=== PATIENT | female | born 1940 | race Caucasian/White ===

== ENCOUNTER 2020-03-29 17:02 | Emergency (ER) | payer MEDICARE, OTHER, SELFPAY ==
[2020-03-29] VITALS (17 sets, daily range): BP systolic 132–217; BP diastolic 69–123; PULSE 48–67; RESP 14–22; TEMP 36.6; O2SAT 94–99; BMI 29.8
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
[2020-03-29] MEDS: fentaNYL 50 mcg/mL INJ 2mL IVP (17:42)
[2020-03-29] MEDS: ondansetron 2 mg/ML SDV 2 mL 4 MG IVP (17:42)
[2020-03-29] MEDS: tetanus-dipt-pertussis 0.5 mL SDV IM (17:45)
[2020-03-29] MEDS: iodixanol 320 mg/mL 100mL Btl IV (17:55)
[2020-03-29 18:36] LABS: Basophils % 0.3 %; Eosinophils # 0.1 10^3/uL (0.0-0.8); Hematocrit 48.7 % (37.0-47.0); Hemoglobin 15.2 g/dL (11.5-15.3); Lymphocytes # 1.5 10^3/uL (0.8-4.8); Lymphocytes % 12.3 %; Mean Corpuscular HGB Conc 31.2 g/dL (30.0-36.0); Mean Corpuscular Hemoglobin 28.7 pg (28.0-34.0); Mean Corpuscular Volume 91.9 fL (81-99); Mean Platelet Volume 9.8 fL (7.4-10.4); Monocytes # 0.9 10^3/uL (0.2-0.9); Monocytes % 7.4 %; Neutrophils # 9.6 10^3/uL (1.8-7.7); Neutrophils % 78.3 %; Nucleated Red Blood Cells % 0 %; Platelet Count 171 10^3/cmm (130-400); Red Cell Distribution Width 13.1 % (12.1-15.1); White Blood Count 12.2 10^3/uL (4.0-10.0)
[2020-03-29 18:38] LABS: Add Urine Microscopic? NO
[2020-03-29 18:50] LABS: Bilirubin Urine Neg (NEGATIVE); Blood Urine Neg (Negative); Glucose Urine UA Norm (Normal); Ketones Urine Negative (Negative); Leukocyte Esterase Urine Negative (Negative); Nitrate Urine Negative (Negative); Protein Urine Neg (Negative); Specific Gravity, Urine 1.005 (1.005-1.030); Urine Appearance Clear (CLEAR); Urine Color Yellow (Yellow); Urobilinogen Urine Norm (Negative); pH Urine 6.5 (5-7)
[2020-03-29 18:58] LABS: Alanine Aminotransferase 19 U/L (0-33); Albumin Level 4.3 g/dL (3.5-5.2); Alkaline Phosphatase 71 IU/L (35-105); Anion Gap 15.9 (5-19); Blood Urea Nitrogen 22 mg/dL (8-23); Calcium 10.8 mg/dL (8.5-10.5); Carbon Dioxide 21 mmol/L (22-29); Chloride 103 mmol/L (98-107); Globulin 2.7 g/dL (1.3-4.6); Glucose 105 mg/dL (65-115); Osmolality Calculated 277 mOsm/kg (285-295); Potassium 4.9 mmol/L (3.5-5.1); Sodium 135 mmol/L (136-145); Total Bilirubin 0.5 mg/dL (0.15-1.2)
--- NOTE | 2020-03-29 18:59 | PC.NURSE ---
Gave bedside report to Shanika. Answered all questions.
[2020-03-29 19:02] LABS: Aspartate Amino Transferase 27 U/L (0-32)
[2020-03-29] MEDS: HYDROmorphone 1 mg/mL INJ 1 mL IVP (21:16)
== END 2020-03-29 23:26 | disposition other institution (70) ==
PROVIDERS: Family Medicine; Emergency Provider Emergency Medicine; PCP Family Medicine
DX: S22.22XA Fracture of body of sternum, initial encounter for closed fracture (principal); S02.5XXA Fracture of tooth (traumatic), initial encounter for closed fracture; V47.5XXA Car driver injured in collision with fixed or stationary object in traffic accident, initial encounter; I48.91 Unspecified atrial fibrillation; Z09 Encounter for follow-up examination after completed treatment for conditions other than malignant neoplasm; Z86.73 Personal history of transient ischemic attack (TIA), and cerebral infarction without residual deficits; E78.5 Hyperlipidemia, unspecified; I10 Essential (primary) hypertension; Z23 Encounter for immunization
CPT/HCPCS: 12345; 36415; 51702; 70450; 70486; 71260; 72125; 80053; 81003; 85025; 90471; 90715; 96374; 96375; 99283; 99285; J1170; J2405; J3010; Q9967

== ENCOUNTER 2020-05-29 16:10 | Emergency (ER) | payer MEDICARE, OTHER, SELFPAY ==
[2020-05-29 16:18] VITALS: BP 171/91; PULSE 70; RESP 18; TEMP 36.8; O2SAT 96; BMI 29.0
--- NOTE | 2020-05-29 17:30 | ECG_ITS ---
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 Measurements Intervals Patterson Rate: 60 P: 64 NJ: 147 QRS: 10 QRSD: 88 T: 30 QT: 420 QTc: 422 Interpretive Statements SINUS RHYTHM WITH SINUS ARRHYTHMIA POSSIBLE INFERIOR MYOCARDIAL INFARCTION , PROBABLY OLD [30 ms Q WAVE IN II/aVF] Compared to ECG 10/23/2018 01:27:44 Myocardial infarct finding now present Electronically Signed On 05-30-2020 19:16:00 CDT by Dolly Tripp M.D. [id number]
--- NOTE | 2020-05-29 17:30 | CTR_ITS ---
PROCEDURE INFORMATION: Exam: CT Head Without Contrast Exam date and time: 05/29/2020 5:33 PM Age: 80 years old Clinical indication: Numbness / parasthesia; Left; Additional info: TIA TECHNIQUE: Imaging protocol: Computed tomography of the head without contrast. Radiation optimization: All CT scans at this facility use at least one of these dose optimization techniques: automated exposure control; mA and/or kV adjustment per patient size (includes targeted exams where dose is matched to clinical indication); or iterative reconstruction. COMPARISON: CT head wo con* [id number] 03/29/2020 5:42 PM FINDINGS: Brain: [id number] generalized cerebral and cerebellar atrophy, unchanged. Chronic left basal ganglion region lacunar infarctions, unchanged. Probable small pontine lacunar infarction, unchanged. Moderate amount of cerebral hemisphere subcortical and periventricular white matter low-density which appears chronic and unchanged. 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 The right frontal region hygroma now contains some higher density blood but has not significantly enlarged and again there is no significant mass effect. Ventricles: Normal. No ventriculomegaly. Bones/joints: Unremarkable. No acute fracture. Sinuses: Visualized sinuses are unremarkable. No fluid levels. Mastoid air cells: Visualized mastoid air cells are well aerated. Soft tissues: Unremarkable. 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 The right frontal region hygroma now contains some higher density blood but has not significantly enlarged and again there is no significant mass effect. 2.) Atrophy and old lacunar disease, unchanged. Radiation Dose CTDIVOL = (mGy): DLP = 689.11 (mGy-cm)
[2020-05-29 17:43] LABS: Basophils # 0.1 10^3/uL (0.0-0.1); Basophils % 0.5 %; Eosinophils # 0.3 10^3/uL (0.0-0.8); Eosinophils % 3.2 %; Hematocrit 46.3 % (37.0-47.0); Hemoglobin 14.7 g/dL (11.5-15.3); Lymphocytes # 2.1 10^3/uL (0.8-4.8); Mean Corpuscular HGB Conc 31.7 g/dL (30.0-36.0); Mean Corpuscular Hemoglobin 27.5 pg (28.0-34.0); Mean Corpuscular Volume 86.5 fL (81-99); Mean Platelet Volume 9.7 fL (7.4-10.4); Monocytes # 0.9 10^3/uL (0.2-0.9); Monocytes % 9.3 %; Neutrophils # 5.93 10^3/uL (1.8-7.7); Neutrophils % 63.7 %; Nucleated Red Blood Cells % 0 %; Platelet Count 233 10^3/cmm (130-400); Red Blood Count 5.35 10^6/uL (4.1-5.3); Red Cell Distribution Width 13.2 % (12.1-15.1); White Blood Count 9.3 10^3/uL (4.0-10.0)
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
[2020-05-29 18:03] VITALS: BP 155/88; PULSE 66; RESP 18; O2SAT 97
[2020-05-29 18:03] LABS: Alanine Aminotransferase 16 U/L (0-33); Albumin Level 4.2 g/dL (3.5-5.2); Alkaline Phosphatase 93 IU/L (35-105); Anion Gap 15.4 (5-19); Aspartate Amino Transferase 19 U/L (0-32); Blood Urea Nitrogen 20 mg/dL (8-23); Calcium 10.6 mg/dL (8.5-10.5); Carbon Dioxide 23 mmol/L (22-29); Chloride 106 mmol/L (98-107); Globulin 2.8 g/dL (1.3-4.6); Glucose 114 mg/dL (65-115); Osmolality Calculated 287 mOsm/kg (285-295); Potassium 4.4 mmol/L (3.5-5.1); Sodium 140 mmol/L (136-145); Total Bilirubin 0.3 mg/dL (0.15-1.2)
[2020-05-29 18:05] LABS: Add Urine Microscopic? NO
[2020-05-29 18:31] LABS: Urine Appearance Clear (CLEAR); Urine Color Yellow (Yellow); pH Urine 8 (5-7)
[2020-05-29 18:32] LABS: Bilirubin Urine Neg (NEGATIVE); Blood Urine Neg (Negative); Glucose Urine UA Norm (Normal); Ketones Urine Negative (Negative); Leukocyte Esterase Urine Negative (Negative); Nitrate Urine Negative (Negative); Protein Urine Neg (Negative); Urobilinogen Urine Norm (Negative)
[2020-05-29 20:31] VITALS: BP 143/79; PULSE 54; RESP 16; O2SAT 98
[2020-05-29 21:30] VITALS: BP 164/90; PULSE 68; RESP 20; O2SAT 95
[2020-05-29 22:30] VITALS: BP 144/87; PULSE 63; RESP 13; O2SAT 96
[2020-05-29 23:38] VITALS: BP 139/82; PULSE 63; RESP 19; O2SAT 96
[2020-05-30] VITALS (10 sets, daily range): BP systolic 100–161; BP diastolic 60–118; PULSE 52–79; RESP 16–22; O2SAT 95–99
--- NOTE | 2020-05-30 00:32 | PC.NURSE ---
pt daughter [phone]
--- NOTE | 2020-05-30 03:26 | PC.NURSE ---
Pt ambulated to bathroom with walker with ED staff assistance
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
--- NOTE | 2020-05-30 05:14 | PC.NURSE ---
Per Dr Hare, pt still wishes to wait for a bed @ [facility]
--- NOTE | 2020-05-30 06:07 | PC.NURSE ---
Pt ambulated to bathroom with walker with ED staff assistance
[2020-05-30] MEDS: spironolactone 25 mg Tablet PO (08:38)
--- NOTE | 2020-05-30 09:07 | PC.NURSE ---
[facility] single line referral spoke with Angelika at 0904 who stated they did not have a bed available for the patient at this time due to pending discharges and 28 patients of their own ER awaiting room placement as well.
== END 2020-05-30 13:20 | disposition other institution (70) ==
PROVIDERS: Emergency Provider Emergency Medicine; PCP Family Medicine
DX: R20.0 Anesthesia of skin (principal); H53.8 Other visual disturbances; Z79.82 Long term (current) use of aspirin; I48.91 Unspecified atrial fibrillation; Z86.73 Personal history of transient ischemic attack (TIA), and cerebral infarction without residual deficits; E78.5 Hyperlipidemia, unspecified; I10 Essential (primary) hypertension
CPT/HCPCS: 12345; 70450; 80053; 81003; 85025; 93005; 96374; 99283; 99285; J0131

== ENCOUNTER 2020-07-04 15:05 | Outpatient (CLI) | payer MEDICARE, OTHER, SELFPAY ==
--- NOTE | 2020-07-04 15:14 | CT_ITS ---
WS: [id number] CT HEAD TECHNIQUE: Noncontrast CT of the head obtained from the skullbase to the vertex. CLINICAL INFORMATION: SUBDURAL HEMATOMA COMPARISON: CT May 29, 2020 DLP: 925.[address] scans at [facility] use at least one of these dose optimization techniques: automat ed exposure control; mA and/or kV adjustment per patient size (includes targeted exams where dose is matched to clinical indication); or iterative reconstruction. FINDINGS: Previously described acute on chronic right subdural hematoma has essentially resolved. Tiny amount o f residual blood products in the right. No new or progressive hemorrhage. Stable small bilateral fron mari subdural hygromas. No mass effect. No hydrocephalus. Moderate to advanced small vessel changes. Chronic lacunar infarcts in the basal ganglia and caudate. Chronic lacunar infarcts in the leslie. Incidental cavum septum pellucidum and vergae. Paranasal sinuses and mastoid air cells are well aerated. . Mild mucosal thickening right mastoid air cells. CT/CT head wo con* [id number] IMPRESSION: 1. Previously described acute on chronic right subdural hematoma has essential ly resolved. Tiny trace of resolving subdural blood products. 2. Otherwise stable bilateral subdural hygromas. 3. Moderate to advanced small vessel changes with moderate parenchymal volume loss. 4. Multiple chronic lacunar infarcts described above. .
== END 2020-07-04 15:06 | disposition home or self-care (01) ==
LOC: RADWPI 15:11
PROVIDERS: Family Provider Family Medicine; PCP Family Medicine; Visit Provider Neurological Surgery
DX: S06.5X9A Traumatic subdural hemorrhage with loss of consciousness of unspecified duration, initial encounter (principal); X58.XXXA Exposure to other specified factors, initial encounter; G96.0 Cerebrospinal fluid leak
CPT/HCPCS: 70450

== ENCOUNTER → 2021-02-05 13:29 | Outpatient (BNVA) | payer MEDICARE, OTHER, SELFPAY | PROVIDERS: Family Provider Family Medicine; PCP Family Medicine; Visit Provider Nurse Practitioner Family | DX: Z20.822 Contact with and (suspected) exposure to COVID-19 (principal) | CPT/HCPCS: 87635 ==

== ENCOUNTER 2021-06-29 14:25 | Outpatient (CLI) | payer MEDICARE, OTHER, SELFPAY ==
[2021-06-29 15:36] LABS: Basophils # 0.1 10^3/uL (0.0-0.1); Basophils % 0.9 %; Eosinophils # 0.2 10^3/uL (0.0-0.8); Eosinophils % 3.7 %; Hematocrit 47.3 % (37.0-47.0); Hemoglobin 15.3 g/dL (11.5-15.3); Lymphocytes # 1.9 10^3/uL (0.8-4.8); Lymphocytes % 29.4 %; Mean Corpuscular HGB Conc 32.3 g/dL (30.0-36.0); Mean Corpuscular Volume 86.6 fl (81-99); Mean Platelet Volume 9.8 fL (7.4-10.4); Monocytes # 0.7 10^3/uL (0.2-0.9); Monocytes % 10.9 %; Neutrophils # 3.57 10^3/uL (1.8-7.7); Neutrophils % 54.9 %; Nucleated Red Blood Cells % 0 %; Platelet Count 210 10^3/cmm (130-400); Red Blood Count 5.46 10^6/uL (4.1-5.3); Red Cell Distribution Width 13.4 % (12.1-15.1); White Blood Count 6.5 10^3/uL (4.0-10.0)
[2021-06-29 16:10] LABS: Alanine Aminotransferase 14 U/L (0-33); Albumin Level 3.9 g/dL (3.5-5.2); Alkaline Phosphatase 73 IU/L (35-105); Aspartate Amino Transferase 18 U/L (0-32); Blood Urea Nitrogen 23 mg/dL (8-23); Calcium 9.7 mg/dL (8.5-10.5); Carbon Dioxide 21 mmol/L (22-29); Chloride 106 mmol/L (98-107); Globulin 2.8 g/dL (1.3-4.6); Glucose 89 mg/dL (65-115); Osmolality Calculated 289 mOsm/kg (285-295); Sodium 138 mmol/L (136-145); Total Bilirubin 0.4 mg/dL (0.15-1.2); Total Protein 6.7 g/dL (6.6-8.7)
[2021-06-29 16:36] LABS: Hepatitis A Antibody IgM Non-Reactive (Nonreactive); Hepatitis B Core AB, Total Non-Reactive (Nonreactive); Hepatitis B Surface AB 3.5 (11.5-1000); Hepatitis B Surface Antigen Non-Reactive (Nonreactive); Hepatitis C Virus Antibody Non-Reactive (Nonreactive)
[2021-06-29 17:11] LABS: HIV 1 & 2 Antibody Non-Reactive (Non-Reactiv); HIV 1 & 2 Antigen Non-Reactive (Non-Reactiv)
[2021-07-03 15:56] LABS: Quantiferon Mitogen >10.00 IU/mL; Quantiferon Nil 0.03 IU/mL; Quantiferon TB Gold NEGATIVE (NEGATIVE)
== END 2021-06-29 14:26 | disposition home or self-care (01) ==
PROVIDERS: PCP Family Medicine; Visit Provider Dermatology
DX: L40.9 Psoriasis, unspecified (principal); Z79.899 Other long term (current) drug therapy
CPT/HCPCS: 36415; 80053; 85025; 86480; 86705; 86706; 86709; 86803; 87340; 87806

== ENCOUNTER → 2022-02-06 14:03 | Outpatient (BNVA) | payer MEDICARE, OTHER, SELFPAY | PROVIDERS: PCP Family Medicine; Visit Provider Internal Medicine Cardiovascular Disease | DX: E78.2 Mixed hyperlipidemia (principal); Z86.73 Personal history of transient ischemic attack (TIA), and cerebral infarction without residual deficits; I10 Essential (primary) hypertension; I49.8 Other specified cardiac arrhythmias | CPT/HCPCS: 99214 ==

== ENCOUNTER 2022-04-27 10:35 | Emergency (ER) | payer MEDICARE, OTHER, SELFPAY ==
[2022-04-27] VITALS (7 sets, daily range): BP systolic 135–241; BP diastolic 72–101; PULSE 55–76; RESP 15–18; TEMP 36.6; O2SAT 95–99; BMI 29.0
--- NOTE | 2022-04-27 10:58 | ED_ITS ---
HPI - General Adult General: Chief complaint: General Medical Stated complaint: sent to ER per Louis Barrera/possible stroke Time Seen by Provider: 04/27/22 10:56 Source: patient and family (Daughter) Mode of arrival: ambulatory Limitations: no limitations History of Present Illness: This patient was directed to the emergency department from local urgent care clinic. She states that sometime around 8:00 or thereabouts yesterday morning she noted her right hand seem to feel funny and like it was asleep. She states it felt as if she had lied on her hand or arm all night. She had been up for period of time when she noted this. She also noted that her back right backside of her lower leg had the same sensation. She states the symptoms have persisted since she has noted them yesterday morning. She stated that she has had no weakness she is able to do all the normal things she does without any difficulty. There is been no speech difficulty. She has had no headache or pain anywhere. She has history of having several small nonhemorrhagic strokes according to her the last one approximately 1 year ago. He states she was left with some memory deficits but that has has improved somewhat. She denies any recent injuries falls or trauma. She states she does not take any blood thinning medication or antiplatelet medication including aspirin. It is unclear why she is not. She states she did take Eliquis for period of time after her event last year but does not take it anymore. She does relate that she has a history of atrial fibrillation which is intermittent at times. She also has high blood pressure and she states she has been following her blood pressure under the direction of cardiology and is noted its been elevated recently but has not made any change in her medications. She denies any other constitutional complaints at this time fevers chills cough runny nose sore throat etc. Onset (ago): day(s) Associated symptoms: Reports no associated symptoms; Deny chest pain, dyspnea, headache(s), nausea, rash, palpitations or vomiting Review of Systems Const: Denies: fever(s) or chills Eyes: Denies: change in vision or blurry vision ENMT: Denies: throat pain, odynophagia, change in hearing or disequilibrium Card: Denies: chest pain, palpitations or irregular heart rhythm Resp: Denies: dyspnea, productive cough or non-productive cough GI: Denies: abdominal pain, nausea or vomiting : Denies: flank pain, difficulty voiding, dysuria or urinary frequency Musc: Denies: neck pain, back pain, extremity pain or extremity swelling Skin/Breast: Denies: rash Neuro: Reports: numbness in extremities and sensory changes; Denies: headache(s), weakness in extremities, lack of coordination, difficulty walking, dizziness, vertigo or Slurred speech present Psych: Denies: anxiety Endo: Denies: polyuria or polydipsia Shawn/Lymph: Reports: easy bruising PFSH ED PFSH: Medical History Arrhythmia Atrial fibrillation CVA (cerebral vascular accident) Hyperlipidemia Hypertension Hyperthyroidism Lumbar radiculopathy Osteoarthritis Psoriasis Raynaud's syndrome Surgical History H/O hernia repair H/O: hysterectomy History of appendectomy History of bladder repair surgery History of knee replacement Hx of cataract extraction Family History Father CAD (coronary artery disease) Stroke Mother CAD (coronary artery disease) Stroke Cancer Family/Other Cancer Daughter Lung disease Other Hyperlipidemia Hypertension Denies family history of Diabetes Clotting disorder Dementia Chronic kidney disease (CKD) Suicide Anesthesia complication Bleeding disorder Social History Smoking and tobacco status: never smoked Alcohol intake: never Physical Exam Narrative: EXAM NARRATIVE: The patient appears to be in no acute distress. She is cooperative. She is alert. Const: COMMON NORMALS: no acute distress, patient oriented x3 and healthy appearing GENERAL APPEARANCE: cooperative HENMT: COMMON NORMALS: normocephalic, atraumatic, Normal nasal mucous membranes and turbinates present and moist oral mucous membranes HEAD & SCALP: normocephalic and atraumatic; no scalp tenderness and no Temporal artery tenderness present FACE & SINUS: normal facial exam and face symmetric NOSE: Normal nasal mucous membranes and turbinates present Eye: COMMON NORMALS: Equal, round and reactive pupils present, EOMs intact bilaterally, conjunctivae normal and normal visual altman by confrontation CONJUNCTIVA: Yes conjunctivae normal PUPIL: Yes Equal, round and reactive pupils present Neck/C-Spine: COMMON NORMALS: full ROM, supple, no JVD, Thyroid normal and No carotid bruits THYROID: Thyroid normal Resp: COMMON NORMALS: normal respiratory effort, No use of accessory muscles and clear to auscultation bilaterally AUSCULTATION: clear to auscultation bilaterally Cardio: COMMON NORMALS: no JVD, regular rate, regular rhythm, No murmurs present (Cardio) and Peripheral pulses 2+ throughout RATE: regular rate RHYTHM: regular rhythm PERIPHERAL PULSES: Peripheral pulses 2+ throughout GI: COMMON NORMALS: Normal to inspection, nondistended, normoactive bowel sounds present, Soft to palpation and non-tender PALPATION: Yes Soft to p alpation Back/Pelvis: COMMON NORMALS: thoracic and lumbar spine normal to inspection, no thoracic nor lumbar tenderness, thoraco-lumbar ROM normal and straight leg raise negative bilaterally Extremity: COMMON NORMALS: normal to inspection, full ROM, capillary refill normal, no clubbing, cyanosis or edema, no calf tenderness and no pedal edema Neuro: COMMON NORMALS: patient oriented x3 CRANIAL NERVES: Yes CN normal except as noted COORDINATION/BALANCE: [id number]-[id number] test normal and barj-sc-[id number] test normal SPEECH: speech normal GAIT: Yes Normal gait present SENSORY EXAM: Yes extremities (Subjective altered sensation to touch right hand as well as the right later) MOTOR EXAM: 5/5 motor strength present throughout COORDINATION: [id number]-[id number] test normal and kjjy-te-pwnl test normal OTHER: My NIH score presentation is currently at 1. Psych: COMMON NORMALS: mental status grossly normal Skin: COMMON NORMALS: no rashes or lesions noted and no wounds GENERAL SKIN EXAM: no rashes or lesions noted Course Reevaluation(s): Reevaluation #1: At this time patient's not a candidate for consideration for thrombolytic therapy given her low NIH score as well as her blood pressure and time since onset. We will going proceed with usual stroke evaluation. Reevaluation #2: Noncontrast CT is reassuring without any evidence of acute hemorrhage or obvious anterior cranial changes at this time. We will go ahead and give her 324 of aspirin. Time: 12:32 Reevaluation #3: Pressure not responsive to po meds. Will initiate nicardipine infusion. Time: 13:22 Additional Reevaluation(s): She has responded well to the nicardipine and her pressure is well controlled we are titrating downward. We will try to determine whether we can transition her to a p.o. calcium channel denis or that she will require further observation. Neurologically she is stable at this point. I think her blood pressure may been a factor in her symptoms over the past 24 hours. Vital Signs: Vital signs: Vital Signs Temperature 97.8 F 04/27/22 10:38 Pulse Rate 60 04/27/22 14:54 Respiratory Rate 18 04/27/22 14:54 Blood Pressure 135/72 04/27/22 14:54 Pulse Oximetry 95 04/27/22 14:54 MDM - General Adult Medical Decision Making Patient had a history of having some paresthesias in her right hand and right lateral leg of greater than 24 hours duration when she presented to the e mergency department. No other focal deficits noted. She does have a history of similar symptoms in the past without any significant deficits. She also has a history of hypertension and has been per her history poorly controlled over the past number of weeks. Her evaluation here revealed a NIH of [address] scan which was reassuring for no acute hemorrhage etc. but did show chronic microvascular changes. She is not a candidate for thrombolytic therapy consideration given the duration of minimal symptoms and uncontrolled hypertension. Her blood pressure remained elevated despite interventions here until a nicardipine drip was used. She responded well to this infusion. She is clinically stable without any ongoing issues. Likely her uncontrolled hypertension is the etiology to her neurologic symptoms. Her preference is to be discharged home at this time. Our plan will be to add amlodipine 5 mg to her regimen of Bystolic. She is already has bradycardic rate so we cannot push her beta-denis any higher. She will be followed up by her doctor in the next 7 to 10 days. We also discussed return precautions. She responded well to the nicardipine without any side effects seen therefore I think it is reasonable to give her a trial on the amlodipine. We will also have her restart her aspirin. She does not take any antiplatelet agents. She is not displayed any evidence of atrial fibrillation while in the emergency department so I do not feel compelled to start her on a DOAC at this time but this will need to be followed. Medical Records I reviewed the patient's medical records. Lab Data I reviewed the patient's lab results. : 04/27/22 13:53 04/27/22 13:[address] 04/27/22 11:15 IMPRESSION: 1. No evidence of hemorrhage or territorial infarct on noncontrast CT. 2. Chronic microvascular ischemic changes and atrophy again noted. Laboratory Results WBC 6.5 10^3/uL (4.0-10.0) 04/27/22 13:53 RBC 5.62 10^6/uL (4.1-5.3) H 04/27/22 13:53 Hgb 15.9 g/dL (11.5-15.3) H 04/27/22 13:53 Hct 46.1 % (37.0-47.0) 04/27/22 13:53 MCV 82.0 fl (81-99) 04/27/22 13:53 MCH 28.3 pg (28.0-34.0) 04/27/22 13:53 MCHC 34.5 g/dL (30.0-36.0) 04/27/22 13:53 RDW 13.4 % (12.1-15.1) 04/27/22 13:53 Plt Count 201 10^3/cmm (130-400) 04/27/22 13:53 MPV 9.9 fL (7.4-10.4) 04/27/22 13:53 Neut % (Auto) 48.7 % 04/27/22 13:53 Lymph % (Auto) 33.8 % 04/27/22 13:53 [place] % (Auto) 11.3 % 04/27/22 13:53 Eos % (Auto) 5.1 % 04/27/22 13:53 Baso % (Auto) 0.9 % 04/27/22 13:53 Neut # (Auto) 3.18 10^3/uL (1.8-7.7) 04/27/22 13:53 Lymph # (Auto) 2.2 10^3/uL (0.8-4.8) 04/27/22 13:53 [place] # (Auto) 0.7 10^3/uL (0.2-0.9) 04/27/22 13:53 Eos # (Auto) 0.3 10^3/uL (0.0-0.8) 04/27/22 13:53 Baso # (Auto) 0.1 10^3/uL (0.0-0.1) 04/27/22 13:53 Nucleated RBC % (auto) 0 % 04/27/22 13:53 Nucleated RBCs # 0.0 /100WBC 04/27/22 13:53 ESR 1 mm/hr (0-15) 04/27/22 13:53 PT 13.50 SECONDS (12.1-14.9) 04/27/22 13:53 INR 1.00 (0.8-1.2) 04/27/22 13:53 APTT 28.5 SECONDS (23.9-36.7) 04/27/22 13:53 Sodium 137 mmol/L (136-145) 04/27/22 13:53 Potassium 4.5 mmol/L (3.5-5.1) 04/27/22 13:53 Chloride 103 mmol/L (98-107) 04/27/22 13:53 Carbon Dioxide 19 mmol/L (22-29) L 04/27/22 13:53 Anion Gap 19.5 (5-19) H 04/27/22 13:53 BUN 15 mg/dL (8-23) 04/27/22 13:53 Creatinine 0.6 mg/dL (0.5-0.9) 04/27/22 13:53 GFR Calculation Not Reportable 04/27/22 13:53 Glucose 90 mg/dL (65-115) 04/27/22 13:53 POC Glucose 98 mg/dL (70-110) 04/27/22 11:23 Calculated Osmolality 284 mOsm/kg (285-295) L 04/27/22 13:53 Calcium 10.2 mg/dL (8.5-10.5) 04/27/22 13:53 Total Bilirubin 0.7 mg/dL (0.15-1.2) 04/27/22 13:53 AST 21 U/L (0-32) 04/27/22 13:53 ALT 15 U/L (0-33) 04/27/22 13:53 Alkaline Phosphatase 88 IU/L (35-105) 04/27/22 13:53 Total Protein 7.4 g/dL (6.6-8.7) 04/27/22 13:53 Albumin 4.0 g/dL (3.5-5.2) 04/27/22 13:53 Globulin 3.4 g/dL (1.3-4.6) 04/27/22 13:53 Urine Color Yellow (Yellow) 04/27/22 11:09 Urine Appearance Clear (CLEAR) 04/27/22 11:09 Urine pH 6 (5-7) 04/27/22 11:09 Ur Specific [place] 1.030 (1.005-1.030) 04/27/22 11:09 Urine Protein Neg (Negative) 04/27/22 11:09 Urine Glucose (UA) Norm (Normal) 04/27/22 11:09 Urine Ketones Negative (Negative) 04/27/22 11:09 Urine Blood Neg (Negative) 04/27/22 11:09 Urine Nitrate Negative (Negative) 04/27/22 11:09 Urine Bilirubin Neg (Negative) 04/27/22 11:09 Urine Urobilinogen Norm mg/dL (Negative) 04/27/22 11:09 Ur Leukocyte Esterase Negative (Negative) 04/27/22 11:09 EKG Data EKG 1: EKG interpretation time: 11:35 Interpretation: She has a ventricular rate of 52 bpm consistent with sinus bradycardia. No ST-T wave changes noted. Normal intervals normal axis. There are Q waves noted on prior EKG and May 2020 are no longer present. Computer generated interpretation: Head CT 04/27/22 11:15 IMPRESSION: 1. No evidence of hemorrhage or territorial infarct on noncontrast CT. 2. Chronic microvascular ischemic changes and atrophy again noted. Discharge Plan Discharge Clinical Impression: Uncontrolled hypertension Condition: Stable Prescriptions: No Action Bystolic 20 mg tablet 20 mg PO QAM 0RF loratadine [Claritin] 10 mg tablet 10 mg PO DAILY PRN (Reason: Allergy Symptoms) 0RF ketoconazole 2 % shampoo 1 applic topical .2 x weekly Qty: 120 3RF Rx Instructions: Lather into scalp 2 times weekly. Allow to sit on scalp for 5 minutes before rinsing. acetaminophen [Tylenol Extra Strength] 500 mg tablet 500 mg PO BEDTIME 0RF Aspir-81 81 mg Tablet,Delayed Release (Dr/Ec) 162 mg PO .ONCE 0RF clobetasol 0.05 % ointment 1 applic topical BID PRN (Reason: unknown) 0RF Rx Instructions: to affected areas on body no more than 3 wks/mo clobetasol 0.05 % solution 1 applic topical DAILY PRN (Reason: unknown) 0RF Rx Instructions: to scalp Humira(CF) Pen 40 mg/0.4 mL pen injector kit 40 mg SUBCUT Q14D 0RF Referrals: Wilson Garcia MD [Primary Care Provider] - 2 weeks (follow up on uncontrolled hypertension) Coding Level of Care Code ED Medical Screener for Chg Fwd Exam Comprehensive
--- NOTE | 2022-04-27 11:15 | ECG_ITS ---
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 Measurements Intervals [place] Rate: 52 P: 61 WI: 155 QRS: 66 QRSD: 94 T: 55 QT: 458 QTc: 428 Interpretive Statements SINUS BRADYCARDIA Poor R wave progression Compared to ECG 05/29/2020 17:59:26 Sinus rhythm no longer present Sinus arrhythmia no longer present Myocardial infarct finding no longer present Electronically Signed On 04-27-2022 19:02:49 CDT by Rickie Walton M.D. [email or web address]
--- NOTE | 2022-04-27 11:15 | CTR_ITS ---
PROCEDURE INFORMATION: Exam: CT Head Without Contrast Exam date and time: 04/27/2022 11:37 AM Age: 82 years old Clinical indication: Weakness, extremity; Right; Additional info: Symptoms of acute stroke TECHNIQUE: Imaging protocol: Computed tomography of the head without contrast. Radiation optimization: All CT scans at this facility use at least one of these dose optimization techniques: automated exposure control; mA and/or kV adjustment per patient size (includes targeted exams where dose is matched to clinical indication); or iterative reconstruction. COMPARISON: CT head wo con* [id number] 07/04/2020 3:57 PM RADIATION DOSE METRICS: Total DLP (mGy-cm): 692.92 FINDINGS: Brain: No intracranial hemorrhage. Age related cerebral and cerebellar atrophy again noted. There is again extensive patchy decreased attenuation of the periventricular white matter, nonspecific but consistent with chronic microvascular ischemia. There are several chronic subcentimeter lacunar infarcts within the left basal ganglia as well as right leslie, unchanged. No evidence of territorial infarct. No abnormal mass effect or midline shift. Small bilateral frontal hygromas are unchanged. Cerebral ventricles: Cavum septum pellucidum et vergae. No hydrocephalus. Paranasal sinuses: Visualized sinuses are unremarkable. No fluid levels. Mastoid air cells: Visualized mastoid air cells are well aerated. Bones/joints: No acute fracture. Soft tissues: Unremarkable. CT/CT head wo con* [id number] IMPRESSION: 1. No evidence of hemorrhage or territorial infarct on noncontrast CT. 2. Chronic microvascular ischemic changes and atrophy again noted.
[2022-04-27 11:32] LABS: Glucose Point of Care 98 mg/dL (70-110)
[2022-04-27 11:35] LABS: Add Urine Microscopic? NO; Charge for UA Resulting for Rev
[2022-04-27 11:57] LABS: Urine Appearance Clear (CLEAR); Urine Color Yellow (Yellow)
[2022-04-27 11:58] LABS: Bilirubin Urine Neg (Negative); Blood Urine Neg (Negative); Glucose Urine UA Norm (Normal); Ketones Urine Negative (Negative); Leukocyte Esterase Urine Negative (Negative); Nitrate Urine Negative (Negative); Protein Urine Neg (Negative); Urobilinogen Urine Norm (Negative); pH Urine 6 (5-7)
[2022-04-27] MEDS: aspirin 81 mg Chew Tablet 324 MG PO (12:46)
[2022-04-27] MEDS: cloNIDine 0.1 mg Tablet PO (13:02)
[2022-04-27] MEDS: nicardipine 20 MG/200 ML PREMIX 50 MG IV (13:40)
[2022-04-27 14:02] LABS: Basophils # 0.1 10^3/uL (0.0-0.1); Basophils % 0.9 %; Eosinophils # 0.3 10^3/uL (0.0-0.8); Eosinophils % 5.1 %; Hematocrit 46.1 % (37.0-47.0); Hemoglobin 15.9 g/dL (11.5-15.3); Lymphocytes # 2.2 10^3/uL (0.8-4.8); Lymphocytes % 33.8 %; Mean Corpuscular HGB Conc 34.5 g/dL (30.0-36.0); Mean Corpuscular Hemoglobin 28.3 pg (28.0-34.0); Mean Platelet Volume 9.9 fL (7.4-10.4); Monocytes # 0.7 10^3/uL (0.2-0.9); Monocytes % 11.3 %; Neutrophils # 3.18 10^3/uL (1.8-7.7); Neutrophils % 48.7 %; Nucleated Red Blood Cells % 0 %; Platelet Count 201 10^3/cmm (130-400); Red Blood Count 5.62 10^6/uL (4.1-5.3); Red Cell Distribution Width 13.4 % (12.1-15.1); White Blood Count 6.5 10^3/uL (4.0-10.0)
[2022-04-27 14:07] LABS: Erythrocyte Sedimentation Rate 1 mm/hr (0-15)
[2022-04-27 14:25] LABS: Partial Thromboplastin Time 28.5 SECONDS (23.9-36.7)
[2022-04-27 14:34] LABS: Alanine Aminotransferase 15 U/L (0-33); Alkaline Phosphatase 88 IU/L (35-105); Anion Gap 19.5 (5-19); Aspartate Amino Transferase 21 U/L (0-32); Blood Urea Nitrogen 15 mg/dL (8-23); Calcium 10.2 mg/dL (8.5-10.5); Carbon Dioxide 19 mmol/L (22-29); Chloride 103 mmol/L (98-107); Globulin 3.4 g/dL (1.3-4.6); Glucose 90 mg/dL (65-115); Osmolality Calculated 284 mOsm/kg (285-295); Potassium 4.5 mmol/L (3.5-5.1); Sodium 137 mmol/L (136-145); Total Bilirubin 0.7 mg/dL (0.15-1.2); Total Protein 7.4 g/dL (6.6-8.7)
[2022-04-27] MEDS: amlodipine 5 mg Tablet PO (14:43)
--- NOTE | 2022-04-27 14:45 | PC.NURSE ---
Cardene was stopped at 1440 and amlodipine was given BP was 129/79
== END 2022-04-27 15:35 | disposition home or self-care (01) ==
PROVIDERS: Emergency Provider Emergency Medicine; PCP Family Medicine
DX: I10 Essential (primary) hypertension (principal); R20.0 Anesthesia of skin; I48.91 Unspecified atrial fibrillation; Z86.73 Personal history of transient ischemic attack (TIA), and cerebral infarction without residual deficits
CPT/HCPCS: 36415; 36416; 70450; 80053; 81003; 82962; 85025; 85610; 85651; 85730; 93005; 96374; 99285

== ENCOUNTER 2022-05-14 19:23 | Emergency (ER) | payer MEDICARE, OTHER, SELFPAY ==
--- NOTE | 2022-05-14 19:25 | XRR_ITS ---
PROCEDURE INFORMATION: Exam: XR Chest Exam date and time: 05/14/2022 7:57 PM Age: 82 years old Clinical indication: Shortness of breath; Patient HX: C/O SOB. Covid + TECHNIQUE: Imaging protocol: Radiologic exam of the chest. Views: 1 view. COMPARISON: CT chest w con* [id number] 03/29/2020 5:51 PM FINDINGS: Lungs: Changes of emphysema. No consolidation. Pleural spaces: Unremarkable. No pleural effusion. No pneumothorax. Heart/Mediastinum: Unremarkable. No cardiomegaly. Vasculature: Tortuous thoracic aorta. Bones/joints: Unremarkable. XR/XR chest 1V portable [id number] IMPRESSION: No acute findings.
[2022-05-14 19:38] VITALS: BP 120/77; PULSE 60; RESP 22; TEMP 37.1; O2SAT 94; BMI 28.2
[2022-05-14 20:01] VITALS: BP 144/72; PULSE 61; RESP 18; O2SAT 95
[2022-05-14] MEDS: albuterol 8 gm MDI 2 PUFF INHALATION (20:03)
[2022-05-14] MEDS: ipratropium-albuterol 3 mL Neb INHALATION (20:03)
[2022-05-14 20:05] VITALS: PULSE 54; RESP 16; O2SAT 94
--- NOTE | 2022-05-14 20:07 | W.ED.SOB ---
HPI - SOB/Dyspnea General: Chief Complaint: Shortness of Breath/Dyspnea Stated Complaint: COVID+ SOB/cough Time Seen by Provider: 05/14/22 19:43 Source: patient Mode of arrival: ambulatory Limitations: no limitations History of Present Illness: HPI Narrative: 82-year-old female states she been having a cough along with some mild dyspnea over the last 4 to 5 days. She has been also having some generalized fatigue. She states she was seen in urgent care today and did have a positive COVID. She states that her family wanted her to come to the ER to get checked out. She states that she is able to ambulate with minimal dyspnea her room air oxygen here is 95%. She denies any fevers. States she has had a dry cough and fatigue. Denies any chest pain or vomiting Associated symptoms: Deny abdominal pain, chest pain, fever(s), nausea or vomiting Review of Systems Const: Denies: fever(s), chills, body aches or change in appetite Eyes: Denies: blurry vision or eye discomfort ENMT: Denies: throat pain or dental pain Card: Denies: chest pain Resp: Reports: dyspnea and non-productive cough GI: Denies: abdominal pain, nausea, vomiting or diarrhea : Denies: dysuria Musc: Denies: neck pain or back pain Skin/Breast: Denies: rash Neuro: Denies: headache(s) Psych: Denies: depression Shawn/Lymph: Denies: easy bruising All/Imm: Denies: urticaria PFSH ED PFSH: Medical History Arrhythmia Atrial fibrillation CVA (cerebral vascular accident) Hyperlipidemia Hypertension Hyperthyroidism Lumbar radiculopathy Osteoarthritis Psoriasis Raynaud's syndrome Surgical History H/O hernia repair H/O: hysterectomy History of appendectomy History of bladder repair surgery History of knee replacement Hx of cataract extraction Family History Father CAD (coronary artery disease) Stroke Mother CAD (coronary artery disease) Stroke Cancer Family/Other Cancer Daughter Lung disease Other Hyperlipidemia Hypertension Denies family history of Diabetes Clotting disorder Dementia Chronic kidney disease (CKD) Suicide Anesthesia complication Bleeding disorder Social History Smoking and tobacco status: never smoked Alcohol intake: never Physical Exam Const: COMMON NORMALS: no acute distress, patient oriented x3 and healthy appearing HENMT: COMMON NORMALS: normocephalic and atraumatic HEAD & SCALP: normocephalic and atraumatic Eye: COMMON NORMALS: Equal, round and reactive pupils present and EOMs intact bilaterally PUPIL: Yes Equal, round and reactive pupils present Neck/C-Spine: COMMON NORMALS: full ROM and supple Chest: COMMONS NORMALS: normal inspection of the chest and normal palpation of entire chest wall Resp: COMMON NORMALS: normal respiratory effort, No retractions, No use of accessory muscles and clear to auscultation bilaterally AUSCULTATION: clear to auscultation bilaterally Cardio: COMMON NORMALS: regular rate, regular rhythm and No murmurs present (Cardio) RATE: regular rate RHYTHM: regular rhythm GI: COMMON NORMALS: Normal to inspection, nondistended, normoactive bowel sounds present, Soft to palpation, non-tender and no masses PALPATION: Yes Soft to palpation Extremity: COMMON NORMALS: normal to inspection and full ROM Neuro: COMMON NORMALS: patient oriented x3, moves all extremities and no focal motor deficits Psych: COMMON NORMALS: mental status grossly normal, Normal thought process present and cooperative THOUGHT PROCESS: Normal thought process present Skin: COMMON NORMALS: no rashes or lesions noted and no wounds GENERAL SKIN EXAM: no rashes or lesions noted Course Vital Signs: Vital signs: Vital Signs Temperature 98.7 F 05/14/22 19:38 Pulse Rate 61 05/14/22 20:13 Respiratory Rate 16 05/14/22 20:05 Blood Pressure 144/72 05/14/22 20:01 Pulse Oximetry 94 05/14/22 20:05 MDM - SOB/Dyspnea Medical Decision Making Patient presents here with cough slight dyspnea she is not hypoxic here her x-ray is clear likely from her COVID-pneumonia. She has no signs of pulmonary embolism no chest pain she is stable for discharge did give her Decadron and breathing treatment she is to follow-up with her PCP and return if worsening she understands agrees to plan. Lab Data Labs/Radiology: Radiology Impressions Chest X-Ray 05/14/22 19:25 IMPRESSION: No acute findings. Discharge Plan Discharge Patient Disposition: Home Clinical Impression: COVID-19 Condition: Stable Prescriptions: New albuterol sulfate 90 mcg/actuation HFA aerosol inhaler 2 inh INHALATION Q6H PRN (Reason: shortness of breath or wheezing) Qty: 8 0RF No Action Bystolic 20 mg tablet 20 mg PO QAM 0RF loratadine [Claritin] 10 mg tablet 10 mg PO DAILY PRN (Reason: Allergy Symptoms) 0RF ketoconazole 2 % shampoo 1 applic topical .2 x weekly Qty: 120 3RF Rx Instructions: Lather into scalp 2 times weekly. Allow to sit on scalp for 5 minutes before rinsing. acetaminophen [Tylenol Extra Strength] 500 mg tablet 500 mg PO BEDTIME 0RF Aspir-81 81 mg Tablet,Delayed Release (Dr/Ec) 162 mg PO .ONCE 0RF clobetasol 0.05 % ointment 1 applic topical BID PRN (Reason: unknown) 0RF Rx Instructions: to affected areas on body no more than 3 wks/mo clobetasol 0.05 % solution 1 applic topical DAILY PRN (Reason: unknown) 0RF Rx Instructions: to scalp Humira(CF) Pen 40 mg/0.4 mL pen injector kit 40 mg SUBCUT Q14D 0RF amlodipine 5 mg tablet 5 mg PO BEDTIME Qty: 30 0RF Discharge Orders: Discharge ED (Routine); Ordered 05/14/22 Ordered By: Alyx Mansfield Referrals: Wilson Garcia MD [Primary Care Provider] - 1-3 days Discharge Diet: Advance as tolerated Discharge Activity: Resume usual activity Patient Instructions: COVID-19 (Coronavirus Disease 2019) (ED) Coding Level of Care Code ED Grinder Operator Surface Tool for Chg Fwd Exam Comprehensive
[2022-05-14 20:13] VITALS: PULSE 61
[2022-05-14] MEDS: dexamethasone 10 mg/mL INJ IM (20:23)
[2022-05-14] MEDS: lidocaine 2% viscous 15 ML, aluminum-mag hydrox-simethicon 30 ML, sucralfate oral liq 1 GM PO (20:31)
[2022-05-14 20:49] VITALS: BP 149/87; PULSE 72; RESP 18; O2SAT 92
== END 2022-05-14 20:50 | disposition home or self-care (01) ==
PROVIDERS: Emergency Provider Emergency Medicine; PCP Family Medicine
DX: U07.1 COVID-19 (principal); Z79.82 Long term (current) use of aspirin; Z79.4 Long term (current) use of insulin; Z86.73 Personal history of transient ischemic attack (TIA), and cerebral infarction without residual deficits; E78.5 Hyperlipidemia, unspecified; I10 Essential (primary) hypertension
CPT/HCPCS: 71045; 94640; 96372; 99284; J1100; J3535

== ENCOUNTER → 2022-08-08 14:08 | Outpatient (BNVA) | payer MEDICARE, OTHER, SELFPAY | PROVIDERS: PCP Family Medicine; Visit Provider Nurse Practitioner Family | DX: I10 Essential (primary) hypertension (principal); Z86.73 Personal history of transient ischemic attack (TIA), and cerebral infarction without residual deficits | CPT/HCPCS: 99213 ==

== ENCOUNTER 2022-08-16 09:46 | Inpatient (IN) | payer MEDICARE, OTHER, SELFPAY ==
[2022-08-16] VITALS (35 sets, daily range): BP systolic 101–187; BP diastolic 54–149; PULSE 58–75; RESP 15–31; TEMP 36.1–37.7; O2SAT 93–100; BMI 26.6
--- NOTE | 2022-08-16 09:49 | XR_ITS ---
WS: [id number] Exam: XR hip LT 2-3V wo/w pel* [id number] Date/Time of Exam: 08/16/2022 9:49 AM Reason For Exam: fall, pain There is subcapital fracture of the left hip with coxa vera deformity. There is superior overriding o f the femoral neck. Mild degenerative narrowing of the joint space. Osteopenia. XR/XR hip LT 2-3V wo/w pel* [id number] IMPRESSION: 1. Displaced subcapital fracture of the left hip.
--- NOTE | 2022-08-16 10:02 | XR_ITS ---
WS: [id number] Exam: XR chest 1V portable [id number] Date/Time of Exam: 08/16/2022 10:02 AM Reason For Exam: dyspnea/cough Comparison 05/14/2022. The lungs are clear and fully inflated. Normal cardiomediastinal silhouette. No pleural effusions. Re gional bony elements are intact. XR/XR chest 1V portable [id number] IMPRESSION: 1. No acute cardiopulmonary finding.
[2022-08-16 10:30] LABS: Basophils % 0.3 %; Eosinophils % 0.1 %; Hematocrit 48.8 % (37.0-47.0); Lymphocytes # 0.8 10^3/uL (0.8-4.8); Lymphocytes % 6.2 %; Mean Corpuscular HGB Conc 32.8 g/dL (30.0-36.0); Mean Corpuscular Hemoglobin 28.1 pg (28.0-34.0); Mean Corpuscular Volume 85.8 fl (81-99); Mean Platelet Volume 9.7 fL (7.4-10.4); Monocytes # 0.7 10^3/uL (0.2-0.9); Monocytes % 5.6 %; Neutrophils # 11.64 10^3/uL (1.8-7.7); Neutrophils % 87.5 %; Nucleated Red Blood Cells % 0 %; Platelet Count 202 10^3/cmm (130-400); Red Blood Count 5.69 10^6/uL (4.1-5.3); Red Cell Distribution Width 13.2 % (12.1-15.1); White Blood Count 13.3 10^3/uL (4.0-10.0)
--- NOTE | 2022-08-16 10:34 | CTR_ITS ---
PROCEDURE INFORMATION: Exam: CT Cervical Spine Without Contrast Exam date and time: 08/16/2022 11:25 AM Age: 82 years old Clinical indication: Fall with blunt trauma. Injury. Injury date: 08/16/2022 TECHNIQUE: Imaging protocol: Computed tomography of the cervical spine without contrast. Radiation optimization: All CT scans at this facility use at least one of these dose optimization techniques: automated exposure control; mA and/or kV adjustment per patient size (includes targeted exams where dose is matched to clinical indication); or iterative reconstruction. COMPARISON: CT cervical spin wo con* [id number] 03/29/2020 5:45 PM RADIATION DOSE METRICS: Total DLP (mGy-cm): 170.4 FINDINGS: The uvula appears prominently thickened. Correlate with direct visualization to exclude mass or inflammation. The cervical lordosis is maintained. No prevertebral soft tissue swelling is seen. Mild degenerative disc disease is seen in the cervical spine. Mild loss of height of the C7 vertebral body is unchanged. No acute fracture is seen. The atlantoaxial interval and craniocervical junction are maintained. Small, scattered cervical lymph nodes are noted. Scarring in the lung apices. CT/CT cervical spin wo con* [id number] IMPRESSION: 1. No acute cervical fracture is identified. 2. The uvula appears prominently thickened. Correlate with direct visualization to exclude mass or inflammation.
--- NOTE | 2022-08-16 10:34 | CTR_ITS ---
PROCEDURE INFORMATION: Exam: CT Head Without Contrast Exam date and time: 08/16/2022 11:25 AM Age: 82 years old Clinical indication: Fall with blunt trauma. Consciousness not specified. Injury date: 08/16/2022. TECHNIQUE: Imaging protocol: Computed tomography of the head without contrast. Radiation optimization: All CT scans at this facility use at least one of these dose optimization techniques: automated exposure control; mA and/or kV adjustment per patient size (includes targeted exams where dose is matched to clinical indication); or iterative reconstruction. COMPARISON: CT head wo con* [id number] 04/27/2022 11:37 AM RADIATION DOSE METRICS: Total DLP (mGy-cm): 1131.7 FINDINGS: Brain: No acute intracranial hemorrhage. New lacunar infarct in the right thalamus that could be acute. Lacunar infarcts in the basal ganglia, bilaterally and left thalamus are unchanged. Lacunar infarcts in the right leslie are unchanged. No mass, mass effect or midline shift. There is moderate patchy subcortical and periventricular hypodensity, most commonly associated with small vessel ischemic disease of indeterminate age. Cerebral ventricles: The ventricles are normal in configuration. There is cavum septum pellucidum et vergae. Paranasal sinuses: Dependent bubbly debris is noted in the sphenoid sinus. Mastoid air cells: No mastoid effusion. Orbital cavities: The visualized orbits are unremarkable. Bones/joints: No acute fracture is seen. Soft tissues: No gross scalp soft tissue swelling. Vasculature: There is no evidence of acute large vessel infarct. CT/CT head wo con* [id number] IMPRESSION: 1. New lacunar infarct in the right thalamus that could be acute. 2. Moderate presumed small vessel ischemic disease of indeterminate age. 3. No acute intracranial hemorrhage.
--- NOTE | 2022-08-16 10:35 | XR_ITS ---
WS: [id number] Exam: XR femur LT min 2V* [id number] Date/Time of Exam: 08/16/2022 10:38 AM Reason For Exam: fall Subcapital fracture of the left femur again noted. The remaining aspects of the femur are intact. Ost eopenia. Normal soft tissues. XR/XR femur LT min 2V* [id number] IMPRESSION: 1. Subcapital fracture of the left femur. No other fractures are identified.
--- NOTE | 2022-08-16 10:35 | P.HP_ITS ---
Providers/Chief Complaint Admitting Physician: León Senior MD Primary Care Provider: Wilson Garcia MD Chief Complaint: L HIP PAIN POST FALL History of Present Illness Kiah Garcia is a 82 year old female presenting to the emergency department with complaints of a fall. She sustained a fall last night around 1030 or so when she got up to go to the bathroom. She states she often has issues with falls, and has to hold on to the wall to ambulate. This has been going for quite a while. She denies any loss of consciousness. She states she has left hip pain, left lower rib pain, and some posterior neck pain. She denies any headache, or nausea. No recent fevers. She has had COVID in the past. No new medications. She denies any shortness of breath, history of exertional chest discomfort, difficulty with anesthesia. No recent weakness or neurologic deficits. Review of Systems General: Reports: 10 or more systems reviewed and unremarkable except in HPI and below Const: Denies: fever(s) or chills Eyes: Denies: change in vision ENMT: Denies: throat pain Card: Denies: chest pain Resp: Denies: dyspnea GI: Denies: abdominal pain, nausea, vomiting, hematochezia or melena : Denies: flank pain Musc: Reports: neck pain and extremity pain Skin/Breast: Denies: rash Neuro: Reports: lack of coordination; Denies: headache(s) Psych: Denies: anxiety or depression Endo: Denies: polyuria Shawn/Lymph: Denies: easy bruising All/Imm: Denies: urticaria Medications/Allergies Home Medications Medication Instructions Recorded Confirmed Last Taken Type loratadine 10 mg tablet (Claritin) 10 mg PO DAILY PRN Allergy Symptoms 02/17/20 08/16/22 Unknown History acetaminophen 500 mg tablet 500 mg PO BEDTIME 05/29/20 08/16/22 08/15/22 History (Tylenol Extra Strength) ketoconazole 2 % shampoo 1 applic topical .2 x weekly #120 05/02/21 08/16/22 Unknown Rx mL aspirin 81 mg tablet,delayed 81 mg PO DAILY 04/27/22 08/16/22 08/15/22 History release clobetasol 0.05 % scalp solution 1 applic topical DAILY PRN unknown 04/27/22 08/16/22 Unknown History clobetasol 0.05 % topical ointment 1 applic topical BID PRN unknown 04/27/22 08/16/22 Unknown History adalimumab 40 mg/0.4 mL 40 mg (0.4 mL) SUBCUT Q14D #2 ea 06/03/22 08/16/22 08/07/22 Rx subcutaneous pen kit (Humira(CF) Pen) Bystolic 20 mg tablet (nebivolol) 20 mg PO QAM #90 tabs 08/08/22 08/16/22 08/15/22 Rx Allergies Allergy/AdvReac Type Severity Reaction Status Date / Time chlorzoxazone Allergy Severe Unconscious Verified 08/16/22 11:20 [From Parafon Forte] aliskiren [From Tekturna] Allergy Unknown unknown Verified 08/16/22 11:20 atenolol Allergy Unknown unknown Verified 08/16/22 11:20 diltiazem [From Cardizem] Allergy Unknown unknown Verified 08/16/22 11:20 hydralazine Allergy Unknown headache Verified 08/16/22 11:20 hydrochlorothiazide Allergy Unknown unknown Verified 08/16/22 11:20 [From Microzide] losartan [From Hyzaar] Allergy Unknown unknown Verified 08/16/22 11:20 valsartan Allergy Unknown edema Verified 08/16/22 11:20 verapamil Allergy Unknown unknown Verified 08/16/22 11:20 allopurinol Allergy diarrhea Verified 08/16/22 11:20 amlodipine Allergy ADR-Diarrhe Verified 08/16/22 11:20 a celecoxib [From Celebrex] Allergy Heart Verified 08/16/22 11:20 racing spironolactone AdvReac Diahrroea Verified 08/16/22 11:20 PFSH Acute PFSH: Medical History Arrhythmia Atrial fibrillation CVA (cerebral vascular accident) Hyperlipidemia Hypertension Hyperthyroidism Lumbar radiculopathy Osteoarthritis Psoriasis Raynaud's syndrome Surgical History H/O hernia repair H/O: hysterectomy History of appendectomy History of bladder repair surgery History of knee replacement Hx of cataract extraction Family History Father CAD (coronary artery disease) Stroke Mother CAD (coronary artery disease) Stroke Cancer Family/Other Cancer Daughter Lung disease Other Hyperlipidemia Hypertension Denies family history of Diabetes Clotting disorder Dementia Chronic kidney disease (CKD) Suicide Anesthesia complication Bleeding disorder Social History Smoking and tobacco status: never smoked Alcohol intake: never Vitals/I&O/Wt Last Vital Signs Temp 98 F 08/16/22 09:50 Pulse 68 08/16/22 10:15 Resp 24 H 08/16/22 10:15 BP 168/90 08/16/22 10:15 Pulse Ox 98 08/16/22 10:10 O2 Del Method 08/16/22 09:50 Weight last 48 hrs Weight 74.843 kg Physical Exam Narrative: General exam demonstrates a white female, complaining of hip pain, in no other distress HEENT: Atraumatic normocephalic. Pupils equally round. Oropharynx clear. Neck demonstrates no lymphadenopathy or thyromegaly. She has some posterior pain to palpation. Cardiovascular regular rate and rhythm, no murmur Lungs clear no wheezing or crackles Abdomen is soft nontender positive bowel sounds. No obvious organomegaly exam was deferred Extremities no cyanosis clubbing. Trace edema is present. Left lower extremity has external rotation, and shortening Skin no rash Neuro no obvious focal deficits. Data : 08/16/22 10:22 08/16/22 10:22 Other Labs: Chest x-ray no infiltrate, calcification of the aorta is noted Left hip x-ray demonstrates displaced subcapital hip fracture on the left INR 1.02. EKG demonstrates sinus rhythm, normal axis, no acute changes. LFTs are normal Calcium slightly high at 7.7 Urinalysis negative CK and TSH have been ordered CT head demonstrates a new lacunar infarct from April 27. Age of this is unknown. CT neck no fracture A&P Assessment and plan (1) Closed left hip fracture: Patient with closed left hip fracture, subcapital Orthopedic consultation Bedrest Lovenox for DVT prophylaxis Therapy consultation following repair Pain control No direct contraindications to surgery (2) Neck pain: Patient reports neck pain. CT of neck ordered. This did not demonstrate fracture. (3) Fall: Patient reports history of frequent falls. She is not on anticoagulation for this reason. PT consultation following hip fracture repair. CT head demonstrates a new lacunar infarct from previous scan in April. Clinically she has had no signs new neurologic issues other than her imbalance which has been going on for quite some time. (4) Hypertension: Continue home medications Qualifiers: Hypertension type: essential hypertension Qualified Code(s): I10 - Essential (primary) hypertension (5) Atrial fibrillation: Check EKG By my physical exam appears to be in sinus rhythm currently Plan Other medical problems as outlined by past medical history Full code Lovenox for DVT prophylaxis. As surgery is planned today we will defer this until after surgery, not wanting to give this directly preoperative. 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
--- NOTE | 2022-08-16 10:35 | XR_ITS ---
WS: [id number] Exam: XR pelvis 1-2V* [id number] Date/Time of Exam: 08/16/2022 10:38 AM Reason For Exam: fall No acute pelvic fracture. DJD of the SI joints. Acute left subcapital fracture again noted. XR/XR pelvis 1-2V* [id number] IMPRESSION: 1. No acute pelvic fracture. 2. Displaced left subcapital fracture as previously described.
--- NOTE | 2022-08-16 10:36 | ED_ITS ---
HPI - Fall General: Chief Complaint: Fall Stated Complaint: L HIP PAIN POST FALL Time Seen by Provider: 08/16/22 09:49 Source: patient Mode of arrival: EMS History of Present Illness: 82-year-old female presents emergency room via EMS. She had a mechanical fall last night around midnight was found on the floor this morning. She has severe left hip pain with external rotation and shortening. She denies striking her head or losing consciousness. Initially her only complaint was the left hip and the left ribs she later began complaining of some neck pain. She was previously on anticoagulants she said she frequently falls that taken her off of it. She denies chest pain or shortness of breath. MD complaint: fall Onset (ago): hour(s) Fall from: standing Place fall occurred: home Loss of consciousness: None Prolonged down time: yes and hour(s) (Approximately 8+ hours) Context: tripped/slipped Location of injury: chest (Left lower ribs) Location of injury - extremities: Left: thigh (Left hip) Quality: sharp Associated symptoms-after fall: Reports chest pain, difficulty walking, neck pain and weakness; Denies abdominal pain, confusion, headache(s), hematuria, lightheadedness, numbness, short of breath or vertigo Review of Systems Const: Denies: fever(s), chills, body aches, change in appetite, fatigue or malaise ENMT: Denies: throat pain, ear or mastoid pain, nasal discharge or nasal congestion Card: Reports: chest pain; Denies: palpitations, irregular heart rhythm, edema, swelling of feet/ankles or lightheadedness Resp: Denies: dyspnea, productive cough or non-productive cough GI: Denies: abdominal pain, nausea or vomiting : Denies: hematuria Musc: Reports: neck pain Skin/Breast: Denies: rash or pruritus Neuro: Reports: difficulty walking; Denies: headache(s), vertigo or confusion PFSH ED PFSH: Medical History Arrhythmia Atrial fibrillation CVA (cerebral vascular accident) Hyperlipidemia Hypertension Hyperthyroidism Lumbar radiculopathy Osteoarthritis Psoriasis Raynaud's syndrome Surgical History H/O hernia repair H/O: hysterectomy History of appendectomy History of bladder repair surgery History of knee replacement Hx of cataract extraction Family History Father CAD (coronary artery disease) Stroke Mother CAD (coronary artery disease) Stroke Cancer Family/Other Cancer Daughter Lung disease Other Hyperlipidemia Hypertension Denies family history of Diabetes Clotting disorder Dementia Chronic kidney disease (CKD) Suicide Anesthesia complication Bleeding disorder Social History Smoking and tobacco status: never smoked Alcohol intake: never Physical Exam Const: GENERAL APPEARANCE: cooperative and comfortable ORIENTATION/CONSCIOUSNESS: Yes awake, Yes oriented to person, Yes oriented to place and Yes oriented to time HENMT: COMMON NORMALS: normocephalic, atraumatic and hearing grossly normal bilaterally HEAD & SCALP: normocephalic and atraumatic Neck/C-Spine: COMMON NORMALS: full ROM, no lymphadenopathy, supple and no JVD Resp: COMMON NORMALS: normal respiratory effort, No retractions, No use of accessory muscles and clear to auscultation bilaterally AUSCULTATION: clear to auscultation bilaterally Cardio: COMMON NORMALS: no JVD, regular rate, regular rhythm and No murmurs present (Cardio) RATE: regular rate RHYTHM: regular rhythm GI: COMMON NORMALS: Soft to palpation and No hepatosplenomegaly present AUSCULTATION: Yes normoactive bowel sounds PALPATION: Yes Soft to palpation, No Tenderness to palpation present (GI), No Guarding due to palpation present (GI) and Yes No hepatosplenomegaly present Extremity: COMMON NORMALS: capillary refill normal, no clubbing, cyanosis or edema and no calf tenderness OTHER: Left leg externally rotated moderately shortened Neuro: SENSORIUM/ORIENTATION: Yes oriented to person, Yes oriented to place and Yes oriented to time Skin: COMMON NORMALS: no rashes or lesions noted GENERAL SKIN EXAM: no rashes or lesions noted Course Vital Signs: Vital signs: Vital Signs Temperature 98 F 08/16/22 09:50 Pulse Rate 68 08/16/22 10:15 Respiratory Rate 22 H 08/16/22 10:53 Blood Pressure 168/90 08/16/22 10:15 Pulse Oximetry 97 08/16/22 10:53 Oxygen Delivery Me thod 08/16/22 09:50 MDM - Fall Medical Decision Making Left subcapital hip fracture moderate displacement. Discussed Dr. Becker also with Dr. Alexander admit to hospitalist consult Ortho. Dr. Becker asked for additional views which have been ordered. Dr. Alexander has been to the department seen the patient Medical Records I reviewed the patient's medical records. Lab Data I reviewed the patient's lab results. : 08/16/22 10:22 08/16/22 10:22 Radiology Impressions Hip/Pelvis X-Ray 08/16/22 09:49 IMPRESSION: 1. Displaced subcapital fracture of the left hip. Chest X-Ray 08/16/22 10:02 IMPRESSION: 1. No acute cardiopulmonary finding. Laboratory Results WBC 13.3 10^3/uL (4.0-10.0) H 08/16/22 10:22 RBC 5.69 10^6/uL (4.1-5.3) H 08/16/22 10:22 Hgb 16.0 g/dL (11.5-15.3) H 08/16/22 10:22 Hct 48.8 % (37.0-47.0) H 08/16/22 10:22 MCV 85.8 fl (81-99) 08/16/22 10:22 MCH 28.1 pg (28.0-34.0) 08/16/22 10:22 MCHC 32.8 g/dL (30.0-36.0) 08/16/22 10:22 RDW 13.2 % (12.1-15.1) 08/16/22 10:22 Plt Count 202 10^3/cmm (130-400) 08/16/22 10:22 MPV 9.7 fL (7.4-10.4) 08/16/22 10:22 Neut % (Auto) 87.5 % 08/16/22 10:22 Lymph % (Auto) 6.2 % 08/16/22 10:22 [place] % (Auto) 5.6 % 08/16/22 10:22 Eos % (Auto) 0.1 % 08/16/22 10:22 Baso % (Auto) 0.3 % 08/16/22 10:22 Neut # (Auto) 11.64 10^3/uL (1.8-7.7) H 08/16/22 10:22 Lymph # (Auto) 0.8 10^3/uL (0.8-4.8) 08/16/22 10:22 [place] # (Auto) 0.7 10^3/uL (0.2-0.9) 08/16/22 10:22 Eos # (Auto) 0.0 10^3/uL (0.0-0.8) 08/16/22 10:22 Baso # (Auto) 0.0 10^3/uL (0.0-0.1) 08/16/22 10:22 Nucleated RBC % (auto) 0 % 08/16/22 10:22 Nucleated RBCs # 0.0 /100WBC 08/16/22 10:22 PT 13.70 SECONDS (12.1-14.9) 08/16/22 10:22 INR 1.02 (0.8-1.2) 08/16/22 10:22 APTT 26.4 SECONDS (23.9-36.7) 08/16/22 10:22 Sodium 136 mmol/L (136-145) 08/16/22 10:22 Potassium 4.1 mmol/L (3.5-5.1) 08/16/22 10:22 Chloride 98 mmol/L (98-107) 08/16/22 10:22 Carbon Dioxide 24 mmol/L (22-29) 08/16/22 10:22 Anion Gap 18.1 (5-19) 08/16/22 10:22 BUN 23 mg/dL (8-23) 08/16/22 10:22 Creatinine 0.8 mg/dL (0.5-0.9) 08/16/22 10:22 GFR Calculation Not Reportable 08/16/22 10:22 Glucose 126 mg/dL (65-115) H 08/16/22 10:22 Calculated Osmolality 287 mOsm/kg (285-295) 08/16/22 10:22 Calcium 10.7 mg/dL (8.5-10.5) H 08/16/22 10:22 Total Bilirubin 0.9 mg/dL (0.15-1.2) 08/16/22 10:22 AST 27 U/L (0-32) 08/16/22 10:22 ALT 17 U/L (0-33) 08/16/22 10:22 Alkaline Phosphatase 78 U/L (35-105) 08/16/22 10:22 Total Protein 7.1 g/dL (6.6-8.7) 08/16/22 10:22 Albumin 4.2 g/dL (3.5-5.2) 08/16/22 10:22 Globulin 2.9 g/dL (1.3-4.6) 08/16/22 10:22 Discharge Plan Discharge Patient Disposition: Admitted As Inpatient Clinical Impression: Closed left hip fracture, Hypertension, Atrial fibrillation, Neck pain, Fall Condition: Stable Prescriptions: No Action loratadine [Claritin] 10 mg tablet 10 mg PO DAILY PRN (Reason: Allergy Symptoms) ketoconazole 2 % shampoo 1 applic topical .2 x weekly Qty: 120 3RF Rx Instructions: Lather into scalp 2 times weekly. Allow to sit on scalp for 5 minutes before rinsing. nebivolol [Bystolic] 20 mg tablet 20 mg PO QAM Qty: 90 3RF Humira(CF) Pen 40 mg/0.4 mL pen injector kit 40 mg SUBCUT Q14D Qty: 2 4RF Rx Instructions: Inject 1 pen every 2 weeks acetaminophen [Tylenol Extra Strength] 500 mg tablet 500 mg PO BEDTIME Aspir-81 81 mg Tablet,Delayed Release (Dr/Ec) 162 mg PO .ONCE clobetasol 0.05 % ointment 1 applic topical BID PRN (Reason: unknown) Rx Instructions: to affected areas on body no more than 3 wks/mo clobetasol 0.05 % solution 1 applic topical DAILY PRN (Reason: unknown) Rx Instructions: to scalp amlodipine 5 mg tablet 5 mg PO BEDTIME Qty: 30 0RF albuterol sulfate 90 mcg/actuation HFA aerosol inhaler 2 inh INHALATION Q6H PRN (Reason: shortness of breath or wheezing) Qty: 8 0RF Referrals: Wilson Garcia MD [Primary Care Provider] - Coding 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
[2022-08-16 10:39] LABS: INR 1.02 (0.8-1.2)
[2022-08-16 10:41] LABS: Partial Thromboplastin Time 26.4 SECONDS (23.9-36.7)
[2022-08-16 10:50] LABS: Alanine Aminotransferase 17 U/L (0-33); Albumin Level 4.2 g/dL (3.5-5.2); Alkaline Phosphatase 78 U/L (35-105); Anion Gap 18.1 (5-19); Aspartate Amino Transferase 27 U/L (0-32); Blood Urea Nitrogen 23 mg/dL (8-23); Calcium 10.7 mg/dL (8.5-10.5); Carbon Dioxide 24 mmol/L (22-29); Chloride 98 mmol/L (98-107); Globulin 2.9 g/dL (1.3-4.6); Glucose 126 mg/dL (65-115); Osmolality Calculated 287 mOsm/kg (285-295); Potassium 4.1 mmol/L (3.5-5.1); Sodium 136 mmol/L (136-145); Total Bilirubin 0.9 mg/dL (0.15-1.2); Total Protein 7.1 g/dL (6.6-8.7)
[2022-08-16] MEDS: ondansetron 2 mg/ML SDV 2 mL 4 MG IVP (10:50)
[2022-08-16] MEDS: morphine 4 mg/mL SDV 1 mL IVP ×3 (10:53→23:23)
--- NOTE | 2022-08-16 10:55 | PC.NURSE ---
pt reports normally uses a walker or holds onto the wall. pt got up in the night to go to the bathroom when she became dizzy and fell onto her left hip. pt reports she lives home alone and was on the floor all night. denies new or worsened cp or dyspnea. denies loc. pt arrives via EMS. left leg noted to be shortened and rotated. pedal pulses palpable. cms intact. pt a&ox4 lung sounds clear bilat. bowel sounds present x4. educated pt on benefits of life alert necklace.
--- NOTE | 2022-08-16 10:59 | ECG_ITS ---
[facility] Test Date: 2022-08-16 Pat Name: Kiah Garcia Department: Room: Gender: Female Director Telehealth: : 1940 Requested By: León Haley Order Number: [id number] Ximena MD: Rickie Walton M.D. Measurements Intervals [place] Rate: 61 P: 78 W[place]: 151 QRS: 42 QRSD: 85 T: 45 QT: 459 QTc: 463 Interpretive Statements SINUS RHYTHM Compared to ECG 04/27/2022 10:28:38 Sinus bradycardia no longer present Poor R-wave progression no longer present Electronically Signed On 08-16-2022 19:08:05 CDT by Rickie Walton M.D. [email or web address]
[2022-08-16 11:09] LABS: Add Urine Microscopic? NO; Charge for UA Resulting for Rev
[2022-08-16 11:10] LABS: Bilirubin Urine Negative (Negative); Blood Urine Negative (Negative); Glucose Urine UA Negative (Normal); Ketones Urine Trace (Negative); Leukocyte Esterase Urine Negative (Negative); Nitrate Urine Negative; Protein Urine Negative (Negative); Specific Gravity, Urine 1.025 (1.005-1.030); Urine Appearance Clear (CLEAR); Urine Color Yellow (Yellow); Urobilinogen Urine 0.2 mg/dL (Negative); pH Urine 6.5 (5-7)
--- NOTE | 2022-08-16 12:42 | PC.NURSE ---
discusesed with Dr. Schwartz pt's head CT results.
--- NOTE | 2022-08-16 12:43 | PC.NURSE ---
report called to JDAE Ashraf on Med Surg
[2022-08-16 13:38] LABS: Thyroid Stimulating Hormone 1.14 uIU/mL (0.27-4.20)
[2022-08-16 13:40] LABS: Creatine Phosphokinase 328 U/L (26-192)
--- NOTE | 2022-08-16 14:30 | PC.NURSE ---
Pt off floor to surgery.
--- NOTE | 2022-08-16 14:45 | P.ANESASSM_ITS ---
Pre-Anesthetic Assessment Height/Weight: Height 1.68 m Weight 74.843 kg Temp Pulse Resp BP Pulse Ox O2 Del Method 98 F 60 18 145/75 98 08/16/22 09:50 08/16/22 12:30 08/16/22 12:47 08/16/22 12:30 08/16/22 12:47 08/16/22 13:55 Operation Date: 08/16/22 15:10 Proposed Procedures p Hemiarthroplasty Hip(Left) - Elie Eugenio, DO Familial anesthetic complications: none Was Beta Jayleen taken within 24 hours: N/A Was Clonidine taken within 24 hours: N/A Last intake: Intake Last Liquid Date 08/16/22 Last Liquid Time 09:00 Last Solid Date 08/15/22 Last Solid Time 18:30 Social No alcohol and No tobacco Exam alert, oriented x 3, clear to auscultation bilaterally and regular rate & rhythm Airway Submandibular: within normal limits Cervical ROM: within normal limits Mallampati: Class II Dentition: chipped CV/HEM Atrial Fibrillation, Arrythmia and Hypertension Metabolic Hyperlipidemia Neuropsych Cerebrovascular Accident Anesthetic Plan ASA status: 3 Anesthesia: Regional (specify below) (SAB) Medications/Allergies Home Medications Medication Instructions Recorded Confirmed Last Taken Type loratadine 10 mg tablet (Claritin) 10 mg PO DAILY PRN Allergy Symptoms 02/17/20 08/16/22 Unknown History acetaminophen 500 mg tablet 500 mg PO BEDTIME 05/29/20 08/16/22 08/15/22 History (Tylenol Extra Strength) ketoconazole 2 % shampoo 1 applic topical .2 x weekly #120 05/02/21 08/16/22 Unknown Rx mL aspirin 81 mg tablet,delayed 81 mg PO DAILY 04/27/22 08/16/22 08/15/22 History release clobetasol 0.05 % scalp solution 1 applic topical DAILY PRN unknown 04/27/22 08/16/22 Unknown History clobetasol 0.05 % topical ointment 1 applic topical BID PRN unknown 04/27/22 08/16/22 Unknown History adalimumab 40 mg/0.4 mL 40 mg (0.4 mL) SUBCUT Q14D #2 ea 06/03/22 08/16/22 08/07/22 Rx subcutaneous pen kit (Humira(CF) Pen) Bystolic 20 mg tablet (nebivolol) 20 mg PO QAM #90 tabs 08/08/22 08/16/22 08/15/22 Rx Allergies Allergy/AdvReac Type Severity Reaction Status Date / Time chlorzoxazone Allergy Severe Unconscious Verified 08/16/22 11:20 [From Parafon Forte] aliskiren [From Tekturna] Allergy Unknown unknown Verified 08/16/22 11:20 atenolol Allergy Unknown unknown Verified 08/16/22 11:20 diltiazem [From Cardizem] Allergy Unknown unknown Verified 08/16/22 11:20 hydralazine Allergy Unknown headache Verified 08/16/22 11:20 hydrochlorothiazide Allergy Unknown unknown Verified 08/16/22 11:20 [From Microzide] losartan [From Hyzaar] Allergy Unknown unknown Verified 08/16/22 11:20 valsartan Allergy Unknown edema Verified 08/16/22 11:20 verapamil Allergy Unknown unknown Verified 08/16/22 11:20 allopurinol Allergy diarrhea Verified 08/16/22 11:20 amlodipine Allergy ADR-Diarrhe Verified 08/16/22 11:20 a celecoxib [From Celebrex] Allergy Heart Verified 08/16/22 11:20 racing spironolactone AdvReac Diahrroea Verified 08/16/22 11:20 PFS Anesthesia Medical History Arrhythmia Atrial fibrillation CVA (cerebral vascular accident) Hyperlipidemia Hypertension Hyperthyroidism Lumbar radiculopathy Osteoarthritis Psoriasis Raynaud's syndrome Surgical History H/O hernia repair H/O: hysterectomy History of appendectomy History of bladder repair surgery History of knee replacement Hx of cataract extraction Family History Father CAD (coronary artery disease) Stroke Mother CAD (coronary artery disease) Stroke Cancer Family/Other Cancer Daughter Lung disease Other Hyperlipidemia Hypertension Denies family history of Diabetes Clotting disorder Dementia Chronic kidney disease (CKD) Suicide Anesthesia complication Bleeding disorder Social History Smoking and tobacco status: never smoked Alcohol intake: never Data Anesthesia : 08/16/22 10:22 08/16/22 10:22 Short CBC 08/16/22 Range/Units 10:22 WBC 13.3 H (4.0-10.0) 10^3/uL Hgb 16.0 H (11.5-15.3) g/dL Hct 48.8 H (37.0-47.0) % MCV 85.8 (81-99) fl Plt Count 202 (130-400) 10^3/cmm Neut % (Auto) 87.5 % Neut # (Auto) 11.64 H (1.8-7.7) 10^3/uL BMP 08/16/22 10:22 Sodium 136 Potassium 4.1 Chloride 98 Carbon Dioxide 24 BUN 23 Creatinine 0.8 Glucose 126 H Calcium 10.7 H Cardiac Enzymes 08/16/22 Range/Units 10:22 Creatine Kinase 328 H* (26-192) U/L Liver Function 08/16/22 Range/Units 10:22 Total Bilirubin 0.9 (0.15-1.2) mg/dL AST 27 (0-32) U/L ALT 17 (0-33) U/L Alkaline Phosphatase 78 (35-105) U/L Albumin 4.2 (3.5-5.2) g/dL Urine 08/16/22 Range/Units 10:49 Urine Color Yellow (Yellow) Urine Appearance Clear (CLEAR) Urine pH 6.5 (5-7) Ur Specific [place] 1.025 (1.005-1.030) Urine Protein Negative (Negative) Urine Glucose (UA) Negative (Normal) Urine Ketones Trace A (Negative) Urine Nitrate Negative Urine Bilirubin Negative (Negative) Ur Leukocyte Esterase Negative (Negative) Coags 08/16/22 10:22 PT 13.70 INR 1.02 APTT 26.4 Cardiac Studies: No Data to Display
[2022-08-16] MEDS: sodium chloride 0.9% 1,000 ML 30 ML IV (14:52)
--- NOTE | 2022-08-16 15:56 | P.CONIM_ITS ---
Providers/Reason For Consult Consulting Physician/Specialty*: Elie Becker DO/orthopedic surgery Reason for Consult*: Displaced left femoral neck fracture Attending Physician: León Senior MD Primary Care Provider: Wilson Garcia MD History of Present Illness History of Present Illness Kiah Garcia is a 82 year old female who sustained a ground-level fall. Patient denies any anticoagulants. She has not eaten since last night. She does have a history of A. fib which apparently she had taken blood thinners at one point time but denies any besides a baby aspirin. Denies history of diabetes mellitus. Patient initially was a community ambulator and utilizes a walker most times. States she does stay at home a lot. Denies any hip pain prior to the injury. Note immediate pain and inability to bear weight to the left hip after the fall. Denies any loss of consciousness. Review of Systems General: Reports: 10 or more systems reviewed and unremarkable except in HPI and below Const: Denies: fever(s) or chills Card: Denies: chest pain Resp: Denies: dyspnea Musc: Reports: extremity pain and joint pain Neuro: Denies: numbness in extremities Medications/Allergies Home Medications Medication Instructions Recorded Confirmed Last Taken Type loratadine 10 mg tablet (Claritin) 10 mg PO DAILY PRN Allergy Symptoms 02/17/20 08/16/22 Unknown History acetaminophen 500 mg tablet 500 mg PO BEDTIME 05/29/20 08/16/22 08/15/22 History (Tylenol Extra Strength) ketoconazole 2 % shampoo 1 applic topical .2 x weekly #120 05/02/21 08/16/22 Unknown Rx mL aspirin 81 mg tablet,delayed 81 mg PO DAILY 04/27/22 08/16/22 08/15/22 History release clobetasol 0.05 % scalp solution 1 applic topical DAILY PRN unknown 04/27/22 08/16/22 Unknown History clobetasol 0.05 % topical ointment 1 applic topical BID PRN unknown 04/27/22 08/16/22 Unknown History adalimumab 40 mg/0.4 mL 40 mg (0.4 mL) SUBCUT Q14D #2 ea 06/03/22 08/16/22 08/07/22 Rx subcutaneous pen kit (Humira(CF) Pen) Bystolic 20 mg tablet (nebivolol) 20 mg PO QAM #90 tabs 08/08/22 08/16/22 08/15/22 Rx Allergies Allergy/AdvReac Type Severity Reaction Status Date / Time chlorzoxazone Allergy Severe Unconscious Verified 08/16/22 11:20 [From Parafon Forte] aliskiren [From Tekturna] Allergy Unknown unknown Verified 08/16/22 11:20 atenolol Allergy Unknown unknown Verified 08/16/22 11:20 diltiazem [From Cardizem] Allergy Unknown unknown Verified 08/16/22 11:20 hydralazine Allergy Unknown headache Verified 08/16/22 11:20 hydrochlorothiazide Allergy Unknown unknown Verified 08/16/22 11:20 [From Microzide] losartan [From Hyzaar] Allergy Unknown unknown Verified 08/16/22 11:20 valsartan Allergy Unknown edema Verified 08/16/22 11:20 verapamil Allergy Unknown unknown Verified 08/16/22 11:20 allopurinol Allergy diarrhea Verified 08/16/22 11:20 amlodipine Allergy ADR-Diarrhe Verified 08/16/22 11:20 a celecoxib [From Celebrex] Allergy Heart Verified 08/16/22 11:20 racing spironolactone AdvReac Diahrroea Verified 08/16/22 11:20 Current Medications Generic Name Dose Route Start Last Admin Trade Name Freq PRN Reason Stop Dose Admin Sodium Chloride 1,000 mls @ 30 mls/hr 08/16/22 14:45 08/16/22 14:52 Sodium Chloride 0.9% IV 08/17/22 14:44 30 mls/hr .Q24H VERONICA Administration PFSH Acute PFSH: Medical History (Updated 08/16/22 @ 17:08 by Elie Becker DO) Arrhythmia Atrial fibrillation CVA (cerebral vascular accident) Hyperlipidemia Hypertension Hyperthyroidism Left displaced femoral neck fracture Lumbar radiculopathy Osteoarthritis Psoriasis Raynaud's syndrome Surgical History H/O hernia repair H/O: hysterectomy History of appendectomy History of bladder repair surgery History of knee replacement Hx of cataract extraction Family History Father CAD (coronary artery disease) Stroke Mother CAD (coronary artery disease) Stroke Cancer Family/Other Cancer Daughter Lung disease Other Hyperlipidemia Hypertension Denies family history of Diabetes Clotting disorder Dementia Chronic kidney disease (CKD) Suicide Anesthesia complication Bleeding disorder Social History Smoking and tobacco status: never smoked Alcohol intake: never Vitals/I&O/Wt Last Vital Signs Temp 99.9 F H 08/16/22 15:00 Pulse 65 08/16/22 15:00 Resp 16 08/16/22 15:00 BP 136/86 08/16/22 15:00 Pulse Ox 100 08/16/22 15:00 O2 Del Method 08/16/22 15:00 O2 Flow Rate 2 08/16/22 15:00 Weight last 48 hrs Weight 165 lb Weight 165 lb Physical Exam Narrative: Orthopedic examination: Examination of patient's bilateral upper extremities demonstrates no tenderness to palpation of the bilateral shoulders elbows wrists or hands. No deformity noted. Patient has normal occupational rehabilitation aide strength bilaterally. Sensation tact light touch bilaterally. Distal pulses palpable. Patient has negative pelvic compression's test but does have tenderness to palpation over the anterior aspect of the left hip. Left lower extremity is shortened and externally rotated. Left lower extremity is warm well perfused distal pulses palpable brisk capillary refill less than 2 seconds. No tenderness palpation of the left knee. Sensation tact light touch the SPN/DPN/tibial/saphenous/sural nerve distribution. Patient is able to wiggle toes as well as plantarflex and she does have some weakness with dorsiflexion unable to determine if this is secondary to just pain or nerve injury. Examination right lower extremity demonstrates negative logroll no tenderness to palpation of the right hip knee foot or ankle. Able to wiggle toes plantarflex dorsiflex ankle sensation tact light touch. Const: COMMON NORMALS: no acute distress HENMT: COMMON NORMALS: normocephalic and atraumatic HEAD & SCALP: normocephalic and atraumatic Resp: COMMON NORMALS: normal respiratory effort Cardio: COMMON NORMALS: Peripheral pulses 2+ throughout PERIPHERAL PULSES: Peripheral pulses 2+ throughout Extremity: NARRATIVE EXTREMITY EXAM: See narrative for detailed exam Urinary Catheter Management: Moreira: Cath Placed During This Visit: yes Urinary Catheter Date of Insertion: 08/16/22 Urinary Catheter Time of Insertion: 10:35 Data : 08/16/22 10:22 08/16/22 10:22 Xray Ortho: My impression: X-rays of the pelvis hip and femur demonstrate left subcapital femoral neck fracture. No other fracture dislocation noted. The pelvis demonstrates no sheila dence of pelvic ring injury. A&P Assessment and plan (1) Left displaced femoral neck fracture: Plan - Patient admitted by primary team and appreciate hospitalist's medical management. -Nonweightbearing left lower extremity -Pain control -Hold DVT prophylaxis -N.p.o. -Patient's been medically optimized and cleared by the internal medicine team seen evaluated by anesthesia and plan for OR today that she has been n.p.o. since yesterday for left hip hemiarthroplasty utilizing cement and a posterior approach. -Obtain consent -Preoperative antibiotic -Preop TXA -Plan for OR for left hip hemiarthroplasty with Dr. Becker -Patient will return to the floor postoperatively. Consult Attestations Medical Necessity Statement: Patient sustained displaced left femoral neck fracture will require hospitalization intervention and postoperative monitoring. Coding Level of Care Code Acute Seeing Eye Dog Trainer for Hung Webb Diagnoses Left displaced femoral neck fracture S72.002A
[2022-08-16] MEDS: ceFAZolin 2,000 mg SDV 2000 MG IVP (17:35)
[2022-08-16] MEDS: tranexamic acid 1,000 mg/10mL SDV 1000 MG IV (17:40)
[2022-08-16] MEDS: vancomycin 1,000 MG SDV 1000 MG INTRA-ARTI (18:48)
--- NOTE | 2022-08-16 19:11 | P.OP_ITS ---
Brief Operative Note Date of procedure: 08/16/22 Pre-op diagnosis: Displaced left femoral neck fracture Post-op diagnosis: same Procedure Done: Left hip hemiarthroplasty cemented Surgeon: Elie Becker Estimated blood loss (mL): 300 Complications: None Post-op Plan: Patient recover in PACU and returned to the floor. Should be weightbearing as tolerated to the left lower extremity. Posterior hip precautions. Dressing on in place. Receive appropriate postoperative antibiotics. DVT prophylaxis. Postoperative x-rays. Condition: stable Disposition: floor Coding Level of Care Code Acute Field Reimbursement Manager for Hung Webb
--- NOTE | 2022-08-16 19:12 | PM.PACU ---
PACU note Narrative: Patient taken to PACU in stable condition. Patient's toes are warm well perfused distal pulses palpable. Dressing clean dry and intact. Abduction pillow on in place. Spinal anesthesia still in effect unable to assess motor or sensory. Patient to return to the floor. Exam: unarousable (See narrative report for detail) Disposition: back to floor
--- NOTE | 2022-08-16 19:13 | XRR_ITS ---
PROCEDURE INFORMATION: Exam: XR Left Hip Exam date and time: 08/16/2022 7:17 PM Age: 82 years old Clinical indication: Condition or disease; Joint replacement status; Left; Additional info: Postop hip rhoda, ap pelvis and crosstable lateral of left hip TECHNIQUE: Imaging protocol: Radiologic exam of the Left hip. Views: 2 or 3 views hip with pelvis when performed. COMPARISON: CR XR pelvis 1-2V* [id number] 08/16/2022 11:12 AM FINDINGS: Tubes, catheters and devices: Skin benny are in place and soft tissue air noted consistent with recent instrumentation. Bones/joints: Interval placement of left bipolar hemiarthroplasty. Components appear well positioned. No dislocation and no evident fracture. Soft tissues: As above. XR/XR hip LT 2-3V wo/w pel* [id number] IMPRESSION: Baseline postoperative imaging.
--- NOTE | 2022-08-16 19:23 | PM.OP ---
Operative Report Date of procedure: August 16, 2022 Pre-op diagnosis: Displaced left femoral neck fracture Post-op diagnosis: Same Procedure done: Left hip hemiarthroplasty cemented Implants: [place] size 5 Accolade C stem cemented 8 mm distal cement spacer 43 mm x 26 mm bipolar component 26 mm +4 offset femoral head ball Surgeon: Elie Becker DO Estimated blood loss: 300 mL IV fluids: See anesthesia record Complications: None Condition: stable Disposition: floor Brief History: Patient was seen and evaluated in the emergency department after patient was found to have a displaced left femoral neck fracture. Orthopedic surgery team was consulted. Patient was seen and evaluated by myself and found to have the preoperative diagnosis findings. This point time she was admitted by the hospitalist team medically optimized and medical management taken care of. She was discussed in great detail with her family as well as herself about her treatment options as far as nonoperative and operative intervention. This point time would recommend a left hip hemiarthroplasty given her poor bone quality will utilize cement. We detailed this discussion with them about the risk benefits complication alternatives to treatment options. At this point time she understands the risks and agrees to proceed with surgical intervention. All questions answered at this time. Consent obtained. Procedure: Patient seen evaluated in the preoperative holding area. Consent was obtained and reviewed with patient. Correct extremity was then marked. Patient was seen evaluated by the anesthesia department in the preoperative team and once cleared for surgery she was then taken back to the OR underwent spinal anesthesia and was then transferred to the OR table she was placed onto a pegboard and placed in lateral decubitus position with the left hip up she was appropriately secured to the bed and all bony prominences were well-padded. This point time the left lower extremity was then prepped and draped in standard orthopedic fashion. Final timeout performed. Patient received appropriate preoperative antibiotics Standard posterior approach was then performed sharp scalpel excision through skin and subcutaneous tissue. At this point maintain exact hemostasis throughout dissection with electrocautery. Identified the IT band fascia and Glumac's fascia this was split longitudinally at the center aspect of the greater trochanter. This was then mobilized Charnley retractor placed. Then placed a Hohmann and removed the trochanteric bursa and then Hohmann was placed underneath the abductors. At this point time I then performed my capsulotomy and and release the short external rotators this was all performed in 1 thick sleeve starting proximal to distal down to the lesser. This was then kept all-in-one thick sleeve for later repair. That was then folded back protected the nerve throughout the case. Hip was then dislocated I then placed Hohmann underneath the lesser to identify extent of fracture at the transcervical neck. I then protected the inferior and superior aspects of the neck I marked an appropriate neck cut and freshen this where the fracture was most distal extent was leaving roughly 10 mm of neck left. This point time utilize oscillating saw to freshen up the neck cut this was then removed with rongeur and then utilized a corkscrew and removed the femoral head. This was measured to be a size 43. Care was made to leave the labrum intact. I then thoroughly irrigated the acetabulum removed all bony loose bodies from the fracture. A Hohmann was placed anteriorly and evaluation of the acetabulum was noted. This was free of all debris no evidence of significant arthritic changes were noted. This point I then trialed by 43 head which had excellent suction fit. Next I proceeded with femoral preparation. Femoral elevator placed. I then utilized a box osteotome and then a canal finder as far as lateralizing wraps once appropriately lateralized I then sequentially broached up to a size 5 femoral stem which was at appropriate depth and reasonable rotation fixation however given cement the seem to be the appropriate size I then did a quick trial just to confirm I would have enough length if I submitted this at the calcar. This was then placed with a standard offset ball was reduced there is a little bit of excess shock but ultimately was stable felt as though the leg lengths were a couple millimeters short. As result I like this 5 size femoral stem as result dislocated the hip I then removed the femoral implant and then prepared for cementation. I there for marked my anteversion to set this as a landmark to have appropriate anteversion while holding my cement did stem in place. On the back table the cement was then mixed. The canal was then prepared and cleared of all debris in preparation for cementation technique. Once cement was ready this was then impacted into place and the stem was then set and held until the cement was allowed to cure. This was at appropriate position and version once the cement was appropriately cured I then thoroughly inspected the acetabulum made sure that there was no bony debris or residual cement pieces left. I then trialed the +4 bipolar component with 43 outer diameter head this was then reduced into place and had excellent fixation and appropriate leg lengths and excellent stability. At this point this was my selection for final femoral bipolar component. I then dislocated the hip, the trial was then taken off the trunnion was then cleaned and then the final implant of a 43 mm x 26 mm inner diameter with a +4 offset was then impacted in place was tested and had excellent fixation hip was then reduced and satisfactory leg lengths and stability was noted. At this point in time I then thoroughly irrigated the wound bed with Pulsavac sponge. Due to patient's larger soft tissue envelope, I then selected to place a gram of vancomycin powder into the incision. I then performed standard capsular and short external rotators sleeve repair utilizing bone tunnels with Ethibond suture Next I then sequentially closed the fascia with running strata fix suture as well as then closed the deep subcutaneous layer subcutaneous layer and subcuticular layer with running strata fix suture and skin was stapled. Several on dressing applied. Patient was then awakened from anesthesia and abduction pillow was then placed and she was transported to PACU in stable condition. Disposition: Patient taken to PACU in stable condition. Postoperative x-rays show stable implant of left hip hemiarthroplasty with appropriate cement mantle. She should maintain posterior hip precautions be weightbearing as tolerated to the left lower extremity PT/OT, pain control, DVT prophylaxis, postoperative antibiotics. She may resume regular diet. Orthopedics will continue to monitor patient postoperatively. Patient to return to floor.
[2022-08-16] MEDS: meperidine 50 mg/mL INJ 12.5 MG IVP (20:07)
--- NOTE | 2022-08-16 21:02 | PC.NURSE ---
Patient to floor from PACU. Patient alert and denies pain unless she moves. Denies any N/V at this time. Oriented to room and how to use call light when needing assistance. Moreira intact and draining. Silverlon dressing C/D/I.
[2022-08-16] MEDS: sodium chloride 0.9% 1,000 ML 100 ML IV (21:44)
[2022-08-16] MEDS: chlorhexidine gluconate 0.12% Btl 473 mL 30 ML MUCOUS MEM (21:44)
--- NOTE | 2022-08-16 21:59 | ANE.PACU2 ---
Inpatient post-anesthesia follow up: Airway intact: Yes Vital signs: Temperature 97.5 F Pulse Rate 62 Respiratory Rate 20 Blood Pressure 120/70 Pulse Oximetry 96 Oxygen Delivery Me thod Nasal Cannula Oxygen Flow Rate 2 Fraction of Inspir ed Oxygen Hydration adequate: Yes Nausea and vomiting: No Pain level: 2 Mental status: Baseline
[2022-08-17] VITALS (12 sets, daily range): BP systolic 117–160; BP diastolic 63–80; PULSE 68–99; RESP 15–18; TEMP 36.4–38.1; O2SAT 92–99
[2022-08-17] MEDS: ceFAZolin 2,000 MG in sodium chloride 0.9% (plus) 50 ML 100 MG IV ×3 (00:24→16:46)
[2022-08-17] MEDS: oxyCODONE 5 mg IR Tab/Cap PO ×3 (04:01→20:22)
[2022-08-17 05:02] LABS: Basophils # 0.1 10^3/uL (0.0-0.1); Basophils % 0.5 %; Eosinophils # 0.2 10^3/uL (0.0-0.8); Eosinophils % 1.7 %; Hematocrit 36.4 % (37.0-47.0); Hemoglobin 11.1 g/dL (11.5-15.3); Lymphocytes % 8.9 %; Mean Corpuscular HGB Conc 30.5 g/dL (30.0-36.0); Mean Corpuscular Hemoglobin 27.8 pg (28.0-34.0); Mean Corpuscular Volume 91.2 fl (81-99); Mean Platelet Volume 10.2 fL (7.4-10.4); Monocytes # 0.6 10^3/uL (0.2-0.9); Monocytes % 5.1 %; Neutrophils # 9.51 10^3/uL (1.8-7.7); Neutrophils % 83.4 %; Nucleated Red Blood Cells % 0 %; Platelet Count 136 10^3/cmm (130-400); Red Blood Count 3.99 10^6/uL (4.1-5.3); Red Cell Distribution Width 13.3 % (12.1-15.1); White Blood Count 11.4 10^3/uL (4.0-10.0)
[2022-08-17 05:22] LABS: Alanine Aminotransferase 11 U/L (0-33); Albumin Level 3.3 g/dL (3.5-5.2); Alkaline Phosphatase 52 U/L (35-105); Aspartate Amino Transferase 24 U/L (0-32); Blood Urea Nitrogen 27 mg/dL (8-23); Carbon Dioxide 21 mmol/L (22-29); Chloride 106 mmol/L (98-107); Creatine Phosphokinase 319 U/L (26-192); Globulin 2.2 g/dL (1.3-4.6); Glucose 112 mg/dL (65-115); Osmolality Calculated 292 mOsm/kg (285-295); Sodium 138 mmol/L (136-145); Total Bilirubin 0.7 mg/dL (0.15-1.2); Total Protein 5.5 g/dL (6.6-8.7)
[2022-08-17 05:25] LABS: Anion Gap 15.3 (5-19); Potassium 4.3 mmol/L (3.5-5.1)
--- NOTE | 2022-08-17 05:43 | PC.NURSE ---
The patient is requesting to leave her marie catheter in at this time. There are orders to discontinue the catheter this morning, but the patient is uncomfortable with removing it because of her pain. This nurse educated the patient on the risks of leaving the catheter in and she stated her understood.
[2022-08-17] MEDS: enoxaparin 30 mg/0.3 mL Syringe SUBCUT (07:00)
[2022-08-17] MEDS: cholecalciferol (vitamin D3) 1,000 unit Tablet 1000 UNIT PO (08:49)
[2022-08-17] MEDS: multivitamin therapeutic Tablet 1 TAB PO (08:49)
[2022-08-17] MEDS: iron polysaccharide complex 150 mg Capsule PO ×2 (08:49→17:04)
[2022-08-17] MEDS: sennosides-docusate Tablet 2 TAB PO ×2 (08:49→17:04)
[2022-08-17] MEDS: aspirin 81 mg EC Tablet PO (08:49)
[2022-08-17] MEDS: calcium carb-vit d 600mg/400unit 1 Tablet 1 EACH PO ×2 (08:50→17:04)
[2022-08-17] MEDS: chlorhexidine gluconate 0.12% Btl 473 mL 30 ML MUCOUS MEM ×4 (08:52→20:23)
[2022-08-17] MEDS: sodium chloride 0.9% 1,000 ML 100 ML IV (09:04)
[2022-08-17] MEDS: mupirocin oint 22 gm 1 APPLIC NASAL ×2 (09:18→18:01)
[2022-08-17 11:00] LABS: Glucose Point of Care 125 mg/dL (70-110)
--- NOTE | 2022-08-17 12:41 | P.PN_ITS ---
Subjective Subjective: Patient seen and evaluated this morning. Moreira in place still. Patient still having pain. Does appear to be controlled with medications. Abduction pillow on in place. Incisions clean dry and intact. Patient will get up and work with therapy today. Vitals/I&O/Wt Last Vital Signs Temp 99.2 F 08/17/22 12:00 Pulse 73 08/17/22 12:00 Resp 17 08/17/22 12:00 BP 133/71 08/17/22 12:00 Pulse Ox 94 08/17/22 12:00 O2 Del Method 08/17/22 12:00 O2 Flow Rate 2 08/16/22 20:30 08/16/22 08/17/22 08/17/22 22:59 06:59 14:59 Intake Total 2200 / 2200 160 / 2360 1170 / 1170 Output Total 750 / 750 200 / 950 Balance 1450 / 1450 -40 / 1410 1170 / 1170 Weight last 48 hrs Weight 165 lb Weight 165 lb Physical Exam Narrative: Orthopedic examination: Dressings clean dry and intact. Normal postoperative swelling and pain to the left hip. Compartments are soft compressible. The left lower extremity is warm well perfused. Distal pulses are palpable. Patient is able to wiggle toes and will plantarflex and dorsiflex ankle. Patient endorses sensation intact light touch the SPN/DPN/tibial/saphenous/sural nerve distribution. Urinary Catheter Management: Moreira: Cath Placed During This Visit: yes Reason for Continuing Indwelling Catheter: Required Immobilization for Trauma or Surgery or Anesthesia Urinary Catheter Date of Insertion: 08/16/22 Urinary Catheter Time of Insertion: 10:35 Data : 08/17/22 04:15 08/17/22 04:15 Xray Ortho: My impression: X-rays of the pelvis and left hip demonstrate interval left hip hemiarthroplasty with stable cement mantle and appropriate femoral stem placement. A&P Assessment and plan (1) Left displaced femoral neck fracture: Plan Complete postoperative antibiotics Weight-bear as tolerated left lower extremity Posterior hip precautions PT/OT Pain control Internal medicine is primary Incision clean dry and intact PACU imaging reviewed Regular diet A.m. labs reviewed Orthopedics will round on patient tomorrow. Attestations Medical Necessity Statement*: Patient sustained a left displaced femoral neck fracture. Requiring hospitalization and surgical intervention as well as postoperative monitoring. Coding Level of Care Code Acute Juvenile Officer for Hung Fwd Diagnoses Left displaced femoral neck fracture S72.002A
--- NOTE | 2022-08-17 15:04 | PM.PN ---
Subjective Subjective: She is having some pain in her left hip, and her arms feel sore after trying to pull her self up in the bathtub when she fell. Continue to be partial relief with the pain medication she gets before. She was in pain to the point could not try to work with therapy. She otherwise is breathing okay but does not normally use nasal cannula oxygen. Vitals/I&O/Wt Last Vital Signs Temp 99.2 F 08/17/22 12:00 Pulse 73 08/17/22 14:16 Resp 16 08/17/22 14:16 BP 133/71 08/17/22 12:00 Pulse Ox 92 08/17/22 14:16 O2 Del Method 08/17/22 14:16 O2 Flow Rate 1.5 08/17/22 14:16 08/17/22 08/17/22 08/17/22 06:59 14:59 22:59 Intake Total 160 / 2360 1170 / 1170 Output Total 200 / 950 Balance -40 / 1410 1170 / 1170 Weight last 48 hrs Weight 74.843 kg Weight 74.843 kg Physical Exam Const: COMMON NORMALS: patient oriented x3 and alert GENERAL APPEARANCE: cooperative ORIENTATION/CONSCIOUSNESS: Yes awake HENMT: COMMON NORMALS: oropharynx normal Neck/C-Spine: COMMON NORMALS: no JVD Resp: COMMON NORMALS: normal respiratory effort and clear to auscultation bilaterally AUSCULTATION: clear to auscultation bilaterally Cardio: COMMON NORMALS: no JVD, regular rhythm, S1 normal heart sound present, S2 normal heart sound present and No murmurs present (Cardio) RHYTHM: regular rhythm HEART SOUNDS: S1 normal heart sound present and S2 normal heart sound present GI: COMMON NORMALS: Normal to inspection, nondistended, normoactive bowel sounds present, Soft to palpation and non-tender PALPATION: Yes Soft to palpation Extremity: COMMON NORMALS: no joint enlargement and no pedal edema Neuro: COMMON NORMALS: patient oriented x3 and moves all extremities SENSORIUM/ORIENTATION: Yes alert Skin: COMMON NORMALS: no rashes or lesions noted GENERAL SKIN EXAM: no rashes or lesions noted Urinary Catheter Management: Moreira: Cath Placed During This Visit: yes Reason for Continuing Indwelling Catheter: Required Immobilization for Trauma or Surgery or Anesthesia Urinary Catheter Date of Insertion: 08/16/22 Urinary Catheter Time of Insertion: 10:35 Data : 08/17/22 04:15 08/17/22 04:15 A&P Assessment and plan (1) Closed left hip fracture: Status postrepair. Pain management, could not tolerate first attempt PT assessment. Reattempt mobilization with PT. Lovenox for DVT prophylaxis Post discharge planning. Likely to require SNF rehabilitation. (2) Fall: Patient reports history of frequent falls. She is not on anticoagulation for this reason. PT consultation following hip fracture repair. CT head demonstrates a new lacunar infarct from previous scan in April. Clinically she has had no signs new neurologic issues other than her imbalance which has been going on for quite some time. (3) Neck pain: Patient reports neck pain. CT of neck ordered. This did not demonstrate fracture. (4) Hypertension: Continue home medications (5) Atrial fibrillation: Not on anticoagulation, with frequent falls. Continue aspirin. Plan Other medical problems as outlined by past medical history Full code Lovenox for DVT prophylaxis. Attestations Medical Necessity Statement*: Continue admission for assessment management following left hip fracture and repair, pain control, therapy assessment. Coding Level of Care Code Acute Transportation Operations Manager for [facility] Fwd Diagnoses Closed left hip fracture S72.002A Fall W19.XXXA Neck pain M54.2 Hypertension I10 Atrial fibrillation I48.91
[2022-08-17] MEDS: acetaminophen 325 mg Tablet 650 MG PO (16:48)
--- NOTE | 2022-08-17 17:52 | USR_ITS ---
PROCEDURE INFORMATION: Exam: US Duplex Lower Extremity Veins, Bilateral Exam date and time: 08/17/2022 7:01 PM Age: 82 years old Clinical indication: Pain; Leg, upper and leg, lower; Bilateral; Prior surgery; Surgery date: Post-operative (0-2 days); Surgery type: Orif lt hip FX. ; Additional info: Assess for dvt TECHNIQUE: Imaging protocol: Real-time Duplex ultrasound of the bilateral extremities with 2-D blank scale, color Doppler flow and spectral waveform analysis with image documentation. Complete exam focused on the bilateral lower extremity veins. COMPARISON: CR XR femur LT min 2V* [id number] 08/16/2022 11:12 AM FINDINGS: Right deep veins: Unremarkable. The common femoral, femoral, proximal profunda femoral, popliteal, posterior tibial and peroneal veins are patent without thrombus. Normal Doppler waveforms. Normal compressibility and/or augmentation response. Right superficial veins: Saphenofemoral junction is patent without thrombus. Left deep veins: Unremarkable. The common femoral, femoral, proximal profunda femoral, popliteal, posterior tibial and peroneal veins are patent without thrombus. Normal Doppler waveforms. Normal compressibility and/or augmentation response. Left superficial veins: Saphenofemoral junction is patent without thrombus. Soft tissues: Unremarkable. US/[place] [id number] IMPRESSION: No sonographic evidence of deep vein thrombosis.
[2022-08-17 22:31] LABS: Adenovirus Not Detected (NOT DETECT); Chlamydia Pneumoniae Not Detected (NOT DETECT); Coronavirus 229E,HKU1,NL63,OC4 Not Detected (NOT DETECT); Human Metapneumovirus Not Detected (NOT DETECT); Human Rhinovirus/Enterovirus Not Detected (NOT DETECT); Influenza A Not Detected (NOT DETECT); Influenza A H1 Not Detected (NOT DETECT); Influenza A H1-2009 Not Detected (NOT DETECT); Influenza A H3 Not Detected (NOT DETECT); Influenza B Not Detected (NOT DETECT); Mycoplasma Pneumoniae Not Detected (NOT DETECT); Parainfluenza Virus Type 1 Not Detected (NOT DETECT); Parainfluenza Virus Type 2 Not Detected (NOT DETECT); Parainfluenza Virus Type 3 Not Detected (NOT DETECT); Parainfluenza Virus Type 4 Not Detected (NOT DETECT); Respiratory Syncytial Virus A Not Detected (NOT DETECT); Respiratory Syncytial Virus B Not Detected (NOT DETECT); SARS-COV-2 Not Detected (NOT DETECT)
[2022-08-18] VITALS (12 sets, daily range): BP systolic 105–174; BP diastolic 61–86; PULSE 67–84; RESP 15–18; TEMP 36.4–37.2; O2SAT 91–97
[2022-08-18] MEDS: oxyCODONE 5 mg IR Tab/Cap PO ×4 (03:27→17:32)
--- NOTE | 2022-08-18 05:07 | NUR.SHIFT ---
The patient continues to refuse the removal of her marie catheter. Patient educated of the risks associated with leaving the marie in place. The patient also continues to refuse any form of therapy. When encouraged to do ROM with BUE, she states she can't do it and that it hurts too much. She at one pint stated she was going to call family to assist her through the night to help reach her phone and water on her bedside table. These items were within reach without extensive extension of upper extremities, but continued to state she was unable to obtain. When offering position changing to assist with her pain, the patient would scream out saying she couldn't do it, not in relation to pain, but more so in fear of pain. This nurse educated the patient on the importance of movement and position changes, but the patient continued to state she would do it the next day. On multiple occasions this nurse offered to assist the patient to the side of the bed or up to a chair to relief some of her pain, she continued to refuse. This morning once more assistance to the side of the bed or to a chair was offered and again she refused.
[2022-08-18 05:22] LABS: Basophils # 0.1 10^3/uL (0.0-0.1); Basophils % 0.7 %; Eosinophils # 0.8 10^3/uL (0.0-0.8); Eosinophils % 8.3 %; Hematocrit 30.1 % (37.0-47.0); Hemoglobin 9.7 g/dL (11.5-15.3); Lymphocytes # 1.2 10^3/uL (0.8-4.8); Lymphocytes % 11.7 %; Mean Corpuscular HGB Conc 32.2 g/dL (30.0-36.0); Mean Corpuscular Hemoglobin 28.5 pg (28.0-34.0); Mean Corpuscular Volume 88.5 fl (81-99); Mean Platelet Volume 10.3 fL (7.4-10.4); Monocytes # 0.6 10^3/uL (0.2-0.9); Monocytes % 6.3 %; Neutrophils # 7.15 10^3/uL (1.8-7.7); Neutrophils % 72.4 %; Nucleated Red Blood Cells % 0 %; Platelet Count 119 10^3/cmm (130-400); Red Cell Distribution Width 13.7 % (12.1-15.1); White Blood Count 9.9 10^3/uL (4.0-10.0)
--- NOTE | 2022-08-18 06:00 | XRR_ITS ---
PROCEDURE INFORMATION: Exam: XR Chest Exam date and time: 08/18/2022 4:25 AM Age: 82 years old Clinical indication: Patient HX: History--post op left hip surgery, fever; Additional info: Hypoxia TECHNIQUE: Imaging protocol: Radiologic exam of the chest. Views: 1 view. COMPARISON: CR XR chest 1V portable [id number] 08/16/2022 10:01 AM FINDINGS: Lungs: COPD and interstitial prominence. No focal infiltrate. Pleural spaces: No pleural effusion. Heart/Mediastinum: No cardiomegaly. Vasculature: Calcification of the thoracic aorta. Bones/joints: Osteopenia. XR/XR chest 1V portable [id number] IMPRESSION: COPD and interstitial prominence.
[2022-08-18 06:02] LABS: Anion Gap 14.2 (5-19); Blood Urea Nitrogen 23 mg/dL (8-23); Calcium 9.4 mg/dL (8.5-10.5); Carbon Dioxide 22 mmol/L (22-29); Chloride 104 mmol/L (98-107); Glucose 111 mg/dL (65-115); Osmolality Calculated 286 mOsm/kg (285-295); Potassium 4.2 mmol/L (3.5-5.1); Sodium 136 mmol/L (136-145)
[2022-08-18] MEDS: enoxaparin 30 mg/0.3 mL Syringe SUBCUT (06:59)
--- NOTE | 2022-08-18 08:49 | PM.PN ---
Subjective Subjective: Patient seen evaluated this morning. Still on nasal cannula O2. Patient did not work with therapy yesterday. She complains of being very weak and pain everywhere. Anywhere you touch patient even her nonoperative extremities she winces in pain. Abduction pillow in place. Continue hip precautions and be weight-bear as tolerated to left lower extremity. Dressings on in place clean dry and intact. Expressed to patient importance of incentive spirometry as well as patient mobilizing is much as possible. Patient understands and states she will try with therapy today. Vitals/I&O/Wt Last Vital Signs Temp 98.4 F 08/18/22 07:56 Pulse 74 08/18/22 07:56 Resp 18 08/18/22 07:56 BP 155/76 08/18/22 07:56 Pulse Ox 97 08/18/22 07:56 O2 Del Method 08/18/22 07:56 O2 Flow Rate 2 08/17/22 20:00 08/17/22 08/18/22 08/18/22 22:59 06:59 14:59 Intake Total 1290 / 2460 Output Total 950 / 950 Balance 1290 / 2460 -950 / 1510 Weight last 48 hrs Weight 165 lb Weight 165 lb Physical Exam Narrative: Orthopedic examination left lower extremity demonstrates [place] dressings on in place and are clean dry and intact no evidence of saturation. Patient is able to wiggle toes plantarflex dorsiflex ankle her sensation is intact light touch the SPN/DPN/tibial/saphenous/sural nerve distribution. Distal pulses palpable. Normal postoperative swelling pain and ecchymosis at the left hip. Urinary Catheter Management: Moreira: Cath Placed During This Visit: yes Reason for Continuing Indwelling Catheter: Other Urinary Catheter Date of Insertion: 08/16/22 Urinary Catheter Time of Insertion: 10:35 Data : 08/18/22 04:20 08/18/22 04:20 A&P Assessment and plan (1) Left displaced femoral neck fracture: Plan PT/OT Weightbearing as tolerated left lower extremity Posterior hip precautions Pain control Internal medicine is primary director of ancillary services for discharge planning A.m. lab reviewed?hemoglobin 9.7 Will round on patient tomorrow to see how she did with therapy today. Attestations Medical Necessity Statement*: Patient sustained left femoral neck fracture requiring hospitalization and surgical intervention. Coding Level of Care Code Acute Progressive Assembler And Fitter for [facility] Fwd Diagnoses Left displaced femoral neck fracture S72.002A Time Spent (min) 20
[2022-08-18] MEDS: acetaminophen 325 mg Tablet 650 MG PO (08:54)
[2022-08-18] MEDS: iron polysaccharide complex 150 mg Capsule PO ×2 (08:54→17:28)
[2022-08-18] MEDS: cholecalciferol (vitamin D3) 1,000 unit Tablet 1000 UNIT PO (08:54)
[2022-08-18] MEDS: multivitamin therapeutic Tablet 1 TAB PO (08:54)
[2022-08-18] MEDS: sennosides-docusate Tablet 2 TAB PO ×2 (08:55→17:28)
[2022-08-18] MEDS: mupirocin oint 22 gm 1 APPLIC NASAL (08:55)
[2022-08-18] MEDS: calcium carb-vit d 600mg/400unit 1 Tablet 1 EACH PO ×2 (08:55→17:28)
[2022-08-18] MEDS: aspirin 81 mg EC Tablet PO (08:55)
[2022-08-18] MEDS: chlorhexidine gluconate 0.12% Btl 473 mL 30 ML MUCOUS MEM ×4 (08:56→21:04)
--- NOTE | 2022-08-18 18:11 | PM.PN ---
Subjective Subjective: She reports she is doing okay. Still having some pain but did get up to work with therapy. Denies any additional symptoms. Discussed with her and her family regarding low-grade temp yesterday 100.5 Fahrenheit. Unclear cause, discussed possibly mild pneumonitis after intubation. We did check COVID-19 and discussed it was negative. Duplex lower extremities negative. Chest x-ray was requested for this morning. She did not notice any rash. She does states she takes Humira for psoriasis. She will update us in case of any additional changes in symptoms. She is working with incentive spirometer. Vitals/I&O/Wt Last Vital Signs Temp 97.6 F 08/18/22 15:41 Pulse 70 08/18/22 15:41 Resp 18 08/18/22 17:32 BP 121/61 08/18/22 15:41 Pulse Ox 95 08/18/22 15:41 O2 Del Method 08/18/22 15:41 O2 Flow Rate 2 08/18/22 09:35 08/18/22 08/18/22 08/18/22 06:59 14:59 22:59 Intake Total 480 / 480 240 / 720 Output Total 950 / 950 Balance -950 / 1510 480 / 480 240 / 720 Physical Exam Narrative: Family at bedside. Const: COMMON NORMALS: patient oriented x3 and alert GENERAL APPEARANCE: cooperative ORIENTATION/CONSCIOUSNESS: Yes awake HENMT: COMMON NORMALS: oropharynx normal Neck/C-Spine: COMMON NORMALS: no JVD Resp: COMMON NORMALS: normal respiratory effort and clear to auscultation bilaterally AUSCULTATION: clear to auscultation bilaterally Cardio: COMMON NORMALS: no JVD, regular rhythm, S1 normal heart sound present, S2 normal heart sound present and No murmurs present (Cardio) RHYTHM: regular rhythm HEART SOUNDS: S1 normal heart sound present and S2 normal heart sound present GI: COMMON NORMALS: Normal to inspection, nondistended, normoactive bowel sounds present, Soft to palpation and non-tender PALPATION: Yes Soft to palpation Extremity: COMMON NORMALS: no joint enlargement and no pedal edema OTHER: Left hip wound looks good. Neuro: COMMON NORMALS: patient oriented x3 and moves all extremities SENSORIUM/ORIENTATION: Yes alert Skin: COMMON NORMALS: no rashes or lesions noted GENERAL SKIN EXAM: no rashes or lesions noted Urinary Catheter Management: Moreira: Cath Placed During This Visit: yes Reason for Continuing Indwelling Catheter: Other Urinary Catheter Date of Insertion: 08/16/22 Urinary Catheter Time of Insertion: 10:35 Data : 08/18/22 04:20 08/18/22 04:20 A&P Assessment and plan (1) Fever: Episode of fever due to unclear etiology on 08/17, up to 100.5 Fahrenheit. Without recurrence. No leukocytosis. Urinalysis was unremarkable. COVID-19 is negative. Duplex ultrasound without DVT. Not clear etiology. Discussed with her and family, possibility of sounds like atelectasis. She has been working with [employer]. We did check chest x-ray, appears to have some interstitial prominence. Possibly some mild aspiration pneumonitis following intubation. However, discussed we will monitor closely given she is on Humira for psoriasis. As she has had no recurrence, no leukocytosis so far have not started antibiotic. She will update us also in case of any changes of symptoms. Pursue additional evaluation depending on condition. Repeat CXR. Noted hemoglobin decreased, thrombocytopenia, suspect delusional effect given decreasing all 3 cell lines. We will request peripheral smear. Check LDH, haptoglobin, retic, liver parameters. (2) Closed left hip fracture: Status postrepair. Pain management, PT. would benefit from rehabilitation and arrangements underway for SNF. Does have some acute anemia, on presentation hemoglobin 16, currently decreased down to 9.7. Suspect likely there was some dilutional effect as well with hemoconcentration presentation. Some blood loss secondary to fracture, surgery. Reassess. Lovenox for DVT prophylaxis (3) Fall: Patient reports history of frequent falls. She is not on anticoagulation for this reason. PT consultation following hip fracture repair. CT head demonstrates a new lacunar infarct from previous scan in April. Clinically she has had no signs new neurologic issues other than her imbalance which has been going on for quite some time. (4) Neck pain: Patient reports neck pain. CT of neck ordered. This did not demonstrate fracture. (5) Hypertension: Continue home medications (6) Atrial fibrillation: Not on anticoagulation, with frequent falls. Continue aspirin. Plan Other medical problems as outlined by past medical history Full code Lovenox for DVT prophylaxis. Attestations Medical Necessity Statement*: Continue admission for assessment of episode of fever in a lady on Humira with history of psoriasis. Management after hip fracture and repair. Coding Level of Care Code Acute Gardening Manager for [facility] Fwd Diagnoses Fever R50.9 Closed left hip fracture S72.002A Fall W19.XXXA Neck pain M54.2 Hypertension I10 Atrial fibrillation I48.91
[2022-08-18 20:01] LABS: LAB Peripheral Smear Sent for Review
[2022-08-19] VITALS (12 sets, daily range): BP systolic 115–142; BP diastolic 68–81; PULSE 71–108; RESP 15–24; TEMP 36.6–37.2; O2SAT 93–96
[2022-08-19] MEDS: oxyCODONE 5 mg IR Tab/Cap PO ×3 (01:48→20:45)
[2022-08-19 05:10] LABS: Basophils % 0.4 %; Eosinophils # 0.7 10^3/uL (0.0-0.8); Eosinophils % 7.5 %; Hematocrit 30.9 % (37.0-47.0); Hemoglobin 9.8 g/dL (11.5-15.3); Lymphocytes # 1.5 10^3/uL (0.8-4.8); Mean Corpuscular HGB Conc 31.7 g/dL (30.0-36.0); Mean Corpuscular Volume 88.3 fl (81-99); Mean Platelet Volume 10.4 fL (7.4-10.4); Monocytes # 0.8 10^3/uL (0.2-0.9); Monocytes % 8.8 %; Neutrophils # 6.38 10^3/uL (1.8-7.7); Neutrophils % 66.9 %; Nucleated Red Blood Cells % 0 %; Platelet Count 122 10^3/cmm (130-400); Red Cell Distribution Width 13.6 % (12.1-15.1); White Blood Count 9.6 10^3/uL (4.0-10.0)
[2022-08-19 05:36] LABS: Hematocrit 30.5 % (37.0-47.0); Retic Production Index 1.53
[2022-08-19 05:38] LABS: Alanine Aminotransferase 7 U/L (0-33); Albumin Level 2.8 g/dL (3.5-5.2); Alkaline Phosphatase 85 U/L (35-105); Anion Gap 14.2 (5-19); Aspartate Amino Transferase 16 U/L (0-32); Blood Urea Nitrogen 22 mg/dL (8-23); Calcium 9.4 mg/dL (8.5-10.5); Carbon Dioxide 20 mmol/L (22-29); Chloride 101 mmol/L (98-107); Globulin 2.7 g/dL (1.3-4.6); Glucose 119 mg/dL (65-115); Lactate Dehydrogenase 348 U/L (135-214); Osmolality Calculated 276 mOsm/kg (285-295); Potassium 4.2 mmol/L (3.5-5.1); Sodium 131 mmol/L (136-145); Total Bilirubin 0.8 mg/dL (0.15-1.2); Total Protein 5.5 g/dL (6.6-8.7)
--- NOTE | 2022-08-19 06:00 | XR_ITS ---
WS: [id number] XR chest 1V portable [id number] REASON FOR EXAM: follow up FINDINGS: The chest is unchanged compared to 08/18/2022 at 4:31 AM. The heart is at the upper limits of normal i n size and the thoracic aorta is moderately tortuous and ectatic. Coarse interstitial lung opacities throughout both lungs with areas of lucency. No acute pulmonary parenchymal or pleural abnormality is identified. XR/XR chest 1V portable [id number] IMPRESSION: Probable central lobar emphysema without acute abnormality.
[2022-08-19] MEDS: acetaminophen 325 mg Tablet 650 MG PO (06:22)
[2022-08-19] MEDS: enoxaparin 30 mg/0.3 mL Syringe SUBCUT (06:30)
--- NOTE | 2022-08-19 06:56 | P.PN_ITS ---
Subjective Subjective: Patient seen and evaluated this morning. She is a little more alert with that and resting comfortably she is not as much complaining of pain diffusely as she was yesterday. She states she did get up with therapy it was painful but she says she was able to work with therapy. This point time review of internal medicine's note shows she did have low-grade fever and concern on chest x-ray for some interstitial prominence. They are currently managing this. Dressings clean dry and intact. May be changed as needed. Vitals/I&O/Wt Last Vital Signs Temp 98.0 F 08/19/22 03:47 Pulse 108 H 08/19/22 03:47 Resp 20 H 08/19/22 03:47 BP 141/68 08/19/22 03:47 Pulse Ox 93 08/19/22 03:47 O2 Del Method 08/19/22 03:47 O2 Flow Rate 2 08/18/22 09:35 08/18/22 08/18/22 08/19/22 14:59 22:59 06:59 Intake Total 480 / 480 240 / 720 360 / 1080 Output Total 825 / 825 Balance 480 / 480 240 / 720 -465 / 255 Physical Exam Narrative: Examination left lower extremity demonstrates dressing on in place clean dry and intact. Patient's compartments are soft and compressible throughout the left lower extremity. Abduction pillow on in place. Patient is able to wiggle toes plantarflex and dorsiflex ankle. She has sensation intact light touch distally. Distal pulses palpable. Urinary Catheter Management: Moreira: Cath Placed During This Visit: yes Reason for Continuing Indwelling Catheter: Perioperative Use in Selected Surgeries Urinary Catheter Date of Insertion: 08/16/22 Urinary Catheter Time of Insertion: 10:35 Data : 08/19/22 04:26 08/19/22 04:26 A&P Assessment and plan (1) Left displaced femoral neck fracture: Plan Resume diet Weightbearing as tolerated left lower extremity Posterior hip precautions PT/OT Pain control Appreciate internal medicine's medical management as primary Stable from orthopedic standpoint with no surgical or further intervention required at this time. Orthopedic surgery team will sign off patient and follow peripherally. If there is any questions pertaining to patient's care feel free to contact myself Dr. Becker. Discharge instructions as well as pain medication DVT prophylaxis filled in patient's discharge chart. Patient to follow-up with me in 2 weeks. Appreciate allow me to partake in the care of this patient. Attestations Medical Necessity Statement*: Displaced left femoral neck fracture requiring surgical intervention and postoperative monitoring. Coding Level of Care Code Acute Multi Craft Maintenance Technician for [facility] Webb Diagnoses Left displaced femoral neck fracture S72.002A
[2022-08-19] MEDS: sennosides-docusate Tablet 2 TAB PO ×2 (08:38→17:32)
[2022-08-19] MEDS: cholecalciferol (vitamin D3) 1,000 unit Tablet 1000 UNIT PO (08:39)
[2022-08-19] MEDS: aspirin 81 mg EC Tablet PO (08:39)
[2022-08-19] MEDS: chlorhexidine gluconate 0.12% Btl 473 mL 30 ML MUCOUS MEM ×4 (08:39→20:45)
[2022-08-19] MEDS: multivitamin therapeutic Tablet 1 TAB PO (08:39)
[2022-08-19] MEDS: calcium carb-vit d 600mg/400unit 1 Tablet 1 EACH PO ×2 (08:39→17:31)
[2022-08-19] MEDS: mupirocin oint 22 gm 1 APPLIC NASAL ×2 (08:40→17:31)
[2022-08-19] MEDS: iron polysaccharide complex 150 mg Capsule PO ×2 (09:23→17:31)
[2022-08-19] MEDS: FUROsemide 40 mg Tablet PO (12:00)
--- NOTE | 2022-08-19 13:23 | P.PN_ITS ---
Subjective Subjective: Patient was seen this morning, she sitting up in a chair, she tells me that she gets severe pain with any movement of her hip, her family is at bedside is concerned with her pain level, she is alert completely x3, no shortness of breath, no fevers, no chest pain Vitals/I&O/Wt Last Vital Signs Temp 98.3 F 08/19/22 11:32 Pulse 77 08/19/22 11:32 Resp 16 08/19/22 11:36 BP 115/75 08/19/22 11:32 Pulse Ox 95 08/19/22 11:32 O2 Del Method 08/19/22 11:32 O2 Flow Rate 2 08/18/22 09:35 08/18/22 08/19/22 08/19/22 22:59 06:59 14:59 Intake Total 240 / 720 360 / 1080 480 / 480 Output Total 825 / 825 Balance 240 / 720 -465 / 255 480 / 480 Physical Exam Const: COMMON NORMALS: no acute distress and patient oriented x3 Resp: COMMON NORMALS: normal respiratory effort, No retractions, No use of accessory muscles and clear to auscultation bilaterally AUSCULTATION: clear to auscultation bilaterally Cardio: COMMON NORMALS: regular rate, regular rhythm, S1 normal heart sound present and S2 normal heart sound present RATE: regular rate RHYTHM: regular rhythm HEART SOUNDS: S1 normal heart sound present and S2 normal heart sound present GI: COMMON NORMALS: Normal to inspection, nondistended, normoactive bowel sounds present, non-tender and no masses Extremity: COMMON NORMALS: no pedal edema Neuro: COMMON NORMALS: patient oriented x3 Psych: COMMON NORMALS: mental status grossly normal Urinary Catheter Management: Moreira: Cath Placed During This Visit: yes Reason for Continuing Indwelling Catheter: Perioperative Use in Selected Surgeries Urinary Catheter Date of Insertion: 08/16/22 Urinary Catheter Time of Insertion: 10:35 Data : 08/19/22 04:26 08/19/22 04:26 A&P Assessment and plan (1) Fever: -Remains afebrile, continue to monitor Episode of fever due to unclear etiology on 08/17, up to 100.5 Fahrenheit. Without recurrence. No leukocytosis. Urinalysis was unremarkable. COVID-19 is negative. Duplex ultrasound without DVT. Not clear etiology. Discussed with her and family, possibility of sounds like atelectasis. She has been working with [facility]. We did check chest x-ray, appears to have some interstitial prominence. Possibly some mild aspiration pneumonitis following intubation. However, discussed we will monitor closely given she is on Humira for psoriasis. As she has had no recurrence, no leukocytosis so far have not started antibiotic. She will update us also in case of any changes of symptoms. Pursue additional evaluation depending on condition. Repeat CXR. Noted hemoglobin decreased, thrombocytopenia, suspect delusional effect given decreasing all 3 cell lines. We will request peripheral smear. Check LDH, haptoglobin, retic, liver parameters. (2) Closed left hip fracture: -Better pain control, oxycodone before and after physical therapy, Ultram as needed for breakthrough pain control Status postrepair. Pain management, PT. would benefit from rehabilitation and arrangements underway for SNF. Does have some acute anemia, on presentation hemoglobin 16, currently decreased down to 9.7. Suspect likely there was some dilutional effect as well with hemoconcentration presentation. Some blood loss secondary to fracture, surgery. We will do anemia study, monitor hemoglobin Lovenox for DVT prophylaxis (3) Fall: Patient reports history of frequent falls. She is not on anticoagulation for this reason. PT consultation following hip fracture repair. CT head demonstrates a new lacunar infarct from previous scan in April. Clinically she has had no signs new neurologic issues other than her imbalance which has been going on for quite some time. (4) Neck pain: Patient reports neck pain. CT of neck ordered. This did not demonstrate fracture. (5) Hypertension: Continue home medications (6) Atrial fibrillation: Not on anticoagulation, with frequent falls. Continue aspirin. Plan Other medical problems as outlined by past medical history Intractable pain, oxycodone, tramadol as above Acute anemia, iron studies, Hemoccult stool, Protonix, Carafate no need for transfusion at this point Patient is awaiting correction placement, I was told by nursing staff that the Humira would have to be held before correction would be willing to accept it, she takes it for psoriasis, I think for the time being it could be held, if patient is agreeable and then resume thereafter when she goes home Full code Lovenox for DVT prophylaxis. 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
[2022-08-19 14:16] LABS: Ferritin 711 ng/mL (15-150); Iron 18 ug/dL (37-145); Percent Saturation 10.9 % (20-50); Total Iron Binding Capacity 164 mcg/dl; Unsaturated Iron Binding 146 ug/dL (112-347)
--- NOTE | 2022-08-19 14:27 | PC.SOCIAL ---
IMM Update pg 2 of IMM updated and reviewed w/ patient. Copy provided and copy dated, initialed and placed in chart.
[2022-08-19] MEDS: pantoprazole DR 40 mg Tablet PO (17:31)
[2022-08-19] MEDS: sucralfate 1 gm Tablet PO (17:32)
--- NOTE | 2022-08-19 19:15 | PC.NURSE ---
Bedside report with JADE Ashraf and JADE Alva.
[2022-08-20] VITALS (10 sets, daily range): BP systolic 121–168; BP diastolic 71–92; PULSE 68–84; RESP 16–20; TEMP 36.5–36.9; O2SAT 92–98
[2022-08-20] MEDS: oxyCODONE 5 mg IR Tab/Cap PO ×4 (00:41→21:28)
[2022-08-20 03:06] LABS: Basophils # 0.1 10^3/uL (0.0-0.1); Basophils % 0.7 %; Eosinophils # 1.1 10^3/uL (0.0-0.8); Eosinophils % 14.8 %; Hematocrit 31.2 % (37.0-47.0); Hemoglobin 9.7 g/dL (11.5-15.3); Lymphocytes # 1.3 10^3/uL (0.8-4.8); Lymphocytes % 17.1 %; Mean Corpuscular HGB Conc 31.1 g/dL (30.0-36.0); Mean Corpuscular Volume 89.9 fl (81-99); Mean Platelet Volume 10.5 fL (7.4-10.4); Monocytes # 0.9 10^3/uL (0.2-0.9); Monocytes % 11.2 %; Neutrophils # 4.23 10^3/uL (1.8-7.7); Neutrophils % 55.5 %; Nucleated Red Blood Cells % 0 %; Platelet Count 148 10^3/cmm (130-400); Red Blood Count 3.47 10^6/uL (4.1-5.3); Red Cell Distribution Width 13.6 % (12.1-15.1); White Blood Count 7.6 10^3/uL (4.0-10.0)
[2022-08-20 03:31] LABS: Alanine Aminotransferase 9 U/L (0-33); Albumin Level 2.6 g/dL (3.5-5.2); Alkaline Phosphatase 60 U/L (35-105); Anion Gap 12.8 (5-19); Aspartate Amino Transferase 15 U/L (0-32); Blood Urea Nitrogen 22 mg/dL (8-23); Calcium 9.3 mg/dL (8.5-10.5); Carbon Dioxide 25 mmol/L (22-29); Chloride 100 mmol/L (98-107); Globulin 2.7 g/dL (1.3-4.6); Glucose 110 mg/dL (65-115); Magnesium 1.8 mg/dL (1.7-2.3); Osmolality Calculated 282 mOsm/kg (285-295); Phosphorus 2.6 mg/dL (2.5-4.5); Potassium 3.8 mmol/L (3.5-5.1); Sodium 134 mmol/L (136-145); Total Bilirubin 0.8 mg/dL (0.15-1.2); Total Protein 5.3 g/dL (6.6-8.7)
[2022-08-20] MEDS: sucralfate 1 gm Tablet PO ×2 (06:01→16:54)
[2022-08-20] MEDS: enoxaparin 30 mg/0.3 mL Syringe SUBCUT (06:01)
[2022-08-20] MEDS: cholecalciferol (vitamin D3) 1,000 unit Tablet 1000 UNIT PO (09:53)
[2022-08-20] MEDS: pantoprazole DR 40 mg Tablet PO ×2 (09:54→16:55)
[2022-08-20] MEDS: chlorhexidine gluconate 0.12% Btl 473 mL 30 ML MUCOUS MEM ×2 (09:54→16:58)
[2022-08-20] MEDS: aspirin 81 mg EC Tablet PO (09:54)
[2022-08-20] MEDS: calcium carb-vit d 600mg/400unit 1 Tablet 1 EACH PO ×2 (09:54→16:54)
[2022-08-20] MEDS: sennosides-docusate Tablet 2 TAB PO ×2 (09:54→16:54)
[2022-08-20] MEDS: multivitamin therapeutic Tablet 1 TAB PO (09:54)
[2022-08-20] MEDS: iron polysaccharide complex 150 mg Capsule PO ×2 (09:54→16:55)
--- NOTE | 2022-08-20 14:13 | PM.PN ---
Subjective Subjective: Patient was seen this morning, she sitting up in a chair, her brother is at bedside, she tells her that she still has a lack of energy, still having hip pain, but overall she has improved, she is ambulating well without more, the tramadol has helped, she tells me that she still feels too weak to remove Moreira catheter, the Lasix yesterday also helped her shortness of breath Vitals/I&O/Wt Last Vital Signs Temp 98.0 F 08/20/22 11:22 Pulse 78 08/20/22 11:22 Resp 16 08/20/22 11:22 BP 129/77 08/20/22 11:22 Pulse Ox 95 08/20/22 11:22 O2 Del Method 08/20/22 07:59 O2 Flow Rate 2 08/18/22 09:35 08/19/22 08/20/22 08/20/22 22:59 06:59 14:59 Intake Total 240 / 720 720 / 720 Output Total 1450 / 1450 875 / 2325 Balance -1210 / -730 -875 / -1605 720 / 720 Physical Exam Const: COMMON NORMALS: no acute distress and patient oriented x3 Resp: COMMON NORMALS: normal respiratory effort, No retractions, No use of accessory muscles and clear to auscultation bilaterally AUSCULTATION: clear to auscultation bilaterally Cardio: COMMON NORMALS: regular rate, regular rhythm, S1 normal heart sound present and S2 normal heart sound present RATE: regular rate RHYTHM: regular rhythm HEART SOUNDS: S1 normal heart sound present and S2 normal heart sound present GI: COMMON NORMALS: Normal to inspection, nondistended, normoactive bowel sounds present, non-tender and No hepatosplenomegaly present PALPATION: Yes No hepatosplenomegaly present Neuro: COMMON NORMALS: patient oriented x3 Psych: COMMON NORMALS: mental status grossly normal Urinary Catheter Management: Moreira: Cath Placed During This Visit: yes Reason for Continuing Indwelling Catheter: Perioperative Use in Selected Surgeries Urinary Catheter Date of Insertion: 08/16/22 Urinary Catheter Time of Insertion: 10:35 Data : 08/20/22 02:15 08/20/22 02:15 A&P Assessment and plan (1) Fever: -Remains afebrile, continue to monitor -Monitor for UTI, as patient refuses to remove Moreira catheter, will try again tomorrow Episode of fever due to unclear etiology on 08/17, up to 100.5 Fahrenheit. Without recurrence. No leukocytosis. Urinalysis was unremarkable. COVID-19 is negative. Duplex ultrasound without DVT. Not clear etiology. Discussed with her and family, possibility of sounds like atelectasis. She has been working with [employer]. We did check chest x-ray, appears to have some interstitial prominence. Possibly some mild aspiration pneumonitis following intubation. However, discussed we will monitor closely given she is on Humira for psoriasis. As she has had no recurrence, no leukocytosis so far have not started antibiotic. She will update us also in case of any changes of symptoms. Pursue additional evaluation depending on condition. Repeat CXR. Noted hemoglobin decreased, thrombocytopenia, suspect delusional effect given decreasing all 3 cell lines. We will request peripheral smear. Check LDH, haptoglobin, retic, liver parameters. (2) Closed left hip fracture: -Better pain control, oxycodone before and after physical therapy, Ultram as needed for breakthrough pain control Status postrepair. Pain management, PT. would benefit from rehabilitation and arrangements underway for SNF. Does have some acute anemia, on presentation hemoglobin 16, currently decreased down to 9.7. Suspect likely there was some dilutional effect as well with hemoconcentration presentation. Some blood loss secondary to fracture, surgery. We will do anemia study, monitor hemoglobin Lovenox for DVT prophylaxis (3) Fall: Patient reports history of frequent falls. She is not on anticoagulation for this reason. PT consultation following hip fracture repair. CT head demonstrates a new lacunar infarct from previous scan in April. Clinically she has had no signs new neurologic issues other than her imbalance which has been going on for quite some time. (4) Neck pain: Patient reports neck pain. CT of neck ordered. This did not demonstrate fracture. (5) Hypertension: Continue home medications (6) Atrial fibrillation: Not on anticoagulation, with frequent falls. Continue aspirin. Plan Other medical problems as outlined by past medical history Intractable pain, oxycodone, tramadol as above Acute anemia, iron studies, indicate iron deficiency anemia although ferritin is high but this is in if acute phase reactant, given lack of energy I will give her 1 dose of Venofer here Protonix, Carafate no need for transfusion at this point Lower extremity edema, 1 dose Lasix today Patient is awaiting correction placement, I was told by nursing staff that the Humira would have to be held before correction would be willing to accept it, she takes it for psoriasis, I think for the time being it could be held, if patient is agreeable and then resume thereafter when she goes home Full code Lovenox for DVT prophylaxis. 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
[2022-08-20] MEDS: FUROsemide 10 mg/mL SDV 2mL 20 MG IVP (15:30)
[2022-08-20] MEDS: iron sucrose 200 MG in sodium chloride 0.9% (100 ml) 100 ML 220 MG IV (15:31)
[2022-08-21 02:59] LABS: Basophils % 0.6 %; Eosinophils # 0.9 10^3/uL (0.0-0.8); Eosinophils % 12.4 %; Hematocrit 29.9 % (37.0-47.0); Hemoglobin 9.5 g/dL (11.5-15.3); Lymphocytes # 1.7 10^3/uL (0.8-4.8); Lymphocytes % 23.2 %; Mean Corpuscular HGB Conc 31.8 g/dL (30.0-36.0); Mean Corpuscular Hemoglobin 27.7 pg (28.0-34.0); Mean Corpuscular Volume 87.2 fl (81-99); Mean Platelet Volume 10.3 fL (7.4-10.4); Monocytes # 1.1 10^3/uL (0.2-0.9); Monocytes % 14.7 %; Neutrophils # 3.43 10^3/uL (1.8-7.7); Neutrophils % 48.1 %; Nucleated Red Blood Cells % 0 %; Platelet Count 184 10^3/cmm (130-400); Red Blood Count 3.43 10^6/uL (4.1-5.3); Red Cell Distribution Width 13.6 % (12.1-15.1); White Blood Count 7.1 10^3/uL (4.0-10.0)
[2022-08-21 03:31] LABS: Alanine Aminotransferase 10 U/L (0-33); Albumin Level 2.7 g/dL (3.5-5.2); Alkaline Phosphatase 57 U/L (35-105); Anion Gap 13.6 (5-19); Aspartate Amino Transferase 14 U/L (0-32); Blood Urea Nitrogen 21 mg/dL (8-23); Calcium 9.4 mg/dL (8.5-10.5); Carbon Dioxide 27 mmol/L (22-29); Chloride 97 mmol/L (98-107); Globulin 2.6 g/dL (1.3-4.6); Glucose 103 mg/dL (65-115); Magnesium 1.9 mg/dL (1.7-2.3); Osmolality Calculated 281 mOsm/kg (285-295); Phosphorus 3.3 mg/dL (2.5-4.5); Potassium 3.6 mmol/L (3.5-5.1); Sodium 134 mmol/L (136-145); Total Bilirubin 0.7 mg/dL (0.15-1.2); Total Protein 5.3 g/dL (6.6-8.7)
[2022-08-21 03:52] VITALS: RESP 16
[2022-08-21] MEDS: oxyCODONE 5 mg IR Tab/Cap PO ×2 (03:52→12:19)
[2022-08-21 04:21] VITALS: BP 124/65; PULSE 69; RESP 18; TEMP 36.3; O2SAT 92
[2022-08-21 08:00] VITALS: BP 147/78; PULSE 72; RESP 18; TEMP 36.7; O2SAT 96
[2022-08-21] MEDS: calcium carb-vit d 600mg/400unit 1 Tablet 1 EACH PO (08:26)
[2022-08-21] MEDS: iron polysaccharide complex 150 mg Capsule PO (08:26)
[2022-08-21] MEDS: sucralfate 1 gm Tablet PO (08:26)
[2022-08-21] MEDS: enoxaparin 30 mg/0.3 mL Syringe SUBCUT (08:26)
[2022-08-21] MEDS: pantoprazole DR 40 mg Tablet PO (08:26)
[2022-08-21] MEDS: multivitamin therapeutic Tablet 1 TAB PO (08:26)
[2022-08-21] MEDS: cholecalciferol (vitamin D3) 1,000 unit Tablet 1000 UNIT PO (08:26)
[2022-08-21] MEDS: aspirin 81 mg EC Tablet PO (08:26)
[2022-08-21] MEDS: sennosides-docusate Tablet 2 TAB PO (08:27)
--- NOTE | 2022-08-21 09:21 | PC.CHAP ---
Pastoral Care Encounter/Spiritual Assessment Type of Contact [] Declined supervisor molding visit [] Patient/Family/Request visit [] Outpatient visit [] Follow-up visit [] Physician referral [] Code/Alert [x] Routine visit [] Staff referral [] Actively dying [] Patient sleeping [] Family support [] [] Out of room [] Palliative care [] [x] Receiving care in room [] Pre-surgical visit [] Trauma [] Long length of stay [] ICU visit [] Other: Relational/Emotional Strength [] Patient feels connected with others/family/visitors/staff [] Distress [] Loneliness/isolation [] Abandonment Spirituality of Patient [] Person of Missy [] Attends Hindu of their Missy [] Believes in Prayer [] Reads Bible or Protestant materials [] There are Spiritual issues to be addressed Custom Decorating Consultant Interventions [] Prayer [] Active listening [] Non-anxious presence [] Spiritual/emotional support [] Crisis/trauma care [] Spiritual counseling [] Bereavement support [] Provided bereavement packet [] Provided Bible/devotional materials [] Provided toy/stuffed animal, coloring book to patient or family member [] Provided Communion [] Anointing/[place] [] Salvation [] Completed spiritual assessment [] Other: Impact on Illness or Injury [] Angry [] Fearful [] Anxious [] Often cries [] Exhaustion [] Unable to work [] Unable to attend mormon [] Unable to walk/stand [] Unable to read [] Unable to drive [] Unable to eat/drink [] Unable to sleep [] Unable to be with family [] Patient intubated [] Other: Summary Time spent with patient
--- NOTE | 2022-08-21 11:12 | PC.SOCIAL ---
IMM Update pg 2 of IMM updated and reviewed w/ patient. Copy provided and copy dated, initialed and placed in chart.
[2022-08-21 11:22] LABS: Glucose Point of Care 105 mg/dL (70-110)
[2022-08-21 11:33] VITALS: BP 137/82; PULSE 81; RESP 18; TEMP 36.6; O2SAT 97
--- NOTE | 2022-08-21 11:48 | USCV_ITS ---
Kiah Garcia Age: 82 Gender: F : 1940 Exam Date: 08/21/2022 12:29 Ordering Phys: Juanito Ortiz MD Technologist: Suraj Umaña [place] [facility] [place] Indication: dvt PROCEDURES: Venous duplex imaging was performed in only the right upper extremity. The following venous structures were evaluated: internal jugular vein, subclavian vein, axillary vein, and brachial veins. In addition, the basilic vein, cephalic vein, radial vein, and ulnar vein. Serial compression, augmentation maneuvers, and spectral Doppler flow evaluation were performed. FINDINGS: There does not appear to be DVT within the right upper extremity at this time. CONCLUSIONS No evidence of thrombus of the right upper extremity veins. Gutierrez Gomez MD (Electronically Signed) Final Date: 21 August 2022 15:33 S
--- NOTE | 2022-08-21 12:09 | PM.DCS ---
Discharge Providers Date of Admission: 08/16/22 20:57 Date of Discharge: August 21, 2022 Attending Provider at Admission: León Senior MD Attending Provider at Discharge: Juanito Ortiz MD Primary Care Provider: Wilson Garcia MD Diagnoses at Discharge Discharge Diagnosis (1) Fever: Status: Acute (2) Closed left hip fracture: Status: Acute (3) Fall: Status: Acute (4) Neck pain: Status: Acute (5) Hypertension: Status: Acute (6) Atrial fibrillation: Status: Acute Reason for Visit Reason for Visit: L HIP PAIN POST FALL Hospital Course Hospital Course This is a 82-year-old female with a past medical history of atrial fibrillation, history of CVA, hypertension, arrhythmia, not on anticoagulation due to risk of falls, who presents [facility] due to fall and left hip fracture Patient was admitted to [facility] for left hip fracture, status postrepair by Dr. Becker, tolerated procedure well, requires outpatient physical therapy at a [facility] and rehab, discharged to local [facility], discharged on Lovenox 30 mg every 24 hours for DVT prophylaxis for 30 days, oxycodone for pain control, follow-up with Dr. Becker in 2 weeks Patient also had concerns for fever during the hospitalization, no significant source of infection found, remains afebrile 48 hours before discharge, continue to monitor She also had anemia during her hospitalization, potentially mixed, some component of iron deficiency anemia, some postsurgical and bone marrow suppression from surgery. I did give her 1 dose of IV Venofer here during her hospitalization, maintain on Protonix and Carafate throughout admission and on discharge. Also discharged on iron replacement therapy, recheck hemoglobin in 48 hours. If she were to develop bloody or black stools or for hemoglobins less than 7 go to the emergency room. Physical Exam Const: COMMON NORMALS: no acute distress and patient oriented x3 Resp: COMMON NORMALS: normal respiratory effort, No retractions, No use of accessory muscles and clear to auscultation bilaterally AUSCULTATION: clear to auscultation bilaterally Cardio: COMMON NORMALS: regular rate, regular rhythm, S1 normal heart sound present and S2 normal heart sound present RATE: regular rate RHYTHM: regular rhythm HEART SOUNDS: S1 normal heart sound present and S2 normal heart sound present GI: COMMON NORMALS: Normal to inspection, nondistended, normoactive bowel sounds present and non-tender Extremity: COMMON NORMALS: no pedal edema Neuro: COMMON NORMALS: patient oriented x3 Psych: COMMON NORMALS: mental status grossly normal Urinary Catheter Management: Moreira: Cath Placed During This Visit: yes, but has since been removed by the nurse Reason for Continuing Indwelling Catheter: Acute Urinary Retention or Obstruction Urinary Catheter Date of Insertion: 08/16/22 Urinary Catheter Time of Insertion: 10:35 Date Urinary Catheter Removed: 08/21/22 Time Urinary Catheter Discontinued: 05:00 Discharge Data Studies Completed and Pending Completed Studies During Hospitalization Category Date Time Status CT cervical spin wo con* [id number] Stat Cat Scan 08/16/22 10:[address] head wo con* [id number] Stat Cat Scan 08/16/22 10:34 Completed XR chest 1V portable [id number] Routine Exams 08/18/22 06:00 Completed XR chest 1V portable [id number] Routine Exams 08/19/22 06:00 Completed XR chest 1V portable [id number] Stat Exams 08/16/22 10:02 Completed XR femur LT min 2V* [id number] Stat Exams 08/16/22 10:35 Completed XR hip LT 2-3V wo/w pel* [id number] Routine Exams 08/16/22 19:13 Completed XR hip LT 2-3V wo/w pel* [id number] Stat Exams 08/16/22 09:49 Completed XR pelvis 1-2V* [id number] Stat Exams 08/16/22 10:35 [place] [id number] Routine Ultrasound 08/17/22 17:52 Completed Pending at discharge Category Date Time Status Complete Blood Count w/Auto AM LABS Lab 08/22/22 04:00 Ordered Complete Blood Count w/Auto AM LABS Lab 08/23/22 04:00 Ordered Comprehensive Metabolic Panel AM LABS Lab 08/22/22 04:00 Ordered Magnesium AM LABS Lab 08/22/22 04:00 Ordered Occult Blood Stool [Immunochemical Fecal OCB] Routine Lab 08/19/22 13:24 Uncollected Phosphorus AM LABS Lab 08/22/22 04:00 Ordered SARS Covid-2 Antigen Routine Lab 08/21/22 11:49 [place] [id number] Stat Ultrasound 08/21/22 11:48 Ordered Radiology Impressions Cervical Spine CT 08/16/22 10:34 IMPRESSION: 1. No acute cervical fracture is identified. 2. The uvula appears prominently thickened. Correlate with direct visualization to exclude mass or inflammation. Head CT 08/16/22 10:34 IMPRESSION: 1. New lacunar infarct in the right thalamus that could be acute. 2. Moderate presumed small vessel ischemic disease of indeterminate age. 3. No acute intracranial hemorrhage. ADDENDUM: 08/16/22 1145 Findings discussed with ANABELL BARNETT at 08/16/2022 11:44 AM CDT. Femur X-Ray 08/16/22 10:35 IMPRESSION: 1. Subcapital fracture of the left femur. No other fractures are identified. Pelvis X-Ray 08/16/22 10:35 IMPRESSION: 1. No acute pelvic fracture. 2. Displaced left subcapital fracture as previously described. Hip/Pelvis X-Ray 08/16/22 19:13 IMPRESSION: Baseline postoperative imaging. Venous Duplex 08/17/22 17:52 IMPRESSION: No sonographic evidence of deep vein thrombosis. Chest X-Ray 08/19/22 06:00 IMPRESSION: Probable central lobar emphysema without acute abnormality. Laboratory Results WBC 7.1 10^3/uL (4.0-10.0) 08/21/22 01:43 RBC 3.43 10^6/uL (4.1-5.3) L 08/21/22 01:43 Hgb 9.5 g/dL (11.5-15.3) L 08/21/22 01:43 Hct 29.9 % (37.0-47.0) L 08/21/22 01:43 MCV 87.2 fl (81-99) 08/21/22 01:43 MCH 27.7 pg (28.0-34.0) L 08/21/22 01:43 MCHC 31.8 g/dL (30.0-36.0) 08/21/22 01:43 RDW 13.6 % (12.1-15.1) 08/21/22 01:43 Plt Count 184 10^3/cmm (130-400) 08/21/22 01:43 MPV 10.3 fL (7.4-10.4) 08/21/22 01:43 Neut % (Auto) 48.1 % 08/21/22 01:43 Lymph % (Auto) 23.2 % 08/21/22 01:43 Pope % (Auto) 14.7 % 08/21/22 01:43 Eos % (Auto) 12.4 % 08/21/22 01:43 Baso % (Auto) 0.6 % 08/21/22 01:43 Reticulocyte % (Auto) 2.0 % (0.5-2.0) 08/19/22 04:26 Neut # (Auto) 3.43 10^3/uL (1.8-7.7) 08/21/22 01:43 Lymph # (Auto) 1.7 10^3/uL (0.8-4.8) 08/21/22 01:43 Pope # (Auto) 1.1 10^3/uL (0.2-0.9) H 08/21/22 01:43 Eos # (Auto) 0.9 10^3/uL (0.0-0.8) H 08/21/22 01:43 Baso # (Auto) 0.0 10^3/uL (0.0-0.1) 08/21/22 01:43 Nucleated RBC % (auto) 0 % 08/21/22 01:43 Nucleated RBCs # 0.0 /100WBC 08/21/22 01:43 Retic Production Index 1.53 08/19/22 04:26 Haptoglobin 182.0 mg/L (30-200) 08/19/22 04:26 PT 13.70 SECONDS (12.1-14.9) 08/16/22 10: INR 1.02 (0.8-1.2) 08/16/22 10: APTT 26.4 SECONDS (23.9-36.7) 08/16/22 10:22 Sodium 134 mmol/L (136-145) L 08/21/22 01:43 Potassium 3.6 mmol/L (3.5-5.1) 08/21/22 01:43 Chloride 97 mmol/L (98-107) L 08/21/22 01:43 Carbon Dioxide 27 mmol/L (22-29) 08/21/22 01:43 Anion Gap 13.6 (5-19) 08/21/22 01:43 BUN 21 mg/dL (8-23) 08/21/22 01:43 Creatinine 0.7 mg/dL (0.5-0.9) 08/21/22 01:43 GFR Calculation Not Reportable 08/21/22 01:43 Glucose 103 mg/dL (65-115) 08/21/22 01:43 POC Glucose 105 mg/dL (70-110) 08/21/22 10:59 Calculated Osmolality 281 mOsm/kg (285-295) L 08/21/22 01:43 Calcium 9.4 mg/dL (8.5-10.5) 08/21/22 01:43 Phosphorus 3.3 mg/dL (2.5-4.5) 08/21/22 01:43 Magnesium 1.9 mg/dL (1.7-2.3) 08/21/22 01:43 Iron 18 ug/dL (37-145) L 08/19/22 04:26 TIBC 164 mcg/dl 08/19/22 04:26 % Saturation 10.9 % (20-50) L 08/19/22 04:26 Unsat Iron Binding 146 ug/dL (112-347) 08/19/22 04:26 Ferritin 711 ng/mL (15-150) H 08/19/22 04:26 Total Bilirubin 0.7 mg/dL (0.15-1.2) 08/21/22 01:43 AST 14 U/L (0-32) 08/21/22 01:43 ALT 10 U/L (0-33) 08/21/22 01:43 Alkaline Phosphatase 57 U/L (35-105) 08/21/22 01:43 Lactate Dehydrogenase 348 U/L (135-214) H 08/19/22 04:26 Creatine Kinase 319 U/L (26-192) H 08/17/22 04:15 Total Protein 5.3 g/dL (6.6-8.7) L 08/21/22 01:43 Albumin 2.7 g/dL (3.5-5.2) L 08/21/22 01:43 Globulin 2.6 g/dL (1.3-4.6) 08/21/22 01:43 TSH 1.14 uIU/mL (0.27-4.20) 08/16/22 10:22 Urine Color Yellow (Yellow) 08/16/22 10:49 Urine Appearance Clear (CLEAR) 08/16/22 10:49 Urine pH 6.5 (5-7) 08/16/22 10:49 Ur Specific [place] 1.025 (1.005-1.030) 08/16/22 10:49 Urine Protein Negative (Negative) 08/16/22 10:49 Urine Glucose (UA) Negative (Normal) 08/16/22 10:49 Urine Ketones Trace (Negative) A 08/16/22 10:49 Urine Blood Negative (Negative) 08/16/22 10:49 Urine Nitrate Negative 08/16/22 10:49 Urine Bilirubin Negative (Negative) 08/16/22 10:49 Urine Urobilinogen 0.2 mg/dL (Negative) 08/16/22 10:49 Ur Leukocyte Esterase Negative (Negative) 08/16/22 10:49 Coronavirus 229E (PCR) Not detected (NOT DETECT) 08/17/22 18:26 SARS-CoV-2 (PCR) Not detected (NOT DETECT) 08/17/22 18:26 Vitals Last Vital Signs Temp 97.9 F 08/21/22 11:33 Pulse 81 08/21/22 11:33 Resp 18 08/21/22 11:33 BP 137/82 08/21/22 11:33 Pulse Ox 97 08/21/22 11:33 O2 Del Method 08/21/22 11:33 O2 Flow Rate 2 08/20/22 21:34 Discharge Plan Discharge Patient Disposition: Xfer SNF Condition: Stable Prescriptions: New cholecalciferol (vitamin D3) 25 mcg (1,000 unit) Tablet 1,000 unit PO DAILY 30 Days Qty: 30 0RF Ferrex 150 150 mg iron Capsule 150 mg PO BIDWM 30 Days Qty: 30 0RF Stool Softener-Laxative 8.6-50 mg Tablet 1 tab-cap PO BID 30 Days Qty: 60 0RF pantoprazole 40 mg Tablet,Delayed Release (Dr/Ec) 40 mg PO BID 30 Days Qty: 60 0RF sucralfate 1 gram Tablet 1 g PO BIDAC 30 Days Qty: 60 0RF oxycodone 5 mg tablet 5 mg PO Q6H PRN (Reason: pain) 7 Days Qty: 28 0RF Lovenox 30 mg/0.3 mL syringe 30 mg SUBCUT Q24H 30 Days Qty: 9 0RF Continued loratadine [Claritin] 10 mg tablet 10 mg PO DAILY PRN (Reason: Allergy Symptoms) ketoconazole 2 % shampoo 1 applic topical .2 x weekly Qty: 120 3RF Rx Instructions: Lather into scalp 2 times weekly. Allow to sit on scalp for 5 minutes before rinsing. nebivolol [Bystolic] 20 mg tablet 20 mg PO QAM Qty: 90 3RF acetaminophen [Tylenol Extra Strength] 500 mg tablet 500 mg PO BEDTIME aspirin 81 mg Tablet,Delayed Release (Dr/Ec) 81 mg PO DAILY clobetasol 0.05 % ointment 1 applic topical BID PRN (Reason: unknown) Rx Instructions: to affected areas on body no more than 3 wks/mo clobetasol 0.05 % solution 1 applic topical DAILY PRN (Reason: unknown) Rx Instructions: to scalp Held Humira(CF) Pen 40 mg/0.4 mL pen injector kit 40 mg SUBCUT Q14D Qty: 2 4RF Hold Instructions: Resume on 09/18/22. hold until you see dermatology Rx Instructions: Inject 1 pen every 2 weeks Discharge Orders: Discharge Order (Routine); Ordered 08/21/22 Ordered By: Juanito Ortiz Referrals: Elie Becker DO [Physician] - 2 weeks Wilson Garcia MD [Primary Care Provider] - 4-7 days Discharge Diet: Cardiac Discharge Activity: Limit activity as instructed Patient Instructions: Oxycodone/Acetaminophen (By mouth), Laxative, Stimulant (By mouth), Enoxaparin (By injection), Opioid Safety Activity Restrictions/Additional Instructions: Orthopedic discharge instructions: Patient may be weightbearing as tolerated to the left lower extremity Keep incision clean dry and intact May shower but no baths or soaks Take pain medication as prescribed Take blood thinner medication (Lovenox) as prescribed Recommend supplementing with vitamin D calcium Posterior hip precautions(no hip flexion past 90 degrees or internal rotation) Sleep with abduction pillow on in place Patient follow-up with Dr. Becker in office in 2 weeks For any questions or concerns feel free to contact the office. -Recheck hemoglobin in 48 hours Discharge Attestations Time Spent in Discharge Care*: less than 30 min Quality Metrics Clinical Quality Measures [ No reported AMI, CVA or VTE this stay] Coding Level of Care Code Acute Chg FW DC note Diagnoses Fever R50.9 Closed left hip fracture S72.002A Fall W19.XXXA Neck pain M54.2 Hypertension I10 Atrial fibrillation I48.91
[2022-08-21 12:16] LABS: SARS Covid-2 Antigen negative (Negative)
[2022-08-21 12:19] VITALS: RESP 17
[2022-08-21] MEDS: FUROsemide 10 mg/mL SDV 2mL 20 MG IVP (12:20)
--- NOTE | 2022-08-21 13:48 | PC.NURSE ---
report attempted x3 by this continuity writer, facility answers phone and states they will transfer to the nurse taking the patient, upon transfer phone rings until voicemail.
[2022-08-21 14:40] VITALS: RESP 17
== END 2022-08-21 14:41 | disposition skilled nursing facility (03) | DRG 522 ==
LOC: ER 11:13 → MEDSURG 13:01
PROVIDERS: Internal Medicine; Student in an Organized Health Care Education/Training Program; Admitting Provider Internal Medicine; Emergency Provider Family Medicine; PCP Family Medicine; Visit Provider Family Medicine
PROC: 0SRS0J9 Replacement of Left Hip Joint, Femoral Surface with Synthetic Substitute, Cemented, Open Approach (ICD-10-PCS; CPT 27125; principal; 2022-08-16 14:25)
DX: S72.012A Unspecified intracapsular fracture of left femur, initial encounter for closed fracture (principal); W18.2XXA Fall in (into) shower or empty bathtub, initial encounter; M85.852 Other specified disorders of bone density and structure, left thigh; M54.2 Cervicalgia; R07.81 Pleurodynia; I48.91 Unspecified atrial fibrillation; Z86.73 Personal history of transient ischemic attack (TIA), and cerebral infarction without residual deficits; E78.5 Hyperlipidemia, unspecified; I10 Essential (primary) hypertension; M54.16 Radiculopathy, lumbar region; M19.90 Unspecified osteoarthritis, unspecified site; I73.00 Raynaud's syndrome without gangrene; Z79.82 Long term (current) use of aspirin; R50.9 Fever, unspecified; D50.9 Iron deficiency anemia, unspecified; L40.9 Psoriasis, unspecified
CPT/HCPCS: 36415; 36416; 51702; 70450; 71045; 72125; 72170; 73502; 73552; 80048; 80053; 80503; 81003; 82550; 82728; 82962; 83010; 83540; 83550; 83615; 83735; 84100; 84443; 85014; 85025; 85045; 85610; 85730; 87426; 87635; 93005; 93970; 93971; 96372; 96374; 96375; 97110; 97161; 97166; 97530; 97535; 99285; C1713; C1776; J1650; J1756; J1940; J2175; J2250; J2270; J2405; J2704; J3370; J3490; J7030; P9041

== ENCOUNTER → 2022-09-06 08:47 | Outpatient (BNVA) | payer OTHER, SELFPAY | PROVIDERS: PCP Family Medicine; Visit Provider Student in an Organized Health Care Education/Training Program | DX: S72.002A Fracture of unspecified part of neck of left femur, initial encounter for closed fracture (principal); X58.XXXA Exposure to other specified factors, initial encounter | CPT/HCPCS: 73502; 99024 ==

== ENCOUNTER → 2022-10-18 09:20 | Outpatient (BNVA) | payer MEDICARE, OTHER, SELFPAY | PROVIDERS: PCP Family Medicine; Visit Provider Student in an Organized Health Care Education/Training Program | DX: S72.002A Fracture of unspecified part of neck of left femur, initial encounter for closed fracture (principal); X58.XXXA Exposure to other specified factors, initial encounter; Z98.890 Other specified postprocedural states | CPT/HCPCS: 73502; 99024 ==

== ENCOUNTER → 2023-01-17 09:36 | Outpatient (BNVA) | payer MEDICARE, OTHER, SELFPAY | PROVIDERS: PCP Family Medicine; Visit Provider Student in an Organized Health Care Education/Training Program | DX: Z47.89 Encounter for other orthopedic aftercare (principal); S72.002D Fracture of unspecified part of neck of left femur, subsequent encounter for closed fracture with routine healing; X58.XXXD Exposure to other specified factors, subsequent encounter | CPT/HCPCS: 73502; 99213 ==

== ENCOUNTER → 2023-01-22 09:58 | Outpatient (BNVA) | payer MEDICARE, OTHER, SELFPAY | PROVIDERS: PCP Family Medicine; Visit Provider Internal Medicine Cardiovascular Disease | DX: I49.8 Other specified cardiac arrhythmias (principal); I10 Essential (primary) hypertension; E78.2 Mixed hyperlipidemia; Z86.73 Personal history of transient ischemic attack (TIA), and cerebral infarction without residual deficits; Z79.82 Long term (current) use of aspirin | CPT/HCPCS: 99214 ==

== ENCOUNTER → 2023-03-12 15:06 | Outpatient (BNVA) | payer MEDICARE, OTHER, SELFPAY | PROVIDERS: PCP Family Medicine; Visit Provider Dermatology | DX: L40.0 Psoriasis vulgaris (principal); L82.1 Other seborrheic keratosis; L57.8 Other skin changes due to chronic exposure to nonionizing radiation | CPT/HCPCS: 99214 ==

== ENCOUNTER 2023-03-13 08:43 | Outpatient (CLI) | payer MEDICARE, OTHER, SELFPAY ==
[2023-03-13 10:02] LABS: Basophils # 0.1 10^3/uL (0.0-0.1); Basophils % 0.8 %; Eosinophils # 0.3 10^3/uL (0.0-0.8); Eosinophils % 5.1 %; Hematocrit 44.8 % (37.0-47.0); Hemoglobin 14.6 g/dL (11.5-15.3); Lymphocytes # 1.4 10^3/uL (0.8-4.8); Lymphocytes % 23.4 %; Mean Corpuscular HGB Conc 32.6 g/dL (30.0-36.0); Mean Corpuscular Hemoglobin 27.7 pg (28.0-34.0); Mean Corpuscular Volume 84.8 fl (81-99); Mean Platelet Volume 9.5 fL (7.4-10.4); Monocytes # 0.8 10^3/uL (0.2-0.9); Monocytes % 12.3 %; Neutrophils # 3.54 10^3/uL (1.8-7.7); Neutrophils % 58.1 %; Nucleated Red Blood Cells % 0 %; Platelet Count 196 10^3/cmm (130-400); Red Blood Count 5.28 10^6/uL (4.1-5.3); Red Cell Distribution Width 14.8 % (12.1-15.1); White Blood Count 6.1 10^3/uL (4.0-10.0)
[2023-03-13 10:16] LABS: Alanine Aminotransferase 12 U/L (0-33); Alkaline Phosphatase 82 U/L (35-105); Anion Gap 13.9 (5-19); Aspartate Amino Transferase 14 U/L (0-32); Blood Urea Nitrogen 24 mg/dL (8-23); Calcium 9.6 mg/dL (8.5-10.5); Carbon Dioxide 24 mmol/L (22-29); Chloride 108 mmol/L (98-107); Globulin 2.7 g/dL (1.3-4.6); Glucose 95 mg/dL (65-115); Osmolality Calculated 298 mOsm/kg (285-295); Potassium 3.9 mmol/L (3.5-5.1); Sodium 142 mmol/L (136-145); Total Bilirubin 0.4 mg/dL (0.15-1.2); Total Protein 6.7 g/dL (6.6-8.7)
[2023-03-13 11:01] LABS: HIV 1 & 2 Antibody Non-Reactive (Non-Reactiv); HIV 1 & 2 Antigen Non-Reactive (Non-Reactiv)
[2023-03-13 11:30] LABS: Hepatitis A Antibody IgM Non-Reactive (Nonreactive); Hepatitis B Core AB, Total Non-Reactive (Nonreactive); Hepatitis B Surface AB 3.5 (11.5-1000); Hepatitis B Surface Antigen Non-Reactive (Nonreactive); Hepatitis C Virus Antibody Non-Reactive (Nonreactive)
[2023-03-15 14:45] LABS: Quantiferon Mitogen >10.00 IU/mL; Quantiferon Nil 0.02 IU/mL; Quantiferon Plus TB2 0.06 IU/mL; Quantiferon TB Gold NEGATIVE (NEGATIVE)
== END 2023-03-13 08:44 | disposition home or self-care (01) ==
PROVIDERS: PCP Family Medicine; Visit Provider Dermatology
DX: L40.0 Psoriasis vulgaris (principal); Z79.899 Other long term (current) drug therapy; D18.01 Hemangioma of skin and subcutaneous tissue; L82.1 Other seborrheic keratosis; L57.8 Other skin changes due to chronic exposure to nonionizing radiation
CPT/HCPCS: 36415; 80053; 85025; 86480; 86705; 86706; 86709; 86803; 87340; 87806

== ENCOUNTER 2023-03-17 16:53 | Outpatient (CLI) | payer MEDICARE, OTHER, SELFPAY ==
[2023-03-17 18:04] LABS: Add Urine Microscopic? YES; Amorphous Sediment Urine 2+ /hpf; Bacteria Urine TRACE /hpf; Bilirubin Urine Neg (Negative); Blood Urine Neg (Negative); Glucose Urine UA Norm (Normal); Ketones Urine Negative (Negative); Leukocyte Esterase Urine Negative (Negative); Nitrate Urine Negative (Negative); Protein Urine Neg (Negative); Urine Appearance SL Hazy (CLEAR); Urine Color Yellow (Yellow); Urobilinogen Urine Norm (Negative); WBC Urine 0-4 /hpf (0-5); pH Urine 6 (5-7)
[2023-03-17 18:05] LABS: Add Urine Culture? No
== END 2023-03-17 16:54 | disposition home or self-care (01) ==
LOC: LAB 17:08
PROVIDERS: PCP Family Medicine; Visit Provider Family Medicine
DX: Z01.89 Encounter for other specified special examinations (principal)
CPT/HCPCS: 81001

== ENCOUNTER → 2023-04-03 11:20 | Outpatient (BNVA) | payer MEDICARE, OTHER, SELFPAY | PROVIDERS: PCP Family Medicine; Visit Provider Nurse Practitioner Family | DX: Z98.890 Other specified postprocedural states (principal); R35.0 Frequency of micturition; X58.XXXA Exposure to other specified factors, initial encounter; S72.002A Fracture of unspecified part of neck of left femur, initial encounter for closed fracture | CPT/HCPCS: 73502; 99213 ==

== ENCOUNTER 2023-04-11 20:11 | Inpatient (IN) | payer MEDICARE, OTHER, SELFPAY ==
--- NOTE | 2023-04-11 | XRR_ITS ---
PROCEDURE INFORMATION: Exam: XR Left Hip Exam date and time: 04/11/2023 8:58 PM Age: 83 years old Clinical indication: Injury or trauma; Fall; Blunt trauma (contusions or hematomas); Right; Hip TECHNIQUE: Imaging protocol: Radiologic exam of the left hip. Views: 1 view hip with pelvis when performed. 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 Bones/joints: Bones are moderately osteopenic. No acute fracture is demonstrated. There is no evidence for fracture or loosening of the left hip replacement in the appearance of the hip replacement is unchanged compared with 01/17/2023 Soft tissues: Unremarkable. XR/XR hip RT 2-3V wo/w pel* [id number] IMPRESSION: No acute finding. Dictated By:Roberto Garcia Signed By: Roberto Garcia Signed Date/Time: 04/11/232206 DD/ 57 ADDENDUM XR/XR hip LT 2-3V wo/w pel* [id number] Addendum: This examination was titled left hip but the images are actually of the RIGHT HIP. This is a report for the right hip which does not show evidence of fracture or dislocation of the RIGHT HIP. Addendum Dictated By: Roberto Garcia Addendum Signed By: Roberto Garcia Signed Date/Time: 04/11/232201 Addendum Cosigned By: PROCEDURE INFORMATION: Exam: XR Left Hip Exam date and time: 04/11/2023 8:53 PM Age: 83 years old Clinical indication: Hip pain; Right hip TECHNIQUE: Imaging protocol: Radiologic exam of the left hip. Views: 2 or 3 views hip with pelvis when performed. COMPARISON: CR XR hip LT 2-3V wo/w pel* [id number] 04/03/2023 11:20 AM FINDINGS: Limitations: Increased noise/quantum mottle, which may be secondary to causes such as low to output for a given body size versus increased amount overlying soft tissues. Bones/joints: No fracture is identified. There is no evidence of dislocation. Soft tissues: Unremarkable. XR/XR hip LT 2-3V wo/w pel* [id number] IMPRESSION: No acute finding. Dictated By: Roberto Garcia Signed By: Roberto Garcia Signed Date/Time: 04/11/232199 DD/ 52 MTDD
[2023-04-11 20:16] VITALS: BP 202/101; PULSE 55; RESP 16; TEMP 37.1; O2SAT 98; BMI 29.0
[2023-04-11 20:30] VITALS: BP 224/98; PULSE 59; RESP 16; O2SAT 97
--- NOTE | 2023-04-11 20:30 | CTR_ITS ---
PROCEDURE INFORMATION: Exam: CT Lumbar Spine Without Contrast Exam date and time: 04/11/2023 9:15 PM Age: 83 years old Clinical indication: Injury or trauma; Fall; Blunt trauma (contusions or hematomas); Additional info: Back pain TECHNIQUE: Imaging protocol: Computed tomography of the lumbar spine without contrast. Radiation optimization: All CT scans at this facility use at least one of these dose optimization techniques: automated exposure control; mA and/or kV adjustment per patient size (includes targeted exams where dose is matched to clinical indication); or iterative reconstruction. REPORTING DATA: Count of CT and Cardiac NM exams in prior 12 months: This patient has received 3 known CTs and 0 known cardiac nuclear medicine studies in the 12 months prior to the current study. COMPARISON: CT Lumbar Spine wo IV 08/20/2011 9:09 PM RADIATION DOSE METRICS: Total DLP (mGy-cm): 985.13 FINDINGS: Bones/joints: There is central depression of the superior endplate of L2. This compression deformity is new compared with the previous examination but of uncertain age. Please correlate with clinical findings. There is compression deformity of the superior endplate of L4 with sclerosis. This appears represent old healed compression fracture. There is some central posterior osteophyte. Please correlate with clinical findings. L5 is a partly sacralized transitional vertebrae as noted on the previous examination. L1-L2: Mild posterior bulging of the disc. No focal herniation or significant stenosis. L2-L3: Hypertrophic degenerative changes in the facet joints and hypertrophy of ligamentum flavum.. Mild posterior bulging of the disc without causes mild foraminal narrowing bilaterally. L3-L4: Degenerative changes in the facet joints and mild hypertrophy of the ligamentum flavum bilaterally without focal herniation. There is mild central canal stenosis narrowing the sagittal diameter of the canal to 8.5 mm. L4-L5: Moderate diffuse posterior bulging of the disc. Degenerative change in the facet joints and hypertrophy of the ligamentum flavum causing mild central canal stenosis slightly progressed from the previous examination. L5-S1: No significant disc bulge or herniation. No severe spinal canal stenosis. No significant neural foraminal narrowing. 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 There is moderate atherosclerotic calcification of the abdominal aorta. T12-L1 There is severe narrowing of the disc space with vacuum disc phenomenon. There is a very large broad-based disc herniation new from the previous examination causing severe central canal stenosis narrowing the sagittal diameter canal to less than 8 mm. Soft tissues: Unremarkable. CT/CT lumbar spine wo con* [id number] IMPRESSION: 1. Degenerative disc with large posterior herniation at T12-L1 2. Compression deformity superior endplate of L2 of uncertain age. Please correlate clinically 3. Chronic appearing compression deformity superior endplate L4. 4. Degenerative disc changes and mild multilevel stenosis as described.
--- NOTE | 2023-04-11 20:30 | XRR_ITS ---
PROCEDURE INFORMATION: Exam: XR Left Hip Exam date and time: 04/11/2023 8:58 PM Age: 83 years old Clinical indication: Injury or trauma; Fall; Blunt trauma (contusions or hematomas); Right; Hip TECHNIQUE: Imaging protocol: Radiologic exam of the left hip. Views: 1 view hip with pelvis when performed. 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 Bones/joints: Bones are moderately osteopenic. No acute fracture is demonstrated. There is no evidence for fracture or loosening of the left hip replacement in the appearance of the hip replacement is unchanged compared with 01/17/2023 Soft tissues: Unremarkable.
[2023-04-11] MEDS: hyDRALAzine 20 mg/mL INJ 1 mL 10 MG IVP (20:40)
[2023-04-11] MEDS: dexamethasone 10 mg/mL INJ IVP (20:42)
[2023-04-11] MEDS: ketorolac 30 mg/mL INJ 15 MG IVP (20:44)
[2023-04-11 20:46] LABS: Basophils # 0.1 10^3/uL (0.0-0.1); Basophils % 0.7 %; Eosinophils # 0.5 10^3/uL (0.0-0.8); Eosinophils % 6.6 %; Hematocrit 43.6 % (37.0-47.0); Hemoglobin 13.4 g/dL (11.5-15.3); Lymphocytes % 28.8 %; Mean Corpuscular HGB Conc 30.7 g/dL (30.0-36.0); Mean Corpuscular Hemoglobin 27.1 pg (28.0-34.0); Mean Corpuscular Volume 88.3 fl (81-99); Mean Platelet Volume 9.6 fL (7.4-10.4); Monocytes # 0.9 10^3/uL (0.2-0.9); Monocytes % 13.2 %; Neutrophils # 3.44 10^3/uL (1.8-7.7); Neutrophils % 50.6 %; Nucleated Red Blood Cells % 0 %; Platelet Count 183 10^3/cmm (130-400); Red Blood Count 4.94 10^6/uL (4.1-5.3); Red Cell Distribution Width 13.9 % (12.1-15.1); White Blood Count 6.8 10^3/uL (4.0-10.0)
--- NOTE | 2023-04-11 20:49 | XRR_ITS ---
PROCEDURE INFORMATION: Exam: XR Left Hip Exam date and time: 04/11/2023 8:53 PM Age: 83 years old Clinical indication: Hip pain; Right hip TECHNIQUE: Imaging protocol: Radiologic exam of the left hip. Views: 2 or 3 views hip with pelvis when performed. COMPARISON: CR XR hip LT 2-3V wo/w pel* [id number] 04/03/2023 11:20 AM FINDINGS: Limitations: Increased noise/quantum mottle, which may be secondary to causes such as low to output for a given body size versus increased amount overlying soft tissues. Bones/joints: No fracture is identified. There is no evidence of dislocation. Soft tissues: Unremarkable.
[2023-04-11 21:03] LABS: Alanine Aminotransferase 11 U/L (0-33); Albumin Level 3.6 g/dL (3.5-5.2); Alkaline Phosphatase 85 U/L (35-105); Aspartate Amino Transferase 15 U/L (0-32); Blood Urea Nitrogen 23 mg/dL (8-23); Calcium 9.3 mg/dL (8.5-10.5); Carbon Dioxide 22 mmol/L (22-29); Chloride 106 mmol/L (98-107); Creatinine Clr Calc Pharmacy 56.3918; Globulin 2.5 g/dL (1.3-4.6); Glucose 90 mg/dL (65-115); Osmolality Calculated 293 mOsm/kg (285-295); Sodium 140 mmol/L (136-145); Total Bilirubin 0.3 mg/dL (0.15-1.2); Total Protein 6.1 g/dL (6.6-8.7)
[2023-04-11 21:13] LABS: Anion Gap 15.9 (5-19); Potassium 3.9 mmol/L (3.5-5.1)
--- NOTE | 2023-04-11 21:17 | ED_ITS ---
HPI - Back Pain/Injury General: Chief Complaint: Back Pain/Injury Stated Complaint: BACK PAIN Time Seen by Provider: 04/11/23 20:25 Source: patient and EMS Mode of arrival: EMS Limitations: no limitations History of Present Illness: 83-year-old female who states that she has been having severe back pain throughout the day. She states it is in the middle of her back and radiates down both her legs. No bowel or bladder incontinence states she is not able to walk due to the severe pain she received 100 mg of fentanyl in route and still having pain. She denies any new injuries. She had a hip surgery last July. Denies any fevers. Associated symptoms: Deny abdominal pain, chills, fever(s), nausea or vomiting Review of Systems Const: Denies: fever(s), chills, body aches or change in appetite ENMT: Denies: throat pain or dental pain Card: Denies: chest pain Resp: Denies: dyspnea GI: Denies: abdominal pain, nausea, vomiting or diarrhea Musc: Reports: back pain; Denies: neck pain Skin/Breast: Denies: rash Neuro: Denies: headache(s) PFSH ED PFSH: Medical History Arrhythmia Atrial fibrillation CVA (cerebral vascular accident) Hyperlipidemia Hypertension Hyperthyroidism Left displaced femoral neck fracture Lumbar radiculopathy Osteoarthritis Psoriasis Raynaud's syndrome Surgical History H/O hernia repair H/O: hysterectomy History of appendectomy History of bladder repair surgery History of knee replacement Hx of cataract extraction Family History Father CAD (coronary artery disease) Stroke Mother CAD (coronary artery disease) Stroke Cancer Family/Other Cancer Daughter Lung disease Other Hyperlipidemia Hypertension Denies family history of Diabetes Clotting disorder Dementia Chronic kidney disease (CKD) Suicide Anesthesia complication Bleeding disorder Social History Smoking and tobacco status: never smoked Alcohol intake: never Substance/Drug Use: never Physical Exam Const: COMMON NORMALS: patient oriented x3 GENERAL APPEARANCE: in distress HENMT: COMMON NORMALS: normocephalic and atraumatic HEAD & SCALP: normocephalic and atraumatic Eye: COMMON NORMALS: Equal, round and reactive pupils present and EOMs intact bilaterally PUPIL: Yes Equal, round and reactive pupils present Neck/C-Spine: COMMON NORMALS: full ROM and supple Chest: COMMONS NORMALS: normal inspection of the chest and normal palpation of entire chest wall Resp: COMMON NORMALS: normal respiratory effort, No retractions, No use of accessory muscles and clear to auscultation bilaterally AUSCULTATION: clear to auscultation bilaterally Cardio: COMMON NORMALS: regular rate, regular rhythm and No murmurs present (Cardio) RATE: regular rate RHYTHM: regular rhythm GI: COMMON NORMALS: Normal to inspection, nondistended, normoactive bowel sounds present, Soft to palpation, non-tender and no masses PALPATION: Yes Soft to palpation Back/Pelvis: OTHER: Severe back pain with any movement tender to the lower back no saddle anesthesia Extremity: COMMON NORMALS: normal to inspection and full ROM Neuro: COMMON NORMALS: patient oriented x3, moves all extremities and no focal motor deficits Psych: COMMON NORMALS: mental status grossly normal, Normal thought process present and cooperative THOUGHT PROCESS: Normal thought process present Skin: COMMON NORMALS: no rashes or lesions noted and no wounds GENERAL SKIN EXAM: no rashes or lesions noted Course Vital Signs: Vital signs: Vital Signs Temperature 98.7 F 04/11/23 20:16 Pulse Rate 59 L 04/11/23 20:30 Respiratory Rate 16 04/11/23 20:30 Blood Pressure 224/98 04/11/23 20:30 Pulse Oximetry 97 04/11/23 20:30 Oxygen Delivery Me thod Room Air 04/11/23 20:30 MDM - Back Pain/Injury Medical Decision Making Patient presents with severe back pain will be given her multiple meds here to get her pain under control left admit for pain control I spoke to our spine surgeon on-call as well Dr. Olmos who is consulted likely will get an MRI tomorrow she has no signs of acute cord compression with no bowel or bladder incontinence does not need an emergent MRI at this time. Labs 04/11/23 20:39 04/11/23 20:39 Radiology Impressions Lumbar Spine CT 04/11/23 20:30 IMPRESSION: 1. Degenerative disc with large posterior herniation at T12-L1 2. Compression deformity superior endplate of L2 of uncertain age. Please correlate clinically 3. Chronic appearing compression deformity superior endplate L4. 4. Degenerative disc changes and mild multilevel stenosis as described. Hip/Pelvis X-Ray 04/11/23 20:49 IMPRESSION: No acute finding. ADDENDUM: 04/11/232201 Addendum: This examination was titled left hip but the images are actually of the RIGHT HIP. This is a report for the right hip which does not show evidence of fracture or dislocation of the RIGHT HIP. Laboratory Results WBC 6.8 10^3/uL (4.0-10.0) 04/11/23 20:39 RBC 4.94 10^6/uL (4.1-5.3) 04/11/23 20:39 Hgb 13.4 g/dL (11.5-15.3) 04/11/23 20:39 Hct 43.6 % (37.0-47.0) 04/11/23 20:39 MCV 88.3 fl (81-99) 04/11/23 20:39 MCH 27.1 pg (28.0-34.0) L 04/11/23 20:39 MCHC 30.7 g/dL (30.0-36.0) 04/11/23 20:39 RDW 13.9 % (12.1-15.1) 04/11/23 20:39 Plt Count 183 10^3/cmm (130-400) 04/11/23 20:39 MPV 9.6 fL (7.4-10.4) 04/11/23 20:39 Neut % (Auto) 50.6 % 04/11/23 20:39 Lymph % (Auto) 28.8 % 04/11/23 20:39 [place] % (Auto) 13.2 % 04/11/23 20:39 Eos % (Auto) 6.6 % 04/11/23 20:39 Baso % (Auto) 0.7 % 04/11/23 20:39 Neut # (Auto) 3.44 10^3/uL (1.8-7.7) 04/11/23 20:39 Lymph # (Auto) 2.0 10^3/uL (0.8-4.8) 04/11/23 20:39 [place] # (Auto) 0.9 10^3/uL (0.2-0.9) 04/11/23 20:39 Eos # (Auto) 0.5 10^3/uL (0.0-0.8) 04/11/23 20:39 Baso # (Auto) 0.1 10^3/uL (0.0-0.1) 04/11/23 20:39 Nucleated RBC % (auto) 0 % 04/11/23 20:39 Nucleated RBCs # 0.0 /100WBC 04/11/23 20:39 Sodium 140 mmol/L (136-145) 04/11/23 20:39 Potassium 3.9 mmol/L (3.5-5.1) 04/11/23 20:39 Chloride 106 mmol/L (98-107) 04/11/23 20:39 Carbon Dioxide 22 mmol/L (22-29) 04/11/23 20:39 Anion Gap 15.9 (5-19) 04/11/23 20:39 BUN 23 mg/dL (8-23) 04/11/23 20:39 Creatinine 0.7 mg/dL (0.5-0.9) 04/11/23 20:39 GFR Calculation Not Reportable 04/11/23 20:39 Glucose 90 mg/dL (65-115) 04/11/23 20:39 Calculated Osmolality 293 mOsm/kg (285-295) 04/11/23 20:39 Calcium 9.3 mg/dL (8.5-10.5) 04/11/23 20:39 Total Bilirubin 0.3 mg/dL (0.15-1.2) 04/11/23 20:39 AST 15 U/L (0-32) 04/11/23 20:39 ALT 11 U/L (0-33) 04/11/23 20:39 Alkaline Phosphatase 85 U/L (35-105) 04/11/23 20:39 Total Protein 6.1 g/dL (6.6-8.7) L 04/11/23 20:39 Albumin 3.6 g/dL (3.5-5.2) 04/11/23 20:39 Globulin 2.5 g/dL (1.3-4.6) 04/11/23 20:39 Discharge Plan Discharge Patient Disposition: Admitted As Inpatient Clinical Impression: Severe low back pain, Herniated lumbar intervertebral disc Condition: Stable Prescriptions: No Action loratadine [Claritin] 10 mg tablet 10 mg PO DAILY PRN (Reason: Allergy Symptoms) nebivolol [Bystolic] 20 mg tablet 20 mg PO QAM Qty: 90 3RF Humira(CF) Pen 40 mg/0.4 mL pen injector kit 40 mg SUBCUT Q14D Qty: 2 4RF Hold Instructions: Resume on 09/18/22. hold until you see dermatology Rx Instructions: Inject 1 pen every 2 weeks ketoconazole 2 % shampoo 1 applic topical .2 x weekly Qty: 120 3RF Rx Instructions: Lather into scalp 2 times weekly. Allow to sit on scalp for 5 minutes before rinsing. nebivolol [Bystolic] 10 mg tablet 10 mg PO DAILY Qty: 90 3RF Rx Instructions: 20 mg in morning, 10mg in evening. acetaminophen [Tylenol Extra Strength] 500 mg tablet 500 mg PO BEDTIME aspirin 81 mg Tablet,Delayed Release (Dr/Ec) 81 mg PO DAILY clobetasol 0.05 % ointment 1 applic topical BID PRN (Reason: unknown) Rx Instructions: to affected areas on body no more than 3 wks/mo clobetasol 0.05 % solution 1 applic topical DAILY PRN (Reason: unknown) Rx Instructions: to scalp Referrals: Wilson Garcia MD [Primary Care Provider] - Coding Level of Care Code ED Grinder Outside Diameter for Hung Webb
[2023-04-11 22:08] VITALS: BP 138/70; PULSE 63; O2SAT 95
--- NOTE | 2023-04-11 22:34 | P.HP_ITS ---
Providers/Chief Complaint Admitting Physician: Naomi Lowry MD Primary Care Provider: Wilson Garcia MD Chief Complaint: BACK PAIN History of Present Illness Kiah Garcia is a 83 year old female with past medical history of atrial fibrillation, stroke, hyperlipidemia, hypertension, hyperthyroidism, lumbar radiculopathy, osteoarthritis, psoriasis, Raynaud's syndrome presented to the hospital today for complaint of severe back pain that started 3 days ago. She states that she was bent over and vacuuming under her couches and couch cushions that day and felt fine through the evening however next morning when she woke up she woke up with severe back pain. She cannot find a comfortable position. It hurts when she walks and when laying down she tries to move her legs or raise her legs it hurts in her back. She says she was constipated for the last 2 days as well but finally had a bowel movement yesterday after she took some laxatives.. She says it is in the mid lower back and radiates down both her legs. She has not lost control of bowel or bladder at this time. He says she is unable to walk due to severe pain. She says she was told in the ER that she has a herniated disc. She would be interested in surgery if it is warranted. EMS gave her fentanyl 100 in route we will bring her in and that did not take away the pain. Denies falls or any new injuries recently. Patient does have a history of hip surgery last year in July. Has not had any fevers, nausea, vomiting, diarrhea, constipation recently. Denies ill contacts. Patient states that she would like to be let go in case of an emergency situation if she does end up having a cardiac arrest. She does not want to be intubated either. She states she has a power of litigation attorney in place as well. The nurse and I both asked her several times regarding her wishes and she said that she would like to be a DNR/DNI. ED course: Blood pressure 224/98, respiratory 16, pulse 59, temperature 98.7, saturating 97% on room air. CT lumbar spine was obtained which showed degenerative disc with large posterior herniation at T12-L1. Compression deformity superior endplate of L2 of uncertain age. Chronic appearing compression deformity superior endplate L4, degenerative disc changes and mild multilevel stenosis as described. Hip pelvis x-ray did not show any acute findings at this time. Labs WBC 6.8, hemoglobin 13.4, platelet 183, sodium 140, potassium 3.9, creatinine 0.7, AST 15, ALT 15, glucose 90. Spine surgeon on-call Dr. Barahona was contacted who has been consulted. MRI lumbar spine has been recommended at this time on a nonemergent basis since patient does not have any signs of acute cord compression with no bowel or bladder incontinence. Patient was given dexamethasone 10 mg IV push x1, ketorolac 15 IV push x1, hydralazine 10 mg IV push x1. Medications/Allergies Home Medications Medication Instructions Recorded Confirmed Last Taken Type loratadine 10 mg tablet (Claritin) 10 mg PO DAILY PRN Allergy Symptoms 02/17/20 04/03/23 Unknown History acetaminophen 500 mg tablet 500 mg PO BEDTIME 05/29/20 04/03/23 08/15/22 History (Tylenol Extra Strength) aspirin 81 mg tablet,delayed 81 mg PO DAILY 04/27/22 04/03/23 08/15/22 History release clobetasol 0.05 % scalp solution 1 applic topical DAILY PRN unknown 04/27/22 04/03/23 Unknown History clobetasol 0.05 % topical ointment 1 applic topical BID PRN unknown 04/27/22 04/03/23 Unknown History adalimumab 40 mg/0.4 mL 40 mg (0.4 mL) SUBCUT Q14D #2 ea 06/03/22 04/03/23 08/07/22 Rx subcutaneous pen kit (Humira(CF) Pen) Bystolic 20 mg tablet (nebivolol) 20 mg PO QAM #90 tabs 08/08/22 04/03/23 08/15/22 Rx ketoconazole 2 % shampoo 1 applic topical .2 x weekly #120 11/25/22 04/03/23 Unknown Rx mL nebivolol 10 mg tablet (Bystolic) 10 mg PO DAILY #90 tabs 02/19/23 04/03/23 Unknown Rx Allergies Allergy/AdvReac Type Severity Reaction Status Date / Time chlorzoxazone Allergy Severe Unconscious Verified 04/11/23 20:23 [From Parafon Forte] aliskiren [From Tekturna] Allergy Unknown unknown Verified 04/11/23 20:23 atenolol Allergy Unknown unknown Verified 04/11/23 20:23 diltiazem [From Cardizem] Allergy Unknown unknown Verified 04/11/23 20:23 hydralazine Allergy Unknown headache Verified 04/11/23 20:23 hydrochlorothiazide Allergy Unknown unknown Verified 04/11/23 20:23 [From Microzide] losartan [From Hyzaar] Allergy Unknown unknown Verified 04/11/23 20:23 valsartan Allergy Unknown edema Verified 04/11/23 20:23 verapamil Allergy Unknown unknown Verified 04/11/23 20:23 allopurinol Allergy diarrhea Verified 04/11/23 20:23 amlodipine Allergy ADR-Diarrhe Verified 04/11/23 20:23 a celecoxib [From Celebrex] Allergy Heart Verified 04/11/23 20:23 racing spironolactone AdvReac Diahrroea Verified 04/11/23 20:23 PFSH Acute PFSH: Medical History (Updated 04/11/23 @ 23:16 by Naomi Lowry MD) Arrhythmia Atrial fibrillation CVA (cerebral vascular accident) Hyperlipidemia Hypertension Hyperthyroidism Left displaced femoral neck fracture Lumbar radiculopathy Osteoarthritis Psoriasis Raynaud's syndrome Surgical History (Updated 04/03/23 @ 11:55 by SEBASTIAN Hernandes) H/O hernia repair H/O: hysterectomy History of appendectomy History of bladder repair surgery History of knee replacement Hx of cataract extraction Family History Father CAD (coronary artery disease) Stroke Mother CAD (coronary artery disease) Stroke Cancer Family/Other Cancer Daughter Lung disease Other Hyperlipidemia Hypertension Denies family history of Diabetes Clotting disorder Dementia Chronic kidney disease (CKD) Suicide Anesthesia complication Bleeding disorder Social History Smoking and tobacco status: never smoked Alcohol intake: never Substance/Drug Use: never Vitals/I&O/Wt Last Vital Signs Temp 98.7 F 04/11/23 20:16 Pulse 63 04/11/23 22:08 Resp 16 04/11/23 20:30 BP 138/70 04/11/23 22:08 Pulse Ox 95 04/11/23 22:08 O2 Del Method Room Air 04/11/23 22:08 Weight last 48 hrs Weight 81.647 kg Physical Exam Narrative: General: Alert oriented x3, patient seen laying in bed appearing uncomfortable and states she is having back pain. HEENT: Normocephalic, atraumatic, EOMI,, breathing normally Cardio: Regular rate rhythm, normal S1-S2 Respiratory: Good bilateral air entry, no wheezes no rhonchi appreciated GI: Abdomen soft, nontender,bowel sounds + Extremities: no edema Straight leg raise elicits pain. Any movement of leg causes severe back pain for the patient. She is laying in bed and trying not to move. Data 04/11/23 20:39 04/11/23 20:39 A&P Assessment and plan (1) Severe low back pain: (2) Herniated lumbar intervertebral disc: (3) Postoperative state: (4) Atrial fibrillation: (5) CVA (cerebral vascular accident): Qualifiers: CVA mechanism: unspecified Qualified Code(s): I63.9 - Cerebral infarction, unspecified (6) Hypertension: (7) Hyperlipidemia: Qualifiers: Hyperlipidemia type: mixed hyperlipidemia Qualified Code(s): E78.2 - Mixed hyperlipidemia (8) Hyperthyroidism: (9) Osteoarthritis: Plan #T12-L1 disc herniation, severe back pain #Atrial fibrillation rate controlled #History of stroke #Hyperlipidemia #Hypertension #Hypothyroidism #History of femoral neck fracture #History of osteoarthritis #History of psoriasis, Raynaud's phenomenon ? Lumbar CT shows 1. ? Degenerative disc with large posterior herniation at T12- L1 2. ? Compression deformity superior endplate of L2 of uncertain age. Please correlate clinically 3. ? Chronic appearing compression deformity superior endplate L4. 4. ? Degenerative disc changes and mild multilevel stenosis as described. -Dexamethasone 10 IV x1 given in ER ? Continue on dexamethasone IV 6 daily ? Consult spine surgery. Dr. Olmso will see patient in consultation ? Order MRI lumbar spine ? Keep patient n.p.o. at midnight in case of procedure in a.m. ? Check CBC CMP PT/INR in a.m. ? Check chest x-ray for preop eval, EKG ? Continue aspirin, ? Med rec to be completed by detail in the morning. ? Check blood cultures, TSH ? Morphine 4 mg IV every 4 hours as needed for pain SCDs, heparin SQ twice daily DNR/DNI Attestations Medical Necessity Statement*: Than 2 midnight stay for severe back pain Coding Level of Care Code G0425 (30 min) TH Encounter Time (min): 45 Patient seen via Telehealth in the acute care setting (hospital or ED location) by agreement and consent of patient or patient labor service representative. Telehealth technology used during the visit includes video and audio. This patient encounter is appropriate and reasonable under the circumstances given the patient?s particular presentation at this time. The patient has been advised of the potential risks and limitations of this mode of treatment (including but not limited to the absence of in-person examination at this time) and has agreed to be treated by an off-site physician for this visit. If deemed clinically necessary from this telehealth visit, or if condition or consent for telehealth visit changes, an in-person visit will be arranged. For this encounter, total time for the origination of telehealth care on this date is as shown. Diagnoses Severe low back pain M54.50 Herniated lumbar intervertebral disc M51.26 Postoperative state Z98.890 Atrial fibrillation I48.91 CVA (cerebral vascular accident) I63.9 CVA mechanism: unspecified Hypertension I10 Hyperlipidemia E78.2 Hyperlipidemia type: mixed hyperlipidemia Hyperthyroidism E05.90 Osteoarthritis M19.90
[2023-04-11 23:23] VITALS: BP 112/78; PULSE 84; RESP 16; TEMP 36.4; O2SAT 96
[2023-04-11 23:46] VITALS: RESP 18
[2023-04-11] MEDS: morphine 4 mg/mL SDV 1 mL IVP (23:46)
[2023-04-11] MEDS: heparin 5,000 unit/mL INJ 1 mL 5000 UNIT SUBCUT (23:46)
[2023-04-11] MEDS: sodium chloride 0.9% 1,000 ML 75 ML IV (23:47)
[2023-04-11 23:56] VITALS: BP 112/78; PULSE 84; RESP 16; TEMP 36.4; O2SAT 96
[2023-04-11 23:59] LABS: Thyroid Stimulating Hormone 4.53 uIU/mL (0.27-4.20)
[2023-04-12] VITALS (9 sets, daily range): BP systolic 124–151; BP diastolic 67–79; PULSE 61–77; RESP 15–20; TEMP 36.1–36.6; O2SAT 95–97
[2023-04-12 05:52] LABS: Basophils % 0.2 %; Eosinophils % 0.2 %; Hematocrit 44.1 % (37.0-47.0); Hemoglobin 13.5 g/dL (11.5-15.3); Lymphocytes # 0.9 10^3/uL (0.8-4.8); Lymphocytes % 19.3 %; Mean Corpuscular HGB Conc 30.6 g/dL (30.0-36.0); Mean Corpuscular Hemoglobin 26.9 pg (28.0-34.0); Mean Corpuscular Volume 87.8 fl (81-99); Monocytes # 0.1 10^3/uL (0.2-0.9); Monocytes % 2.5 %; Neutrophils # 3.42 10^3/uL (1.8-7.7); Neutrophils % 77.6 %; Nucleated Red Blood Cells % 0 %; Platelet Count 192 10^3/cmm (130-400); Red Blood Count 5.02 10^6/uL (4.1-5.3); Red Cell Distribution Width 13.9 % (12.1-15.1); White Blood Count 4.4 10^3/uL (4.0-10.0)
[2023-04-12 06:22] LABS: Alanine Aminotransferase 10 U/L (0-33); Albumin Level 3.2 g/dL (3.5-5.2); Alkaline Phosphatase 76 U/L (35-105); Aspartate Amino Transferase 17 U/L (0-32); Blood Urea Nitrogen 22 mg/dL (8-23); Calcium 9.8 mg/dL (8.5-10.5); Carbon Dioxide 21 mmol/L (22-29); Chloride 107 mmol/L (98-107); Creatinine Clr Calc Pharmacy 56.3918; Globulin 2.6 g/dL (1.3-4.6); Glucose 134 mg/dL (65-115); Magnesium 1.8 mg/dL (1.7-2.3); Osmolality Calculated 291 mOsm/kg (285-295); Sodium 138 mmol/L (136-145); Total Bilirubin 0.4 mg/dL (0.15-1.2); Total Protein 5.8 g/dL (6.6-8.7)
[2023-04-12 06:25] LABS: Anion Gap 14.6 (5-19); Potassium 4.6 mmol/L (3.5-5.1)
[2023-04-12] MEDS: dexamethasone 10 mg/mL INJ 6 MG IVP (06:41)
[2023-04-12] MEDS: morphine 4 mg/mL SDV 1 mL IVP ×4 (08:36→20:57)
--- NOTE | 2023-04-12 09:46 | PM.CONSULT ---
Providers/Reason For Consult Consulting Physician/Specialty*: Orthopedic spine Reason for Consult*: Low back and left leg pain Attending Physician: Javier Reyes MD Primary Care Provider: Wilson Garcia MD History of Present Illness History of Present Illness Kiah Garcia is a 83 year old female who reports progressive worsening of back and left leg pain over the last week. She does report an extensive history of back pain. She states she was cleaning the couch cushions approximately 3 days ago when the following day she noticed increased back and left leg pain. Her son is present in the room and reports a different story that she has been complaining of hip and knee pain since July. She sustained a fall and underwent a hemiarthroplasty to the left hip. She has not been mobilizing very well from what her son states. Patient reports today equal low back and left leg and knee pain. She denies any recent falls. She states that its been difficult to mobilize due to the left hip and knee pain. She ambulates with a walker. Rest gives her some temporary relief. Standing walking moving has made her back and left leg much worse. She reports left groin pain as well as left knee pain. Any movement of the left leg causes her pain to become severe. Any attempts to roll over or pushing on her back has made her symptoms much worse as well. Review of Systems Const: Denies: fever(s), chills, body aches or change in appetite ENMT: Denies: throat pain or dental pain Card: Denies: chest pain Resp: Denies: dyspnea GI: Denies: abdominal pain, nausea, vomiting or diarrhea Musc: Reports: back pain; Denies: neck pain Skin/Breast: Denies: rash Neuro: Denies: headache(s) Medications/Allergies Home Medications Medication Instructions Recorded Confirmed Last Taken Type loratadine 10 mg tablet (Claritin) 10 mg PO DAILY PRN Allergy Symptoms 02/17/20 04/12/23 Unknown History acetaminophen 500 mg tablet 500 mg PO BEDTIME 05/29/20 04/12/23 08/15/22 History (Tylenol Extra Strength) aspirin 81 mg tablet,delayed 81 mg PO DAILY 04/27/22 04/12/23 08/15/22 History release clobetasol 0.05 % scalp solution 1 applic topical DAILY PRN unknown 04/27/22 04/12/23 Unknown History clobetasol 0.05 % topical ointment 1 applic topical BID PRN unknown 04/27/22 04/12/23 Unknown History adalimumab 40 mg/0.4 mL 40 mg (0.4 mL) SUBCUT Q14D #2 ea 06/03/22 04/12/23 04/02/23 Rx subcutaneous pen kit (Humira(CF) Pen) Bystolic 20 mg tablet (nebivolol) 20 mg PO QAM #90 tabs 08/08/22 04/12/23 08/15/22 Rx ketoconazole 2 % shampoo 1 applic topical .2 x weekly #120 11/25/22 04/12/23 Unknown Rx mL nebivolol 10 mg tablet (Bystolic) 10 mg PO DAILY #90 tabs 02/19/23 04/12/23 Unknown Rx Allergies Allergy/AdvReac Type Severity Reaction Status Date / Time chlorzoxazone Allergy Severe Unconscious Verified 04/11/23 20:23 [From Parafon Forte] aliskiren [From Tekturna] Allergy Unknown unknown Verified 04/11/23 20:23 atenolol Allergy Unknown unknown Verified 04/11/23 20:23 diltiazem [From Cardizem] Allergy Unknown unknown Verified 04/11/23 20:23 hydralazine Allergy Unknown headache Verified 04/11/23 20:23 hydrochlorothiazide Allergy Unknown unknown Verified 04/11/23 20:23 [From Microzide] losartan [From Hyzaar] Allergy Unknown unknown Verified 04/11/23 20:23 valsartan Allergy Unknown edema Verified 04/11/23 20:23 verapamil Allergy Unknown unknown Verified 04/11/23 20:23 allopurinol Allergy diarrhea Verified 04/11/23 20:23 amlodipine Allergy ADR-Diarrhe Verified 04/11/23 20:23 a celecoxib [From Celebrex] Allergy Heart Verified 04/11/23 20:23 racing spironolactone AdvReac Diahrroea Verified 04/11/23 20:23 Current Medications Generic Name Dose Route Start Last Admin Trade Name Freq PRN Reason Stop Dose Admin Dexamethasone 6 mg 04/11/23 23:30 04/12/23 06:41 Dexamethasone 10 Mg/Ml Inj IVP 6 mg Q24H VERONICA Administration Heparin Sodium (Porcine) 5,000 unit 04/11/23 23:30 04/11/23 23:46 Heparin 5,000 Unit/Ml Inj 1 Ml SUBCUT 5,000 unit Q12H VERONICA Administration Sodium Chloride 1,000 mls @ 75 mls/hr 04/11/23 23:30 04/11/23 23:47 Sodium Chloride 0.9% IV 75 mls/hr .[id number] VERONICA Administration Morphine Sulfate 4 mg 04/11/23 23:23 04/12/23 08:36 Morphine 4 Mg/Ml Sdv 1 Ml IVP 4 mg Q4H PRN Administration SEVERE PAIN PFSH Acute PFSH: Medical History (Updated 04/12/23 @ 10:00 by Dung Sarkar PA-C) Arrhythmia Atrial fibrillation CVA (cerebral vascular accident) Hyperlipidemia Hypertension Hyperthyroidism Left displaced femoral neck fracture Lumbar radiculopathy Osteoarthritis Psoriasis Raynaud's syndrome Surgical History (Updated 04/03/23 @ 11:55 by SEBASTIAN Hernandes) H/O hernia repair H/O: hysterectomy History of appendectomy History of bladder repair surgery History of knee replacement Hx of cataract extraction Family History Father CAD (coronary artery disease) Stroke Mother CAD (coronary artery disease) Stroke Cancer Family/Other Cancer Daughter Lung disease Other Hyperlipidemia Hypertension Denies family history of Diabetes Clotting disorder Dementia Chronic kidney disease (CKD) Suicide Anesthesia complication Bleeding disorder Social History Smoking and tobacco status: never smoked Alcohol intake: never Substance/Drug Use: never Vitals/I&O/Wt Last Vital Signs Temp 97.0 F L 04/12/23 08:00 Pulse 77 04/12/23 08:00 Resp 18 04/12/23 08:36 BP 146/70 04/12/23 08:00 Pulse Ox 96 04/12/23 08:00 O2 Del Method Room Air 04/12/23 08:00 04/11/23 04/12/23 04/12/23 22:59 06:59 14:59 Output Total 300 / 300 Balance -300 / -300 Weight last 48 hrs Weight 180 lb Physical Exam Narrative: She is alert orient x3 she has good general appearance normal mood and affect. Family is present during the exam. She is markedly tender with palpation through the thoracolumbar spine. She does logroll in bed and complains of left groin hip pain. She has full range of motion of her right lower extremity. She has palpable pain over the left hip she has mildly positive logroll on the left. She has palpable pain diffusely through the left knee both medially and lateral joint surfaces. She has pain with varus valgus stress testing. She has 2+ edema in both lower extremities. Pulses are weak but palpable. Calves are supple. Feet are warm good cap refill. HENMT: COMMON NORMALS: normocephalic and atraumatic HEAD & SCALP: normocephalic and atraumatic Resp: COMMON NORMALS: normal respiratory effort Cardio: COMMON NORMALS: regular rate and regular rhythm RATE: regular rate RHYTHM: regular rhythm GI: COMMON NORMALS: Soft to palpation and non-tender PALPATION: Yes Soft to palpation : COMMON NORMALS: Yes no CVA tenderness BLADDER/KIDNEY EXAM: Yes no CVA tenderness Back/Pelvis: COMMON NORMALS: no CVA tenderness Psych: COMMON NORMALS: mental status grossly normal and cooperative Urinary Catheter Management: Moreira: Cath Placed During This Visit: yes Urinary Catheter Date of Insertion: 04/12/23 Urinary Catheter Time of Insertion: 00:15 Data 04/12/23 05:23 04/12/23 05:[address]: Radiologist's impression: CT/CT lumbar spine wo con* [id number] IMPRESSION: 1. ? Degenerative disc with large posterior herniation at T12-L1 2. ? Compression deformity superior endplate of L2 of uncertain age. Please correlate clinically 3. ? Chronic appearing compression deformity superior endplate L4. 4. ? Degenerative disc changes and mild multilevel stenosis as described. A&P Assessment and plan (1) Severe low back pain: Appears on the CT scan to have a large posterior disc herniation at T12-L1. Evidence of compression fractures at L1-2 and L4 age-indeterminate. We will obtain an MRI scan of the lumbar spine. She has extensive left lower extremity pain in her hip and knee.. We will await the findings of the MRI scan to discuss further treatment options. At this point continue bedrest. Encourage incentive spirometer for pulmonary toilet. SCDs for mechanical DVT prophylaxis. More than 50% of the time spent with the patient today involved coordination of care, counseling and discussion of conservative versus surgical treatment options. Total amount of time spent with the patient was 45 minutes. (2) Lumbar compression fracture: (3) Osteoarthritis: Coding Level of Care Code Acute Code for [facility] [employer] Diagnoses Severe low back pain M54.50 Lumbar compression fracture S32.000A Osteoarthritis M19.90 Time Spent (min) 45
--- NOTE | 2023-04-12 10:21 | MRR_ITS ---
PROCEDURE INFORMATION: Exam: MR Lumbar Spine Without and With Contrast Exam date and time: 04/12/2023 10:57 AM Age: 83 years old Clinical indication: Pain and injury or trauma; Fall; Fracture, traumatic injury and rupture of lumbar intervertebral disc; Not specified; Lumbago and sciatica; Left; Additional info: Herniated disc TECHNIQUE: Imaging protocol: Magnetic resonance imaging of the lumbar spine without and with contrast. Contrast material: MULTIHANCE; Contrast volume: 18 ml; Contrast route: INTRAVENOUS (IV); COMPARISON: CT lumbar spine wo con* [id number] 04/11/2023 9:15 PM FINDINGS: Bones/joints: Lumbar curvature and alignment is unremarkable. There is partial sacralization of L5, developmental in nature. There is mild acute compression fracture involving the superior endplate of L2 and L4 vertebral body with scalloping of the endplate of L2 and diffuse flattening of the superior endplate L4 with the some accompanying bone marrow edema at both levels. There is no retropulsion or malalignment. Posterior elements are intact. Spinal cord: There is termination of the conus medullaris at T12-L1. T12-L1: Large posterior central disc herniation indenting the anterior thecal sac imparting mild-moderate stenosis of the spinal canal. No tuan cord compression. L1-L2: No significant findings. L2-L3: No significant findings L3-L4: Mild diffuse disc bulge slightly indenting the anterior thecal sac, imparting mild stenosis of the central canal. Neural foramina are patent. L4-L5: Posterior degenerative disc space narrowing with minimal annular disc bulge, ligamentum flavum thickening and mild facet arthrosis indenting the anterior thecal sac, parting mild stenosis of the central canal. Neural foramina are patent. L5-S1: Transitional vertebra with partial sacralization and associated hypoplastic disc L5-S1, otherwise negative. Soft tissues: Unremarkable. MR/MR lumbar spine wo/w con [id number] IMPRESSION: 1. Mild acute compression fractures involving the superior endplates of L2 and L4 vertebral bodies. No malalignment. 2. Large posterior central disc herniation T12-L1 effacing the anterior thecal sac with moderate stenosis of the central canal. 3. Mild degenerative spinal stenosis L3-L4 and L4-L5.
--- NOTE | 2023-04-12 10:39 | MRR_ITS ---
PROCEDURE INFORMATION: Exam: MR Thoracic Spine Without Contrast Exam date and time: 04/12/2023 10:44 AM Age: 83 years old Clinical indication: Pain and injury or trauma; Fall; Fracture, traumatic; Unspecified; Pain in thoracic spine; Additional info: Compression fractures TECHNIQUE: Imaging protocol: Magnetic resonance imaging of the thoracic spine without contrast. COMPARISON: CT lumbar spine wo con* [id number] 04/11/2023 9:15 PM FINDINGS: Bones/joints: There is mild accentuated kyphotic curvature of the thoracic spine. There is no spondylolisthesis. There are no compression fractures. There is minimal degenerative endplate deformity involving T8-T9 and superior endplate of T11. Vertebral bodies are otherwise unremarkable. The Disc heights are fairly well maintained. There is no bony stenosis of the spinal canal or neural foramina. Spinal cord: The thoracic cord is unremarkable in configuration and signal intensity. Soft tissues: There is no prevertebral paraspinal soft tissue swelling. MR/MR thoracic spin wo con* [id number] IMPRESSION: No acute abnormalities.
[2023-04-12] MEDS: gadobenate dimeglumine 20 mL vial 18 ML IV (11:13)
[2023-04-12] MEDS: heparin 5,000 unit/mL INJ 1 mL 5000 UNIT SUBCUT (12:20)
--- NOTE | 2023-04-12 17:16 | P.PN_ITS ---
Subjective Subjective: Patient was seen and examined this morning pain is better controlled, thoracic and lumbar MRI has been done: Results appreciated:Orthopedic on board: Medications: Medication Review Details: Generic Name Dose Route Start Last Admin Trade Name Prakash PRN Reason Stop Dose Admin Dexamethasone 6 mg 04/11/23 23:30 04/12/23 06:41 Dexamethasone 10 Mg/Ml Inj IVP 6 mg Q24H VERONICA Administration Heparin Sodium (Po rcine) 5,000 unit 04/11/23 23:30 04/12/23 12:20 Heparin 5,000 Un it/Ml Inj 1 Ml SUBCUT 5,000 unit Q12H VERONICA Administration Sodium Chloride 1,000 mls @ 75 ml s/hr 04/11/23 23:30 04/11/23 23:47 Sodium Chloride 0.9% IV 75 mls/hr .[id number] VERONICA Administration Morphine Sulfate 4 mg 04/11/23 23:23 04/12/23 16:47 Morphine 4 Mg/Ml Sdv 1 Ml IVP 4 mg Q4H PRN Administration SEVERE PAIN Vitals/I&O/Wt Last Vital Signs Temp 97.3 F L 04/12/23 16:00 Pulse 65 04/12/23 16:00 Resp 16 04/12/23 16:47 BP 131/72 04/12/23 16:00 Pulse Ox 96 04/12/23 16:00 O2 Del Method Room Air 04/12/23 16:00 04/12/23 04/12/23 04/12/23 06:59 14:59 22:59 Output Total 300 / 300 Balance -300 / -300 Weight last 48 hrs Weight 81.647 kg Physical Exam HENMT: COMMON NORMALS: normocephalic and atraumatic HEAD & SCALP: normocephalic and atraumatic Resp: COMMON NORMALS: normal respiratory effort, No retractions, No use of accessory muscles and clear to auscultation bilaterally EFFORT & INSPECTION: Yes symmetric chest movement AUSCULTATION: clear to auscultation bilaterally Cardio: COMMON NORMALS: regular rate, regular rhythm, S1 normal heart sound present, S2 normal heart sound present, No gallops present (Cardio), No murmurs present (Cardio), No rub (Cardio) and Peripheral pulses 2+ throughout RATE: regular rate RHYTHM: regular rhythm HEART SOUNDS: S1 normal heart sound present and S2 normal heart sound present PERIPHERAL PULSES: Peripheral pulses 2+ throughout GI: COMMON NORMALS: Normal to inspection, nondistended, normoactive bowel sounds present, Soft to palpation, non-tender, No hepatosplenomegaly present and no masses AUSCULTATION: Yes normoactive bowel sounds PALPATION: Yes Soft to palpation and Yes No hepatosplenomegaly present RECTAL EXAM: deferred Extremity: COMMON NORMALS: no clubbing, cyanosis or edema and no pedal edema Urinary Catheter Management: Moreira: Cath Placed During This Visit: yes Urinary Catheter Date of Insertion: 04/12/23 Urinary Catheter Time of Insertion: 00:15 Data 04/12/23 05:23 04/12/23 05:23 A&P Assessment and plan (1) Severe low back pain: (2) Herniated lumbar intervertebral disc: (3) Postoperative state: (4) Atrial fibrillation: (5) CVA (cerebral vascular accident): Qualifiers: CVA mechanism: unspecified Qualified Code(s): I63.9 - Cerebral infarction, unspecified (6) Hypertension: (7) Hyperlipidemia: Qualifiers: Hyperlipidemia type: mixed hyperlipidemia Qualified Code(s): E78.2 - Mixed hyperlipidemia (8) Hyperthyroidism: (9) Osteoarthritis: Plan #T12-L1 disc herniation, severe back pain #Atrial fibrillation rate controlled #History of stroke #Hyperlipidemia #Hypertension #Hypothyroidism #History of femoral neck fracture #History of osteoarthritis #History of psoriasis, Raynaud's phenomenon ? Lumbar CT shows 1. ? Degenerative disc with large posterior herniation at T12- L1 2. ? Compression deformity superior endplate of L2 of uncertain age. Please correlate clinically 3. ? Chronic appearing compression deformity superior endplate L4. 4. ? Degenerative disc changes and mild multilevel stenosis as described. -Dexamethasone 10 IV x1 given in ER ? Continue on dexamethasone IV 6 daily ? Consult spine surgery. Dr. Olmos will see patient in consultation ? Order MRI lumbar spine ? Keep patient n.p.o. at midnight in case of procedure in a.m. ? Check CBC CMP PT/INR in a.m. ? Check chest x-ray for preop eval, EKG ? Continue aspirin, ? Med rec to be completed by detail in the morning. ? Check blood cultures, TSH ? Morphine 4 mg IV every 4 hours as needed for pain SCDs, heparin SQ twice daily DNR/DNI Attestations Medical Necessity Statement*: Needs to be in hospital for management of severe back pain. Coding Level of Care Code Acute Code for [facility] Diagnoses Severe low back pain M54.50 Herniated lumbar intervertebral disc M51.26 Postoperative state Z98.890 Atrial fibrillation I48.91 CVA (cerebral vascular accident) I63.9 CVA mechanism: unspecified Hypertension I10 Hyperlipidemia E78.2 Hyperlipidemia type: mixed hyperlipidemia Hyperthyroidism E05.90 Osteoarthritis M19.90
[2023-04-12] MEDS: sodium chloride 0.9% 1,000 ML 75 ML IV (18:53)
[2023-04-13] VITALS (14 sets, daily range): BP systolic 122–196; BP diastolic 70–99; PULSE 51–80; RESP 16–22; TEMP 36.4–36.9; O2SAT 90–98
[2023-04-13] MEDS: heparin 5,000 unit/mL INJ 1 mL 5000 UNIT SUBCUT ×3 (00:36→22:37)
[2023-04-13] MEDS: morphine 4 mg/mL SDV 1 mL IVP ×2 (05:19→22:37)
[2023-04-13] MEDS: sodium chloride 0.9% 1,000 ML 75 ML IV ×2 (05:19→18:40)
[2023-04-13] MEDS: dexamethasone 10 mg/mL INJ 6 MG IVP (05:20)
[2023-04-13 05:58] LABS: Basophils % 0.1 %; Eosinophils % 0.1 %; Hematocrit 41.4 % (37.0-47.0); Hemoglobin 12.7 g/dL (11.5-15.3); Lymphocytes # 1.1 10^3/uL (0.8-4.8); Lymphocytes % 13.7 %; Mean Corpuscular HGB Conc 30.7 g/dL (30.0-36.0); Mean Corpuscular Hemoglobin 27.2 pg (28.0-34.0); Mean Corpuscular Volume 88.7 fl (81-99); Mean Platelet Volume 10.2 fL (7.4-10.4); Monocytes # 0.7 10^3/uL (0.2-0.9); Monocytes % 8.5 %; Neutrophils # 6.12 10^3/uL (1.8-7.7); Neutrophils % 77.3 %; Nucleated Red Blood Cells % 0 %; Platelet Count 183 10^3/cmm (130-400); Red Blood Count 4.67 10^6/uL (4.1-5.3); Red Cell Distribution Width 14.2 % (12.1-15.1); White Blood Count 7.9 10^3/uL (4.0-10.0)
[2023-04-13 06:15] LABS: Alanine Aminotransferase 10 U/L (0-33); Alkaline Phosphatase 70 U/L (35-105); Anion Gap 11.4 (5-19); Aspartate Amino Transferase 14 U/L (0-32); Blood Urea Nitrogen 40 mg/dL (8-23); Calcium 9.5 mg/dL (8.5-10.5); Carbon Dioxide 23 mmol/L (22-29); Chloride 109 mmol/L (98-107); Creatinine Clr Calc Pharmacy 56.3918; Globulin 2.4 g/dL (1.3-4.6); Glucose 111 mg/dL (65-115); Osmolality Calculated 298 mOsm/kg (285-295); Potassium 4.4 mmol/L (3.5-5.1); Sodium 139 mmol/L (136-145); Total Bilirubin 0.3 mg/dL (0.15-1.2); Total Protein 5.4 g/dL (6.6-8.7)
--- NOTE | 2023-04-13 10:30 | PM.PN ---
Subjective Subjective: Patient is a low back pain was improving. MRI did show that she had an acute L2 and L4 compression fracture. Vitals/I&O/Wt Last Vital Signs Temp 97.6 F 04/13/23 04:00 Pulse 60 04/13/23 04:00 Resp 18 04/13/23 05:19 BP 138/70 04/13/23 04:00 Pulse Ox 96 04/13/23 04:00 O2 Del Method Room Air 04/12/23 16:00 04/12/23 04/13/23 04/13/23 22:59 06:59 14:59 Intake Total 600 / 1600 782.5 / 2382.5 Output Total 650 / 650 200 / 850 Balance -50 / 950 582.5 / 1532.5 Weight last 48 hrs Weight 180 lb Physical Exam Narrative: Patient is resting comfortably in bed pain is controlled. However when she moves she has severe pain. Urinary Catheter Management: Moreira: Cath Placed During This Visit: yes Reason for Continuing Indwelling Catheter: Required Immobilization for Trauma or Surgery or Anesthesia Urinary Catheter Date of Insertion: 04/12/23 Urinary Catheter Time of Insertion: 00:15 Data 04/13/23 05:35 04/13/23 05:35 A&P Assessment and plan (1) Lumbar compression fracture: Discussed with patient that she has an acute L2 and L4 compression fracture. At this point if she is improving I would recommend treating her nonoperatively. If the pain worsens we can consider doing kyphoplasty. I told her we would not do any kyphoplasty any earlier than this Friday. Attestations Medical Necessity Statement*: pain control Coding Level of Care Code Acute Code for [facility] Diagnoses Lumbar compression fracture S32.000A
[2023-04-13] MEDS: oxyCODONE-APAP 5-325 mg Tablet 1 TAB PO ×2 (12:47→19:48)
--- NOTE | 2023-04-13 19:28 | P.PN_ITS ---
Subjective Subjective: Patient was seen and examined this morning lower back pain is improving. Medications: Medication Review Details: Generic Name Dose Route Start Last Admin Trade Name Freq PRN Reason Stop Dose Admin Dexamethasone 6 mg 04/11/23 23:30 04/13/23 05:20 Dexamethasone 10 Mg/Ml Inj IVP 6 mg Q24H VERONICA Administration Heparin Sodium (Po rcine) 5,000 unit 04/11/23 23:30 04/13/23 10:49 Heparin 5,000 Un it/Ml Inj 1 Ml SUBCUT 5,000 unit Q12H VERONICA Administration Sodium Chloride 1,000 mls @ 75 ml s/hr 04/11/23 23:30 04/13/23 18:40 Sodium Chloride 0.9% IV 75 mls/hr .[id number] VERONICA Administration Morphine Sulfate 4 mg 04/11/23 23:23 04/13/23 05:19 Morphine 4 Mg/Ml Sdv 1 Ml IVP 4 mg Q4H PRN Administration SEVERE PAIN Oxycodone/Acetamin ophen 1 tab 04/13/23 10:44 04/13/23 12:47 Oxycodone-Apap 5 -325 Mg Tablet PO 1 tab Q6H PRN Administration MODERATE PAIN Vitals/I&O/Wt Last Vital Signs Temp 97.9 F 04/13/23 16:00 Pulse 66 04/13/23 16:00 Resp 17 04/13/23 16:00 BP 158/71 04/13/23 16:00 Pulse Ox 94 04/13/23 16:00 O2 Del Method Room Air 04/13/23 16:00 04/13/23 04/13/23 04/13/23 06:59 14:59 22:59 Intake Total 782.5 / 2382.5 1080 / [employer] 1240 / 2320 Output Total 200 / 850 300 / 300 Balance 582.5 / 1532.5 1080 / 1080 940 / 2019 Weight last 48 hrs Weight 81.647 kg Physical Exam HENMT: COMMON NORMALS: normocephalic and atraumatic HEAD & SCALP: normocephalic and atraumatic Resp: COMMON NORMALS: normal respiratory effort, No retractions, No use of accessory muscles and clear to auscultation bilaterally EFFORT & INSPECTION: Yes symmetric chest movement AUSCULTATION: clear to auscultation bilaterally Cardio: COMMON NORMALS: regular rate, regular rhythm, S1 normal heart sound present, S2 normal heart sound present, No gallops present (Cardio), No murmurs present (Cardio), No rub (Cardio) and Peripheral pulses 2+ throughout RATE: regular rate RHYTHM: regular rhythm HEART SOUNDS: S1 normal heart sound present and S2 normal heart sound present PERIPHERAL PULSES: Peripheral pulses 2+ throughout GI: COMMON NORMALS: Normal to inspection, nondistended, normoactive bowel sounds present, Soft to palpation, non-tender, No hepatosplenomegaly present and no masses AUSCULTATION: Yes normoactive bowel sounds PALPATION: Yes Soft to palpation and Yes No hepatosplenomegaly present RECTAL EXAM: deferred Extremity: COMMON NORMALS: no clubbing, cyanosis or edema and no pedal edema Urinary Catheter Management: Moreira: Cath Placed During This Visit: yes Reason for Continuing Indwelling Catheter: Required Immobilization for Trauma or Surgery or Anesthesia Urinary Catheter Date of Insertion: 04/12/23 Urinary Catheter Time of Insertion: 00:15 Data 04/13/23 05:35 04/13/23 05:35 A&P Assessment and plan (1) Severe low back pain: (2) Herniated lumbar intervertebral disc: (3) Postoperative state: (4) Atrial fibrillation: (5) CVA (cerebral vascular accident): Qualifiers: CVA mechanism: unspecified Qualified Code(s): I63.9 - Cerebral infarction, unspecified (6) Hypertension: (7) Hyperlipidemia: Qualifiers: Hyperlipidemia type: mixed hyperlipidemia Qualified Code(s): E78.2 - Mixed hyperlipidemia (8) Hyperthyroidism: (9) Osteoarthritis: Plan 83-year-old female with past medical history of hypertension, CVA atrial fibrill ation, dyslipidemia, came in from home after she started experiencing progressively worsening low back pain that started about 3 days back, it started acutely after she was bent over and vacuuming under her couches. Currently she is being managed for Assessment: Lower Back pain secondary to Lumbar compression fracture: MRI of the lumbar spine has shown: L2 and L4 compression fracture. Pain control Bowel regimen Spine surgery on board. They intend to do kyphoplasty on Friday. History of CVA: Continue aspirin History of hypertension: Continue Bystolic 20 mg p.o. daily SCDs, heparin SQ twice daily DNR/DNI Attestations Medical Necessity Statement*: Needs to be in hospital for management of low back pain. Coding Level of Care Code Acute Code for [facility] Diagnoses Severe low back pain M54.50 Herniated lumbar intervertebral disc M51.26 Postoperative state Z98.890 Atrial fibrillation I48.91 CVA (cerebral vascular accident) I63.9 CVA mechanism: unspecified Hypertension I10 Hyperlipidemia E78.2 Hyperlipidemia type: mixed hyperlipidemia Hyperthyroidism E05.90 Osteoarthritis M19.90
[2023-04-13] MEDS: labetalol 200 mg Tablet 100 MG PO (20:57)
[2023-04-14] VITALS (11 sets, daily range): BP systolic 136–189; BP diastolic 75–104; PULSE 64–87; RESP 16–24; TEMP 36.3–36.8; O2SAT 94–97
[2023-04-14] MEDS: morphine 4 mg/mL SDV 1 mL IVP ×3 (02:35→14:04)
--- NOTE | 2023-04-14 03:10 | PC.NURSE ---
Pt woke up and stated her pain was a 10/10. This nurse gave 4mg morphine IVP as prescribed. Patient was short of breath. This nurse asked pt if she became short of breath like this at home, and she said yes. This nurse asked if the pt had COPD, asthma, or other breathing problems. The patient said no. This nurse got a new set of vital signs(180/92, 96% SpO2, HR 72, RR 24, temp 98.2 oral) and reassessed lung sounds. Patient was tachypneic but lung sounds were clear. This nurse also asked charge nurse to assess patient, charge nurse stated lungs were clear as well.
[2023-04-14] MEDS: dexamethasone 10 mg/mL INJ 6 MG IVP (05:27)
[2023-04-14 06:20] LABS: Basophils % 0.1 %; Eosinophils % 0.2 %; Hematocrit 43.1 % (37.0-47.0); Hemoglobin 12.9 g/dL (11.5-15.3); Lymphocytes # 1.6 10^3/uL (0.8-4.8); Lymphocytes % 14.9 %; Mean Corpuscular HGB Conc 29.9 g/dL (30.0-36.0); Mean Corpuscular Hemoglobin 27.3 pg (28.0-34.0); Mean Corpuscular Volume 91.3 fl (81-99); Mean Platelet Volume 9.7 fL (7.4-10.4); Monocytes % 9.5 %; Neutrophils # 7.93 10^3/uL (1.8-7.7); Nucleated Red Blood Cells % 0 %; Platelet Count 172 10^3/cmm (130-400); Red Blood Count 4.72 10^6/uL (4.1-5.3); Red Cell Distribution Width 14.1 % (12.1-15.1); White Blood Count 10.6 10^3/uL (4.0-10.0)
[2023-04-14 06:41] LABS: Alanine Aminotransferase 11 U/L (0-33); Alkaline Phosphatase 68 U/L (35-105); Aspartate Amino Transferase 14 U/L (0-32); Blood Urea Nitrogen 44 mg/dL (8-23); Calcium 9.5 mg/dL (8.5-10.5); Carbon Dioxide 21 mmol/L (22-29); Chloride 112 mmol/L (98-107); Creatinine Clr Calc Pharmacy 56.3918; Globulin 2.4 g/dL (1.3-4.6); Glucose 98 mg/dL (65-115); Osmolality Calculated 303 mOsm/kg (285-295); Sodium 141 mmol/L (136-145); Total Bilirubin 0.4 mg/dL (0.15-1.2); Total Protein 5.4 g/dL (6.6-8.7)
[2023-04-14] MEDS: oxyCODONE-APAP 5-325 mg Tablet 1 TAB PO ×2 (08:27→16:25)
[2023-04-14] MEDS: aspirin 81 mg EC Tablet PO (08:27)
[2023-04-14] MEDS: sodium chloride 0.9% 1,000 ML 75 ML IV (08:28)
--- NOTE | 2023-04-14 10:05 | PC.SOCIAL ---
Imm update IMM updated with patient at bedside. Copy of page 2 provided. Patient verbalized understanding. Copy in chart initialed,dated and timed.
[2023-04-14] MEDS: heparin 5,000 unit/mL INJ 1 mL 5000 UNIT SUBCUT (10:36)
[2023-04-14 14:21] LABS: Free T4 Free Thyroxine 1.21 ng/dL (0.82-1.77); T3 Free 1.7 PG/ML (2.0-4.4)
[2023-04-14 14:37] LABS: Iron 38 ug/dL (37-145); Percent Saturation 17.1 % (20-50); Total Iron Binding Capacity 221 mcg/dl; Unsaturated Iron Binding 183 ug/dL (112-347)
[2023-04-14 14:54] LABS: Vitamin B12 244 pg/mL (232-1245)
--- NOTE | 2023-04-14 16:33 | PM.PN ---
Subjective Subjective: Hospital course, labs appreciated. Examination patient lying comfortably in bed. He states he did not have a good night because of pain in the back. Denies any nausea, vomiting, headache. Patient seems anxious because of pain. Slightly confused. He states she is aware that she is confused and thinks it is because of the pain medications but does not want pain medication to be reduced because of severe pain. Vitals/I&O/Wt Last Vital Signs Temp 97.4 F L 04/14/23 16:00 Pulse 86 04/14/23 16:00 Resp 18 04/14/23 16:25 BP 136/82 04/14/23 16:00 Pulse Ox 97 04/14/23 16:00 O2 Del Method Room Air 04/14/23 16:00 04/14/23 04/14/23 04/14/23 06:59 14:59 22:59 Intake Total 320 / 2640 1240 / 1240 Output Total 1500 / 1800 Balance -1180 / 840 1240 / 1240 Physical Exam Narrative: General: Alert oriented x3, in distress because of back pain HEENT: Normocephalic, atraumatic, EOMI,, breathing normally Cardio: Regular rate rhythm, normal S1-S2 Respiratory: Good bilateral air entry, no wheezes no rhonchi appreciated GI: Abdomen soft, nontender,bowel sounds + Extremities: no edema Straight leg raise elicits pain. Any movement of leg causes severe back pain for the patient. She is laying in bed and trying not to move. Urinary Catheter Management: Moreira: Cath Placed During This Visit: yes Reason for Continuing Indwelling Catheter: Required Immobilization for Trauma or Surgery or Anesthesia Urinary Catheter Date of Insertion: 04/12/23 Urinary Catheter Time of Insertion: 00:15 Data 04/14/23 06:12 04/14/23 06:12 A&P Assessment and plan (1) Severe low back pain: (2) Herniated lumbar intervertebral disc: (3) Postoperative state: (4) Atrial fibrillation: (5) CVA (cerebral vascular accident): Qualifiers: CVA mechanism: unspecified Qualified Code(s): I63.9 - Cerebral infarction, unspecified (6) Hypertension: (7) Hyperlipidemia: Qualifiers: Hyperlipidemia type: mixed hyperlipidemia Qualified Code(s): E78.2 - Mixed hyperlipidemia (8) Hyperthyroidism: (9) Osteoarthritis: Plan 83-year-old female with past medical history of hypertension, CVA atrial fibrillation, dyslipidemia, came in from home after she started experiencing progressively worsening low back pain that started about 3 days back, it started acutely after she was bent over and vacuuming under her couches. Currently she is being managed for Assessment: Lower Back pain secondary to Lumbar compression fracture: MRI of the lumbar spine consistent with compression L2 and L4 acute fracture. Pain control continue with oxycodone 5 mg every 4 hourly. Add tramadol 50 mg every 6 hourly, morphine 2 mg every 4 hours as needed. Discussed adding Flexeril or a muscle relaxant. Patient does not want to be added for now. Bowel regimen Orthopedic spine surgery on board. Plan for possible intervention on Friday. Continue with dexamethasone 6 mg IV daily. History of CVA: Continue aspirin History of hypertension: Goal blood pressure less than 140/90 mmHg. Blood pressure at goal. Continue Bystolic 20 mg p.o. daily SCDs, heparin SQ twice daily DNR/DNI Protonix OPD prophylaxis Regular diet Attestations Medical Necessity Statement*: Requires further hospitalization for pain control management and further evaluation and intervention for compression L2-L4 fracture Diagnoses Severe low back pain M54.50 Herniated lumbar intervertebral disc M51.26 Postoperative state Z98.890 Atrial fibrillation I48.91 CVA (cerebral vascular accident) I63.9 CVA mechanism: unspecified Hypertension I10 Hyperlipidemia E78.2 Hyperlipidemia type: mixed hyperlipidemia Hyperthyroidism E05.90 Osteoarthritis M19.90
[2023-04-14] MEDS: magnesium hydroxide 30 mL UDC PO (17:55)
[2023-04-14] MEDS: sennosides-docusate Tablet 1 TAB PO (17:55)
[2023-04-14] MEDS: TRAMadol 50 mg Tablet PO (20:56)
[2023-04-15] VITALS (16 sets, daily range): BP systolic 132–194; BP diastolic 76–112; PULSE 65–80; RESP 16–20; TEMP 36.4–37.1; O2SAT 93–95
[2023-04-15] MEDS: heparin 5,000 unit/mL INJ 1 mL 5000 UNIT SUBCUT ×3 (00:25→23:58)
[2023-04-15] MEDS: morphine 4 mg/mL SDV 1 mL 2 MG IVP ×4 (00:34→23:24)
[2023-04-15] MEDS: TRAMadol 50 mg Tablet PO ×4 (02:21→20:03)
[2023-04-15] MEDS: oxyCODONE-APAP 5-325 mg Tablet 1 TAB PO ×3 (03:57→16:55)
[2023-04-15] MEDS: labetalol 5 mg/mL SDV 20mL 10 MG IVP (03:59)
[2023-04-15 04:41] LABS: Basophils % 0.2 %; Eosinophils % 0.2 %; Hematocrit 42.8 % (37.0-47.0); Hemoglobin 13.2 g/dL (11.5-15.3); Lymphocytes # 1.5 10^3/uL (0.8-4.8); Lymphocytes % 14.4 %; Mean Corpuscular HGB Conc 30.8 g/dL (30.0-36.0); Mean Corpuscular Hemoglobin 26.9 pg (28.0-34.0); Mean Corpuscular Volume 87.3 fl (81-99); Mean Platelet Volume 9.8 fL (7.4-10.4); Monocytes # 0.9 10^3/uL (0.2-0.9); Monocytes % 8.8 %; Neutrophils # 7.66 10^3/uL (1.8-7.7); Nucleated Red Blood Cells % 0 %; Platelet Count 166 10^3/cmm (130-400); Red Cell Distribution Width 14.1 % (12.1-15.1); White Blood Count 10.1 10^3/uL (4.0-10.0)
[2023-04-15 05:05] LABS: Alanine Aminotransferase 10 U/L (0-33); Alkaline Phosphatase 68 U/L (35-105); Anion Gap 12.3 (5-19); Aspartate Amino Transferase 13 U/L (0-32); Blood Urea Nitrogen 29 mg/dL (8-23); Calcium 9.8 mg/dL (8.5-10.5); Carbon Dioxide 21 mmol/L (22-29); Chloride 105 mmol/L (98-107); Chol HDL Ratio 3.53 mg/dL (0.0-4.40); Cholesterol 141 mg/dL (0-200); Creatinine Clr Calc Pharmacy 56.3918; Globulin 2.6 g/dL (1.3-4.6); Glucose 94 mg/dL (65-115); HDL Cholesterol 40 mg/dL (60-100); LDL Cholesterol Calculated 70 mg/dL (50-129); Osmolality Calculated 284 mOsm/kg (285-295); Potassium 4.3 mmol/L (3.5-5.1); Sodium 134 mmol/L (136-145); Total Bilirubin 0.5 mg/dL (0.15-1.2); Total Protein 5.6 g/dL (6.6-8.7); Triglycerides 153 mg/dL (0-150); VLDL Cholestrol Calculation 31 mg/dL (0-30)
[2023-04-15 05:28] LABS: Estmated Average Glucose 108; Hemoglobin A1C 5.4 % (4.0-6.0)
[2023-04-15] MEDS: dexamethasone 10 mg/mL INJ 6 MG IVP (05:41)
--- NOTE | 2023-04-15 07:08 | P.PN_ITS ---
Subjective Subjective: Patient continues to report back pain both with attempts to stand and rolling over in bed. She states she cannot tolerate this back pain she would like to proceed with the kyphoplasty at L2 and L4. Vitals/I&O/Wt Last Vital Signs Temp 97.6 F 04/15/23 04:00 Pulse 73 04/15/23 04:00 Resp 19 H 04/15/23 04:00 BP 158/86 04/15/23 05:11 Pulse Ox 94 04/15/23 04:00 O2 Del Method Room Air 04/14/23 16:00 04/14/23 04/15/23 04/15/23 22:59 06:59 14:59 Intake Total 240 / 1480 Output Total 1100 / 1100 Balance 240 / 1480 -1100 / 380 Physical Exam Narrative: Patient is alert orient x3 has good general appearance normal mood and affect. Reports palpable pain in the low back. Any attempts to move and roll has made her pain much worse. She has full range of motion of the right lower extremity with 5/5 strength. She has limited range of motion to the left lower extremity at the knee and hip due to increased pain with 4/5 strength. She wiggles all di gits they are warm to the touch calves are supple no medial thigh tenderness. Normal sensation light touch in all digits. Pulses are weak but palpable. Calves are supple. HENMT: COMMON NORMALS: normocephalic and atraumatic HEAD & SCALP: normocephalic and atraumatic Resp: COMMON NORMALS: normal respiratory effort Cardio: COMMON NORMALS: regular rate and regular rhythm RATE: regular rate RHYTHM: regular rhythm GI: COMMON NORMALS: Soft to palpation and non-tender PALPATION: Yes Soft to palpation : COMMON NORMALS: Yes no CVA tenderness BLADDER/KIDNEY EXAM: Yes no CVA tenderness Back/Pelvis: COMMON NORMALS: no CVA tenderness Psych: COMMON NORMALS: mental status grossly normal and cooperative Urinary Catheter Management: Moreira: Cath Placed During This Visit: yes Reason for Continuing Indwelling Catheter: Other Urinary Catheter Date of Insertion: 04/12/23 Urinary Catheter Time of Insertion: 00:15 Data 04/15/23 04:29 04/15/23 04:29 A&P Assessment and plan (1) Lumbar compression fracture: Discussed treatment options with the patient which involve TLSO brace versus kyphoplasty at L2 and L4. I discussed the risks and benefits of the procedure which include but not limited to bleeding infection, nerve damage, continued back pain, reaction to anesthesia she understands these risks and wished to proceed. We will keep her n.p.o. after midnight for procedure on 04/16/2023. Discussed this with Dr. Olmos he agrees above-stated plan. More than 50% of the time spent with the patient today involved coordination of care, counseling and discussion of conservative versus surgical treatment options. Total amount of time spent with the patient was 21 minutes. Qualifiers: Encounter type: subsequent encounter Lumbar vertebra fracture level: L4 (2) Osteoarthritis: Attestations Medical Necessity Statement*: Plan for kyphoplasty procedure on 04/16/2023 of L2 and L4 Coding Level of Care Code Acute Code for g Fwd Diagnoses Lumbar compression fracture S32.000A Encounter type: subsequent encounter Lumbar vertebra fracture level: L4 Osteoarthritis M19.90 Time Spent (min) 21
[2023-04-15] MEDS: sennosides-docusate Tablet 1 TAB PO ×2 (08:32→17:00)
[2023-04-15] MEDS: aspirin 81 mg EC Tablet PO (08:33)
[2023-04-15] MEDS: pantoprazole DR 40 mg Tablet PO (08:33)
[2023-04-15] MEDS: cloNIDine 0.1 mg/24 hr Patch 1 PATCH TRANSDERMA (09:47)
[2023-04-15] MEDS: amlodipine 10 mg Tablet PO (10:56)
--- NOTE | 2023-04-15 13:38 | PM.PN ---
Subjective Subjective: No acute events overnight. Today morning patient seen laying comfortably in bed. States pain is better today. Gets worse on minimal movement. Blood pressures on higher side today. Denies any nausea, vomiting, headache. Vitals/I&O/Wt Last Vital Signs Temp 98.7 F 04/15/23 11:29 Pulse 67 04/15/23 11:29 Resp 17 04/15/23 12:23 BP 151/81 04/15/23 11:29 Pulse Ox 94 04/15/23 11:29 O2 Del Method Room Air 04/14/23 16:00 04/14/23 04/15/23 04/15/23 22:59 06:59 14:59 Intake Total 240 / 1480 600 / 600 Output Total 1100 / 1100 Balance 240 / 1480 -1100 / 380 600 / 600 Physical Exam Narrative: General: Alert oriented x3, in distress because of back pain HEENT: Normocephalic, atraumatic, EOMI,, breathing normally Cardio: Regular rate rhythm, normal S1-S2 Respiratory: Good bilateral air entry, no wheezes no rhonchi appreciated GI: Abdomen soft, nontender,bowel sounds + Extremities: no edema Straight leg raise elicits pain. Any movement of leg causes severe back pain for the patient. She is laying in bed and trying not to move. Urinary Catheter Management: Moreira: Cath Placed During This Visit: yes Reason for Continuing Indwelling Catheter: Other Urinary Catheter Date of Insertion: 04/12/23 Urinary Catheter Time of Insertion: 00:15 Data 04/15/23 04:29 04/15/23 04:29 A&P Assessment and plan (1) Severe low back pain: (2) Herniated lumbar intervertebral disc: (3) Postoperative state: (4) Atrial fibrillation: (5) CVA (cerebral vascular accident): Qualifiers: CVA mechanism: unspecified Qualified Code(s): I63.9 - Cerebral infarction, unspecified (6) Hypertension: (7) Hyperlipidemia: Qualifiers: Hyperlipidemia type: mixed hyperlipidemia Qualified Code(s): E78.2 - Mixed hyperlipidemia (8) Hyperthyroidism: (9) Osteoarthritis: Plan 83-year-old female with past medical history of hypertension, CVA atrial fibrillation, dyslipidemia, came in from home after she started experiencing progressively worsening low back pain that started about 3 days back, it started acutely after she was bent over and vacuuming under her couches. Currently she is being managed for Assessment: Lower Back pain secondary to Lumbar compression fracture: MRI of the lumbar spine consistent with compression L2 and L4 acute fracture. Pain control continue with oxycodone 5 mg every 4 hourly. Add tramadol 50 mg every 6 hourly, morphine 2 mg every 4 hours as needed. Discussed adding Flexeril or a muscle relaxant. Patient does not want to be added for now. Bowel regimen Orthopedic spine surgery on board. Plan for possible intervention on Friday. Continue with dexamethasone 6 mg IV daily. History of CVA: Continue aspirin History of hypertension: Goal blood pressure less than 140/90 mmHg. Blood pressure at goal. Continue Bystolic 20 mg p.o. daily Plan for the day: Continue with current pain medication and dexamethasone. Blood pressure is elevated. Continue with home dose of Bystolic. Patient has multiple medication allergies. Add clonidine 0.1 mg patch. Add amlodipine 10 mg oral daily. Patient is agreeable for a trial of amlodipine even though medication is on the list of allergies. Goal blood pressure less than 140/90 mmHg. Plan for the OR tomorrow. N.p.o. after midnight. Discharge plan: Plan to discharge to SNF for further rehabitation postoperatively. Case management alerted. SCDs, heparin SQ twice daily DNR/DNI Protonix OPD prophylaxis Regular diet Attestations Medical Necessity Statement*: Patient requires further hospitalization for acute lumbar compression fracture requiring surgical decompression Diagnoses Severe low back pain M54.50 Herniated lumbar intervertebral disc M51.26 Postoperative state Z98.890 Atrial fibrillation I48.91 CVA (cerebral vascular accident) I63.9 CVA mechanism: unspecified Hypertension I10 Hyperlipidemia E78.2 Hyperlipidemia type: mixed hyperlipidemia Hyperthyroidism E05.90 Osteoarthritis M19.90
[2023-04-15] MEDS: magnesium hydroxide 30 mL UDC PO (20:03)
[2023-04-16] VITALS (16 sets, daily range): BP systolic 119–165; BP diastolic 69–87; PULSE 58–75; RESP 12–19; TEMP 36.1–37.1; O2SAT 92–99
[2023-04-16] MEDS: TRAMadol 50 mg Tablet PO ×4 (02:01→19:32)
[2023-04-16] MEDS: morphine 4 mg/mL SDV 1 mL 2 MG IVP (04:22)
[2023-04-16] MEDS: dexamethasone 10 mg/mL INJ 6 MG IVP (05:48)
--- NOTE | 2023-04-16 07:18 | SC_ITS ---
WS: [id number] Exam: C-arm FL for Kyphoplasty Date/Time of Exam: 04/16/2023 7:18 AM Reason For Exam: L2 and L4 kyphoplasty AP and lateral intraoperative C-arm images of the lower lumbar spine are submitted. The images demons trate evidence of kyphoplasty involving the L3 and L5 vertebra. Images obtained for intraoperative pu rposes.
[2023-04-16] MEDS: amlodipine 10 mg Tablet PO (08:21)
[2023-04-16] MEDS: aspirin 81 mg EC Tablet PO (08:22)
[2023-04-16] MEDS: pantoprazole DR 40 mg Tablet PO (08:22)
[2023-04-16] MEDS: sennosides-docusate Tablet 1 TAB PO (08:22)
--- NOTE | 2023-04-16 09:42 | ANES.PREANE2 ---
Pre-Anesthetic Assessment Height/Weight: Height 1.68 m Weight 81.647 kg Temp Pulse Resp BP Pulse Ox O2 Del Method 98.2 F 63 18 160/79 95 Room Air 04/16/23 09:16 04/16/23 09:16 04/16/23 09:16 04/16/23 09:16 04/16/23 09:16 04/16/23 09:16 Preop Diagnosis: Lumbar 2 and lumbar 4 compression fracture Operation Date: 04/16/23 10:00 Proposed Procedures p L2 and L4 Kyphoplasty(Not Applicable) - John Olmos, Familial anesthetic complications: None Was Beta Jayleen taken within 24 hours: Yes Was Clonidine taken within 24 hours: Yes (patient has clonidine patch on chest - avoid placing musa hugger over patch. ) Last intake: Intake Last Liquid Date 04/15/23 Last Liquid Time 23:00 Last Solid Date 04/15/23 Last Solid Time 18:00 Social No alcohol and No tobacco Exam alert, oriented x 3, clear to auscultation bilaterally and regular rate & rhythm Airway Mallampati: Class II Dentition: full CV/HEM Atrial Fibrillation and Hypertension Metabolic Hyperlipidemia and Thyroid Disease [facility] Cerebrovascular Accident Anesthetic Plan ASA status: 3 Anesthesia: General Other: declines chest compressions - ok with intubation and defibrillation Risk of > 500 ml blood loss (7ml/kg in children): No Medications/Allergies Home Medications Medication Instructions Recorded Confirmed Last Taken Type loratadine 10 mg tablet (Claritin) 10 mg PO DAILY PRN Allergy Symptoms 02/17/20 04/12/23 Unknown History acetaminophen 500 mg tablet 500 mg PO BEDTIME 05/29/20 04/12/23 08/15/22 History (Tylenol Extra Strength) aspirin 81 mg tablet,delayed 81 mg PO DAILY 04/27/22 04/12/23 08/15/22 History release clobetasol 0.05 % scalp solution 1 applic topical DAILY PRN unknown 04/27/22 04/12/23 Unknown History clobetasol 0.05 % topical ointment 1 applic topical BID PRN unknown 04/27/22 04/12/23 Unknown History adalimumab 40 mg/0.4 mL 40 mg (0.4 mL) SUBCUT Q14D #2 ea 06/03/22 04/12/23 04/02/23 Rx subcutaneous pen kit (Humira(CF) Pen) Bystolic 20 mg tablet (nebivolol) 20 mg PO QAM #90 tabs 08/08/22 04/12/23 08/15/22 Rx ketoconazole 2 % shampoo 1 applic topical .2 x weekly #120 11/25/22 04/12/23 Unknown Rx mL nebivolol 10 mg tablet (Bystolic) 10 mg PO DAILY #90 tabs 02/19/23 04/12/23 Unknown Rx Allergies Allergy/AdvReac Type Severity Reaction Status Date / Time chlorzoxazone Allergy Severe Unconscious Verified 04/11/23 20:23 [From Parafon Forte] aliskiren [From Tekturna] Allergy Unknown unknown Verified 04/11/23 20:23 atenolol Allergy Unknown unknown Verified 04/11/23 20:23 diltiazem [From Cardizem] Allergy Unknown unknown Verified 04/11/23 20:23 hydralazine Allergy Unknown headache Verified 04/11/23 20:23 hydrochlorothiazide Allergy Unknown unknown Verified 04/11/23 20:23 [From Microzide] losartan [From Hyzaar] Allergy Unknown unknown Verified 04/11/23 20:23 valsartan Allergy Unknown edema Verified 04/11/23 20:23 verapamil Allergy Unknown unknown Verified 04/11/23 20:23 allopurinol Allergy diarrhea Verified 04/11/23 20:23 amlodipine Allergy ADR-Diarrhe Verified 04/11/23 20:23 a celecoxib [From Celebrex] Allergy Heart Verified 04/11/23 20:23 racing spironolactone AdvReac Diahrroea Verified 04/11/23 20:23 Current Medications Generic Name Dose Route Start Last Admin Trade Name Freq PRN Reason Stop Dose Admin Amlodipine Besylate 10 mg 04/15/23 10:40 04/16/23 08:21 Amlodipine 10 Mg Tablet PO 10 mg DAILY VERONICA Administration Aspirin 81 mg 04/14/23 09:00 04/16/23 08:22 Aspirin 81 Mg Ec Tablet PO 81 mg DAILY VERONICA Administration Clonidine HCl 1 patch 04/15/23 10:00 04/15/23 09:47 Clonidine 0.1 Mg/24 Hr Patch TRANSDERMA 1 patch Q7D VERONICA Administration Dexamethasone 6 mg 04/11/23 23:30 04/16/23 05:48 Dexamethasone 10 Mg/Ml Inj IVP 6 mg Q24H VERONICA Administration Heparin Sodium (Porcine) 5,000 unit 04/11/23 23:30 04/15/23 23:58 Heparin 5,000 Unit/Ml Inj 1 Ml SUBCUT 5,000 unit Q12H VERONICA Administration Magnesium Hydroxide 30 ml 04/14/23 17:45 04/15/23 20:03 Magnesium Hydroxide 30 Ml Udc PO 30 ml BEDTIME VERONICA Administration Morphine Sulfate 2 mg 04/14/23 14:13 04/16/23 04:22 Morphine 4 Mg/Ml Sdv 1 Ml IVP 2 mg Q4H PRN Administration SEVERE PAIN Non-Formulary Medication 20 mg 04/14/23 11:00 04/16/23 08:21 Nebivolol [Bystolic] PO 20 mg DAILY@0800 VERONICA Administration Oxycodone/Acetaminophen 1 tab 04/13/23 10:44 04/15/23 16:55 Oxycodone-Apap 5-325 Mg Tablet PO 1 tab Q6H PRN Administration MODERATE PAIN Pantoprazole Sodium 40 mg 04/15/23 09:00 04/16/23 08:[address] 40 Mg Tablet PO 40 mg DAILY VERONICA Administration Senna/Docusate Sodium 1 tab 04/14/23 18:00 04/16/23 08:22 Sennosides-Docusate Tablet PO 1 tab BID VERONICA Administration Tramadol HCl 50 mg 04/14/23 14:15 04/16/23 08:21 Tramadol 50 Mg Tablet PO 50 mg Q6H VERONICA Administration Additional Medication Information Generic Name Dose Route Start Last Admin Trade Name Freq PRN Reason Stop Dose Admin Dexamethasone 6 mg 04/11/23 23:30 04/13/23 05:20 Dexamethasone 10 Mg/Ml Inj IVP 6 mg Q24H VERONICA Administration Heparin Sodium (Porcine) 5,000 unit 04/11/23 23:30 04/13/23 10:49 Heparin 5,000 Unit/Ml Inj 1 Ml SUBCUT 5,000 unit Q12H VERONICA Administration Sodium Chloride 1,000 mls @ 75 mls/hr 04/11/23 23:30 04/13/23 18:40 Sodium Chloride 0.9% IV 75 mls/hr .[id number] VERONICA Administration Morphine Sulfate 4 mg 04/11/23 23:23 04/13/23 05:19 Morphine 4 Mg/Ml Sdv 1 Ml IVP 4 mg Q4H PRN Administration SEVERE PAIN Oxycodone/Acetaminophen 1 tab 04/13/23 10:44 04/13/23 12:47 Oxycodone-Apap 5-325 Mg Tablet PO 1 tab Q6H PRN Administration MODERATE PAIN PFSH Anesthesia Medical History (Updated 04/15/23 @ 07:12 by Dung Sarkar PA-C) Arrhythmia Atrial fibrillation CVA (cerebral vascular accident) Hyperlipidemia Hypertension Hyperthyroidism Left displaced femoral neck fracture Lumbar radiculopathy Osteoarthritis Psoriasis Raynaud's syndrome Surgical History (Updated 04/03/23 @ 11:55 by SEBASTIAN Hernandes) H/O hernia repair H/O: hysterectomy History of appendectomy History of bladder repair surgery History of knee replacement Hx of cataract extraction Family History Father CAD (coronary artery disease) Stroke Mother CAD (coronary artery disease) Stroke Cancer Family/Other Cancer Daughter Lung disease Other Hyperlipidemia Hypertension Denies family history of Diabetes Clotting disorder Dementia Chronic kidney disease (CKD) Suicide Anesthesia complication Bleeding disorder Social History Smoking and tobacco status: never smoked Alcohol intake: never Substance/Drug Use: never Data Anesthesia 04/15/23 04:29 04/15/23 04:29 Short CBC 04/15/23 Range/Units 04:29 WBC 10.1 H (4.0-10.0) 10^3/uL Hgb 13.2 (11.5-15.3) g/dL Hct 42.8 (37.0-47.0) % MCV 87.3 (81-99) fl Plt Count 166 (130-400) 10^3/cmm Neut % (Auto) 76.0 % Neut # (Auto) 7.66 (1.8-7.7) 10^3/uL BMP 04/15/23 04:29 Sodium 134 L Potassium 4.3 Chloride 105 Carbon Dioxide 21 L BUN 29 H Creatinine 0.5 Glucose 94 Calcium 9.8 Liver Function 04/15/23 Range/Units 04:29 Total Bilirubin 0.5 (0.15-1.2) mg/dL AST 13 (0-32) U/L ALT 10 (0-33) U/L Alkaline Phosphatase 68 (35-105) U/L Albumin 3.0 L (3.5-5.2) g/dL Cardiac Studies: No Data to Display
[2023-04-16] MEDS: sodium chloride 0.9% 1,000 ML 30 ML IV (09:48)
--- NOTE | 2023-04-16 09:48 | W.PM.OPSUD ---
Surgery/Procedure H&P Update DATE OF PROCEDURE: April 16, 2023 DATE H&P PERFORMED: 04/13/23 H&P UPDATE INFORMATION: I have reviewed H&P completed within last 30 days, I have examined patient prior to procedure and No changes to prior documentation PREOP DIAGNOSIS: Lumbar 2 and lumbar 4 compression fracture PLANNED PROCEDURE: Operation Date: 04/16/23 10:00 Proposed Procedures p L2 and L4 Kyphoplasty(Not Applicable) - John Olmos DO
[2023-04-16] MEDS: ceFAZolin 2,000 MG in sodium chloride 0.9% (plus) 50 ML 100 MG IV ×2 (10:20→17:17)
[2023-04-16] MEDS: lidocaine-epi 1% 20 mL INJ INJECTION (11:03)
[2023-04-16] MEDS: iohexol 300 mg/mL 50 mL Btl (OR ONLY) XX (11:05)
--- NOTE | 2023-04-16 11:30 | PM.OP ---
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 L2 kyphoplasty 2. L4 kyphoplasty Surgeon: John Olmos Estimated blood loss (mL): 25 Procedure: 1. L2 kyphoplasty 2. L4 kyphoplasty Please go to the procedure after inguinal incisions placed in the prone position paralyzed visual padded patient's primary muscle fashion. C-arm was brought in in both AP and lateral biplanar fluoroscopy. Attention was brought to L2 first the skin incision was made on the edge of the L2 left pedicle. The awl was inserted. The drill was then inserted followed by the balloon and balloon was inflated. Next that is brought to the L4 level again the incision was made at the lateral edge of the left pedicle. The awl was inserted followed by the drill followed by the balloon. Balloon was inflated and deflated just like in the L2 level. Balloon was removed from both L2 and L4. And then cement was placed into both L2 and L4 in order to fill the void that was created by the balloon. Had good flow across the fracture on both L2 and 4 levels. Wounds were then irrigated and then C-arm AP lateral showed that the cement was in good position. Wounds were then closed with nylon suture and sterile dressings were applied. Patient was then transferred to the PACU in stable condition.
--- NOTE | 2023-04-16 12:20 | PC.SOCIAL ---
IMM Updated Updated pt on IMM. No questions voiced. Provided pt a copy. Initialed, dated, & timed copy in chart.
[2023-04-16 12:21] LABS: Glucose Point of Care 113 mg/dL (70-110)
--- NOTE | 2023-04-16 12:47 | ANE.PACU2 ---
Inpatient post-anesthesia follow up: Airway intact: Yes Vital signs: Temperature 97.0 F Pulse Rate 74 Respiratory Rate 19 Blood Pressure 149/74 Pulse Oximetry 96 Oxygen Delivery Me thod Room Air Oxygen Flow Rate 6 Fraction of Inspir ed Oxygen Hydration adequate: Yes Nausea and vomiting: No Pain level: 1 Mental status: Baseline
[2023-04-16] MEDS: oxyCODONE-APAP 5-325 mg Tablet 1 TAB PO (13:01)
[2023-04-16] MEDS: lactated ringers 1,000 ML 90 ML IV ×2 (13:01→22:39)
[2023-04-16 13:49] LABS: Methicillin-Resist S.aureu PCR NOT DETECTED (NOT DETECTED)
--- NOTE | 2023-04-16 13:51 | P.PN_ITS ---
Subjective Subjective: Events overnight. Patient's pain level has remained stable. Plan for OR today. Has remained hemodynamically stable and afebrile. Vitals/I&O/Wt Last Vital Signs Temp 97.0 F L 04/16/23 11:44 Pulse 74 04/16/23 11:44 Resp 18 04/16/23 13:01 BP 149/74 04/16/23 11:44 Pulse Ox 96 04/16/23 11:44 O2 Del Method Room Air 04/16/23 11:44 O2 Flow Rate 6 04/16/23 11:40 04/15/23 04/16/23 04/16/23 22:59 06:59 14:59 Intake Total 2240 / 3440 674.5 / 674.5 Output Total 1000 / 1999 1600 / 3600 125 / 125 Balance 1240 / 1440 -1600 / -160 549.5 / 549.5 Physical Exam Narrative: General: Alert oriented x3, in distress because of back pain HEENT: Normocephalic, atraumatic, EOMI,, breathing normally Cardio: Regular rate rhythm, normal S1-S2 Respiratory: Good bilateral air entry, no wheezes no rhonchi appreciated GI: Abdomen soft, nontender,bowel sounds + Extremities: no edema Straight leg raise elicits pain. Any movement of leg causes severe back pain for the patient. She is laying in bed and trying not to move. Urinary Catheter Management: Moreira: Cath Placed During This Visit: yes Reason for Continuing Indwelling Catheter: Other Urinary Catheter Date of Insertion: 04/12/23 Urinary Catheter Time of Insertion: 00:15 Data 04/15/23 04:29 04/15/23 04:29 A&P Assessment and plan (1) Severe low back pain: (2) Herniated lumbar intervertebral disc: (3) Postoperative state: (4) Atrial fibrillation: (5) CVA (cerebral vascular accident): Qualifiers: CVA mechanism: unspecified Qualified Code(s): I63.9 - Cerebral infarction, unspecified (6) Hypertension: (7) Hyperlipidemia: Qualifiers: Hyperlipidemia type: mixed hyperlipidemia Qualified Code(s): E78.2 - Mixed hyperlipidemia (8) Hyperthyroidism: (9) Osteoarthritis: Plan 83-year-old female with past medical history of hypertension, CVA atrial fibril lation, dyslipidemia, came in from home after she started experiencing progressively worsening low back pain that started about 3 days back, it started acutely after she was bent over and vacuuming under her couches. Currently she is being managed for Assessment: Lower Back pain secondary to Lumbar compression fracture: MRI of the lumbar spine consistent with compression L2 and L4 acute fracture. Plan for the OR today. Perioperative antibiotics, postoperative physical therapy, pain management as per primary team. Monitor hemoglobin postoperatively. For now for pain control continue with oxycodone 5 mg every 4 hourly, tramadol 50 mg every 6 hourly, morphine 2 mg every 4 hours as needed. Discussed adding Flexeril or a muscle relaxant. Patient does not want to be added for now. Bowel regimen Continue with dexamethasone 6 mg IV daily. History of CVA: Continue aspirin History of hypertension: Goal blood pressure less than 140/90 mmHg. Blood pressure is better today. Continue with home dose of Bystolic 20 mg oral daily, clonidine patch of 0.1 mg, amlodipine 10 mg oral daily. Will uptitrate blood pressures as per goal blood pressures. Discharge plan: Plan to discharge to SNF for further rehabitation postoperatively. Case management alerted. SCDs, heparin SQ twice daily DNR/DNI Protonix OPD prophylaxis N.p.o. for now. Postoperatively regular diet once okay with surgical team. Attestations Medical Necessity Statement*: Requires further hospitalization for management of acute compression lumbar fracture requiring surgical correction while safe discharge planning an OR is awaited Diagnoses Severe low back pain M54.50 Herniated lumbar intervertebral disc M51.26 Postoperative state Z98.890 Atrial fibrillation I48.91 CVA (cerebral vascular accident) I63.9 CVA mechanism: unspecified Hypertension I10 Hyperlipidemia E78.2 Hyperlipidemia type: mixed hyperlipidemia Hyperthyroidism E05.90 Osteoarthritis M19.90
--- NOTE | 2023-04-16 22:34 | PC.NURSE ---
Addendum entered by Mahi Davidson RN 04/16/23 22:54: Patient not wanting to take Heparin shot. Patient educated that is it to prevent blood clots that can cause stroke, heart attack, ect. Patient states I don't know about taking that. Patient states they've had to change that computer out two or three times today which makes me nervous too. Original Note: Patient states that she feels confused. She is able to answer correctly to person, place, time, and situation, however patient states I just don't understand what is going on. Patient is able to tell me about her surgery and tell me how much pain she was in before her surgery. Bed alarm is set.
[2023-04-16] MEDS: heparin 5,000 unit/mL INJ 1 mL 5000 UNIT SUBCUT (22:58)
[2023-04-17] VITALS (8 sets, daily range): BP systolic 135–161; BP diastolic 75–88; PULSE 52–61; RESP 16–20; TEMP 36.5–36.8; O2SAT 94–96
[2023-04-17] MEDS: TRAMadol 50 mg Tablet PO ×4 (01:45→19:33)
[2023-04-17] MEDS: ceFAZolin 2,000 MG in sodium chloride 0.9% (plus) 50 ML 100 MG IV ×2 (01:45→11:08)
[2023-04-17] MEDS: dexamethasone 10 mg/mL INJ 6 MG IVP (04:49)
[2023-04-17 05:06] LABS: Basophils % 0.1 %; Eosinophils % 0.1 %; Hemoglobin 13.1 g/dL (11.5-15.3); Lymphocytes # 1.1 10^3/uL (0.8-4.8); Lymphocytes % 10.9 %; Mean Corpuscular Hemoglobin 27.2 pg (28.0-34.0); Mean Corpuscular Volume 85.2 fl (81-99); Mean Platelet Volume 9.5 fL (7.4-10.4); Monocytes % 9.9 %; Neutrophils # 8.09 10^3/uL (1.8-7.7); Neutrophils % 78.5 %; Nucleated Red Blood Cells % 0 %; Platelet Count 201 10^3/cmm (130-400); Red Blood Count 4.81 10^6/uL (4.1-5.3); White Blood Count 10.3 10^3/uL (4.0-10.0)
[2023-04-17 05:31] LABS: Alanine Aminotransferase 9 U/L (0-33); Albumin Level 2.7 g/dL (3.5-5.2); Alkaline Phosphatase 87 U/L (35-105); Anion Gap 12.7 (5-19); Aspartate Amino Transferase 12 U/L (0-32); Blood Urea Nitrogen 29 mg/dL (8-23); Calcium 9.6 mg/dL (8.5-10.5); Carbon Dioxide 24 mmol/L (22-29); Chloride 105 mmol/L (98-107); Creatinine Clr Calc Pharmacy 56.3918; Globulin 2.5 g/dL (1.3-4.6); Glucose 94 mg/dL (65-115); Osmolality Calculated 290 mOsm/kg (285-295); Potassium 4.7 mmol/L (3.5-5.1); Sodium 137 mmol/L (136-145); Total Bilirubin 0.3 mg/dL (0.15-1.2); Total Protein 5.2 g/dL (6.6-8.7)
--- NOTE | 2023-04-17 07:06 | PM.PN ---
Subjective Subjective: POD 1 Patient resting comfortably. States her back pain is has improved. Denies shortness of breath, chest pain, headaches. Vitals/I&O/Wt Last Vital Signs Temp 97.9 F 04/17/23 04:00 Pulse 60 04/17/23 04:00 Resp 16 04/17/23 04:00 BP 147/76 04/17/23 04:00 Pulse Ox 94 04/17/23 04:00 O2 Del Method Room Air 04/17/23 04:00 O2 Flow Rate 2 04/16/23 20:00 04/16/23 04/17/23 04/17/23 22:59 06:59 14:59 Intake Total 1157 / 1831.5 50 / 1881.5 Output Total 1200 / 1325 950 / 2275 Balance -43 / 506.5 -900 / -393.5 Physical Exam Narrative: Patient presents alert and oriented x3 with a good general appearance normal mood and affect. Normal coordination normal stability. Mild tenderness around the incisional site with the incision appear to be clean and dry. No signs of erythema or drainage. No signs of infection. Patient denies any fevers or chills. 5/5 motor strength both lower extremities with negative straight leg raise bilaterally. Calves are supple no medial thigh tenderness. Pulses are 2+ at the dorsalis pedis and posterior tibial region. Good capillary refill throughout normal sensation light touch both lower extremities. Urinary Catheter Management: Moreira: Cath Placed During This Visit: yes Reason for Continuing Indwelling Catheter: Perioperative Use in Selected Surgeries Urinary Catheter Date of Insertion: 04/12/23 Urinary Catheter Time of Insertion: 00:15 Data 04/17/23 04:51 04/17/23 04:51 A&P Assessment and plan (1) Lumbar compression fracture: Encouraged physical therapy to work with mobilization. Encourage incentive spirometer for pulmonary toilet. Okay to discharge home when medically stable. We will see her back in the office in 1-2 week's time for wound check and removal of sutures. Qualifiers: Encounter type: subsequent encounter Lumbar vertebra fracture level: L4 Attestations Medical Necessity Statement*: Per to medical team Coding Level of Care Code Acute Code for Chg Fwd Diagnoses Lumbar compression fracture S32.000A Encounter type: subsequent encounter Lumbar vertebra fracture level: L4
[2023-04-17] MEDS: sennosides-docusate Tablet 1 TAB PO ×2 (10:06→17:03)
[2023-04-17] MEDS: docusate sodium 100 mg Capsule PO ×2 (10:06→17:03)
[2023-04-17] MEDS: aspirin 81 mg EC Tablet PO (10:09)
[2023-04-17] MEDS: amlodipine 10 mg Tablet PO (10:15)
[2023-04-17] MEDS: pantoprazole DR 40 mg Tablet PO (10:16)
[2023-04-17] MEDS: morphine 4 mg/mL SDV 1 mL 2 MG IVP ×2 (11:49→17:01)
[2023-04-17] MEDS: heparin 5,000 unit/mL INJ 1 mL 5000 UNIT SUBCUT (12:44)
[2023-04-17] MEDS: lactated ringers 1,000 ML 90 ML IV ×2 (12:44→19:35)
--- NOTE | 2023-04-17 14:33 | PM.PN ---
Subjective Subjective: Patient underwent kyphoplasty yesterday. Tolerated the procedure well. Today morning seen laying comfortably in bed. States pain is better. Patient is concerned about not able to have bowel movements. As per nurse patient did have 2 soft bowel movements yesterday. Patient is cleared to work with physical therapy because of pain. We discussed taking her pain medications but is important for her to start moving around with physical therapy if she wants to get better. Patient verbalized understanding and is reluctantly agreed. Vitals/I&O/Wt Last Vital Signs Temp 97.7 F 04/17/23 12:00 Pulse 61 04/17/23 12:00 Resp 18 04/17/23 12:00 BP 135/75 04/17/23 12:00 Pulse Ox 96 04/17/23 12:00 O2 Del Method Room Air 04/17/23 12:00 O2 Flow Rate 2 04/16/23 20:00 04/16/23 04/17/23 04/17/23 22:59 06:59 14:59 Intake Total 1157 / 1831.5 50 / 1881.5 1959 Output Total 1200 / 1325 950 / 2275 Balance -43 / 506.5 -900 / -393.5 1959 Physical Exam Narrative: General: Alert oriented x3, in distress because of back pain HEENT: Normocephalic, atraumatic, EOMI,, breathing normally Cardio: Regular rate rhythm, normal S1-S2 Respiratory: Good bilateral air entry, no wheezes no rhonchi appreciated GI: Abdomen soft, nontender,bowel sounds + Extremities: no edema Urinary Catheter Management: Moreira: Cath Placed During This Visit: yes Reason for Continuing Indwelling Catheter: Perioperative Use in Selected Surgeries Urinary Catheter Date of Insertion: 04/12/23 Urinary Catheter Time of Insertion: 00:15 Data 04/17/23 04:51 04/17/23 04:51 A&P Assessment and plan (1) Severe low back pain: (2) Herniated lumbar intervertebral disc: (3) Postoperative state: (4) Atrial fibrillation: (5) CVA (cerebral vascular accident): Qualifiers: CVA mechanism: unspecified Qualified Code(s): I63.9 - Cerebral infarction, unspecified (6) Hypertension: (7) Hyperlipidemia: Qualifiers: Hyperlipidemia type: mixed hyperlipidemia Qualified Code(s): E78.2 - Mixed hyperlipidemia (8) Hyperthyroidism: (9) Osteoarthritis: Plan 83-year-old female with past medical history of hypertension, CVA atrial fibrillation, dyslipidemia, came in from home after she started experiencing progressively worsening low back pain that started about 3 days back, it started acutely after she was bent over and vacuuming under her couches. Currently she is being managed for Assessment: Lower Back pain secondary to Lumbar compression fracture: MRI of the lumbar spine consistent with compression L2 and L4 acute fracture. Post L2 L4 kyphoplasty day 1. Appreciate orthopedic recommendation. PT. Perioperative antibiotics anticoagulation as per surgical team. Monitor hemoglobin. Discontinue dexamethasone 6 mg IV daily. History of CVA: Continue aspirin History of hypertension: Goal blood pressure less than 140/90 mmHg. Blood pressure is better today. Continue with home dose of Bystolic 20 mg oral daily, clonidine patch of 0.1 mg, amlodipine 10 mg oral daily. Will uptitrate blood pressures as per goal blood pressures. Discharge plan: Plan to discharge to SNF in the next 24 hours if remains hemodynamically stable and working appropriately with physical therapy. SCDs, heparin SQ twice daily DNR/DNI Protonix for PUD prophylaxis Regular diet Attestations Medical Necessity Statement*: Requires further hospitalization for postoperative care for L2-L4 kyphoplasty given acute compression lumbar fracture on admission. Diagnoses Severe low back pain M54.50 Herniated lumbar intervertebral disc M51.26 Postoperative state Z98.890 Atrial fibrillation I48.91 CVA (cerebral vascular accident) I63.9 CVA mechanism: unspecified Hypertension I10 Hyperlipidemia E78.2 Hyperlipidemia type: mixed hyperlipidemia Hyperthyroidism E05.90 Osteoarthritis M19.90
--- NOTE | 2023-04-17 18:15 | PC.NURSE ---
Patient has been a little grumpy today. Has not been happy with anything. Called one of the CNAs a smartass. The son was trying to console her and offer different things but patient refused. Patient has had morphine twice and scheduled tramadol. Patient had a bowel movement today and up to chair times two. Patient states she is confused but she is not confused. Continue to monitor patient.
[2023-04-17] MEDS: magnesium hydroxide 30 mL UDC PO (19:34)
--- NOTE | 2023-04-17 19:37 | PC.NURSE ---
Patient states I'm only drinking half of that Milk of Mag. I'm afraid that stuff will make me cramp again.
[2023-04-18] VITALS: BP 117/71; PULSE 54; RESP 16; TEMP 36.4; O2SAT 94
[2023-04-18] MEDS: TRAMadol 50 mg Tablet PO ×2 (01:26→08:27)
[2023-04-18] MEDS: heparin 5,000 unit/mL INJ 1 mL 5000 UNIT SUBCUT (01:26)
[2023-04-18 03:34] VITALS: BP 135/75; PULSE 53; RESP 16; TEMP 36.7; O2SAT 95
[2023-04-18 04:44] LABS: Basophils % 0.1 %; Eosinophils # 0.1 10^3/uL (0.0-0.8); Eosinophils % 0.5 %; Hematocrit 39.1 % (37.0-47.0); Hemoglobin 12.3 g/dL (11.5-15.3); Lymphocytes # 1.5 10^3/uL (0.8-4.8); Lymphocytes % 16.1 %; Mean Corpuscular HGB Conc 31.5 g/dL (30.0-36.0); Mean Corpuscular Volume 85.9 fl (81-99); Mean Platelet Volume 9.8 fL (7.4-10.4); Monocytes % 10.7 %; Neutrophils # 6.55 10^3/uL (1.8-7.7); Neutrophils % 71.9 %; Nucleated Red Blood Cells % 0 %; Platelet Count 205 10^3/cmm (130-400); Red Blood Count 4.55 10^6/uL (4.1-5.3); Red Cell Distribution Width 13.8 % (12.1-15.1); White Blood Count 9.1 10^3/uL (4.0-10.0)
[2023-04-18 05:06] LABS: Alanine Aminotransferase 6 U/L (0-33); Albumin Level 2.6 g/dL (3.5-5.2); Alkaline Phosphatase 81 U/L (35-105); Anion Gap 11.2 (5-19); Aspartate Amino Transferase 12 U/L (0-32); Blood Urea Nitrogen 31 mg/dL (8-23); Calcium 9.2 mg/dL (8.5-10.5); Carbon Dioxide 27 mmol/L (22-29); Chloride 103 mmol/L (98-107); Creatinine Clr Calc Pharmacy 56.3918; Globulin 2.4 g/dL (1.3-4.6); Glucose 88 mg/dL (65-115); Osmolality Calculated 290 mOsm/kg (285-295); Potassium 4.2 mmol/L (3.5-5.1); Sodium 137 mmol/L (136-145); Total Bilirubin 0.4 mg/dL (0.15-1.2)
[2023-04-18 08:00] VITALS: BP 144/77; PULSE 56; RESP 18; TEMP 36.3; O2SAT 93
[2023-04-18] MEDS: aspirin 81 mg EC Tablet PO (08:26)
[2023-04-18] MEDS: pantoprazole DR 40 mg Tablet PO (08:27)
[2023-04-18] MEDS: sennosides-docusate Tablet 1 TAB PO (08:27)
[2023-04-18] MEDS: amlodipine 10 mg Tablet PO (08:27)
[2023-04-18] MEDS: docusate sodium 100 mg Capsule PO (08:27)
[2023-04-18] MEDS: lactated ringers 1,000 ML 90 ML IV (08:28)
[2023-04-18 09:06] LABS: SARS Covid-2 Antigen negative (Negative)
--- NOTE | 2023-04-18 09:42 | PM.DCS ---
Discharge Providers Date of Admission: 04/11/23 22:03 Date of Discharge: April 18, 2023 Attending Provider at Admission: Naomi Lowry MD Attending Provider at Discharge: Alexandre Grace MD Consults: Orthopedic surgery: Dr. Olmos Primary Care Provider: Wilson Garcia MD Diagnoses at Discharge Discharge Diagnosis (1) Severe low back pain: Status: Acute (2) Herniated lumbar intervertebral disc: Status: Acute (3) Postoperative state: Status: Acute (4) Atrial fibrillation: Status: Acute (5) CVA (cerebral vascular accident): Status: Acute Qualifiers: CVA mechanism: unspecified Qualified Code(s): I63.9 - Cerebral infarction, unspecified (6) Hypertension: Status: Acute (7) Hyperlipidemia: Status: Acute Qualifiers: Hyperlipidemia type: mixed hyperlipidemia Qualified Code(s): E78.2 - Mixed hyperlipidemia (8) Hyperthyroidism: Status: Acute (9) Osteoarthritis: Status: Acute Reason for Visit Reason for Visit: BACK PAIN Brief History: History as per HPI: Kiah Garcia is a 83 year old female with past medical history of atrial fibrillation, stroke, hyperlipidemia, hypertension, hyperthyroidism, lumbar radiculopathy, osteoarthritis, psoriasis, Raynaud's syndrome presented to the hospital today for complaint of severe back pain that started 3 days ago.? She states that she was bent over and vacuuming under her couches and couch cushions that day and felt fine through the evening however next morning when she woke up she woke up with severe back pain.? She cannot find a comfortable position.? It hurts when she walks and when laying down she tries to move her legs or raise her legs it hurts in her back.? She says she was constipated for the last 2 days as well but finally had a bowel movement yesterday after she took some laxatives..? She says it is in the mid lower back and radiates down both her legs.? She has not lost control of bowel or bladder at this time.? He says she is unable to walk due to severe pain.? She says she was told in the ER that she has a herniated disc.? She would be interested in surgery if it is warranted.? EMS gave her fentanyl 100 in route we will bring her in and that did not take away the pain.? Denies falls or any new injuries recently.? Patient does have a history of hip surgery last year in July.? Has not had any fevers, nausea, vomiting, diarrhea, constipation recently.? Denies ill contacts.? Patient states that she would like to be let go in case of an emergency situation if she does end up having a cardiac arrest.? She does not want to be intubated either.? She states she has a power of sports medicine coordinator in place as well.? The nurse and I both asked her several times regarding her wishes and she said that she would like to be a DNR/DNI. ED course: Blood pressure 224/98, respiratory 16, pulse 59, temperature 98.7, saturating 97% on room air.? CT lumbar spine was obtained which showed degenerative disc with large posterior herniation at T12-L1.? Compression deformity superior endplate of L2 of uncertain age.? Chronic appearing compression deformity superior endplate L4, degenerative disc changes and mild multilevel stenosis as described.? Hip pelvis x-ray did not show any acute findings at this time.? Labs WBC 6.8, hemoglobin 13.4, platelet 183, sodium 140, potassium 3.9, creatinine 0.7, AST 15, ALT 15, glucose 90. Spine surgeon on-call Dr. Olmos was contacted who has been consulted.? MRI lumbar spine has been recommended at this time on a nonemergent basis since patient does not have any signs of acute cord compression with no bowel or bladder incontinence.? Patient was given dexamethasone 10 mg IV push x1, ketorolac 15 IV push x1, hydralazine 10 mg IV push x1. Hospital Course Hospital Course Patient was admitted to the hospital for further evaluation and management of severe back pain in setting of compression L1-L2 acute fracture. Spine surgery was consulted and she was started on IV dexamethasone along with pain control. Patient required multiple pain medications to help relieve the pain especially on exertion. Eventually she underwent L2 L4 kyphoplasty on 04/06. She tolerated the procedure well. During hospitalization her antihypertensives were adjusted. She worked appropriately with physical therapy postoperatively and her pain improved. She has been discharged in hemodynamically stable condition to SNF for further rehabilitation. Physical Exam Narrative: General: Alert oriented x3, in distress because of back pain HEENT: Normocephalic, atraumatic, EOMI,, breathing normally Cardio: Regular rate rhythm, normal S1-S2 Respiratory: Good bilateral air entry, no wheezes no rhonchi appreciated GI: Abdomen soft, nontender,bowel sounds + Extremities: no edema Urinary Catheter Management: Moreira: Cath Placed During This Visit: yes Reason for Continuing Indwelling Catheter: Other Urinary Catheter Date of Insertion: 04/12/23 Urinary Catheter Time of Insertion: 00:15 Discharge Data Studies Completed and Pending Completed Studies During Hospitalization Category Date Time Status CT lumbar spine wo con* [id number] Stat Cat Scan 04/11/23 20:30 Completed XR hip BI 3-4V wo/w pel [id number] Routine Exams 04/11/23 Completed MR lumbar spine wo/w con [id number] Urgent MRI 04/12/23 10:21 Completed MR thoracic spin wo con* [id number] Routine MRI 04/12/23 10:39 Completed Radiology Impressions Lumbar Spine CT 04/11/23 20:30 IMPRESSION: 1. Degenerative disc with large posterior herniation at T12-L1 2. Compression deformity superior endplate of L2 of uncertain age. Please correlate clinically 3. Chronic appearing compression deformity superior endplate L4. 4. Degenerative disc changes and mild multilevel stenosis as described. Lumbar Spine MRI 04/12/23 10:21 IMPRESSION: 1. Mild acute compression fractures involving the superior endplates of L2 and L4 vertebral bodies. No malalignment. 2. Large posterior central disc herniation T12-L1 effacing the anterior thecal sac with moderate stenosis of the central canal. 3. Mild degenerative spinal stenosis L3-L4 and L4-L5. Thoracic Spine MRI 04/12/23 10:39 IMPRESSION: No acute abnormalities. Laboratory Results WBC 9.1 10^3/uL (4.0-10.0) 04/18/23 04:19 RBC 4.55 10^6/uL (4.1-5.3) 04/18/23 04:19 Hgb 12.3 g/dL (11.5-15.3) 04/18/23 04:19 Hct 39.1 % (37.0-47.0) 04/18/23 04:19 MCV 85.9 fl (81-99) 04/18/23 04:19 MCH 27.0 pg (28.0-34.0) L 04/18/23 04:19 MCHC 31.5 g/dL (30.0-36.0) 04/18/23 04:19 RDW 13.8 % (12.1-15.1) 04/18/23 04:19 Plt Count 205 10^3/cmm (130-400) 04/18/23 04:19 MPV 9.8 fL (7.4-10.4) 04/18/23 04:19 Neut % (Auto) 71.9 % 04/18/23 04:19 Lymph % (Auto) 16.1 % 04/18/23 04:19 Johnston % (Auto) 10.7 % 04/18/23 04:19 Eos % (Auto) 0.5 % 04/18/23 04:19 Baso % (Auto) 0.1 % 04/18/23 04:19 Neut # (Auto) 6.55 10^3/uL (1.8-7.7) 04/18/23 04:19 Lymph # (Auto) 1.5 10^3/uL (0.8-4.8) 04/18/23 04:19 Johnston # (Auto) 1.0 10^3/uL (0.2-0.9) H 04/18/23 04:19 Eos # (Auto) 0.1 10^3/uL (0.0-0.8) 04/18/23 04:19 Baso # (Auto) 0.0 10^3/uL (0.0-0.1) 04/18/23 04:19 Nucleated RBC % (auto) 0 % 04/18/23 04:19 Nucleated RBCs # 0.0 /100WBC 04/18/23 04:19 Sodium 137 mmol/L (136-145) 04/18/23 04:19 Potassium 4.2 mmol/L (3.5-5.1) 04/18/23 04:19 Chloride 103 mmol/L (98-107) 04/18/23 04:19 Carbon Dioxide 27 mmol/L (22-29) 04/18/23 04:19 Anion Gap 11.2 (5-19) 04/18/23 04:19 BUN 31 mg/dL (8-23) H 04/18/23 04:19 Creatinine 0.5 mg/dL (0.5-0.9) 04/18/23 04:19 GFR Calculation Not Reportable 04/18/23 04:19 Glucose 88 mg/dL (65-115) 04/18/23 04:19 POC Glucose 113 mg/dL (70-110) H 04/16/23 12:11 Estimat Average Glucose 108 04/15/23 04:29 Hemoglobin A1c 5.4 % (4.0-6.0) 04/15/23 04:29 Calculated Osmolality 290 mOsm/kg (285-295) 04/18/23 04:19 Calcium 9.2 mg/dL (8.5-10.5) 04/18/23 04:19 Magnesium 1.8 mg/dL (1.7-2.3) 04/12/23 05:23 Iron 38 ug/dL (37-145) 04/14/23 06:12 TIBC 221 mcg/dl 04/14/23 06:12 % Saturation 17.1 % (20-50) L 04/14/23 06:12 Unsat Iron Binding 183 ug/dL (112-347) 04/14/23 06:12 Total Bilirubin 0.4 mg/dL (0.15-1.2) 04/18/23 04:19 AST 12 U/L (0-32) 04/18/23 04:19 ALT 6 U/L (0-33) 04/18/23 04:19 Alkaline Phosphatase 81 U/L (35-105) 04/18/23 04:19 Total Protein 5.0 g/dL (6.6-8.7) L 04/18/23 04:19 Albumin 2.6 g/dL (3.5-5.2) L 04/18/23 04:19 Globulin 2.4 g/dL (1.3-4.6) 04/18/23 04:19 Triglycerides 153 mg/dL (0-150) H 04/15/23 04:29 Cholesterol 141 mg/dL (0-200) 04/15/23 04:29 LDL Cholesterol, Calc 70 mg/dL (50-129) 04/15/23 04:29 Total VLDL Cholesterol 31 mg/dL (0-30) H 04/15/23 04:29 HDL Cholesterol 40 mg/dL (60-100) L 04/15/23 04:29 Cholesterol/HDL Ratio 3.53 mg/dL (0.0-4.40) 04/15/23 04:29 Vitamin B12 244 pg/mL (232-1245) 04/14/23 06:12 Folate 7.0 ng/mL (4.8-37.3) 04/15/23 04:29 TSH 4.53 uIU/mL (0.27-4.20) H 04/11/23 20:39 Free T4 1.21 ng/dL (0.82-1.77) 04/14/23 06:12 Free T3 1.7 PG/ML (2.0-4.4) L 04/14/23 06:12 SARS-CoV-2 Ag (Rapid) negative (Negative) 04/18/23 08:34 MRSA (PCR) Not detected (NOT DETECTED) 04/14/23 14:44 Vitals Last Vital Signs Temp 97.4 F L 04/18/23 08:00 Pulse 56 L 04/18/23 08:00 Resp 18 04/18/23 08:00 BP 144/77 04/18/23 08:00 Pulse Ox 93 04/18/23 08:00 O2 Del Method Room Air 04/18/23 08:00 O2 Flow Rate 2 04/16/23 20:00 Discharge Plan Discharge Patient Disposition: Xfer SNF Condition: Stable Prescriptions: New tramadol 50 mg Tablet 50 mg PO Q6H Qty: 30 0RF amlodipine 10 mg Tablet 10 mg PO DAILY Qty: 30 0RF docusate sodium 100 mg Capsule 100 mg PO BID Qty: 14 0RF pantoprazole 40 mg Tablet,Delayed Release (Dr/Ec) 40 mg PO DAILY Qty: 14 0RF clonidine HCl 0.1 mg tablet 0.1 mg PO BID Qty: 60 0RF Continued loratadine [Claritin] 10 mg tablet 10 mg PO DAILY PRN (Reason: Allergy Symptoms) nebivolol [Bystolic] 20 mg tablet 20 mg PO QAM Qty: 90 3RF ketoconazole 2 % shampoo 1 applic topical .2 x weekly Qty: 120 3RF Rx Instructions: Lather into scalp 2 times weekly. Allow to sit on scalp for 5 minutes before rinsing. nebivolol [Bystolic] 10 mg tablet 10 mg PO DAILY Qty: 90 3RF Rx Instructions: 20 mg in morning, 10mg in evening. acetaminophen [Tylenol Extra Strength] 500 mg tablet 500 mg PO BEDTIME aspirin 81 mg Tablet,Delayed Release (Dr/Ec) 81 mg PO DAILY clobetasol 0.05 % ointment 1 applic topical BID PRN (Reason: unknown) Rx Instructions: to affected areas on body no more than 3 wks/mo clobetasol 0.05 % solution 1 applic topical DAILY PRN (Reason: unknown) Rx Instructions: to scalp Held Humira(CF) Pen 40 mg/0.4 mL pen injector kit 40 mg SUBCUT Q14D Qty: 2 4RF Hold Instructions: Resume on 09/18/22. hold until you see dermatology Rx Instructions: Inject 1 pen every 2 weeks Discharge Orders: Discharge Order (Routine); Ordered 04/18/23 Ordered By: Alexandre Grace Referrals: [facility] ([employer]) Bus [Other] (You can call this number if you are in need of transportation to your appointments. Will need to call 24hrs in advance. ) Wilson Garcia MD [Primary Care Provider] - 1 week Discharge Diet: Advance as tolerated Discharge Activity: Limit activity as instructed Patient Instructions: Opioid Safety Activity Restrictions/Additional Instructions: Thank you for choosing [facility] for your care! The following is a list of instructions, from your provider, to follow upon your discharge to ensure you have the optimal recovery from your recent injury or surgery. Follow-up care is a whit[place] part of your treatment and safety. Be sure to make and go to all appointments and call your doctor if you are having problems. If you do not already have a follow-up appointment made, call Dr. Olmos's] office in the next 1-3 days to make follow up appointment for [1-2] weeks at [phone]. It is also a good idea to know your test results and keep a list of the medicines you take. Medications will be prescribed for you at your provider's discretion. These medications are to be used as instructed; if they are taken more often that prescribed they will not be refilled early and in most cases will not be refilled at all. > When a refill is needed, you should contact rajni stanley 2-3 business days before your prescription runs out. Medications will NOT be refilled by tobacco prevention health educator providers after hours! > Many pain medications contain Tylenol (Acetaminophen). Do not consume more than 4,000 mg of Tylenol per day in total with any combination of medications. > Pain medications can cause constipation. Please use an over the counter stool softener as directed, while taking pain medications. Consult your local pharmacist with questions or recommendations on stool softeners. If constipation persists, contact our office or your primary care provider. > While under our care, you are not to receive pain medications or other controlled substances from any other provider unless our office is notified and approves. Any attempts to do so will result in refusal to prescribe any further pain medications and possible dismissal from our practice. ? Walking is essential for the healing process after surgery. We would like you to slowly advance your walking. This should be done on relatively flat clear ground (inside or out) or can be done on a treadmill. Remember this goal does not have to happen all at once, slowly increase your distance and duration. This can be broken into more more than one walk per day as tolerated. Patients who walk as directed after surgery rarely require Physical Therapy. In the unlikely event this issue arises your provider will direct hospital staff to make the appropriate arrangements. ? No lifting over 5 pounds {a gallon of milk) or bending/twisting until further notice. Each of these activities places an unnecessary amount of stress onto the body and can impede the delicate healing process. > Instead of bending at the waist, keep your back straight and bend at the knees. > Instead of twisting your torso, keep your back straight and turn your entire body with your feet. ? You may sleep in any position which makes you comfortable. Many patients find comfort sleeping in a reclining chair. It is not abnormal to have difficulty sleeping for the first several weeks following your surgery. We recommend trying Benadry! or Tylenol PM as directed to help with your sleeping difficulties. Both medications are over the counter and available without prescription. ? NO SMOKING!!! Smoking dramatically increases the probability of developing postoperative wound infections. ? Common complaints after lumbar and/or thoracic spine surgery include, but are not limited to: numbness and/or tingling in the legs, pain around the incision and surrounding tissues, muscle spasms, or stiffness of the middle to low back. Contact our office if these symptoms persist or if an acute change occurs. ? No driving for the first 3-5days, and not while taking narcotics until seen at your follow-up appointment and cleared. There are no restrictions for riding on short trips, however if you take a longer trip, arrangements should be made to make regular stops to get out of the vehicle and stretch . ? Swelling is an unfortunate event that will take place with any surgery and is the primary source of your postoperative discomfort. While walking and regular approved activities helps control inflammation, there are additional steps you can take to minimize swelling. > Place ice over the surgical site and surrounding tissue for twenty minutes, followed by applying a low/medium heat (heating pad) for an additional twenty minutes every 1-2 hours as needed for painrelief. > You may use of over the counter anti-inflammatory medications (Ibuprofen, Motrin, Aleve, Advil, etc) as directed on the package label. These types of medicines will significantly reduce the amount of discomfort you experience after surgery from swelling. It should be noted that if you have and allergy to any of these medications, or a history of ulcers or kidney disease you should consult you primary care provider prior to starting these medications. Discharge Attestations Time Spent in Discharge Care*: greater than 30 min Specific Discharge Activities: educating patient, educating and/or supporting family/caregiver, discussing with pcp/other providers, discussing with case making machine operator/social workers/dc planners, documenting/other paperwork and evaluating patient/reviewing data Status at Discharge: Cognitive status at discharge: cognitively intact, Behavioral status at discharge: cooperative, Functional status at discharge: other assisted ambulation, Overall status at discharge: patient is progressing back to baseline Quality Metrics Clinical Quality Measures [ No reported AMI, CVA or VTE this stay] Coding Level of Care Code 56063 Total time (in minutes) for Discharge: 50 Diagnoses Severe low back pain M54.50 Herniated lumbar intervertebral disc M51.26 Postoperative state Z98.890 Atrial fibrillation I48.91 CVA (cerebral vascular accident) I63.9 CVA mechanism: unspecified Hypertension I10 Hyperlipidemia E78.2 Hyperlipidemia type: mixed hyperlipidemia Hyperthyroidism E05.90 Osteoarthritis M19.90
[2023-04-18 11:04] VITALS: RESP 16
[2023-04-18] MEDS: oxyCODONE-APAP 5-325 mg Tablet 1 TAB PO (11:04)
--- NOTE | 2023-04-18 11:35 | PC.SOCIAL ---
Imm update Imm updated with patient at bedside. Copy of page 2 provided. Patient verbalized understanding. Copy in chart initialed, dated and timed.
--- NOTE | 2023-04-18 11:56 | PC.NURSE ---
Report called to [facility].
[2023-04-18 12:00] VITALS: BP 121/73; PULSE 54; RESP 17; TEMP 36.4; O2SAT 92
[2023-04-18] MEDS: ketorolac 30 mg/mL INJ IVP (12:20)
== END 2023-04-18 13:18 | disposition skilled nursing facility (03) | DRG 517 ==
LOC: ER 22:07 → MEDSURG 22:10
PROVIDERS: Internal Medicine; Orthopaedic Surgery; Admitting Provider Internal Medicine; Emergency Provider Emergency Medicine; PCP Family Medicine; Visit Provider Student in an Organized Health Care Education/Training Program
PROC: 0QS03ZZ Reposition Lumbar Vertebra, Percutaneous Approach (ICD-10-PCS; principal; 2023-04-16 09:50)
DX: S32.020A Wedge compression fracture of second lumbar vertebra, initial encounter for closed fracture (principal); M51.25 Other intervertebral disc displacement, thoracolumbar region; S32.040A Wedge compression fracture of fourth lumbar vertebra, initial encounter for closed fracture; Z86.73 Personal history of transient ischemic attack (TIA), and cerebral infarction without residual deficits; E78.2 Mixed hyperlipidemia; I10 Essential (primary) hypertension; E05.90 Thyrotoxicosis, unspecified without thyrotoxic crisis or storm; M19.90 Unspecified osteoarthritis, unspecified site; L40.9 Psoriasis, unspecified; I73.00 Raynaud's syndrome without gangrene; Z79.82 Long term (current) use of aspirin; I48.91 Unspecified atrial fibrillation; Z66 Do not resuscitate; Y93.E3 Activity, vacuuming; Y92.098 Other place in other non-institutional residence as the place of occurrence of the external cause; X50.1XXA Overexertion from prolonged static or awkward postures, initial encounter
CPT/HCPCS: 36415; 36416; 51702; 72131; 72146; 72158; 73502; 73522; 76000; 80053; 80061; 82607; 82746; 82962; 83036; 83540; 83550; 83735; 84439; 84443; 84481; 85025; 87426; 87641; 96372; 96374; 96375; 97110; 97116; 97161; 97530; 99285; A9577; J0360; J0690; J1100; J1644; J1885; J2270; J2405; J2704; J2710; J3010; J3490; J7030; J7120

== ENCOUNTER 2023-04-22 22:36 | Emergency (ER) | payer MEDICARE, OTHER, SELFPAY ==
[2023-04-22 22:38] VITALS: BMI 39.5
[2023-04-22 22:41] VITALS: BP 191/101; PULSE 76; RESP 16; TEMP 36.6; O2SAT 97
--- NOTE | 2023-04-22 22:46 | ED_ITS ---
HPI - Extremity Problem General: Chief complaint: Extremity Injury, Lower Stated complaint: pelvic pain Time Seen by Provider: 04/22/23 22:46 History of Present Illness: 83-year-old female comes in today with complaints of severe pelvic pain. Patient this time is at the skilled nursing for recovery from a procedure for compression fractures of her low back. Patient appears nontoxic. Patient appears in moderate to severe pain. Patient reports that the pain pills are not working for her discomfort. When asked whether patient can remember her last bladder or bowel movement she cannot recall. Associated symptoms: Deny chest pain or rash Review of Systems General: Reports: 10 or more systems reviewed and unremarkable except in HPI and below Eyes: Denies: change in vision ENMT: Denies: throat pain Card: Denies: chest pain Resp: Denies: dyspnea : Reports: pelvic pain Musc: Denies: extremity pain or extremity swelling Skin/Breast: Denies: rash PFSH ED PFSH: Medical History (Updated 04/22/23 @ 23:14 by SEBASTIAN Mata) Arrhythmia Atrial fibrillation CVA (cerebral vascular accident) Hyperlipidemia Hypertension Hyperthyroidism Left displaced femoral neck fracture Lumbar radiculopathy Osteoarthritis Psoriasis Raynaud's syndrome Surgical History (Updated 04/03/23 @ 11:55 by SEBASTIAN Hernandes) H/O hernia repair H/O: hysterectomy History of appendectomy History of bladder repair surgery History of knee replacement Hx of cataract extraction Family History Father CAD (coronary artery disease) Stroke Mother CAD (coronary artery disease) Stroke Cancer Family/Other Cancer Daughter Lung disease Other Hyperlipidemia Hypertension Denies family history of Diabetes Clotting disorder Dementia Chronic kidney disease (CKD) Suicide Anesthesia complication Bleeding disorder Social History Smoking and tobacco status: never smoked Alcohol intake: never Substance/Drug Use: never Physical Exam Const: COMMON NORMALS: alert HENMT: COMMON NORMALS: normocephalic HEAD & SCALP: normocephalic Neck/C-Spine: COMMON NORMALS: full ROM Resp: COMMON NORMALS: normal respiratory effort and clear to auscultation bilaterally AUSCULTATION: clear to auscultation bilaterally Cardio: COMMON NORMALS: regular rate and regular rhythm RATE: regular rate RHYTHM: regular rhythm GI: COMMON NORMALS: Soft to palpation and non-tender PALPATION: Yes Soft to palpation and Yes Bladder palpation abnormal : BLADDER/KIDNEY EXAM: Yes Bladder palpation abnormal Bladder abnormal details: distended to the umbilicus Extremity: COMMON NORMALS: no pedal edema Neuro: SENSORIUM/ORIENTATION: Yes alert Skin: COMMON NORMALS: turgor normal GENERAL SKIN EXAM: turgor normal Course Vital Signs: Vital signs: Vital Signs Temperature 97.8 F 04/22/23 22:41 Pulse Rate 61 04/22/23 23:11 Respiratory Rate 18 04/22/23 23:11 Blood Pressure 171/85 04/22/23 23:11 Pulse Oximetry 97 04/22/23 23:11 Oxygen Delivery Me thod Room Air 04/22/23 23:11 MDM - Extremity (Nontraumatic) Medical Decision Making 83-year-old female comes in today with complaints of lower abdominal pain and pelvic pain. Patient was unable to get relief from hydrocodone. Patient appears in moderate to severe pain. Patient is nontoxic. Palpation of the abdomen notes bladder at above the umbilicus. Differential diagnosis includes but not limited to acute urinary retention, UTI, pelvic mass, constipation. Bladder scan noted greater than 1000 urine. Patient had a Moreira catheter inserted which relieved her pain. Urinalysis was sent to the lab for culture. Patient be started on Macrobid for the next 5 days. Urinary catheter will be left in place. Patient to follow-up with primary care for removal. Patient reported understanding. Patient's family also reported understanding. Discharge Plan Discharge Patient Disposition: Home Clinical Impression: Acute urinary retention Condition: Stable Prescriptions: New Macrobid 100 mg capsule 100 mg PO BID 5 Days Qty: 9 0RF Rx Instructions: must administer with a meal/food No Action loratadine [Claritin] 10 mg tablet 10 mg PO DAILY PRN (Reason: Allergy Symptoms) nebivolol [Bystolic] 20 mg tablet 20 mg PO QAM Qty: 90 3RF Humira(CF) Pen 40 mg/0.4 mL pen injector kit 40 mg SUBCUT Q14D Qty: 2 4RF Hold Instructions: Resume on 09/18/22. hold until you see dermatology Rx Instructions: Inject 1 pen every 2 weeks ketoconazole 2 % shampoo 1 applic topical .2 x weekly Qty: 120 3RF Rx Instructions: Lather into scalp 2 times weekly. Allow to sit on scalp for 5 minutes before rinsing. nebivolol [Bystolic] 10 mg tablet 10 mg PO DAILY Qty: 90 3RF Rx Instructions: 20 mg in morning, 10mg in evening. acetaminophen [Tylenol Extra Strength] 500 mg tablet 500 mg PO BEDTIME aspirin 81 mg Tablet,Delayed Release (Dr/Ec) 81 mg PO DAILY clobetasol 0.05 % ointment 1 applic topical BID PRN (Reason: unknown) Rx Instructions: to affected areas on body no more than 3 wks/mo clobetasol 0.05 % solution 1 applic topical DAILY PRN (Reason: unknown) Rx Instructions: to scalp tramadol 50 mg Tablet 50 mg PO Q6H Qty: 30 0RF amlodipine 10 mg Tablet 10 mg PO DAILY Qty: 30 0RF docusate sodium 100 mg Capsule 100 mg PO BID Qty: 14 0RF pantoprazole 40 mg Tablet,Delayed Release (Dr/Ec) 40 mg PO DAILY Qty: 14 0RF clonidine HCl 0.1 mg tablet 0.1 mg PO BID Qty: 60 0RF Discharge Orders: Discharge ED (Routine); Ordered 04/22/23 Ordered By: William Hart Referrals: Wilson Garcia MD [Primary Care Provider] - Discharge Diet: Usual diet Discharge Activity: Increase activity as tolerated Patient Instructions: Acute Urinary Retention in Women (ED), Opioid Safety, Pain Management Activity Restrictions/Additional Instructions: Follow-up with primary care for further instructions. Give antibiotics as directed for the next 5 days. Maintain Moreira catheter per policies and procedures and remove as directed by primary care. Return to ED for new concerns. 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
[2023-04-22 23:11] VITALS: BP 171/85; PULSE 61; RESP 18; O2SAT 97
[2023-04-22 23:30] LABS: Urine Appearance Cloudy (CLEAR); Urine Color Light yellow (Yellow)
[2023-04-22 23:31] LABS: Bilirubin Urine Neg (Negative); Blood Urine 3+ (Negative); Glucose Urine UA Norm (Normal); Ketones Urine Negative (Negative); Nitrate Urine Positive (Negative); Protein Urine Neg (Negative); Specific Gravity, Urine 1.005 (1.005-1.030); pH Urine 8 (5-7)
[2023-04-22 23:32] LABS: Add Urine Microscopic? YES; Leukocyte Esterase Urine 2+ (Negative); Sulfosalicylic Acid Urine Positive (Negative); Urobilinogen Urine Neg (Negative)
[2023-04-22 23:33] LABS: Add Urine Culture? Yes; Bacteria Urine 3+ /hpf; WBC Urine 25-40 /hpf (0-5)
[2023-04-22] MEDS: nitrofurantoin SR (BID) 100 mg Capsule PO (23:45)
[2023-04-22] MEDS: HYDROcodone-acetaminophen 5-325 mg Tablet 1 TAB PO (23:45)
[2023-04-22 23:47] VITALS: BP 120/79; PULSE 54; RESP 18; O2SAT 97
== END 2023-04-23 00:05 | disposition home or self-care (01) ==
PROVIDERS: Emergency Provider Nurse Practitioner Family; PCP Family Medicine
DX: R33.9 Retention of urine, unspecified (principal)
CPT/HCPCS: 51798; 81001; 87077; 87086; 87186; 99283

== ENCOUNTER 2023-05-05 14:28 | Outpatient (CLI) | payer MEDICARE, OTHER, SELFPAY ==
--- NOTE | 2023-05-05 14:37 | XR_ITS ---
WS: [id number] SCREENING DEXA SCAN [facility] CLINICAL INFORMATION: OSTEOPOROSIS COMPARISON: None. FINDINGS: Right femoral neck bone mineral density measures 0.492. This corresponds to a T score -4.1 and Z scor e of -2.2. LEFT forearm bone mineral density measures 0.442. This corresponds to a T score of -5.0 and Z score o f -1.9. XR/XR DEXA axial skeleton* 54218 IMPRESSION: Osteoporosis RIGHT femoral neck. Osteoporosis LEFT forearm. Patient's FRAX calculated 10 year probability for major osteoporotic fracture i s 74.2 % and osteoporotic hip fracture is 65.5%.
== END 2023-05-05 14:29 | disposition home or self-care (01) ==
PROVIDERS: PCP Family Medicine; Visit Provider Physician Assistant
DX: Z13.820 Encounter for screening for osteoporosis (principal); M81.0 Age-related osteoporosis without current pathological fracture
CPT/HCPCS: 77080

== ENCOUNTER → 2023-05-06 10:27 | Outpatient (BNVA) | payer MEDICARE, OTHER, SELFPAY | PROVIDERS: PCP Family Medicine; Visit Provider Orthopaedic Surgery | DX: M54.50 Low back pain, unspecified (principal); Z98.890 Other specified postprocedural states | CPT/HCPCS: 99024 ==

== ENCOUNTER 2023-05-14 13:09 | Emergency (ER) | payer MEDICARE, OTHER, SELFPAY ==
[2023-05-14 13:18] VITALS: BMI 27.4
--- NOTE | 2023-05-14 13:19 | W.ED.BACK ---
HPI - Back Pain/Injury General: Chief Complaint: Back Pain/Injury Stated Complaint: Lower back pain- Fall Time Seen by Provider: 05/14/23 13:13 Source: patient and EMS Mode of arrival: EMS Limitations: no limitations History of Present Illness: Patient is an 83-year-old female presents to ED today with complaint of severe lower back pain. Patient is status post L2 and L4 kyphoplasty by Dr. Olmos (DOS 04/16/23). She states the tramadol she has been taking is not adequately controlling her pain. She states she was seated on the toilet prior to arrival states when she went to stand up she began having severe lower back pain which caused her to then fall back and plop back down on the toilet seat. She has no radicular symptoms currently. She has not noticed any bowel/bladder dysfunction. She has no complaints currently other than lower back pain. MD elicited complaint: back pain and back injury Pertinent past history: prior back pain and back surgery Onset (ago): hour(s) Timing: constant Severity: severe Similar Symptoms Previously: Yes Location: lumbar spine Radiation: none Exacerbating factors: movement and lifting Relieving factors: none Associated symptoms: Reports no associated symptoms; Deny abdominal pain, chills, change in bowel habits, dysuria, fatigue, fever(s), hematuria, nausea or vomiting Treatments prior to arrival: prescription analgesics (tramadol) Work related injury: No Review of Systems Const: Denies: fever(s), chills, body aches, fatigue or malaise Card: Denies: chest pain Resp: Denies: dyspnea GI: Denies: abdominal pain, nausea, vomiting, diarrhea or change in bowel habits : Denies: flank pain, difficulty voiding, dysuria or hematuria Musc: Reports: back pain; Denies: neck pain, extremity pain, extremity swelling, joint pain or joint swelling Skin/Breast: Denies: rash Neuro: Denies: headache(s), numbness in extremities, weakness in extremities, sensory changes, frequent falls or dizziness PFS ED PFSH: Medical History Arrhythmia Atrial fibrillation CVA (cerebral vascular accident) Hyperlipidemia Hypertension Hyperthyroidism Left displaced femoral neck fracture Lumbar radiculopathy Osteoarthritis Psoriasis Raynaud's syndrome Surgical History H/O hernia repair H/O: hysterectomy History of appendectomy History of bladder repair surgery History of knee replacement Hx of cataract extraction Family History Father CAD (coronary artery disease) Stroke Mother CAD (coronary artery disease) Stroke Cancer Family/Other Cancer Daughter Lung disease Other Hyperlipidemia Hypertension Denies family history of Diabetes Clotting disorder Dementia Chronic kidney disease (CKD) Suicide Anesthesia complication Bleeding disorder Social History Smoking and tobacco status: never smoked Alcohol intake: never Substance/Drug Use: never Physical Exam Const: COMMON NORMALS: no acute distress, average body habitus, patient oriented x3, no limitations, healthy appearing, alert and well nourished Resp: COMMON NORMALS: normal respiratory effort and clear to auscultation bilaterally AUSCULTATION: clear to auscultation bilaterally Cardio: COMMON NORMALS: regular rate and regular rhythm RATE: regular rate RHYTHM: regular rhythm GI: COMMON NORMALS: Normal to inspection, nondistended, normoactive bowel sounds present, Soft to palpation, non-tender and no masses PALPATION: Yes Soft to palpation : COMMON NORMALS: Yes no CVA tenderness BLADDER/KIDNEY EXAM: Yes no CVA tenderness Back/Pelvis: COMMON NORMALS: no CVA tenderness THORACIC SPINE/UPPER BACK: Yes normal to inspection, No thoracic spinal tenderness, No paraspinal muscle tenderness and No paraspinal muscle spasm LUMBAR SPINE/LOWER BACK: Yes ROM limited, Yes pain with ROM, Yes lumbar spinal tenderness, No paraspinal muscle tenderness and No paraspinal muscle spasm PELVIS: Yes buttocks normal SACROILIAC JOINTS: Yes SI joints normal SACRUM: no tenderness COCCYX: no tenderness Extremity: COMMON NORMALS: normal to inspection and full ROM GENERAL: Yes normal exam except as noted Neuro: KRISHNA COMA SCALE: document GCS findings Krishna coma scale eye opening: Spontaneous Krishna coma scale verbal response: Orientated [place] coma scale motor response: Obey commands Krishna coma scale total score: 15 COMMON NORMALS: patient oriented x3, moves all extremities, no focal motor deficits and no sensory deficits noted SENSORIUM/ORIENTATION: Yes alert Skin: COMMON NORMALS: no rashes or lesions noted GENERAL SKIN EXAM: no rashes or lesions noted Course Vital Signs: Vital signs: Vital Signs Temperature 97.8 F 05/14/23 13:22 Pulse Rate 80 05/14/23 13:22 Respiratory Rate 16 05/14/23 13:33 Blood Pressure 197/96 05/14/23 13:22 Oxygen Delivery Me thod Room Air 05/14/23 13:22 MDM - Back Pain/Injury Medical Decision Making Patient here for acute lower back pain that occurred after trying to stand up from a seated position. Patient has had pain ever since her kyphoplasty approximately a month ago. XR today showing no acute fracture. She states the Tramadol she is taking is not helping. We can switch her to a short course of Hydrocodone given her recent injury however stated that the ultimate goal would be to taper her off of this that she needs to discuss this plan with her primary care provider and/or Dr. Olmos. Patient agrees with plan. Labs Radiology Impressions Lumbar Spine X-Ray 05/14/23 13:20 IMPRESSION: 1. No acute fracture or malalignment. 2. L3 and L5 vertebral plasty. 3. Degenerative changes and osteopenia. Discharge Plan Discharge Patient Disposition: Home Clinical Impression: Low back pain Qualifiers: Chronicity: acute Back pain laterality: midline Sciatica presence: without sciatica Qualified Code(s): M54.50 - Low back pain, unspecified Condition: Stable Prescriptions: New hydrocodone-acetaminophen 5-325 mg tablet 1 tab PO Q6H PRN (Reason: pain) Qty: 14 0RF Held tramadol 50 mg Tablet 50 mg PO Q6H Qty: 30 0RF Hold Instructions: Resume on 05/21/23. HOLD WHILE TAKING HYDROCODONE No Action loratadine [Claritin] 10 mg tablet 10 mg PO DAILY PRN (Reason: Allergy Symptoms) nebivolol [Bystolic] 20 mg tablet 20 mg PO QAM Qty: 90 3RF Humira(CF) Pen 40 mg/0.4 mL pen injector kit 40 mg SUBCUT Q14D Qty: 2 4RF Hold Instructions: Resume on 09/18/22. hold until you see dermatology Rx Instructions: Inject 1 pen every 2 weeks ketoconazole 2 % shampoo 1 applic topical .2 x weekly Qty: 120 3RF Rx Instructions: Lather into scalp 2 times weekly. Allow to sit on scalp for 5 minutes before rinsing. nebivolol [Bystolic] 10 mg tablet 10 mg PO DAILY Qty: 90 3RF Rx Instructions: 20 mg in morning, 10mg in evening. acetaminophen [Tylenol Extra Strength] 500 mg tablet 500 mg PO BEDTIME aspirin 81 mg Tablet,Delayed Release (Dr/Ec) 81 mg PO DAILY clobetasol 0.05 % ointment 1 applic topical BID PRN (Reason: unknown) Rx Instructions: to affected areas on body no more than 3 wks/mo clobetasol 0.05 % solution 1 applic topical DAILY PRN (Reason: unknown) Rx Instructions: to scalp amlodipine 10 mg Tablet 10 mg PO DAILY Qty: 30 0RF docusate sodium 100 mg Capsule 100 mg PO BID Qty: 14 0RF pantoprazole 40 mg Tablet,Delayed Release (Dr/Ec) 40 mg PO DAILY Qty: 14 0RF clonidine HCl 0.1 mg tablet 0.1 mg PO BID Qty: 60 0RF Discharge Orders: Discharge ED (Routine); Ordered 05/14/23 Ordered By: Sabiha Perry Referrals: Wilson Garcia MD [Primary Care Provider] - Patient Instructions: Opioid Safety, Pain Management Activity Restrictions/Additional Instructions: As we discussed you need to speak to your primary care provider in regards to plan to control your lower back pain as the prescription you were given today will only be for a few days. Goal will be eventually to discontinue/taper down from the hydrocodone. Coding Level of Care Code ED Marketing Program Coordinator for Hung Webb
--- NOTE | 2023-05-14 13:20 | XR_ITS ---
WS: [id number] Exam: XR lumbar spine 2-3V* [id number] Date/Time of Exam: 05/14/2023 1:22 PM Reason For Exam: pain Comparison 04/16/2023. No acute fracture or dislocation. Signs of vertebral plasty involving L3 and L5. Mild spondylosis. Os teopenia. Facet DJD at all levels. Slight dextroscoliosis. XR/XR lumbar spine 2-3V* [id number] IMPRESSION: 1. No acute fracture or malalignment. 2. L3 and L5 vertebral plasty. 3. Degenerative changes and osteopenia.
[2023-05-14 13:22] VITALS: BP 197/96; PULSE 80; RESP 16; TEMP 36.6
[2023-05-14 13:33] VITALS: RESP 16
[2023-05-14] MEDS: morphine 4 mg/mL SDV 1 mL IM (13:33)
[2023-05-14] MEDS: HYDROmorphone 1 mg/mL INJ 1 mL 0.5 MG SUBCUT (14:46)
[2023-05-14 14:48] VITALS: BP 186/110; PULSE 63; RESP 16; O2SAT 90
== END 2023-05-14 15:04 | disposition home or self-care (01) ==
PROVIDERS: Emergency Provider Physician Assistant; PCP Family Medicine
DX: M54.50 Low back pain, unspecified (principal); Z79.82 Long term (current) use of aspirin; Z86.73 Personal history of transient ischemic attack (TIA), and cerebral infarction without residual deficits; E78.5 Hyperlipidemia, unspecified; I10 Essential (primary) hypertension
CPT/HCPCS: 72100; 96372; 99284; J1170; J2270

== ENCOUNTER 2023-07-10 12:38 | Emergency (ER) | payer MEDICARE, OTHER, SELFPAY ==
[2023-07-10 13:11] VITALS: BP 148/73; PULSE 67; RESP 20; TEMP 36.4; O2SAT 94
[2023-07-10 14:11] LABS: Basophils % 0.6 %; Eosinophils # 0.2 10^3/uL (0.0-0.8); Eosinophils % 3.5 %; Hematocrit 43.7 % (36-47); Lymphocytes # 1.4 10^3/uL (0.8-4.8); Lymphocytes % 21.4 %; Mean Corpuscular Hemoglobin 27.5 pg (27-33); Mean Corpuscular Volume 85.7 fl (85-98); Mean Platelet Volume 9.3 fL (7.4-10.4); Monocytes # 0.8 10^3/uL (0.2-0.9); Monocytes % 12.4 %; Neutrophils # 4.07 10^3/uL (1.8-7.7); Neutrophils % 61.8 %; Nucleated Red Blood Cells % 0 %; Platelet Count 210 10^3/cmm (157-399); Red Cell Distribution Width 13.9 % (12.1-15.1); White Blood Count 6.59 10^3/uL (3.29-11.43)
[2023-07-10 14:43] LABS: Alanine Aminotransferase 7 U/L (0-33); Albumin Level 3.6 g/dL (3.5-5.2); Alkaline Phosphatase 97 U/L (35-105); Blood Urea Nitrogen 21 mg/dL (8-23); Calcium 10.3 mg/dL (8.5-10.5); Carbon Dioxide 26 mmol/L (22-29); Chloride 100 mmol/L (98-107); Creatinine Clr Calc Pharmacy 56.3918; Glucose 115 mg/dL (65-115); NT Pro B Type Natriuretic Pept 717 pg/mL (0-450); Osmolality Calculated 282 mOsm/kg (285-295); Sodium 134 mmol/L (136-145); Total Bilirubin 0.5 mg/dL (0.15-1.2); Total Protein 6.6 g/dL (6.6-8.7)
[2023-07-10 14:46] LABS: Anion Gap 12.5 (5-19); Aspartate Amino Transferase 18 U/L (0-32); Potassium 4.5 mmol/L (3.5-5.1)
== END 2023-07-10 15:52 | disposition left against medical advice (07) ==
PROVIDERS: Emergency Medicine; Emergency Provider Family Medicine; PCP Family Medicine
DX: Z53.21 Procedure and treatment not carried out due to patient leaving prior to being seen by health care provider (principal)
CPT/HCPCS: 80053; 83880; 85025; 99283

== ENCOUNTER 2023-07-11 09:16 | Emergency (ER) | payer MEDICARE, OTHER, SELFPAY ==
[2023-07-11 09:20] VITALS: BP 133/74; PULSE 68; RESP 15; TEMP 36.8; O2SAT 96; BMI 27.4
--- NOTE | 2023-07-11 09:44 | ED_ITS ---
HPI - Dizziness General: Chief Complaint: Dizziness Stated Complaint: Left Side weakness, Confusion, Left side pain Time Seen by Provider: 07/11/23 09:44 Source: patient Mode of arrival: wheelchair History of Present Illness: HPI Narrative: 83-year-old female with difficulty walking for approximately a year. She previously had a left hip revision since then she had difficulty with walking for the last several days its been worse overnight is got markedly worse when she is veering to the right unable to keep her balance and stands better when she sits or lays down she has been nauseous but not vomited she denies any chest pain no fever sweats or chills. MD elicited complaint: dizziness, lightheadedness and difficulty walking Onset (ago): day(s) (1) Timing: sudden onset Severity: moderate Description: room spinning , lightheadedness, off-balance and difficulty walking Exacerbating factors: movement/ambulation, exertion and standing Relieving factors: lying down Associated symptoms: Reports headache(s); Denies abnormal vaginal bleeding, change in hearing, chest pain, chills, cough, diaphoresis, ear discharge, ear pressure, fevers/chills, malaise, nausea, nasal congestion, palpitations, rash, short of breath, syncope, tinnitus, vomiting or weakness Review of Systems Const: Reports: fever(s); Denies: chills, malaise or diaphoresis ENMT: Denies: ear discharge, change in hearing, tinnitus or nasal congestion Card: Denies: chest pain, palpitations or syncope Resp: Denies: dyspnea, productive cough or non-productive cough GI: Denies: nausea or vomiting : Denies: flank pain, difficulty voiding, dysuria, urinary frequency or urinary urgency Musc: Denies: neck pain or back pain Skin/Breast: Denies: rash or pruritus Neuro: Reports: headache(s), weakness in extremities, lack of coordination, difficulty walking and frequent falls PFSH ED PFSH: Medical History Arrhythmia Atrial fibrillation CVA (cerebral vascular accident) Hyperlipidemia Hypertension Hyperthyroidism Left displaced femoral neck fracture Lumbar radiculopathy Osteoarthritis Psoriasis Raynaud's syndrome Surgical History H/O hernia repair H/O: hysterectomy History of appendectomy History of bladder repair surgery History of knee replacement Hx of cataract extraction Family History Father CAD (coronary artery disease) Stroke Mother CAD (coronary artery disease) Stroke Cancer Family/Other Cancer Daughter Lung disease Other Hyperlipidemia Hypertension Denies family history of Diabetes Clotting disorder Dementia Chronic kidney disease (CKD) Suicide Anesthesia complication Bleeding disorder Social History Smoking and tobacco status: never smoked Alcohol intake: never Substance/Drug Use: never Physical Exam Const: COMMON NORMALS: no acute distress GENERAL APPEARANCE: cooperative and comfortable ORIENTATION/CONSCIOUSNESS: Yes awake, Yes oriented to person, Yes oriented to place and Yes oriented to time HENMT: COMMON NORMALS: normocephalic, atraumatic and hearing grossly normal bilaterally HEAD & SCALP: normocephalic and atraumatic Resp: COMMON NORMALS: normal respiratory effort, No retractions, No use of accessory muscles and clear to auscultation bilaterally AUSCULTATION: clear to auscultation bilaterally Cardio: COMMON NORMALS: regular rate, regular rhythm and No murmurs present (Cardio) RATE: regular rate RHYTHM: regular rhythm GI: COMMON NORMALS: Soft to palpation and No hepatosplenomegaly present AUSCULTATION: Yes normoactive bowel sounds PALPATION: Yes Soft to palpation, No Tenderness to palpation present (GI), No Guarding due to palpation present (GI) and Yes No hepatosplenomegaly present Extremity: COMMON NORMALS: normal to inspection, capillary refill normal, no clubbing, cyanosis or edema, no calf tenderness and no pedal edema Neuro: SENSORIUM/ORIENTATION: Yes oriented to person, Yes oriented to place and Yes oriented to time Skin: COMMON NORMALS: no rashes or lesions noted GENERAL SKIN EXAM: no rashes or lesions noted Course Vital Signs: Vital signs: Vital Signs Temperature 98.2 F 07/11/23 09:20 Pulse Rate 63 07/11/23 13:00 Respiratory Rate 21 H 07/11/23 13:00 Blood Pressure 130/70 07/11/23 13:00 Pulse Oximetry 100 07/11/23 13:00 Oxygen Delivery Me thod Room Air 07/11/23 12:34 MDM - Dizziness Medical Decision Making Acute intracranial bleed nicardipine started we will transfer discussed with transfer center [place] they accepted as a direct admission to [facility] to the neurotrauma unit. Patient stable at this time blood pressure well controlled Medical Records I reviewed the patient's medical records. Lab Data I reviewed the patient's lab results. 07/11/23 10:05 07/11/23 10:05 Laboratory Results WBC 5.78 10^3/uL (3.29-11.43) 07/11/23 10:05 RBC 4.92 10^6/uL (3.85-5.65) 07/11/23 10:05 Hgb 13.30 g/dL (11.27-16.99) 07/11/23 10:05 Hct 42.8 % (36-47) 07/11/23 10:05 MCV 87.0 fl (85-98) 07/11/23 10:05 MCH 27.0 pg (27-33) 07/11/23 10:05 MCHC 31.1 g/dL (30-55) 07/11/23 10:05 RDW 14.2 % (12.1-15.1) 07/11/23 10:05 Plt Count 197 10^3/cmm (157-399) 07/11/23 10:05 MPV 9.1 fL (7.4-10.4) 07/11/23 10:05 Neut % (Auto) 58.0 % 07/11/23 10:05 Lymph % (Auto) 21.6 % 07/11/23 10:05 [place] % (Auto) 14.4 % 07/11/23 10:05 Eos % (Auto) 4.8 % 07/11/23 10:05 Baso % (Auto) 0.9 % 07/11/23 10:05 Neut # (Auto) 3.35 10^3/uL (1.8-7.7) 07/11/23 10:05 Lymph # (Auto) 1.3 10^3/uL (0.8-4.8) 07/11/23 10:05 [place] # (Auto) 0.8 10^3/uL (0.2-0.9) 07/11/23 10:05 Eos # (Auto) 0.3 10^3/uL (0.0-0.8) 07/11/23 10:05 Baso # (Auto) 0.1 10^3/uL (0.0-0.1) 07/11/23 10:05 Nucleated RBC % (auto) 0 % 07/11/23 10:05 Nucleated RBCs # 0.0 /100WBC 07/11/23 10:05 Sodium 139 mmol/L (136-145) 07/11/23 10:05 Potassium 4.4 mmol/L (3.5-5.1) 07/11/23 10:05 Chloride 103 mmol/L (98-107) 07/11/23 10:05 Carbon Dioxide 29 mmol/L (22-29) 07/11/23 10:05 Anion Gap 11.4 (5-19) 07/11/23 10:05 BUN 31 mg/dL (8-23) H 07/11/23 10:05 Creatinine 0.9 mg/dL (0.5-0.9) 07/11/23 10:05 GFR Calculation Not Reportable 07/11/23 10:05 Glucose 82 mg/dL (65-115) 07/11/23 10:05 Calculated Osmolality 294 mOsm/kg (285-295) 07/11/23 10:05 Calcium 10.9 mg/dL (8.5-10.5) H 07/11/23 10:05 Total Bilirubin 0.4 mg/dL (0.15-1.2) 07/11/23 10:05 AST 13 U/L (0-32) 07/11/23 10:05 ALT 9 U/L (0-33) 07/11/23 10:05 Alkaline Phosphatase 98 U/L (35-105) 07/11/23 10:05 NT-Pro-B Natriuret Pep 344 pg/mL (0-450) 07/11/23 10:05 Total Protein 6.5 g/dL (6.6-8.7) L 07/11/23 10:05 Albumin 3.7 g/dL (3.5-5.2) 07/11/23 10:05 Globulin 2.8 g/dL (1.3-4.6) 07/11/23 10:05 Discharge Plan Discharge Patient Disposition: Xfer Short-Term Hosp Clinical Impression: Acute cerebellar hemorrhage Condition: Stable Referrals: Wilson Garcia MD [Primary Care Provider] - Coding Level of Care Code ED Senior Audit Manager for Hung Tracey NIH stroke score NIHSS Level Of Consciousness - 1a: 0 Level Of Consciousness Questions - 1b: Both Correct Level Of Consciousness Commands - 1c: Both Correct Best Gaze - 2: Normal Visual [place] - 3: No Visual Loss Facial Palsy - 4: Normal Motor Arm Right - 5: No Drift Motor Arm Left - 5: No Drift Motor Leg Right - 6: No Drift Motor Leg Left - 6: No Drift Limb Ataxia - 7: Present In Two Limbs Sensory - 8: Normal Best Language - 9: No Aphasia Dysarthia - 10: Normal Extinction And Inattention - 11: 0 Score Total Score: 2
--- NOTE | 2023-07-11 10:00 | CT_ITS ---
WS: [id number] CT HEAD TECHNIQUE: Noncontrast CT of the head obtained from the skullbase to the vertex. CLINICAL INFORMATION: r sided weakness COMPARISON: CT head 08/16/2022 DLP: 1022.[address] scans at [facility] use at least one of these dose optimization techniques: automated e xposure control; mA and/or kV adjustment per patient size (includes targeted exams where dose is matc hed to clinical indication); or iterative reconstruction. FINDINGS: Small focus of increased attenuation involving the RIGHT superior cerebellum near the peduncle measur ing 6 mm compatible with hemorrhage. Surrounding low-attenuation change likely due to edema. Minimal associated mass effect. Fourth ventricle remains patent. Moderate small vessel changes with moderate parenchymal volume loss worse in the frontal lobes. Tiny chronic lacunar infarcts involving the LEFT greater than RIGHT basal ganglia and RIGHT thalamus simil ar to previous. Intracranial vascular calcification. Chronic lacunar infarct involving the RIGHT leslie . No extra-axial fluid collections. Small amount of fluid in the sphenoid sinus. Mucosal thickening RIGHT mastoid tip. IMPRESSION: 1. Small 6 mm focus of hemorrhage within the RIGHT superior cerebellum with mild surrounding edema. Minimal associated mass effect. Fourth ventricle remains patent. Differential considerations include hemorrhagic infarct versus hemorrhagic metastatic lesion. This can be followed up with MRI without an d with gadolinium. 2. Moderate small vessel changes with moderate parenchymal volume loss worse in the frontal lobes. 3. Multiple chronic lacunar infarcts described above involving the LEFT greater than RIGHT basal dane glia, RIGHT thalamus, and RIGHT hemipons. 4. Intracranial vascular calcification Notified Hema Schwartz DO at 07/11/2023 10:39 AM.
--- NOTE | 2023-07-11 10:01 | XR_ITS ---
WS: [id number] EXAMINATION: XR chest 1V portable [id number] REASON FOR EXAM: dyspnea COMPARISON: 08/19/2022 ORDER DATE: 07/11/2023 10:05 AM TECHNIQUE: A single, portable frontal chest x-ray was obtained. X-RAY FINDINGS: The lungs are clear. Pleural spaces are clear. No pleural effusions or pneumothorax. Cardiomediastinal silhouette is unremarkable except for atherosclerotic aortic change. No evidence fo r pulmonary edema. Soft tissue and osseous structures are unremarkable. No tubes or lines are present. IMPRESSION: Unremarkable frontal portable chest x-ray.
[2023-07-11 10:11] LABS: Basophils # 0.1 10^3/uL (0.0-0.1); Basophils % 0.9 %; Eosinophils # 0.3 10^3/uL (0.0-0.8); Eosinophils % 4.8 %; Hematocrit 42.8 % (36-47); Lymphocytes # 1.3 10^3/uL (0.8-4.8); Lymphocytes % 21.6 %; Mean Corpuscular HGB Conc 31.1 g/dL (30-55); Mean Platelet Volume 9.1 fL (7.4-10.4); Monocytes # 0.8 10^3/uL (0.2-0.9); Monocytes % 14.4 %; Neutrophils # 3.35 10^3/uL (1.8-7.7); Nucleated Red Blood Cells % 0 %; Platelet Count 197 10^3/cmm (157-399); Red Blood Count 4.92 10^6/uL (3.85-5.65); Red Cell Distribution Width 14.2 % (12.1-15.1); White Blood Count 5.78 10^3/uL (3.29-11.43)
[2023-07-11 10:45] LABS: Alanine Aminotransferase 9 U/L (0-33); Albumin Level 3.7 g/dL (3.5-5.2); Alkaline Phosphatase 98 U/L (35-105); Anion Gap 11.4 (5-19); Aspartate Amino Transferase 13 U/L (0-32); Blood Urea Nitrogen 31 mg/dL (8-23); Calcium 10.9 mg/dL (8.5-10.5); Carbon Dioxide 29 mmol/L (22-29); Chloride 103 mmol/L (98-107); Creatinine Clr Calc Pharmacy 48.7932; Globulin 2.8 g/dL (1.3-4.6); Glucose 82 mg/dL (65-115); NT Pro B Type Natriuretic Pept 344 pg/mL (0-450); Osmolality Calculated 294 mOsm/kg (285-295); Potassium 4.4 mmol/L (3.5-5.1); Sodium 139 mmol/L (136-145); Total Bilirubin 0.4 mg/dL (0.15-1.2); Total Protein 6.5 g/dL (6.6-8.7)
[2023-07-11] MEDS: morphine 4 mg/mL SDV 1 mL 2 MG IVP (12:22)
[2023-07-11] MEDS: nicardipine 20 MG/200 ML PREMIX 50 MG IV (12:28)
[2023-07-11 12:34] VITALS: BP 160/70; PULSE 66; RESP 15; O2SAT 99
[2023-07-11 13:00] VITALS: BP 130/70; PULSE 63; RESP 21; O2SAT 100
== END 2023-07-11 14:00 | disposition short-term general hospital (02) ==
PROVIDERS: Physician Assistant; Emergency Provider Family Medicine; PCP Family Medicine
DX: I61.4 Nontraumatic intracerebral hemorrhage in cerebellum (principal)
CPT/HCPCS: 36415; 70450; 71045; 80053; 83880; 85025; 96374; 96375; 99285; J2270

== ENCOUNTER → 2023-09-15 13:44 | Outpatient (BNVA) | payer MEDICARE, OTHER, SELFPAY | PROVIDERS: PCP Family Medicine; Visit Provider Nurse Practitioner Family | DX: I48.91 Unspecified atrial fibrillation (principal); I49.8 Other specified cardiac arrhythmias; I10 Essential (primary) hypertension; R60.0 Localized edema | CPT/HCPCS: 93005; 99214 ==

== ENCOUNTER 2023-09-26 12:03 | Outpatient (CLI) | payer MEDICARE, OTHER, SELFPAY ==
--- NOTE | 2023-09-26 12:00 | USCV_ITS ---
Kiah Garcia Age: 83 Gender: F : 1940 Exam Date: 09/26/2023 12:47 Ordering Phys: Delia Menon Technologist: VENITA Exam Location: [facility] Indication: HISTORY: Lower extremity swelling. PROCEDURES: Venous duplex imaging was performed in bilateral lower extremities. The venous duplex Doppler examination of both lower extremities was performed in the standard fashion. Serial compression, augmentation maneuvers, and spectral Doppler flow evaluation were performed. An evaluation for venous insufficiency was also completed. FINDINGS: Negative study for DVT bilaterally. Good augmentation both lower extremity veins bilaterally. Bilateral leg venous reflux seen worse on the right. CONCLUSIONS 1. Negative study for DVT. 2. Bilateral venous reflux seen worse on the right side. Susie Smith MD (Electronically Signed) Final Date: 26 September 2023 14:57 S
== END 2023-09-26 12:04 | disposition home or self-care (01) ==
LOC: RAD 12:03
PROVIDERS: PCP Family Medicine; Visit Provider Nurse Practitioner Family
DX: R60.0 Localized edema (principal); M79.89 Other specified soft tissue disorders
CPT/HCPCS: 93970

== ENCOUNTER 2023-10-30 10:17 | Emergency (ER) | payer MEDICARE, OTHER, SELFPAY ==
[2023-10-30] VITALS (10 sets, daily range): BP systolic 131–199; BP diastolic 78–113; PULSE 76–87; RESP 16–23; TEMP 36.4; O2SAT 95–100; BMI 29.8
--- NOTE | 2023-10-30 10:58 | XR_ITS ---
WS: [id number] Portable AP upright chest, 10/30/2023 Clinical Data: dyspnea/cough Comparison: Portable chest, 07/11/2023 Findings: No nodules, masses or effusions are seen. The heart is normal. The pulmonary vascularity is not increased. No pneumonia or pneumothorax is seen. The aortic arch and descending thoracic aorta s how minimal calcification and tortuosity. There are monitor leads on the chest wall. Impression: Atherosclerosis.
--- NOTE | 2023-10-30 10:58 | CT_ITS ---
WS: [id number] CT scan of the head, 10/30/2023 Clinical Data: AMS Comparison: CT head, 07/11/2023 DLP: 1056.[address] scans at [facility] use at least one of these dose optimization techniques: automated e xposure control; mA and/or kV adjustment per patient size (includes targeted exams where dose is matc hed to clinical indication); or iterative reconstruction. Findings: The ventricular system is normal without shift. The ventricular system and sulci show mild dilatation . No recent infarct or hemorrhage is seen. Numerous lacunar infarcts throughout the thalamus and basa l ganglia remain the same. There is no change in the right leslie lacunar infarct. There are no abnorma l intracerebral masses. Bony windows of the skull and skull base show no fractures or erosions. The mastoid air cells, internal medicine hospitalist al auditory canals, sella turcica, intraorbital contents, and paranasal sinuses are unremarkable. Impression: 1. No acute infarct or hemorrhage is seen. 2. Moderate cerebral atrophy.
--- NOTE | 2023-10-30 10:59 | ECG_ITS ---
[facility] Test Date: 2023-10-30 Pat Name: Kiah Garcia Department: Room: Gender: Female Nursing Department Chairperson: : 1940 Requested By: Hema Montgomery Order Number: [id number] Ximena MD: Lynette Ford M.D. Measurements Intervals [place] Rate: 90 P: 70 VA: 154 QRS: 56 QRSD: 81 T: 58 QT: 362 QTc: 444 Interpretive Statements SINUS RHYTHM WITH OCCASIONAL SUPRAVENTRICULAR PREMATURE COMPLEXES MINIMAL ST DEPRESSION [0.025+ mV ST DEPRESSION] Compared to ECG 09/15/2023 13:52:21 ST (T wave) deviation now present Sinus arrhythmia no longer present Electronically Signed On 10-30-2023 12:16:23 MANAGER VIDEO by Lynette Ford M.D. [id number]
--- NOTE | 2023-10-30 11:37 | W.ED.GENADLT ---
HPI - General Adult General: Chief complaint: General Medical Stated complaint: confusion, high blood pressure Time Seen by Provider: 10/30/23 10:55 Source: patient Mode of arrival: ambulatory History of Present Illness: 83-year-old female presents emergency room with complaints of elevated blood pressure and some confusion and headache. Patient herself is not very specific about her problems other than her blood pressure being elevated and feeling slightly confused. No family at the bedside at this time.. She has some lower extremity edema which she states is not new she denies any chest or abdominal pain denies any difficulty breathing denies any difficulty with speech or vision. Onset (ago): hour(s) Severity: mild Associated symptoms: Deny chest pain, confusion, cough, diaphoresis, decreased appetite, dyspnea, fevers/chills, headache(s), malaise, nausea, rash, palpitations, seizures, short of breath, syncope, vomiting or weakness Treatments prior to arrival: none Review of Systems Const: Denies: fever(s), chills, body aches, change in appetite, fatigue, malaise or diaphoresis ENMT: Denies: throat pain, ear or mastoid pain, nasal discharge or nasal congestion Card: Denies: chest pain, palpitations, edema, syncope, dyspnea on exertion or orthopnea Resp: Denies: dyspnea, productive cough or non-productive cough GI: Denies: abdominal pain, nausea, vomiting, hematemesis, coffee ground emesis, diarrhea, constipation, bloating, hematochezia or melena : Denies: flank pain, difficulty voiding, dysuria, urinary frequency or urinary urgency Skin/Breast: Denies: rash or pruritus Neuro: Denies: headache(s) or confusion PFSH ED PFSH: Medical History Left displaced femoral neck fracture Psoriasis Atrial fibrillation CVA (cerebral vascular accident) Hypertension Hyperlipidemia Arrhythmia Osteoarthritis Hyperthyroidism Lumbar radiculopathy Raynaud's syndrome Surgical History Hx of cataract extraction History of bladder repair surgery History of appendectomy H/O: hysterectomy History of knee replacement H/O hernia repair Family History Father CAD (coronary artery disease) Stroke Mother CAD (coronary artery disease) Stroke Cancer Family/Other Cancer Daughter Lung disease Other Hyperlipidemia Hypertension Denies family history of Diabetes Clotting disorder Dementia Chronic kidney disease (CKD) Suicide Anesthesia complication Bleeding disorder Social History Smoking and tobacco/nicotine status: never used tobacco/nicotine Alcohol intake: never Substance/Drug Use: never Physical Exam Const: COMMON NORMALS: no acute distress GENERAL APPEARANCE: cooperative and comfortable ORIENTATION/CONSCIOUSNESS: Yes awake HENMT: COMMON NORMALS: normocephalic, atraumatic, hearing grossly normal bilaterally, external ears normal, EAC's normal, TM's normal bilaterally, Normal nasal mucous membranes and turbinates present, moist oral mucous membranes and oropharynx normal HEAD & SCALP: normocephalic and atraumatic NOSE: Normal nasal mucous membranes and turbinates present EXTERNAL EAR: Yes external ears normal EXTERNAL AUDITORY CANAL: EAC's normal TYMPANIC MEMBRANE: TM's normal bilaterally Eye: COMMON NORMALS: Equal, round and reactive pupils present, EOMs intact bilaterally, conjunctivae normal and no scleral icterus CONJUNCTIVA: Yes conjunctivae normal PUPIL: Yes Equal, round and reactive pupils present Neck/C-Spine: COMMON NORMALS: full ROM, no lymphadenopathy, supple and no JVD Lymph: LYMPHATIC: no lymphadenopathy noted and no lymphedema noted Resp: COMMON NORMALS: normal respiratory effort, No retractions, No use of accessory muscles and clear to auscultation bilaterally AUSCULTATION: clear to auscultation bilaterally Cardio: COMMON NORMALS: no JVD, regular rate, regular rhythm and No murmurs present (Cardio) RATE: regular rate RHYTHM: regular rhythm GI: COMMON NORMALS: Soft to palpation and No hepatosplenomegaly present AUSCULTATION: Yes normoactive bowel sounds PALPATION: Yes Soft to palpation, No Tenderness to palpation present (GI), No Guarding due to palpation present (GI) and Yes No hepatosplenomegaly present Extremity: COMMON NORMALS: normal to inspection, capillary refill normal, no clubbing, cyanosis or edema, no calf tenderness and no pedal edema Skin: COMMON NORMALS: no rashes or lesions noted GENERAL SKIN EXAM: no rashes or lesions noted Course Vital Signs: Vital signs: Vital Signs Temperature 97.6 F 10/30/23 10:49 Pulse Rate 86 10/30/23 14:43 Respiratory Rate 22 H 10/30/23 14:43 Blood Pressure 160/84 10/30/23 14:43 Pulse Oximetry 95 10/30/23 14:43 Oxygen Delivery Me thod Room Air 10/30/23 14:43 MDM - General Adult Medical Decision Making Blood pressure improved with medications given okay patient and daughter staff noted there is significant likelihood of medication noncompliance. They are unsure when the last time she changed her clonidine patch several her medicines are mixed up in the bag outside of bottles not readily identifiable. Blood pressure improved with medications given. Will discharge the patient home continue with current medications encouraged him to keep careful about when the medicines given severe given the correct time correct dose on the correct medication. She also has mild cystitis we will treat with Macrobid. Follow-up with primary care doctor within the next 7 to 10 days to recheck blood pressure Medical Records I reviewed the patient's medical records. Lab Data I reviewed the patient's lab results. 10/30/23 12:18 10/30/23 12:18 Laboratory Results WBC 8.89 10^3/uL (3.29-11.43) 10/30/23 12:18 Corrected WBC Cancelled 10/30/23 11:40 RBC 6.05 10^6/uL (3.85-5.65) H 10/30/23 12:18 Hgb 16.40 g/dL (11.27-16.99) 10/30/23 12:18 Hct 50.1 % (36-47) H 10/30/23 12:18 MCV 82.8 fl (85-98) L 10/30/23 12:18 MCH 27.1 pg (27-33) 10/30/23 12:18 MCHC 32.7 g/dL (30-55) 10/30/23 12:18 RDW 13.8 % (12.1-15.1) 10/30/23 12:18 Plt Count 219 10^3/cmm (157-399) 10/30/23 12:18 MPV 8.9 fL (7.4-10.4) 10/30/23 12:18 Gran % Cancelled 10/30/23 11:40 Neut % (Auto) 70.4 % 10/30/23 12:18 Lymph % (Auto) 16.3 % 10/30/23 12:18 [place] % (Auto) 12.0 % 10/30/23 12:18 Eos % (Auto) 0.8 % 10/30/23 12:18 Baso % (Auto) 0.3 % 10/30/23 12:18 Neut # (Auto) 6.25 10^3/uL (1.8-7.7) 10/30/23 12:18 Lymph # (Auto) 1.5 10^3/uL (0.8-4.8) 10/30/23 12:18 [place] # (Auto) 1.1 10^3/uL (0.2-0.9) H 10/30/23 12:18 Eos # (Auto) 0.1 10^3/uL (0.0-0.8) 10/30/23 12:18 Baso # (Auto) 0.0 10^3/uL (0.0-0.1) 10/30/23 12:18 Absolute Gran (auto) Cancelled 10/30/23 11:40 Nucleated RBC % (auto) 0 % 10/30/23 12:18 Nucleated RBCs # 0.0 /100WBC 10/30/23 12:18 Sodium 142 mmol/L (136-145) 10/30/23 12:18 Potassium 3.7 mmol/L (3.5-5.1) 10/30/23 12:18 Chloride 104 mmol/L (98-107) 10/30/23 12:18 Carbon Dioxide 25 mmol/L (22-29) 10/30/23 12:18 Anion Gap 16.7 (5-19) 10/30/23 12:18 BUN 16 mg/dL (8-23) 10/30/23 12:18 Creatinine 0.8 mg/dL (0.5-0.9) 10/30/23 12:18 GFR Calculation Not Reportable 10/30/23 12:18 Glucose 112 mg/dL (65-115) 10/30/23 12:18 Calculated Osmolality 296 mOsm/kg (285-295) H 10/30/23 12:18 Calcium 10.7 mg/dL (8.5-10.5) H 10/30/23 12:18 Total Bilirubin 0.7 mg/dL (0.15-1.2) 10/30/23 12:18 AST 19 U/L (0-32) 10/30/23 12:18 ALT 14 U/L (0-33) 10/30/23 12:18 Alkaline Phosphatase 110 U/L (35-105) H 10/30/23 12:18 Troponin T Baseline 45 ng/L (0-10) H 10/30/23 11:40 Troponin T 120 Minute 41.60 ng/L (0-10) H 10/30/23 14:17 Delta Troponin T -3.40 ABS# (0-10) L 10/30/23 14:17 Total Protein 7.4 g/dL (6.6-8.7) 10/30/23 12:18 Albumin 4.4 g/dL (3.5-5.2) 10/30/23 12:18 Globulin 3.0 g/dL (1.3-4.6) 10/30/23 12:18 Urine Color Light yellow (Yellow) 10/30/23 13:22 Urine Appearance Cloudy (CLEAR) A 10/30/23 13:22 Urine pH 7 (5-7) 10/30/23 13:22 Ur Specific [place] 1.015 (1.005-1.030) 10/30/23 13:22 Urine Protein Neg (Negative) 10/30/23 13:22 Urine Glucose (UA) Norm (Normal) 10/30/23 13:22 Urine Ketones 1+ (Negative) H 10/30/23 13:22 Urine Blood 3+ (Negative) H 10/30/23 13:22 Urine Nitrate Negative (Negative) 10/30/23 13:22 Urine Bilirubin Neg (Negative) 10/30/23 13:22 Urine Urobilinogen Norm mg/dL (Negative) 10/30/23 13:22 Ur Leukocyte Esterase Negative (Negative) 10/30/23 13:22 Urine RBC 15-25 /hpf (0-2) H 10/30/23 13:22 Urine WBC 40-55 /hpf (0-5) H 10/30/23 13:22 Ur Squamous Epith Cells 5-10 /hpf (0-5) H 10/30/23 13:22 Amorphous Sediment Not Reportable 10/30/23 13:22 Urine Bacteria 1+ /hpf (NONE) H 10/30/23 13:22 Urine Mucus 1+ /hpf 10/30/23 13:22 All radiology interpretation(s) finalized by discharge Discharge Plan Discharge Patient Disposition: Home Clinical Impression: Hypertension, Cystitis Condition: Stable Prescriptions: New Macrobid 100 mg capsule 100 mg PO BID 7 Days Qty: 14 0RF Rx Instructions: must administer with a meal/food No Action aspirin 81 mg Tablet,Delayed Release (Dr/Ec) 81 mg PO QAM carvedilol 12.5 mg tablet 12.5 mg PO QAM clonidine 0.1 mg/24 hr patch weekly 1 patch topical Q7D Rx Instructions: on friday docusate sodium 100 mg capsule 100 mg PO BID PRN (Reason: Constipation) hydrochlorothiazide 25 mg tablet 25 mg PO QAM calcium carbonate-vitamin D3 600 mg-10 mcg (400 unit) tablet 1 tab PO QAM hydrocodone-acetaminophen 5-325 mg tablet 1 tab PO BID PRN (Reason: Pain) pantoprazole 40 mg tablet,delayed release (DR/EC) 40 mg PO QAM Discharge Orders: Discharge ED (Routine); Ordered 10/30/23 Ordered By: Hema Schwartz Referrals: Wilson Garcia MD [Primary Care Provider] - Discharge Diet: Usual diet Discharge Activity: Increase activity as tolerated Patient Instructions: Opioid Safety, Pain Management Activity Restrictions/Additional Instructions: Thank you for choosing [facility] for your healthcare needs today. Please realize this is an emergency room and that we are providing you with a medical screening exam and this may not be complete and all inclusive of all the testing and or work up that you may need to determine your ailment or severity of your illness. It is very important that you follow up as instructed or that you return to the Emergency Department should you have concerns or if your condition changes or worsens in any way. You were seen today for elevated blood pressure. Your blood pressure improved with medications given recommend you continue your current medications prescribed for blood pressure. Additionally did have a mild cystitis start oral antibiotics 1 pill twice daily. Coding Level of Care Code ED Interventional Radiology Tech for Hung Webb
[2023-10-30 12:04] LABS: Troponin(5th) Baseline 45 ng/L (0-10)
[2023-10-30 12:33] LABS: Basophils % 0.3 %; Eosinophils # 0.1 10^3/uL (0.0-0.8); Eosinophils % 0.8 %; Hematocrit 50.1 % (36-47); Lymphocytes # 1.5 10^3/uL (0.8-4.8); Lymphocytes % 16.3 %; Mean Corpuscular HGB Conc 32.7 g/dL (30-55); Mean Corpuscular Hemoglobin 27.1 pg (27-33); Mean Corpuscular Volume 82.8 fl (85-98); Mean Platelet Volume 8.9 fL (7.4-10.4); Monocytes # 1.1 10^3/uL (0.2-0.9); Neutrophils # 6.25 10^3/uL (1.8-7.7); Neutrophils % 70.4 %; Nucleated Red Blood Cells % 0 %; Platelet Count 219 10^3/cmm (157-399); Red Blood Count 6.05 10^6/uL (3.85-5.65); Red Cell Distribution Width 13.8 % (12.1-15.1); White Blood Count 8.89 10^3/uL (3.29-11.43)
[2023-10-30 12:48] LABS: Alanine Aminotransferase 14 U/L (0-33); Albumin Level 4.4 g/dL (3.5-5.2); Alkaline Phosphatase 110 U/L (35-105); Anion Gap 16.7 (5-19); Aspartate Amino Transferase 19 U/L (0-32); Blood Urea Nitrogen 16 mg/dL (8-23); Calcium 10.7 mg/dL (8.5-10.5); Carbon Dioxide 25 mmol/L (22-29); Chloride 104 mmol/L (98-107); Glucose 112 mg/dL (65-115); Osmolality Calculated 296 mOsm/kg (285-295); Potassium 3.7 mmol/L (3.5-5.1); Sodium 142 mmol/L (136-145); Total Bilirubin 0.7 mg/dL (0.15-1.2); Total Protein 7.4 g/dL (6.6-8.7)
--- NOTE | 2023-10-30 13:06 | ECG_ITS ---
[facility] Test Date: 2023-10-30 Pat Name: Kiah Garcia Department: Room: Gender: Female Computer Support Specialist: : 1940 Requested By: Hema Montgomery Order Number: [id number] Ximena MD: Lynette Ford M.D. Measurements Intervals [place] Rate: 83 P: 80 [place]: 160 QRS: 18 QRSD: 82 T: 52 QT: 390 QTc: 460 Interpretive Statements SINUS RHYTHM Compared to ECG 10/30/2023 11:36:02 ST (T wave) deviation no longer present Electronically Signed On 10-30-2023 15:53:16 OUTBOUND TELEMARKETER by Lynette Ford M.D. [id number]
[2023-10-30] MEDS: cloNIDine 0.1 mg Tablet PO (13:48)
[2023-10-30] MEDS: amlodipine 10 mg Tablet PO (13:50)
[2023-10-30] MEDS: hyDRALAzine 20 mg/mL INJ 1 mL 10 MG IVP (13:53)
[2023-10-30 13:59] LABS: Add Urine Microscopic? YES; Bilirubin Urine Neg (Negative); Blood Urine 3+ (Negative); Glucose Urine UA Norm (Normal); Ketones Urine 1+ (Negative); Leukocyte Esterase Urine Negative (Negative); Nitrate Urine Negative (Negative); Protein Urine Neg (Negative); Specific Gravity, Urine 1.015 (1.005-1.030); Urine Appearance Cloudy (CLEAR); Urine Color Light yellow (Yellow); Urobilinogen Urine Norm (Negative); pH Urine 7 (5-7)
--- NOTE | 2023-10-30 14:04 | PC.PHAR ---
pt state her daughter lavelle [phone] takes care of her medications-called pts daughter lavelle she states she hasnt been helping the pt with her medications recently-lavelle states the pt has [facility] health with [facility] states they dont set her meds up but made the list with what she was taking-medications entered are what was on the pts list and her medication bottles-pts daughter states the pt has about 4 bottles of calcitonin-salmon spray but doesnt use ext shows last filled 06/08/23 30d/s-ext shows last filled 03/19/23 for humira pt no longer taking-pts daughter states one dr told the pt to keep taking bystolic 20mg daily and states another dr told her to stop taking ext shows last filled 05/09/23 90d/s medication not on med list brought in and no med bottle brought in either-pt and pts daughter are unsure if the pt replaced her clnoidine patch on friday10/29/23-medications entered are from the list and med bottles brought in pt states she takes no medications at night-pt unable to verify if took any meds today
[2023-10-30 14:22] LABS: Bacteria Urine 1+ /hpf; Mucus Urine 1+ /hpf; RBC Urine 15-25 /hpf (0-2); WBC Urine 40-55 /hpf (0-5)
[2023-10-30 14:23] LABS: Add Urine Culture? Yes
== END 2023-10-30 15:48 | disposition home or self-care (01) ==
PROVIDERS: Emergency Provider Family Medicine; PCP Family Medicine
DX: I10 Essential (primary) hypertension (principal); N30.90 Cystitis, unspecified without hematuria; Z79.82 Long term (current) use of aspirin; Z86.73 Personal history of transient ischemic attack (TIA), and cerebral infarction without residual deficits; E78.5 Hyperlipidemia, unspecified
CPT/HCPCS: 36415; 70450; 71045; 80053; 81001; 84484; 85025; 87077; 87086; 87186; 93005; 96374; 99285; J0360

== ENCOUNTER 2024-01-28 14:11 | Emergency (ER) | payer MEDICARE, OTHER, SELFPAY ==
--- NOTE | 2024-01-28 14:05 | ECG_ITS ---
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 Measurements Intervals [place] Rate: 74 P: 66 [place]: 169 QRS: 30 QRSD: 89 T: 46 QT: 399 QTc: 443 Interpretive Statements SINUS RHYTHM Compared to ECG 10/30/2023 13:06:00 No significant changes Electronically Signed On 01-28-2024 16:13:23 CDT by Jeancarlos Gilbert M.D. [email or web address]/[id number]
[2024-01-28 14:16] VITALS: BP 206/82; PULSE 75; RESP 20; TEMP 36.8; O2SAT 94
[2024-01-28 14:33] VITALS: BP 185/94; PULSE 76; RESP 15; O2SAT 98
--- NOTE | 2024-01-28 14:34 | ED_ITS ---
HPI - Extremity Problem 2 General: Chief complaint: Extremity Problem,Nontraumatic Stated complaint: legs swollen Time Seen by Provider: 01/28/24 14:25 History of Present Illness: 84-year-old female comes in today with i ncreased swelling to bilateral lower legs. Patient reports pain to the left leg and worsening swelling on the left. Patient appears nontoxic. Patient is alert. Patient appears no shortness of breath, patient reports increased shortness of breath with exertion. Patient denies any chest pain. Skin is warm and dry. Patient has a history of leg edema, atrial fibs, hypertension, psoriasis, CVA. Review of Systems 2 General: Reports: 10 or more systems reviewed and unremarkable except in HPI and below Musc: Reports: extremity pain and extremity swelling Skin/Breast: Reports: erythema PFSH ED 2 PFSH: Medical History Left displaced femoral neck fracture Psoriasis Atrial fibrillation CVA (cerebral vascular accident) Hypertension Hyperlipidemia Arrhythmia Osteoarthritis Hyperthyroidism Lumbar radiculopathy Raynaud's syndrome Surgical History Hx of cataract extraction History of bladder repair surgery History of appendectomy H/O: hysterectomy History of knee replacement H/O hernia repair Family History Father CAD (coronary artery disease) Stroke Mother CAD (coronary artery disease) Stroke Cancer Family/Other Cancer Daughter Lung disease Other Hyperlipidemia Hypertension Denies family history of Diabetes Clotting disorder Dementia Chronic kidney disease (CKD) Suicide Anesthesia complication Bleeding disorder Social History Smoking and tobacco/nicotine status: never used tobacco/nicotine Alcohol intake: never Substance/Drug Use: never Physical Exam 2 Const: COMMON NORMALS: alert HENMT: COMMON NORMALS: normocephalic HEAD & SCALP: normocephalic MOUTH: Normal oral and palatal mucosa present Neck/C-Spine: COMMON NORMALS: full ROM Chest: COMMONS NORMALS: normal inspection of the chest Resp: COMMON NORMALS: normal respiratory effort AUSCULTATION: diminished lung sounds (Bilateral bases) Cardio: COMMON NORMALS: regular rate and No murmurs present (Cardio) RATE: regular rate GI: COMMON NORMALS: Soft to palpation PALPATION: Yes Soft to palpation Extremity: NARRATIVE EXTREMITY EXAM: Bilateral lower extremity edema with erythema. Weeping from swelling. Neuro: SENSORIUM/ORIENTATION: Yes alert Skin: NARRATIVE SKIN EXAM: Redness to bilateral lower extremities. Course 2 Vital Signs: Vital signs: Vital Signs Temperature 98.3 F 01/28/24 14:16 Pulse Rate 69 01/28/24 16:58 Respiratory Rate 23 H 01/28/24 16:58 Blood Pressure 183/93 01/28/24 15:02 Pulse Oximetry 100 01/28/24 16:58 Oxygen Delivery Me thod Room Air 01/28/24 16:58 MDM - Extremity (Nontraumatic) Medical Decision Making 84-year-old female comes in today with complaints of redness and pain to bilateral lower extremities. Patient and son both report that increased swelling. Patient appears in no acute distress. Skin is warm and dry. +2 pitting edema to bilateral lower extremity. Weeping of the skin. Erythema is noted in bilateral extremities. Induration is noted on the left versus the right. Lungs are decreased in the bases. Vital signs note elevated blood pressure, oxygen saturation 94% on room air. Differential diagnosis includes but not limited to atrial fib, CHF, cellulitis, DVT, PVD. CBC was unremarkable. CMP did not show any significant abnormalities. BNP was normal. Chest x-ray did not show any fluid on the lungs. CRP was normal. Patient has some significant redness to bilateral lower extremities we will go ahead and cover for possible cellulitis with Augmentin. Patient be given a short course of furosemide to see if that would help with her swelling a little bit more. The dosing will just be 20 mg once a day with 8 mEq of potassium. And strongly encourage elevation of extremities as much as possible. Male significant other, patient's brother, reported understanding of care plan and need to f/u with pcp. Lab Data 01/28/24 17:06 01/28/24 15:23 Radiology Impressions Chest X-Ray 01/28/24 14:38 IMPRESSION: No acute findings. Laboratory Results WBC 6.28 10^3/uL (3.29-11.43) 01/28/24 17:06 Corrected WBC Cancelled 01/28/24 15:23 RBC 5.32 10^6/uL (3.85-5.65) 01/28/24 17:06 Hgb 14.20 g/dL (11.27-16.99) 01/28/24 17:06 Hct 43.6 % (36-47) 01/28/24 17:06 MCV 82.0 fl (85-98) L 01/28/24 17:06 MCH 26.7 pg (27-33) L 01/28/24 17:06 MCHC 32.6 g/dL (30-55) 01/28/24 17:06 RDW 13.9 % (12.1-15.1) 01/28/24 17:06 Plt Count 222 10^3/cmm (157-399) 01/28/24 17:06 MPV 8.7 fL (7.4-10.4) 01/28/24 17:06 Gran % Cancelled 01/28/24 15:23 Neut % (Auto) 56.0 % 01/28/24 17:06 Lymph % (Auto) 25.0 % 01/28/24 17:06 [place] % (Auto) 15.8 % 01/28/24 17:06 Eos % (Auto) 2.4 % 01/28/24 17:06 Baso % (Auto) 0.6 % 01/28/24 17:06 Neut # (Auto) 3.52 10^3/uL (1.8-7.7) 01/28/24 17:06 Lymph # (Auto) 1.6 10^3/uL (0.8-4.8) 01/28/24 17:06 [place] # (Auto) 1.0 10^3/uL (0.2-0.9) H 01/28/24 17:06 Eos # (Auto) 0.2 10^3/uL (0.0-0.8) 01/28/24 17:06 Baso # (Auto) 0.0 10^3/uL (0.0-0.1) 01/28/24 17:06 Absolute Gran (auto) Cancelled 01/28/24 15:23 Nucleated RBC % (auto) 0 % 01/28/24 17:06 Nucleated RBCs # 0.0 /100WBC 01/28/24 17:06 Sodium 139 mmol/L (136-145) 01/28/24 15:23 Potassium 4.1 mmol/L (3.5-5.1) 01/28/24 15:23 Chloride 103 mmol/L (98-107) 01/28/24 15:23 Carbon Dioxide 23 mmol/L (22-29) 01/28/24 15:23 Anion Gap 17.1 (5-19) 01/28/24 15:23 BUN 24 mg/dL (8-23) H 01/28/24 15:23 Creatinine 0.7 mg/dL (0.5-0.9) 01/28/24 15:23 GFR Calculation Not Reportable 01/28/24 15:23 Glucose 105 mg/dL (65-115) 01/28/24 15:23 Calculated Osmolality 292 mOsm/kg (285-295) 01/28/24 15:23 Calcium 10.2 mg/dL (8.5-10.5) 01/28/24 15:23 Total Bilirubin 0.3 mg/dL (0.15-1.2) 01/28/24 15:23 AST 16 U/L (0-32) 01/28/24 15:23 ALT 9 U/L (0-33) 01/28/24 15:23 Alkaline Phosphatase 134 U/L (35-105) H 01/28/24 15:23 Troponin T Baseline 29 ng/L (0-10) H 01/28/24 15:23 C-Reactive Protein 3.0 mg/L (0.0-4.9) 01/28/24 15:23 NT-Pro-B Natriuret Pep 260 pg/mL (0-450) 01/28/24 15:23 Total Protein 6.5 g/dL (6.6-8.7) L 01/28/24 15:23 Albumin 4.1 g/dL (3.5-5.2) 01/28/24 15:23 Globulin 2.4 g/dL (1.3-4.6) 01/28/24 15:23 All radiology interpretation(s) finalized by discharge EKG Data EKG 1: EKG interpretation date: 01/28/24 EKG interpretation time: 15:08 Prior EKG tracings: not available for review Interpretation: EKG shows a sinus rhythm with a regular rate at [address] elevation or ectopy is noted. No prior exam was available for comparison. Computer generated interpretation: Sinus rhythm, normal EKG, unconfirmed report. EKG 2: EKG interpretation date: 01/28/24 EKG interpretation time: 16:35 Prior EKG tracings: available for review Interpretation: EKG shows a sinus rhythm with occasional PACs. No ST elevation. No significant changes from prior exam except presence of PACs. Rate is 68 bpm and regular. Computer generated interpretation: Sinus rhythm with occasional supraventricular premature complexes, moderate ST depression, abnormal EKG, unconfirmed report. Discharge Plan Discharge Patient Disposition: Home Clinical Impression: Cellulitis of both lower extremities, Edema, peripheral Condition: Stable Prescriptions: New potassium chloride 8 mEq capsule, extended release 8 meq PO DAILY Qty: 10 0RF furosemide 20 mg tablet 20 mg PO QAM Qty: 10 0RF amoxicillin-pot clavulanate 875-125 mg tablet 1 tab PO BID Qty: 20 0RF No Action aspirin 81 mg Tablet,Delayed Release (Dr/Ec) 81 mg PO QAM carvedilol 12.5 mg tablet 12.5 mg PO QAM clonidine 0.1 mg/24 hr patch weekly 1 patch topical Q7D Rx Instructions: on friday docusate sodium 100 mg capsule 100 mg PO BID PRN (Reason: Constipation) hydrochlorothiazide 25 mg tablet 25 mg PO QAM calcium carbonate-vitamin D3 600 mg-10 mcg (400 unit) tablet 1 tab PO QAM pantoprazole 40 mg tablet,delayed release (DR/EC) 40 mg PO QAM Discharge Orders: Discharge ED (Routine); Ordered 01/28/24 Ordered By: William Hart Referrals: Wilson Garcia MD [Primary Care Provider] - Discharge Diet: Usual diet Discharge Activity: Increase activity as tolerated Patient Instructions: Cellulitis (ED) Activity Restrictions/Additional Instructions: Take antibiotics as directed. Take medications for swelling and potassium replacement for the next 10 days. Follow-up with primary care in 3 to 5 days for recheck. Return to ED for worsening symptoms such as increased shortness of breath, severe chest pain, or new concerns. Coding Level of Care Code ED Heater Installer for Hung Webb
--- NOTE | 2024-01-28 14:38 | USCV_ITS ---
Kiah Garcia Age: 84 Gender: F : 1940 Exam Date: 01/28/2024 15:22 Ordering Phys: William Hart Technologist: VENITA Exam Location: [facility] Indication: BLE EDEMA AND PAIN HISTORY: Lower extremity swelling. Lower extremity edema. Lower extremity pain. PROCEDURES: Venous duplex imaging was performed in bilateral lower extremities. The following venous structures were evaluated: common femoral vein, profunda vein, proximal portion of the greater saphenous vein, superficial femoral vein, and the popliteal vein. In addition, the posterior tibial and peroneal trunk were evaluated. Serial compression, augmentation maneuvers, and spectral Doppler flow evaluation were performed. FINDINGS: Examination was technically limited due to body habitus. No evidence of DVT seen in any vessel visualized at this time. CONCLUSIONS No DVT bilateral lower extremities. Dr. Silvia Carrington DO (Electronically Signed) Final Date: 28 January 2024 15:55 S
--- NOTE | 2024-01-28 14:38 | XRR_ITS ---
PROCEDURE INFORMATION: Exam: XR Chest Exam date and time: 01/28/2024 2:56 PM Age: 84 years old Clinical indication: Shortness of breath; Patient HX: Bi lateral swollen legs, HX of ovarian cancer; Additional info: SOB, edema TECHNIQUE: Imaging protocol: Radiologic exam of the chest. Views: 1 view. COMPARISON: CR XR chest 1V portable [id number] 10/30/2023 11:51 AM FINDINGS: Lungs: Unremarkable. No consolidation or mass. Pleural spaces: Unremarkable. No pleural effusion. No pneumothorax. Heart/Mediastinum: Unremarkable. No cardiomegaly. Bones/joints: Unremarkable. XR/XR chest 1V portable [id number] IMPRESSION: No acute findings.
[2024-01-28 15:02] VITALS: BP 183/93; PULSE 73; RESP 25; O2SAT 97
--- NOTE | 2024-01-28 15:22 | ECG_ITS ---
[facility] Test Date: 2024-01-28 Pat Name: Kiah Garcia Department: Room: Gender: Female Utility Bill Collector: : 1940 Requested By: William Christopher Order Number: [id number] Ximena MD: Jeancarlos Gilbert M.D. Measurements Intervals [place] Rate: 67 P: 74 [place]: 148 QRS: 63 QRSD: 78 T: 65 QT: 402 QTc: 425 Interpretive Statements SINUS RHYTHM WITH OCCASIONAL SUPRAVENTRICULAR PREMATURE COMPLEXES MODERATE ST DEPRESSION [0.05+ mV ST DEPRESSION] Compared to ECG 01/28/2024 14:05:08 ST (T wave) deviation now present Electronically Signed On 01-29-2024 8:34:16 CDT by Jeancarlos Gilbert M.D. [id number]
[2024-01-28 16:05] LABS: Troponin(5th) Baseline 29 ng/L (0-10)
[2024-01-28 16:12] LABS: Alanine Aminotransferase 9 U/L (0-33); Albumin Level 4.1 g/dL (3.5-5.2); Alkaline Phosphatase 134 U/L (35-105); Blood Urea Nitrogen 24 mg/dL (8-23); Calcium 10.2 mg/dL (8.5-10.5); Carbon Dioxide 23 mmol/L (22-29); Chloride 103 mmol/L (98-107); Creatinine Clr Calc Pharmacy 53.9122; Globulin 2.4 g/dL (1.3-4.6); Glucose 105 mg/dL (65-115); NT Pro B Type Natriuretic Pept 260 pg/mL (0-450); Osmolality Calculated 292 mOsm/kg (285-295); Sodium 139 mmol/L (136-145); Total Bilirubin 0.3 mg/dL (0.15-1.2); Total Protein 6.5 g/dL (6.6-8.7)
[2024-01-28 16:17] LABS: Anion Gap 17.1 (5-19); Aspartate Amino Transferase 16 U/L (0-32); Potassium 4.1 mmol/L (3.5-5.1)
[2024-01-28] MEDS: HYDROcodone-acetaminophen 5-325 mg Tablet 1 TAB PO (16:54)
[2024-01-28 16:58] VITALS: PULSE 69; RESP 23; O2SAT 100
[2024-01-28 17:13] LABS: Basophils % 0.6 %; Eosinophils # 0.2 10^3/uL (0.0-0.8); Eosinophils % 2.4 %; Hematocrit 43.6 % (36-47); Lymphocytes # 1.6 10^3/uL (0.8-4.8); Mean Corpuscular HGB Conc 32.6 g/dL (30-55); Mean Corpuscular Hemoglobin 26.7 pg (27-33); Mean Platelet Volume 8.7 fL (7.4-10.4); Monocytes % 15.8 %; Neutrophils # 3.52 10^3/uL (1.8-7.7); Nucleated Red Blood Cells % 0 %; Platelet Count 222 10^3/cmm (157-399); Red Blood Count 5.32 10^6/uL (3.85-5.65); Red Cell Distribution Width 13.9 % (12.1-15.1); White Blood Count 6.28 10^3/uL (3.29-11.43)
[2024-01-28] MEDS: FUROsemide 40 mg Tablet PO (17:27)
[2024-01-28] MEDS: amoxicillin-clav 875-125 mg Tablet 1 TAB PO (17:27)
[2024-01-28 17:41] VITALS: BP 183/93; PULSE 69; RESP 23; TEMP 36.8; O2SAT 100
[2024-01-28 17:47] LABS: Troponin 5 2HR 29.31 ng/L (0-10); Troponin 5 2HR Delta 0.31 ABS# (0-10)
== END 2024-01-28 17:42 | disposition home or self-care (01) ==
PROVIDERS: Emergency Provider Nurse Practitioner Family; PCP Family Medicine
DX: L03.116 Cellulitis of left lower limb (principal); L03.115 Cellulitis of right lower limb; R60.0 Localized edema; Z79.82 Long term (current) use of aspirin; Z86.73 Personal history of transient ischemic attack (TIA), and cerebral infarction without residual deficits; I10 Essential (primary) hypertension; E78.5 Hyperlipidemia, unspecified
CPT/HCPCS: 36415; 71045; 80053; 83880; 84484; 85025; 86140; 93005; 93970; 99285

== ENCOUNTER 2024-06-29 14:25 | Outpatient (CLI) | payer MEDICARE, OTHER, SELFPAY ==
--- NOTE | 2024-06-29 14:15 | USCV_ITS ---
Kiah Garcia Age: 84 Gender: F : 1940 Exam Date: 06/29/2024 14:53 Ordering Phys: Doni Davila MD ([email or web address]) Technologist: CT Exam Location: [facility] Indication: EDEMA BP: 140 / 80 HR: 73 Rhythm: Sinus Technical Quality: Adequate MEASUREMENTS (Male / Female) Normal Values 2D ECHO LVOT Diameter 2.0 cm LV Ejection Fraction MOD 4C 60.0 % LV Ejection Fraction MOD 2C 62.6 % LV Ejection Fraction 2C AL 63.3 % LA Diameter 4.4 cm RA Systolic Volume 4C AL 23.8 ml RA Systolic Volume 4C MOD 22.9 ml LA Sys Volume AL 37.5 cm cubed LA Sys Volume Index AL 19.3 cm cubed/m squared Aorta at Sinotubular Diameter 2.1 cm M-MODE LA Ao Ratio MM 1.7 AV Cusp Separation MM 1.7 cm DOPPLER AV Peak Velocity 128.0 cm/s LVOT Peak Velocity 109.0 cm/s AV Area Cont Eq vti 2.4 cm squared AV Area Cont Eq pk 2.7 cm squared MV Peak Velocity 88.0 cm/s MV Area PHT 2.6 cm squared Mitral E to A Ratio 0.8 TV Peak Velocity 205.5 cm/s TR Peak Velocity 227.0 cm/s TR Peak Gradient 20.6 mmHg TV Peak E Velocity 53.0 cm/s Right Atrial Pressure 3.0 mmHg Pulmonary Artery Systolic Pressu 23.6 mmHg PV Peak Velocity 101.0 cm/s FINDINGS Left Ventricle Normal left ventricular size, systolic function and wall thickness, with no regional wall motion abnormalities. Estimated ejection fraction 60%. Grade I/IV diastolic dysfunction (abnormal relaxation filling pattern), normal to mildly elevated filling pressures. Right Ventricle The right ventricle is normal in size and function. Right Atrium The right atrium is normal in size. Left Atrium The left atrium is normal in size. Mitral Valve Structurally normal mitral valve without significant stenosis or prolapse. There is no mitral regurgitation. Aortic Valve Structurally normal aortic valve without significant sclerosis or stenosis. There is no aortic regurgitation. Tricuspid Valve Structurally normal tricuspid valve without significant stenosis or regurgitation. Pulmonary artery systolic pressure is normal. Pulmonic Valve Structurally normal pulmonic valve without significant stenosis. There is no pulmonic regurgitation. Pericardium Normal pericardium without effusion. Aorta Normal ascending aorta dimension. IVC The inferior vena cava appears normal. CONCLUSIONS Normal left ventricular size, systolic function and wall thickness, with no regional wall motion abnormalities. Estimated ejection fraction 60%. Grade I/IV diastolic dysfunction (abnormal relaxation filling pattern), normal to mildly elevated filling pressures. Structurally normal mitral valve without significant stenosis or prolapse. There is no mitral regurgitation. There is no pericardial effusion. Right atrial pressure is around 5 mm of mercury. Dolly Tripp MD (Electronically Signed) Final Date: 30 June 2024 21:10 S
== END 2024-06-29 14:26 | disposition home or self-care (01) ==
PROVIDERS: PCP Family Medicine; Visit Provider Internal Medicine Cardiovascular Disease
DX: R60.0 Localized edema (principal); I48.91 Unspecified atrial fibrillation
CPT/HCPCS: 93306

== ENCOUNTER → 2024-09-01 14:00 | Outpatient (BNVA) | payer MEDICARE, OTHER, SELFPAY | PROVIDERS: PCP Family Medicine; Visit Provider Internal Medicine Cardiovascular Disease | DX: I48.0 Paroxysmal atrial fibrillation (principal); I10 Essential (primary) hypertension; R60.0 Localized edema; E78.2 Mixed hyperlipidemia | CPT/HCPCS: 99214 ==

== ENCOUNTER → 2024-09-14 11:13 | Outpatient (BNVA) | payer MEDICARE, OTHER, SELFPAY | PROVIDERS: PCP Family Medicine; Visit Provider Physician Assistant | DX: Z98.890 Other specified postprocedural states (principal); Z87.81 Personal history of (healed) traumatic fracture; Z96.642 Presence of left artificial hip joint | CPT/HCPCS: 73502; 99213 ==

== ENCOUNTER → 2024-11-16 09:30 | Outpatient (BNVA) | payer MEDICARE, OTHER, SELFPAY | PROVIDERS: PCP Family Medicine; Visit Provider Podiatrist Foot & Ankle Surgery | DX: I87.2 Venous insufficiency (chronic) (peripheral) (principal); I73.9 Peripheral vascular disease, unspecified; L97.422 Non-pressure chronic ulcer of left heel and midfoot with fat layer exposed | CPT/HCPCS: 11042; 29580; 99203 ==

== ENCOUNTER 2024-11-25 12:29 | Emergency (ER) | payer MEDICARE, OTHER, SELFPAY ==
--- NOTE | 2024-11-25 12:32 | XR_ITS ---
WS: [id number] Portable AP upright chest, 11/25/2024 Clinical Data: weakness Comparison: Portable chest, 10/30/2023 Findings: No nodules, masses or effusions are seen. The heart is normal. The pulmonary vascularity is not increased. No pneumonia or pneumothorax is seen. The aortic arch and descending thoracic aorta s how calcification and tortuosity. There is a dextroscoliosis of the thoracic spine. XR/XR chest 1V portable [id number] Impression: Atherosclerosis.
--- NOTE | 2024-11-25 12:42 | ECG_ITS ---
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 Measurements Intervals [place] Rate: 70 P: 44 MT: 157 QRS: 26 QRSD: 81 T: 48 QT: 373 QTc: 403 Interpretive Statements SINUS RHYTHM WITH OCCASIONAL SUPRAVENTRICULAR PREMATURE COMPLEXES POSSIBLE ANTERIOR MYOCARDIAL INFARCTION , OF INDETERMINATE AGE [30 ms Q WAVE IN V3/V4, OR R < 0.2 mV IN V4] Compared to ECG 01/28/2024 15:22:22 Myocardial infarct finding now present ST (T wave) deviation no longer present Electronically Signed On 11-25-2024 18:14:09 CONSULTING SME by Rickie Walton M.D. [id number]
[2024-11-25 12:45] VITALS: BP 132/79; PULSE 74; RESP 17; TEMP 36.4; O2SAT 95
--- NOTE | 2024-11-25 13:52 | ED_ITS ---
HPI - Weakness 2 General: Chief complaint: Weakness Stated complaint: WEAKNESS, LEG SWELLING Time Seen by Provider: 11/25/24 13:27 Source: patient and EMS Mode of arrival: EMS Limitations: no limitations History of Present Illness: 84-year-old female with a history of chr onic lower extreme edema. She states that she has had some increased weakness she is also had some increased swelling as well. States she is receiving home health but she states that she [facility] she states that her daughter also helps take care of her. She has had some confusion history is difficult to fully obtain from her she denies any other complaints no fever no pain Associated symptoms: Denies chest pain, chills, fever(s), headache(s), nausea or vomiting Review of Systems 2 Const: Reports: fatigue and malaise; Denies: fever(s), chills, body aches or change in appetite ENMT: Denies: throat pain or dental pain Card: Denies: chest pain Resp: Denies: dyspnea GI: Denies: abdominal pain, nausea, vomiting or diarrhea Musc: Reports: extremity swelling; Denies: neck pain or back pain Skin/Breast: Denies: rash Neuro: Denies: headache(s) PFSH ED 2 PFSH: Medical History Hyperlipidemia Left displaced femoral neck fracture Psoriasis Atrial fibrillation CVA (cerebral vascular accident) Hypertension Arrhythmia Osteoarthritis Hyperthyroidism Lumbar radiculopathy Raynaud's syndrome Surgical History Hx of cataract extraction History of bladder repair surgery History of appendectomy H/O: hysterectomy History of knee replacement H/O hernia repair Family History Father CAD (coronary artery disease) Stroke Mother CAD (coronary artery disease) Stroke Cancer Family/Other Cancer Daughter Lung disease Other Hyperlipidemia Hypertension Denies family history of Diabetes Clotting disorder Dementia Chronic kidney disease (CKD) Suicide Anesthesia complication Bleeding disorder Social History Smoking and tobacco/nicotine status: tobacco/nicotine user, details unknown Alcohol intake: never Substance/Drug Use: never Physical Exam 2 Const: COMMON NORMALS: patient oriented x3 HENMT: COMMON NORMALS: normocephalic and atraumatic HEAD & SCALP: n ormocephalic and atraumatic Eye: COMMON NORMALS: conjunctivae normal CONJUNCTIVA: Yes conjunctivae normal Neck/C-Spine: COMMON NORMALS: full ROM and supple Chest: COMMONS NORMALS: normal inspection of the chest Resp: COMMON NORMALS: normal respiratory effort, No retractions, No use of accessory muscles and clear to auscultation bilaterally AUSCULTATION: clear to auscultation bilaterally Cardio: COMMON NORMALS: regular rate, regular rhythm and No murmurs present (Cardio) RATE: regular rate RHYTHM: regular rhythm GI: COMMON NORMALS: Normal to inspection, nondistended, normoactive bowel sounds present, Soft to palpation, non-tender and no masses PALPATION: Yes Soft to palpation Extremity: NARRATIVE EXTREMITY EXAM: 2+ edema to lower extremities does have small weeping no cellulitis no warmth to touch Neuro: COMMON NORMALS: patient oriented x3, moves all extremities and no focal motor deficits Psych: COMMON NORMALS: mental status grossly normal, Normal thought process present and cooperative THOUGHT PROCESS: Normal thought process present Skin: COMMON NORMALS: no rashes or lesions noted and no wounds GENERAL SKIN EXAM: no rashes or lesions noted Course 2 Vital Signs: Vital signs: Vital Signs Temperature 97.6 F 11/25/24 12:45 Pulse Rate 71 11/25/24 15:13 Respiratory Rate 16 11/25/24 15:13 Blood Pressure 120/76 11/25/24 15:13 Pulse Oximetry 100 11/25/24 15:13 Oxygen Delivery Me thod Room Air 11/25/24 12:45 MDM - Weakness Medical Decision Making Patient presents here with generalized weakness along with lower extreme edema did speak to the daughter who states that she is has her placed at [place] they want her sent here to be medically cleared first her blood work here is normal she is well-appearing did give her dose of Lasix spoke to [place] will discharge her there. Medical Records I reviewed the patient's medical records. Lab Data I reviewed the patient's lab results. 11/25/24 14:40 11/25/24 14:40 Radiology Impressions Chest X-Ray 11/25/24 12:32 Impression: Atherosclerosis. Laboratory Results WBC 9.77 10^3/uL (3.29-11.43) 11/25/24 14:40 RBC 5.08 10^6/uL (3.85-5.65) 11/25/24 14:40 Hgb 13.60 g/dL (11.27-16.99) 11/25/24 14:40 Hct 43.7 % (36-47) 11/25/24 14:40 MCV 86.0 fl (85-98) 11/25/24 14:40 MCH 26.8 pg (27-33) L 11/25/24 14:40 MCHC 31.1 g/dL (30-55) 11/25/24 14:40 RDW 17.1 % (12.1-15.1) H 11/25/24 14:40 Plt Count 358 10^3/cmm (157-399) 11/25/24 14:40 MPV 8.3 fL (7.4-10.4) 11/25/24 14:40 Neut % (Auto) 69.6 % 11/25/24 14:40 Lymph % (Auto) 15.3 % 11/25/24 14:40 [place] % (Auto) 11.5 % 11/25/24 14:40 Eos % (Auto) 2.6 % 11/25/24 14:40 Baso % (Auto) 0.5 % 11/25/24 14:40 Neut # (Auto) 6.81 10^3/uL (1.8-7.7) 11/25/24 14:40 Lymph # (Auto) 1.5 10^3/uL (0.8-4.8) 11/25/24 14:40 [place] # (Auto) 1.1 10^3/uL (0.2-0.9) H 11/25/24 14:40 Eos # (Auto) 0.3 10^3/uL (0.0-0.8) 11/25/24 14:40 Baso # (Auto) 0.1 10^3/uL (0.0-0.1) 11/25/24 14:40 Nucleated RBC % (auto) 0 % 11/25/24 14:40 Nucleated RBCs # 0.0 /100WBC 11/25/24 14:40 Sodium 137 mmol/L (136-145) 11/25/24 14:40 Potassium 4.6 mmol/L (3.5-5.1) 11/25/24 14:40 Chloride 102 mmol/L (98-107) 11/25/24 14:40 Carbon Dioxide 21 mmol/L (22-29) L 11/25/24 14:40 Anion Gap 18.6 (5-19) 11/25/24 14:40 BUN 39 mg/dL (8-23) H 11/25/24 14:40 Creatinine 0.9 mg/dL (0.5-0.9) 11/25/24 14:40 GFR Calculation Not Reportable 11/25/24 14:40 Glucose 90 mg/dL (65-115) 11/25/24 14:40 Calculated Osmolality 293 mOsm/kg (285-295) 11/25/24 14:40 Calcium 10.1 mg/dL (8.5-10.5) 11/25/24 14:40 Total Bilirubin 0.3 mg/dL (0.15-1.2) 11/25/24 14:40 AST 11 U/L (0-32) 11/25/24 14:40 ALT 9 U/L (0-33) 11/25/24 14:40 Alkaline Phosphatase 96 U/L (35-105) 11/25/24 14:40 NT-Pro-B Natriuret Pep 206 pg/mL (0-450) 11/25/24 14:40 Total Protein 6.7 g/dL (6.6-8.7) 11/25/24 14:40 Albumin 3.4 g/dL (3.5-5.2) L 11/25/24 14:40 Globulin 3.3 g/dL (1.3-4.6) 11/25/24 14:40 XR interpretation done by ED provider, pending radiology final review Discharge Plan Discharge Patient Disposition: Home Clinical Impression: Bilateral lower extremity edema, Weakness Condition: Stable Prescriptions: No Action aspirin 81 mg Tablet,Delayed Release (Dr/Ec) 81 mg PO QAM furosemide 20 mg tablet 20 mg PO QAM Qty: 10 0RF carvedilol 12.5 mg tablet 12.5 mg PO QAM clonidine 0.1 mg/24 hr patch weekly 1 patch topical Q7D Rx Instructions: on friday hydrochlorothiazide 25 mg tablet 25 mg PO QAM pantoprazole 40 mg tablet,delayed release (DR/EC) 40 mg PO QAM potassium chloride 10 mEq tablet extended release 10 meq PO DAILY tramadol 50 mg tablet 50 mg PO DAILY PRN (Reason: Pain) calcitonin (salmon) 200 unit/actuation spray,non-aerosol 1 spray intranasal DAILY PRN (Reason: osteoperosis) Discharge Orders: Discharge ED (Routine); Ordered 11/25/24 Ordered By: Alyx Mansfield Referrals: Wilson Garcia MD [Primary Care Provider] - Discharge Diet: Advance as tolerated Discharge Activity: Resume usual activity Patient Instructions: Leg Edema (ED) Coding Level of Care Code ED Knockout Worker for Chg Fwd Related Data Home Medications Medication Instructions Recorded Confirmed aspirin 81 mg tablet,delayed 81 mg PO QAM 04/27/22 11/25/24 release carvedilol 12.5 mg tablet 12.5 mg PO QAM 10/30/23 11/25/24 clonidine 0.1 mg/24 hr weekly 1 patch topical Q7D 10/30/23 11/25/24 transdermal patch hydrochlorothiazide 25 mg tablet 25 mg PO QAM 10/30/23 11/25/24 pantoprazole 40 mg tablet,delayed 40 mg PO QAM 10/30/23 11/25/24 release calcitonin (salmon) 200 1 spray intranasal DAILY PRN 11/25/24 11/25/24 unit/actuation nasal spray osteoperosis potassium chloride 10 mEq 10 meq PO DAILY 11/25/24 11/25/24 tablet,extended release tramadol 50 mg tablet 50 mg PO DAILY PRN Pain 11/25/24 11/25/24 Previous Rx's Medication Instructions Recorded furosemide 20 mg tablet 20 mg PO QAM #10 tabs 01/28/24 Allergies Allergy/AdvReac Type Severity Reaction Status Date / Time chlorzoxazone Allergy Severe Unconscious Verified 11/16/24 10:07 [From Parafon Forte] aliskiren Allergy Unknown Unknown Verified 11/16/24 10:07 amlodipine Allergy Unknown ADR-Diarrhe Verified 11/16/24 10:07 a atenolol Allergy Unknown unknown Verified 11/16/24 10:07 diltiazem Allergy Unknown Unknown Verified 11/16/24 10:07 hydralazine Allergy Unknown headache Verified 11/16/24 10:07 hydrochlorothiazide Allergy Unknown unknown Verified 11/16/24 10:07 [From Microzide] losartan [From Hyzaar] Allergy Unknown unknown Verified 11/16/24 10:07 valsartan Allergy Unknown edema Verified 11/16/24 10:07 verapamil Allergy Unknown unknown Verified 11/16/24 10:07 allopurinol Allergy diarrhea Verified 11/16/24 10:07 celecoxib [From Celebrex] Allergy Heart Verified 11/16/24 10:07 racing spironolactone AdvReac Diahrroea Verified 11/16/24 10:07
--- NOTE | 2024-11-25 14:08 | PC.PHAR ---
Pt states takes care of her own medications and does not always take as directed. Pt brought in all her bottles for verification-some of them were empty. Entered the last fill dates and days supply. Many of them should be completely out.
[2024-11-25 14:49] LABS: Basophils # 0.1 10^3/uL (0.0-0.1); Basophils % 0.5 %; Eosinophils # 0.3 10^3/uL (0.0-0.8); Eosinophils % 2.6 %; Hematocrit 43.7 % (36-47); Lymphocytes # 1.5 10^3/uL (0.8-4.8); Lymphocytes % 15.3 %; Mean Corpuscular HGB Conc 31.1 g/dL (30-55); Mean Corpuscular Hemoglobin 26.8 pg (27-33); Mean Platelet Volume 8.3 fL (7.4-10.4); Monocytes # 1.1 10^3/uL (0.2-0.9); Monocytes % 11.5 %; Neutrophils # 6.81 10^3/uL (1.8-7.7); Neutrophils % 69.6 %; Nucleated Red Blood Cells % 0 %; Platelet Count 358 10^3/cmm (157-399); Red Blood Count 5.08 10^6/uL (3.85-5.65); Red Cell Distribution Width 17.1 % (12.1-15.1); White Blood Count 9.77 10^3/uL (3.29-11.43)
[2024-11-25] MEDS: FUROsemide 10 mg/mL SDV 10mL 60 MG IVP (15:10)
[2024-11-25 15:13] VITALS: BP 120/76; PULSE 71; RESP 16; O2SAT 100
[2024-11-25 15:16] LABS: Alanine Aminotransferase 9 U/L (0-33); Albumin Level 3.4 g/dL (3.5-5.2); Alkaline Phosphatase 96 U/L (35-105); Anion Gap 18.6 (5-19); Aspartate Amino Transferase 11 U/L (0-32); Blood Urea Nitrogen 39 mg/dL (8-23); Calcium 10.1 mg/dL (8.5-10.5); Carbon Dioxide 21 mmol/L (22-29); Chloride 102 mmol/L (98-107); Creatinine Clr Calc Pharmacy 49.2309; Globulin 3.3 g/dL (1.3-4.6); Glucose 90 mg/dL (65-115); NT Pro B Type Natriuretic Pept 206 pg/mL (0-450); Osmolality Calculated 293 mOsm/kg (285-295); Potassium 4.6 mmol/L (3.5-5.1); Sodium 137 mmol/L (136-145); Total Bilirubin 0.3 mg/dL (0.15-1.2); Total Protein 6.7 g/dL (6.6-8.7)
--- NOTE | 2024-11-25 15:20 | PC.SOCIAL ---
ALBERTO to see patient who states she was supposed to be taken to [facility] so dont know why she is here. ALBERTO reached out to daughter who dropped her mom off and left to see what their plan was. She states that they had already spoke to [facility] and were aware that patient would be able to go to facility but it would be self pay. ALBERTO then called [facility] and spoke to Cathryn at [facility] to see if they knew anything about patient. And she states she was aware and they had requestd family to bring her to [facility] to have her lower legs evaluated. But states whenever she is discharged she can come to the facility and sign herself in. Transportation was discussed, and Cathryn to check and see if they can find someone to come pick her up. Referral sent to [facility], and [facility] completed and signed ref# [id number] Cathryn states they dont have transport and will not approve for a Ready transport ride. Isaak griffin isnt able to to transport at this time. ALBERTO called daughter back and let her know there was no transport, she states she is going to call her brother to see if he can pick her up and get back to me. Daughter called back and stated that the patients brother is going to come get her and transport her to [facility].
[2024-11-25 16:01] VITALS: BP 120/76; RESP 16; O2SAT 94
[2024-11-25 16:38] VITALS: BP 120/76; PULSE 78; RESP 16; O2SAT 94
== END 2024-11-25 16:40 | disposition home or self-care (01) ==
PROVIDERS: Emergency Provider Emergency Medicine; PCP Family Medicine
DX: R60.0 Localized edema (principal); R53.1 Weakness; Z79.82 Long term (current) use of aspirin; Z86.73 Personal history of transient ischemic attack (TIA), and cerebral infarction without residual deficits; I10 Essential (primary) hypertension; E78.5 Hyperlipidemia, unspecified
CPT/HCPCS: 71045; 80053; 83880; 85025; 93005; 96374; 99285; J1940

== ENCOUNTER 2024-11-27 11:35 | Emergency (ER) | payer MEDICARE, OTHER, SELFPAY ==
[2024-11-27 11:36] VITALS: BP 127/71; PULSE 68; RESP 18; TEMP 36.6; O2SAT 97; BMI 27.4
--- NOTE | 2024-11-27 11:49 | ED_ITS ---
HPI - Extremity Problem 2 General: Chief complaint: Extremity Problem,Nontraumatic Stated complaint: wound drainage/ intractable pain Time Seen by Provider: 11/27/24 11:37 Source: EMS Mode of arrival: EMS Limitations: no limitations History of Present Illness: 84-year-old female who is has chronic ed david of her lower extremities patient sent here from [facility] because they done a dressing change and she had had some bleeding with increased pain patient denies any fevers denies any worsening improving factors. Associated symptoms: Deny chest pain, fever(s) or rash Related Data Home Medications Medication Instructions Recorded Confirmed aspirin 81 mg tablet,delayed 81 mg PO QAM 04/27/22 11/25/24 release carvedilol 12.5 mg tablet 12.5 mg PO QAM 10/30/23 11/25/24 clonidine 0.1 mg/24 hr weekly 1 patch topical Q7D 10/30/23 11/25/24 transdermal patch hydrochlorothiazide 25 mg tablet 25 mg PO QAM 10/30/23 11/25/24 pantoprazole 40 mg tablet,delayed 40 mg PO QAM 10/30/23 11/25/24 release calcitonin (salmon) 200 1 spray intranasal DAILY PRN 11/25/24 11/25/24 unit/actuation nasal spray osteoperosis potassium chloride 10 mEq 10 meq PO DAILY 11/25/24 11/25/24 tablet,extended release tramadol 50 mg tablet 50 mg PO DAILY PRN Pain 11/25/24 11/25/24 Previous Rx's Medication Instructions Recorded furosemide 20 mg tablet 20 mg PO QAM #10 tabs 01/28/24 Allergies Allergy/AdvReac Type Severity Reaction Status Date / Time chlorzoxazone Allergy Severe Unconscious Verified 11/16/24 10:07 [From Parafon Forte] aliskiren Allergy Unknown Unknown Verified 11/16/24 10:07 amlodipine Allergy Unknown ADR-Diarrhe Verified 11/16/24 10:07 a atenolol Allergy Unknown unknown Verified 11/16/24 10:07 diltiazem Allergy Unknown Unknown Verified 11/16/24 10:07 hydralazine Allergy Unknown headache Verified 11/16/24 10:07 hydrochlorothiazide Allergy Unknown unknown Verified 11/16/24 10:07 [From Microzide] losartan [From Hyzaar] Allergy Unknown unknown Verified 11/16/24 10:07 valsartan Allergy Unknown edema Verified 11/16/24 10:07 verapamil Allergy Unknown unknown Verified 11/16/24 10:07 allopurinol Allergy diarrhea Verified 11/16/24 10:07 celecoxib [From Celebrex] Allergy Heart Verified 11/16/24 10:07 racing spironolactone AdvReac Diahrroea Verified 11/16/24 10:07 Review of Systems 2 Const: Denies: fever(s), chills, body aches or change in appetite ENMT: Denies: throat pain or dental pain Card: Denies: chest pain Resp: Denies: dyspnea GI: Denies: abdominal pain, nausea, vomiting or diarrhea Musc: Reports: extremity pain and extremity swelling; Denies: neck pain or back pain Skin/Breast: Denies: rash Neuro: Denies: headache(s) PFSH ED 2 PFSH: Medical History Hyperlipidemia Left displaced femoral neck fracture Psoriasis Atrial fibrillation CVA (cerebral vascular accident) Hypertension Arrhythmia Osteoarthritis Hyperthyroidism Lumbar radiculopathy Raynaud's syndrome Surgical History Hx of cataract extraction History of bladder repair surgery History of appendectomy H/O: hysterectomy History of knee replacement H/O hernia repair Family History Father CAD (coronary artery disease) Stroke Mother CAD (coronary artery disease) Stroke Cancer Family/Other Cancer Daughter Lung disease Other Hyperlipidemia Hypertension Denies family history of Diabetes Clotting disorder Dementia Chronic kidney disease (CKD) Suicide Anesthesia complication Bleeding disorder Social History Smoking and tobacco/nicotine status: tobacco/nicotine user, details unknown Alcohol intake: never Substance/Drug Use: never Physical Exam 2 Const: COMMON NORMALS: no acute distress, patient oriented x3 and healthy appearing HENMT: COMMON NORMALS: normocephalic and atraumatic HEAD & SCALP: n ormocephalic and atraumatic Eye: COMMON NORMALS: conjunctivae normal CONJUNCTIVA: Yes conjunctivae normal Neck/C-Spine: COMMON NORMALS: full ROM and supple Chest: COMMONS NORMALS: normal inspection of the chest and normal palpation of entire chest wall Cardio: COMMON NORMALS: regular rate, regular rhythm and No murmurs present (Cardio) RATE: regular rate RHYTHM: regular rhythm GI: COMMON NORMALS: Normal to inspection, nondistended, normoactive bowel sounds present, Soft to palpation, non-tender and no masses PALPATION: Yes Soft to palpation Extremity: NARRATIVE EXTREMITY EXAM: Edema noted to bilateral legs no warmth to touch distal pulses intact Neuro: COMMON NORMALS: patient oriented x3, moves all extremities and no focal motor deficits Psych: COMMON NORMALS: mental status grossly normal, Normal thought process present and cooperative THOUGHT PROCESS: Normal thought process present Skin: COMMON NORMALS: no rashes or lesions noted and no wounds GENERAL SKIN EXAM: no rashes or lesions noted Course 2 Vital Signs: Vital signs: Vital Signs Temperature 97.9 F 11/27/24 11:36 Pulse Rate 68 11/27/24 11:36 Respiratory Rate 18 11/27/24 11:36 Blood Pressure 127/71 11/27/24 11:36 Pulse Oximetry 97 11/27/24 11:36 Oxygen Delivery Me thod Room Air 11/27/24 11:36 MDM - Extremity (Nontraumatic) Medical Decision Making Patient presents here with lower extremity swelling she also has some excoriation likely from her swelling in the dressings we will get her follow-up with wound care has no signs of infection blood work here is normal she stable for discharge back to [facility] Medical Records I reviewed the patient's medical records. Lab Data I reviewed the patient's lab results. 11/27/24 12:27 11/27/24 12:27 Laboratory Results WBC 10.94 10^3/uL (3.29-11.43) 11/27/24 12:27 RBC 5.08 10^6/uL (3.85-5.65) 11/27/24 12:27 Hgb 13.60 g/dL (11.27-16.99) 11/27/24 12:27 Hct 43.8 % (36-47) 11/27/24 12:27 MCV 86.2 fl (85-98) 11/27/24 12:27 MCH 26.8 pg (27-33) L 11/27/24 12: MCHC 31.1 g/dL (30-55) 11/27/24 12:27 RDW 17.2 % (12.1-15.1) H 11/27/24 12:27 Plt Count 367 10^3/cmm (157-399) 11/27/24 12: MPV 8.3 fL (7.4-10.4) 11/27/24 12:27 Neut % (Auto) 72.2 % 11/27/24 12: Lymph % (Auto) 11.8 % 11/27/24 12:27 [place] % (Auto) 12.3 % 11/27/24 12:27 Eos % (Auto) 2.7 % 11/27/24 12:27 Baso % (Auto) 0.5 % 11/27/24 12: Neut # (Auto) 7.89 10^3/uL (1.8-7.7) H 11/27/24 12: Lymph # (Auto) 1.3 10^3/uL (0.8-4.8) 11/27/24 12: [place] # (Auto) 1.4 10^3/uL (0.2-0.9) H 11/27/24 12:27 Eos # (Auto) 0.3 10^3/uL (0.0-0.8) 11/27/24 12: Baso # (Auto) 0.1 10^3/uL (0.0-0.1) 11/27/24 12: Nucleated RBC % (auto) 0 % 11/27/24 12: Nucleated RBCs # 0.0 /100WBC 11/27/24 12:27 Sodium 139 mmol/L (136-145) 11/27/24 12:27 Potassium 4.2 mmol/L (3.5-5.1) 11/27/24 12: Chloride 98 mmol/L (98-107) 11/27/24 12: Carbon Dioxide 27 mmol/L (22-29) 11/27/24 12:27 Anion Gap 18.2 (5-19) 11/27/24 12:27 BUN 32 mg/dL (8-23) H 11/27/24 12:27 Creatinine 1.0 mg/dL (0.5-0.9) H 11/27/24 12:27 GFR Calculation Not Reportable 11/27/24 12:27 Glucose 146 mg/dL (65-115) H 11/27/24 12:27 Calculated Osmolality 298 mOsm/kg (285-295) H 11/27/24 12:27 Calcium 11.0 mg/dL (8.5-10.5) H 11/27/24 12:27 Total Bilirubin 0.4 mg/dL (0.15-1.2) 11/27/24 12:27 AST 14 U/L (0-32) 11/27/24 12:27 ALT 9 U/L (0-33) 11/27/24 12:27 Alkaline Phosphatase 96 U/L (35-105) 11/27/24 12:27 NT-Pro-B Natriuret Pep 498 pg/mL (0-450) H 11/27/24 12:27 Total Protein 6.6 g/dL (6.6-8.7) 11/27/24 12:27 Albumin 3.1 g/dL (3.5-5.2) L 11/27/24 12:27 Globulin 3.5 g/dL (1.3-4.6) 11/27/24 12:27 No radiology studies performed this visit Discharge Plan Discharge Patient Disposition: Home Clinical Impression: Bilateral lower extremity edema Condition: Stable Prescriptions: No Action aspirin 81 mg Tablet,Delayed Release (Dr/Ec) 81 mg PO QAM furosemide 20 mg tablet 20 mg PO QAM Qty: 10 0RF carvedilol 12.5 mg tablet 12.5 mg PO QAM clonidine 0.1 mg/24 hr patch weekly 1 patch topical Q7D Rx Instructions: on friday hydrochlorothiazide 25 mg tablet 25 mg PO QAM pantoprazole 40 mg tablet,delayed release (DR/EC) 40 mg PO QAM potassium chloride 10 mEq tablet extended release 10 meq PO DAILY tramadol 50 mg tablet 50 mg PO DAILY PRN (Reason: Pain) calcitonin (salmon) 200 unit/actuation spray,non-aerosol 1 spray intranasal DAILY PRN (Reason: osteoperosis) Discharge Orders: Discharge ED (Routine); Ordered 11/27/24 Ordered By: Alyx Mansfield Referrals: Wilson Garcia MD [Primary Care Provider] - [facility], [Staff Physician] - 1-3 days Discharge Diet: Advance as tolerated Discharge Activity: Resume usual activity Patient Instructions: Leg Edema (ED) Coding Level of Care Code ED Distribution Analyst for Chg Fwd
[2024-11-27] MEDS: HYDROcodone-acetaminophen 7.5-325 mg Tablet 1 TAB PO (11:50)
[2024-11-27 12:38] LABS: Basophils # 0.1 10^3/uL (0.0-0.1); Basophils % 0.5 %; Eosinophils # 0.3 10^3/uL (0.0-0.8); Eosinophils % 2.7 %; Hematocrit 43.8 % (36-47); Lymphocytes # 1.3 10^3/uL (0.8-4.8); Lymphocytes % 11.8 %; Mean Corpuscular HGB Conc 31.1 g/dL (30-55); Mean Corpuscular Hemoglobin 26.8 pg (27-33); Mean Corpuscular Volume 86.2 fl (85-98); Mean Platelet Volume 8.3 fL (7.4-10.4); Monocytes # 1.4 10^3/uL (0.2-0.9); Monocytes % 12.3 %; Neutrophils # 7.89 10^3/uL (1.8-7.7); Neutrophils % 72.2 %; Nucleated Red Blood Cells % 0 %; Platelet Count 367 10^3/cmm (157-399); Red Blood Count 5.08 10^6/uL (3.85-5.65); Red Cell Distribution Width 17.2 % (12.1-15.1); White Blood Count 10.94 10^3/uL (3.29-11.43)
[2024-11-27 13:04] LABS: Alanine Aminotransferase 9 U/L (0-33); Albumin Level 3.1 g/dL (3.5-5.2); Alkaline Phosphatase 96 U/L (35-105); Anion Gap 18.2 (5-19); Aspartate Amino Transferase 14 U/L (0-32); Blood Urea Nitrogen 32 mg/dL (8-23); Carbon Dioxide 27 mmol/L (22-29); Chloride 98 mmol/L (98-107); Globulin 3.5 g/dL (1.3-4.6); Glucose 146 mg/dL (65-115); NT Pro B Type Natriuretic Pept 498 pg/mL (0-450); Osmolality Calculated 298 mOsm/kg (285-295); Potassium 4.2 mmol/L (3.5-5.1); Sodium 139 mmol/L (136-145); Total Bilirubin 0.4 mg/dL (0.15-1.2); Total Protein 6.6 g/dL (6.6-8.7)
[2024-11-27 13:05] LABS: Creatinine Clr Calc Pharmacy 43.1297
--- NOTE | 2024-11-27 13:25 | PC.NURSE ---
ASSUMED CARE OF PT AT 1300
[2024-11-27 13:27] VITALS: BP 115/66
[2024-11-27 14:24] VITALS: BP 137/81; PULSE 73; RESP 16; O2SAT 96
--- NOTE | 2024-11-27 14:25 | PC.NURSE ---
WET TO DRY DRESSING DONE BY NURSE TO [facility] BEFORE SENT TO [facility]. [facility] WAS CALLED AND REPORT WAS GIVEN TO [facility].
[2024-11-27 14:27] VITALS: BP 137/81; PULSE 73; O2SAT 96
--- NOTE | 2024-11-29 09:07 | DCPLANNER ---
messaged wound care for er f/u
== END 2024-11-27 14:29 | disposition home or self-care (01) ==
PROVIDERS: Emergency Provider Emergency Medicine; PCP Family Medicine
DX: R60.0 Localized edema (principal); Z79.82 Long term (current) use of aspirin; Z86.73 Personal history of transient ischemic attack (TIA), and cerebral infarction without residual deficits; I10 Essential (primary) hypertension; E78.5 Hyperlipidemia, unspecified
CPT/HCPCS: 80053; 83880; 85025; 99283